=== PATIENT | male | born 1970 | race Caucasian/White ===

== ENCOUNTER 2017-02-03 14:11 | Emergency (ER) | payer MEDICARE ==
[2017-02-03 14:39] LABS: #Basophils 0.1 thou/uL (0.0-0.2); #Eosinphils 0.1 thou/uL (0.0-0.7); #Lymphocytes 0.7 thou/uL (1.20-3.40); #Monocytes 0.3 thou/uL (0.11-0.59); #Neutrophils 4.1 thou/uL (1.40-6.50); %Basophils 1.3 % (0.0-1.0); %Eosinophils 1.1 % (0.0-10.0); %Lymphocytes 13.2 % (21.0-51.0); %Monocytes 5.8 % (0.0-10.0); Hematocrit 33.4 % (42.0-52.0); Mean Platelet Volume 9.4 fL (7.4-10.4); Red Blood Cell (RBC) Count 3.27 mill/uL (4.70-6.10); White Blood Cell (WBC) Count 5.2 thou/uL (4.8-10.8)
[2017-02-03 15:00] LABS: ALT (SGPT) 11 U/L (8-55); AST (SGOT) 25 U/L (5-34); Alkaline Phosphatase 105 U/L (40-150); BUN (Urea Nitrogen) 11 mg/dL (8.9-20.6); Bilirubin, Total 0.9 mg/dL (0.2-1.2); CK (CPK) 126 U/L (30-200); Calc. Creatinine Clearance 0 mL/min (70-130); Calcium 8.4 mg/dL (7.8-10.44); Estimated GFR-MDRD 16; Globulin 3.8 g/dL (2.4-3.5); Lipase 51 U/L (8-78); Protein, Total 7.6 g/dL (6.0-8.3)
[2017-02-03 15:03] LABS: Troponin I 0.025 ng/mL (< 0.028)
[2017-02-03 15:11] LABS: Anion Gap 16 mmol/L (10-20); Carbon Dioxide 34 mmol/L (22-29); Chloride 92 mmol/L (98-107)
--- NOTE | 2017-02-03 16:29 | RAD ---
CHEST 1 VIEW: Date: 02/03/17 COMPARISON: 06/28/16 study. HISTORY: Chest pain. FINDINGS: Heart size is enlarged. Postop sternotomy change and valve replacement. Pleural changes in the right lung are similar to the prior exam. No signs of overt failure. IMPRESSION: Cardiomegaly with chronic-appearing lung change. POS: [facility]
== END 2017-02-03 17:46 | disposition home or self-care (01) ==
LOC: ERS 14:11
DX: R07.1 Chest pain on breathing (principal); R09.02 Hypoxemia; J44.9 Chronic obstructive pulmonary disease, unspecified; I12.0 Hypertensive chronic kidney disease with stage 5 chronic kidney disease or end stage renal disease; N18.6 End stage renal disease; F41.9 Anxiety disorder, unspecified; F32.9 Major depressive disorder, single episode, unspecified; Z87.891 Personal history of nicotine dependence; Z99.2 Dependence on renal dialysis
CPT/HCPCS: 71010; 80053; 82553; 83690; 84484; 85025; 93005

== ENCOUNTER 2017-02-15 15:27 | Emergency (ER) | payer MEDICARE ==
[2017-02-15 16:04] LABS: #Basophils 0.1 thou/uL (0.0-0.2); #Lymphocytes 0.5 thou/uL (1.20-3.40); #Monocytes 0.4 thou/uL (0.11-0.59); %Basophils 0.9 % (0.0-1.0); %Eosinophils 0.3 % (0.0-10.0); %Lymphocytes 8.1 % (21.0-51.0); Hematocrit 31.4 % (42.0-52.0); Mean Platelet Volume 8.8 fL (7.4-10.4); Red Blood Cell (RBC) Count 3.11 mill/uL (4.70-6.10)
[2017-02-15 16:10] LABS: Prothrombin Time 47.2 SEC (12.0-14.7)
[2017-02-15 16:11] LABS: PTT 68.9 SEC (22.9-36.1)
[2017-02-15 16:41] LABS: ALT (SGPT) 15 U/L (8-55); AST (SGOT) 40 U/L (5-34); Alkaline Phosphatase 112 U/L (40-150); Anion Gap 16 mmol/L (10-20); BUN (Urea Nitrogen) 20 mg/dL (8.9-20.6); Bilirubin, Total 0.8 mg/dL (0.2-1.2); Calc. Creatinine Clearance 0 mL/min (70-130); Calcium 8.3 mg/dL (7.8-10.44); Carbon Dioxide 33 mmol/L (22-29); Chloride 97 mmol/L (98-107); Estimated GFR-MDRD 12; Globulin 4.4 g/dL (2.4-3.5); Protein, Total 7.9 g/dL (6.0-8.3)
== END 2017-02-15 18:10 | disposition home or self-care (01) ==
LOC: ERS 15:27
DX: S01.532A Puncture wound without foreign body of oral cavity, initial encounter (principal); S01.312A Laceration without foreign body of left ear, initial encounter; D68.9 Coagulation defect, unspecified; I12.0 Hypertensive chronic kidney disease with stage 5 chronic kidney disease or end stage renal disease; N18.6 End stage renal disease; J44.9 Chronic obstructive pulmonary disease, unspecified; D64.9 Anemia, unspecified; E05.90 Thyrotoxicosis, unspecified without thyrotoxic crisis or storm; F41.9 Anxiety disorder, unspecified; F32.9 Major depressive disorder, single episode, unspecified; Z87.891 Personal history of nicotine dependence; Z79.82 Long term (current) use of aspirin; Z79.01 Long term (current) use of anticoagulants; Z79.899 Other long term (current) drug therapy; Y33.XXXA Other specified events, undetermined intent, initial encounter
CPT/HCPCS: 80053; 85025; 85610; 85730; 86850; 86870; 86900; 86901; 86922

== ENCOUNTER 2017-02-18 11:26 | Inpatient (IN) | payer MEDICARE ==
[2017-02-18 12:20] LABS: #Basophils 0.1 thou/uL (0.0-0.2); #Lymphocytes 0.6 thou/uL (1.20-3.40); #Monocytes 0.5 thou/uL (0.11-0.59); #Neutrophils 4.7 thou/uL (1.40-6.50); %Eosinophils 0.8 % (0.0-10.0); %Lymphocytes 9.7 % (21.0-51.0); %Monocytes 8.3 % (0.0-10.0); Hematocrit 29.3 % (42.0-52.0); Mean Platelet Volume 8.7 fL (7.4-10.4); Red Blood Cell (RBC) Count 2.93 mill/uL (4.70-6.10); White Blood Cell (WBC) Count 5.8 thou/uL (4.8-10.8)
[2017-02-18 12:27] LABS: PTT 63.4 SEC (22.9-36.1); Prothrombin Time 25.2 SEC (12.0-14.7)
[2017-02-18 12:44] LABS: ALT (SGPT) 13 U/L (8-55); AST (SGOT) 35 U/L (5-34); Alkaline Phosphatase 103 U/L (40-150); Anion Gap 10 mmol/L (10-20); BUN (Urea Nitrogen) 16 mg/dL (8.9-20.6); Bilirubin, Total 0.9 mg/dL (0.2-1.2); Calc. Creatinine Clearance 0 mL/min (70-130); Calcium 8.5 mg/dL (7.8-10.44); Carbon Dioxide 37 mmol/L (22-29); Chloride 97 mmol/L (98-107); Estimated GFR-MDRD 14; Globulin 4.3 g/dL (2.4-3.5); Protein, Total 7.7 g/dL (6.0-8.3)
[2017-02-18] MEDS ORDERED: Morphine 4 MG/ML VIAL ONE ×2 (15:04→17:02)
[2017-02-18 15:15] LABS: Lactic Acid - Sepsis 2.2 mmol/L (0.5-2.2)
[2017-02-18] MEDS ORDERED: Vancomycin HCl 1.75 GM in Sodium Chloride 0.9% 500 ML IVPB ONE (15:15)
--- NOTE | 2017-02-18 16:22 | ULT ---
VENOUS DOPPLER ULTRASOUND OF THE RIGHT LOWER EXTREMITY: Date: 02/18/17 HISTORY: Right lower leg pain, edema. TECHNIQUE: Grijalva scale ultrasound with color flow and spectral Doppler imaging of the deep venous system of the r ight lower extremity performed. FINDINGS: There is good flow, compression, and augmentation noted in the right common femoral, femoral, deep fe moral, popliteal, posterior tibial, and greater saphenous veins. IMPRESSION: No evidence of deep venous thrombosis in the right lower extremity. POS: [facility]
[2017-02-18] MEDS ORDERED: hydrALAZINE 20 MG/ML VIAL ONE (16:58)
--- NOTE | 2017-02-18 17:19 | RAD ---
THREE VIEWS RIGHT FOOT: Date: 02-18-17 Comparison: None. History: Bleeding ulcer to the right leg. FINDINGS: There is no radiopaque foreign body or subcutaneous gas. Vascular calcification projects between the first and second metatarsals. There is a nondisplaced transverse fracture involving the proximal shaft of the fifth metatarsal. There is marked soft tissue swelling involving the dorsal aspect of the mid and forefoot. IMPRESSION: 1. Marked nonspecific soft tissue swelling which could be related to trauma or infection. 2. Nondisplaced transverse fracture involving the proximal right fifth metatarsal shaft. POS: [facility]
--- NOTE | 2017-02-18 22:25 | CON ---
DATE OF CONSULTATION: 02/18/2017 NEPHROLOGY CONSULT REASON FOR CONSULTATION: Stage 6 chronic kidney disease on maintenance hemodialysis. HISTORY OF PRESENT ILLNESS: This is a very pleasant 46-year-old gentleman who presented to the [facility] with excessive bleeding. The patient denies any nausea, vomiting, or chest pain. The patient is on anticoagulation. The patient denies headache, numbness, tingling, or weakness. PAST MEDICAL HISTORY: End-stage renal disease, hypertension, anemia, history of Epogen resistance, h istory of congestive heart failure, aortic valve replacement, sleep apnea, secondary hyperparathyroid ism, multiple skin ulcers, dialysis access surgery, history of peritoneal dialysis. HOME MEDICATIONS: Reviewed. HOSPITAL MEDICATIONS: Reviewed. ALLERGIES: Reviewed. FAMILY HISTORY: Negative for ESRD. REVIEW OF SYSTEMS: A 15-point review of systems was performed and negative except positives noted ab ove. GENERAL: Weakness-. HEAD: Headache-. NECK: No swelling or lumps. NOSE: No epistaxis or discharge. EYES: No diplopia or pain. RESPIRATORY: Dyspnea-. CARDIOVASCULAR: Chest pain-. GASTROINTESTINAL: Nausea-. /BLEACH PACKER: Hematuria-. MUSCULOSKELETAL: No joint pain. NEUROPSYCHIATIC SYSTEMS: No suicidal ideation. No ideation. SKIN: Denies any rash or ulcer. CONSTITUTIONAL: No fever or chills. PHYSICAL EXAMINATION: GENERAL: Patient is awake, alert. VITAL SIGNS: Afebrile, pulse 70, breathing at 16, blood pressure 130/70. GENERAL APPEARANCE AND MENTAL STATUS: Fair. HEAD/NECK: Normocephalic. Atraumatic. Supple. EYES: EOMI. No deformity. EARS: Clear. No ulcers. NOSE: Intact. No lesions. MOUTH: Clear. No discharge. THROAT: Clear. No exudate. LUNGS: Clear. No crackles. CARDIAC: S1, S2. No rub. ABDOMEN: Benign. BS+. GENITALIA/RECTUM: Green absent. BACK/EXTREMITIES: Lower extremities have edema and bleeding. Ulcer-. NEUROLOGICAL: Alert and motor intact. SKIN: Rash-, Bruise-. LYMPHATICS: Edema-, Ulcer-. LABORATORY DATA: Show hemoglobin 9.6. ASSESSMENT AND RECOMMENDATIONS: 1. Stage 6 chronic kidney disease. No indication for dialysis. 2. Hypertension, stable. 3. Anemia, stable. 4. Medications based on glomerular filtration rate appropriate, excessive bleeding management per pr imary team.
[2017-02-18] MEDS ORDERED: Ondansetron ODT 4 MG TAB SL PRN (22:58)
[2017-02-18] MEDS ORDERED: Ondansetron HCl/PF 4 MG/2 ML Vial IVP PRN (22:58)
[2017-02-18] MEDS ORDERED: Acetaminophen 325 MG TAB PO PRN (22:58)
[2017-02-19] MEDS: HYDROcodone/Acetaminophen 5/325 mg Tablet PO PRN ×2 (05:35→18:17)
[2017-02-19 06:13] LABS: #Basophils 0.1 thou/uL (0.0-0.2); #Lymphocytes 0.6 thou/uL (1.20-3.40); #Monocytes 0.5 thou/uL (0.11-0.59); #Neutrophils 4.3 thou/uL (1.40-6.50); %Eosinophils 0.5 % (0.0-10.0); %Monocytes 8.5 % (0.0-10.0); Mean Platelet Volume 8.2 fL (7.4-10.4); Red Blood Cell (RBC) Count 2.87 mill/uL (4.70-6.10); White Blood Cell (WBC) Count 5.4 thou/uL (4.8-10.8)
[2017-02-19 06:17] LABS: Prothrombin Time 21.2 SEC (12.0-14.7)
[2017-02-19] MEDS ORDERED: Vancomycin HCl 1 GM in Premix Bag 1 BAG IVPB PRN (06:52)
[2017-02-19] MEDS ORDERED: Vancomycin HCl 1.25 GM in Sodium Chloride 0.9% 250 ML 250 ML IVPB PRN (06:52)
[2017-02-19] MEDS ORDERED: HOLD VANCOMYCIN FOR LEVEL >20 FS PRN (06:53)
[2017-02-19] MEDS ORDERED: Vancomycin HCl 750 MG in Sodium Chloride 0.9% 250 ML 250 ML IVPB PRN (06:53)
[2017-02-19 10:49] VITALS: BMI 32.2
--- NOTE | 2017-02-19 12:39 | PRG ---
DATE OF SERVICE: 02/19/2017 SUBJECTIVE: This is a 46-year-old gentleman being seen for end-stage renal disease. Patient denies any nausea, vomiting, or chest pain. OBJECTIVE: See above. GENERAL: Patient is awake, alert. VITAL SIGNS: Afebrile, pulse 74, breathing at 16, blood pressure 118/72. GENERAL APPEARANCE AND MENTAL STATUS: Fair. HEAD/NECK: Normocephalic. Atraumatic. EYES: EOMI. No deformity. EARS: Clear. No ulcers. NOSE: Intact. No lesions. MOUTH: Clear. No discharge. THROAT: Clear. No exudate. LUNGS: Clear. No crackles. CARDIAC: S1, S2. No rub. ABDOMEN: Benign. BS+. GENITALIA/RECTUM: Green absent. BACK/EXTREMITIES: Right lower extremity has 4+ edema. NEUROLOGICAL: Alert and motor intact. SKIN: Rash - bruise. LYMPHATICS: Edema - ulcer. LABORATORY DATA: Labs show hemoglobin 9. ASSESSMENT AND RECOMMENDATIONS: 1. Stage 6 chronic kidney disease. Continue hemodialysis. Today, extra treatment to ultrafiltrate edema with planned dialysis. 2. Anemia, stable. 3. Hypertension, stable. 4. Medications based on glomerular filtration rate are appropriate.
--- NOTE | 2017-02-19 13:59 | HP ---
REASON FOR ADMISSION/CHIEF COMPLAINT: Right leg pain, swelling and bleeding. HISTORY OF PRESENT ILLNESS: Mr. Sheriff is a 46-year-old male with past medical history of end-stage renal disease on hemodialysis, noted swelling of the right leg with erythema and pain. The patient without knowledge scratched the right lower leg and then he started bleeding. The patient danny richards came to the hospital because of right leg swelling, pain, and bleeding. He did not have any fe jackelin or shortness of breath, no chest pain, no headache, no dizziness. The patient was evaluated in [facility] emergency room and found to have marked bleeding in the right lower leg with erythema and swelling . The patient had a pressure bandage applied to the right lower leg. The ER physician felt the lencho ent was possibly developing cellulitis in the lower leg and he was given a dose of vancomycin and giv en morphine for pain. Blood pressure was also elevated, he received a dose of hydralazine. The lencho ent already had dialysis. DVT study was negative. The patient was admitted for further evaluation a nd management. PAST MEDICAL HISTORY: 1. End-stage renal disease, on hemodialysis. 2. Chronic anemia. 3. Obstructive sleep apnea on CPAP. 4. Hypothyroidism. 5. History of respiratory syncytial virus. 6. History of atrial flutter, status post cardioversion. PAST SURGICAL HISTORY: Status post aortic valve replacement. CURRENT MEDICATIONS: Patient is on Coreg 12.5 b.i.d., aspirin 81 mg daily, pramipexole 2 mg daily, P roAir inhaler HFA 2 puffs q.i.d. p.r.n., Claritin 10 mg daily, tramadol p.r.n., Sensipar 60 mg b.i.d. , Renvela 800 mg 5 tablets three times daily, Xanax 0.5 daily p.r.n., Coumadin 6 mg daily. ALLERGIES: SULFA, PENICILLIN, ADHESIVE TAPE, PSEUDOEPHEDRINE. FAMILY HISTORY: Nothing of interest. SOCIAL HISTORY: Patient lives with mother. No history of smoking. No alcohol. REVIEW OF SYSTEMS: CARDIOVASCULAR: No chest pain. RESPIRATORY: No fever or cough. GASTROINTESTINAL: No nausea or vomiting. No abdominal pain. GENITOURINARY: No distension. [employer] LIGHT: No headache, no dizziness. PHYSICAL EXAMINATION: GENERAL: The patient is alert, awake, oriented x3. VITAL SIGNS: Temperature 98, pulse 83, respirations 20, blood pressure 110/70. HEENT: Head is normocephalic, atraumatic. Pupils equal and reactive to light. Nasopharynx is pale and dry. Hard and soft palate, no lesions seen. SKIN: Skin turgor decreased. NECK: Supple. No JVD. LUNGS: Bilateral air entry present, no rales, no rhonchi. CARDIAC: S1, S2 regular. ABDOMEN: Soft, no distention, no tenderness. Normal bowel sounds present. RECTAL: Deferred. CENTRAL NERVOUS SYSTEM: No focal deficits. EXTREMITIES: Right lower leg is markedly swollen, it is warm to touch and tender and has erythema p resent. There is a pressure bandage on the lower leg which is soaked with blood. LABORATORY AND X-RAY FINDINGS: CBC shows WBC 5.8, hemoglobin 9.3, hematocrit 29, platelets 172. Met abolic panel shows sodium 140, potassium 4, chloride 97, CO2 37, BUN 16, creatinine 4.4, glucose 76. Prothrombin time 25, INR 2.2. Vascular ultrasound showed no evidence of DVT. Chest x-ray not done. X-ray of the foot showed nondi splaced fracture involving the proximal right fifth metatarsal. ASSESSMENT: 1. Possible right leg cellulitis. 2. Bleeding right lower leg. 3. End-stage renal disease, on hemodialysis. 4. Status post aortic valve replacement. 5. History of obstructive sleep apnea. PLAN: 1. Vital signs q.4 hours. 2. Activity: As tolerated. 3. Allergies: multiple. 4. Hep-Lock. 5. Vancomycin 1 gram daily. 6. Elevate right leg. 7. Monitor for bleeding. 8. PT/INR, CBC in the morning. 9. We will continue his home medications and hemodialysis.
[2017-02-19 15:37] LABS: Vancomycin, Trough 18.5 ug/mL
[2017-02-19] MEDS: Vancomycin HCl 500 MG in Sodium Chloride 0.9% 100 ML IVPB PRN (16:03)
[2017-02-19] MEDS ORDERED: Acetaminophen 500 MG TAB PO PRN (19:15)
[2017-02-19] MEDS ORDERED: Warfarin Sodium 10 MG TAB PO SCH (19:15)
[2017-02-19] MEDS ORDERED: ALPRAZolam 0.5 MG TAB PO PRN (19:16)
[2017-02-19] MEDS ORDERED: Guaifenesin DM 100-10/5 ML UDCUP PO PRN (19:17)
[2017-02-19] MEDS: Pramipexole Di-HCl 1 MG TAB PO SCH (20:16)
[2017-02-19] MEDS: Cinacalcet HCl 30 MG TAB PO SCH (20:16)
[2017-02-19] MEDS: Carvedilol 6.25 MG TAB PO SCH (20:17)
[2017-02-19] MEDS ORDERED: traMADol HCl 50 MG TAB PO SCH (21:00)
[2017-02-20 06:01] LABS: PTT 50.8 SEC (22.9-36.1); Prothrombin Time 18.6 SEC (12.0-14.7)
[2017-02-20 06:08] LABS: #Lymphocytes 0.8 thou/uL (1.20-3.40); #Monocytes 0.5 thou/uL (0.11-0.59); #Neutrophils 3.8 thou/uL (1.40-6.50); %Basophils 0.3 % (0.0-1.0); %Eosinophils 0.3 % (0.0-10.0); %Lymphocytes 16.3 % (21.0-51.0); Hematocrit 30.4 % (42.0-52.0); Mean Platelet Volume 9.1 fL (7.4-10.4); White Blood Cell (WBC) Count 5.1 thou/uL (4.8-10.8)
[2017-02-20] MEDS ORDERED: Vancomycin Sliding Scale 1 EACH FS SCH (07:00)
[2017-02-20] MEDS ORDERED: traMADol HCl 50 MG TAB PO PRN (07:21)
[2017-02-20] MEDS: Cinacalcet HCl 30 MG TAB PO SCH ×2 (07:59→20:01)
[2017-02-20] MEDS: Folic Acid 1 MG TAB PO SCH (07:59)
[2017-02-20] MEDS: Loratadine 10 MG TAB PO SCH (07:59)
[2017-02-20] MEDS: Ferrous Sulfate 325 MG TAB PO SCH (07:59)
[2017-02-20] MEDS: Carvedilol 6.25 MG TAB PO SCH ×2 (07:59→20:02)
[2017-02-20] MEDS: Sevelamer Carbonate 800 MG TAB PO SCH ×3 (07:59→20:02)
[2017-02-20] MEDS: Aspirin 81 mg Enteric Coated Tablet PO SCH (07:59)
[2017-02-20] MEDS: PROVENTIL INHALER 6.7 G (200 INHALATIONS) INH SCH ×3 (08:12→19:33)
--- NOTE | 2017-02-20 09:00 | CON ---
DATE OF CONSULTATION: 02/20/2017 CONSULTING PHYSICIAN: Dr. Wang Lentz HISTORY OF PRESENT ILLNESS: We were asked to see the patient by the [facility] Service. The patient was in his normal state of health when he was vacuuming and started having some right foot pain on the la teral side. This did not get better. The patient is admitted to the hospital for medical issues. N o numbness and tingling in the foot, just a significant amount of pain. It is a struggle for him to walk. PAST MEDICAL HISTORY: Positive for renal disease, anemia, obstructive sleep apnea, thyroid, atrial f lutter. PAST SURGICAL HISTORY: Aortic valve replacement and a fistula graft for his dialysis. MEDICATIONS: Coreg, aspirin, pramipexole, ProAir MDI, Claritin, tramadol, Sensipar, Renvela, Xanax, and Coumadin. ALLERGIES: SULFA, PENICILLIN, ADHESIVES, SUDAFED. SOCIAL HISTORY: Resides with mother. No alcohol or nicotine use. REVIEW OF SYSTEMS: He has multiple complaints of review of systems for general purpose he has right foot pain. PHYSICAL EXAMINATION: GENERAL: Male, well-nourished, resting in bed, complains of some foot pain. He also has questions a bout his right shoulder. HEENT: Normal exam. NECK: Supple range of motion, good. EXTREMITIES: Upper extremities, he is not able to raise his right upper extremity. He has had some shoulder problems that he has seen Dr. Dang in the past for. He says it is getting worse. I have recommended he return back to Dr. Dang for further evaluation. He is able to move bilateral uppe r extremities from the elbows and left shoulder well. Director Fr[employer]ise [employer] strength is equal. Lower extremities; he has tenderness over the right fifth metatarsal head, but he is able to move his foot. He does have some mild swelling there. DP, PT pulses are intact. ASSESSMENT: 1. Multiple health issues. 2. Fifth metatarsal fracture. PLAN: X-rays show fracture is nondisplaced. We will get him in a walking shoe. He can start workin g with physical therapy as he is able to tolerate and as his other medical ailments will allow. He c an follow up with our office in 4-6 weeks or he can follow up with Dr. Dang to have his foot and s houlder evaluated. Given the recommendation to patient and currently he has no surgical intervention s.
[2017-02-20] MEDS: HYDROcodone/Acetaminophen 5/325 mg Tablet PO PRN (12:06)
--- NOTE | 2017-02-20 12:19 | PRG ---
DATE OF SERVICE: 02/20/2017 SUBJECTIVE: This is a 46-year-old gentleman being seen for end-stage renal disease. Patient denies any nausea, vomiting or chest pain. PHYSICAL EXAMINATION: GENERAL: Patient is awake, alert. VITAL SIGNS: Afebrile, pulse 75, breathing at 16, blood pressure 130/81. OBJECTIVE: See above. Awake, alert, in no acute distress. GENERAL APPEARANCE AND MENTAL STATUS: Fair. HEAD/NECK: Normocephalic. Atraumatic. EYES: EOMI. No deformity. EARS: Clear. No ulcers. NOSE: Intact. No lesions. MOUTH: Clear. No discharge. THROAT: Clear. No exudate. LUNGS: Clear. No crackles. CARDIAC: S1, S2. No rub. ABDOMEN: Benign. BS+. GENITALIA/RECTUM: Green absent. BACK/EXTREMITIES: Edema. Ulcer- NEUROLOGICAL: Alert and motor intact. SKIN: Rash- Bruise- LYMPHATICS: Edema- Ulcer- LABORATORY: Hemoglobin 9.3. ASSESSMENT AND RECOMMENDATIONS: 1. Stage 6 chronic kidney disease, on hemodialysis. 2. Hypertension, stable. 3. Anemia, stable. 4. Medications based on GFR are appropriate.
[2017-02-20 15:58] LABS: Vancomycin, Random 13.3 ug/mL (See Comment)
[2017-02-20] MEDS ORDERED: Warfarin Sodium 2.5 MG TAB PO SCH (17:00)
[2017-02-20] MEDS: Pramipexole Di-HCl 1 MG TAB PO SCH (20:01)
[2017-02-20] MEDS: Warfarin Sodium 3 MG TAB PO SCH (20:01)
[2017-02-21] MEDS: PROVENTIL INHALER 6.7 G (200 INHALATIONS) INH SCH ×3 (06:31→19:15)
[2017-02-21] MEDS: Carvedilol 6.25 MG TAB PO SCH ×2 (08:29→19:41)
[2017-02-21] MEDS: Cinacalcet HCl 30 MG TAB PO SCH ×2 (08:29→19:41)
[2017-02-21] MEDS: Loratadine 10 MG TAB PO SCH (08:29)
[2017-02-21] MEDS: Aspirin 81 mg Enteric Coated Tablet PO SCH (08:30)
[2017-02-21] MEDS: Folic Acid 1 MG TAB PO SCH (08:30)
[2017-02-21] MEDS: Ferrous Sulfate 325 MG TAB PO SCH (08:30)
[2017-02-21] MEDS: Sevelamer Carbonate 800 MG TAB PO SCH ×3 (09:44→17:44)
--- NOTE | 2017-02-21 12:24 | PRG ---
DATE OF SERVICE: 02/21/2017 SUBJECTIVE: This is a 46-year-old gentleman being seen for end-stage renal disease. The patient den ies any nausea, vomiting or chest pain. PHYSICAL EXAMINATION: GENERAL: Patient is awake, alert. VITAL SIGNS: Afebrile, pulse 85, breathing at 16, blood pressure 104/68. OBJECTIVE: See above. Awake, alert, in no acute distress. GENERAL APPEARANCE AND MENTAL STATUS: Fair. HEAD/NECK: Normocephalic. Atraumatic. EYES: EOMI. No deformity. EARS: Clear. No ulcers. NOSE: Intact. No lesions. MOUTH: Clear. No discharge. THROAT: Clear. No exudate. LUNGS: Clear. No crackles. CARDIAC: S1, S2. No rub. ABDOMEN: Benign. BS+. GENITALIA/RECTUM: Green absent. BACK/EXTREMITIES: Lower extremities have edema. Ulcer- NEUROLOGICAL: Alert and motor intact. SKIN: Rash- Bruise- LYMPHATICS: Edema- Ulcer- LABORATORY: Hemoglobin 9.4. ASSESSMENT: 1. Stage 6 chronic kidney disease, continue hemodialysis. 2. Hypertension, stable. 3. Anemia, stable. 4. Medications based on GFR are appropriate. 5. Secondary hyperparathyroidism. Continue low phosphorus diet and binders.
[2017-02-21] MEDS: Warfarin Sodium 3 MG TAB PO SCH (17:47)
[2017-02-21] MEDS: Pramipexole Di-HCl 1 MG TAB PO SCH (19:41)
[2017-02-21] MEDS: HYDROcodone/Acetaminophen 5/325 mg Tablet PO PRN (23:40)
[2017-02-22 05:51] LABS: Prothrombin Time 23.5 SEC (12.0-14.7)
[2017-02-22] MEDS: PROVENTIL INHALER 6.7 G (200 INHALATIONS) INH SCH ×3 (05:56→18:19)
[2017-02-22 07:23] VITALS: TEMP 97.9
[2017-02-22] MEDS: Carvedilol 6.25 MG TAB PO SCH (08:44)
[2017-02-22] MEDS: Sevelamer Carbonate 800 MG TAB PO SCH ×3 (08:44→19:05)
[2017-02-22] MEDS: Ferrous Sulfate 325 MG TAB PO SCH (08:45)
[2017-02-22] MEDS: Folic Acid 1 MG TAB PO SCH (08:45)
[2017-02-22] MEDS: Loratadine 10 MG TAB PO SCH (08:45)
[2017-02-22] MEDS: Cinacalcet HCl 30 MG TAB PO SCH (08:45)
[2017-02-22] MEDS: Aspirin 81 mg Enteric Coated Tablet PO SCH (08:45)
[2017-02-22 12:53] LABS: Vancomycin, Random 15.7 ug/mL (See Comment)
[2017-02-22] MEDS: Vancomycin HCl 500 MG in Sodium Chloride 0.9% 100 ML IVPB PRN (17:02)
[2017-02-22] MEDS: Warfarin Sodium 3 MG TAB PO SCH (18:41)
[2017-02-22 19:06] VITALS: BP 126/75
--- NOTE | 2017-02-22 19:49 | PRG ---
DATE OF SERVICE: 02/22/2017 SUBJECTIVE: This is a 46-year-old gentleman being seen for end-stage renal disease. The patient denies any nausea, vomiting or chest pain. PHYSICAL EXAMINATION: GENERAL: Patient is awake, alert. VITAL SIGNS: Afebrile, pulse 70, breathing at 16, blood pressure 112/76. GENERAL APPEARANCE AND MENTAL STATUS: Fair. HEAD/NECK: Normocephalic. Atraumatic. EYES: EOMI. No deformity. EARS: Clear. No ulcers. NOSE: Intact. No lesions. MOUTH: Clear. No discharge. THROAT: Clear. No exudate. LUNGS: Clear. No crackles. CARDIAC: S1, S2. No rub. ABDOMEN: Benign. BS+. GENITALIA/RECTUM: Green absent. BACK/EXTREMITIES: Edema 0+ Ulcer- NEUROLOGICAL: Alert and motor intact. SKIN: Rash- Bruise- LYMPHATICS: Edema- Ulcer- LABORATORY: Hemoglobin 9.4. ASSESSMENT: 1. Stage6 chronic kidney disease, continue hemodialysis. 2. Hypertension, stable. 3. Anemia, stable. 4. Medications based on glomerular filtration rate are appropriate. MTDD
[2017-02-23] MEDS ORDERED: Warfarin Sodium 10 MG TAB PO SCH (17:00)
== END 2017-02-22 19:13 | disposition home or self-care (01) | DRG 602 ==
LOC: ERS 11:26 → T4-A 22:49
PROVIDERS: ADMIT Internal Medicine; ATTEND Internal Medicine
PROC: 5A1D70Z Performance of Urinary Filtration, Intermittent, Less than 6 Hours Per Day (ICD-10-PCS; principal; 2017-02-20)
DX: L03.115 Cellulitis of right lower limb (principal); N18.6 End stage renal disease; I12.0 Hypertensive chronic kidney disease with stage 5 chronic kidney disease or end stage renal disease; N25.81 Secondary hyperparathyroidism of renal origin; I48.92 Unspecified atrial flutter; Z99.81 Dependence on supplemental oxygen; D63.1 Anemia in chronic kidney disease; E03.9 Hypothyroidism, unspecified; S92.354A Nondisplaced fracture of fifth metatarsal bone, right foot, initial encounter for closed fracture; G47.33 Obstructive sleep apnea (adult) (pediatric); Z99.2 Dependence on renal dialysis; Z95.2 Presence of prosthetic heart valve; Z88.0 Allergy status to penicillin; Z88.2 Allergy status to sulfonamides; Z88.8 Allergy status to other drugs, medicaments and biological substances; J44.9 Chronic obstructive pulmonary disease, unspecified; G25.81 Restless legs syndrome; Z87.891 Personal history of nicotine dependence; F41.9 Anxiety disorder, unspecified; F32.9 Major depressive disorder, single episode, unspecified; E66.01 Morbid (severe) obesity due to excess calories; Z68.32 Body mass index [BMI] 32.0-32.9, adult
CPT/HCPCS: 36415; 36416; 80053; 80202; 83605; 83735; 85025; 85610; 85730; 86850; 86870; 86900; 86901; 86922; 87040; 90935; 96365; 96366; 96375; 96376; A4216; G0257; G8978-GP-CI; G8979-GP-CI; G8980-GP-CI; J0360; J2270; J3370; J7050

== ENCOUNTER 2017-04-01 16:29 | Inpatient (IN) | payer MEDICARE ==
[2017-04-01 16:47] LABS: pH, Arterial 7.28 (7.35-7.45)
[2017-04-01 16:48] LABS: Actual Bicarbonate (HCO3a) 33.4 mEq/L (22-26); Base Excess (BEa) 5.1 mEq/L (0 (+/-) 2.5); O2 Tension (PaO2) 26.9 mmHg (80.0-100.0)
[2017-04-01 16:49] LABS: Analyzer IN Cardio ER; Hemoglobin (Hb) 9.9 g/dL (14.0-18.0); Puncture Site LRA
[2017-04-01] MEDS ORDERED: Acetaminophen 650 MG Suppository ONE (16:57)
--- NOTE | 2017-04-01 16:59 | RAD ---
SINGLE VIEW OF THE CHEST: Comparison: 02-03-17 History: Dyspnea and shortness of breath that started yesterday. FINDINGS: Single view of the chest shows an enlarged but stable cardiomediastinal silhouette. The patient is st atus post aortic valve replacement. There appears to be a small right pleural effusion. Increased int erstitial markings are present. Atelectasis versus an infiltrate is seen in the right lower lobe. No significant change has occurred since the prior exam. IMPRESSION: 1. Small right pleural effusion with adjacent atelectasis versus infiltrate. 2. Cardiomegaly. POS: [facility]
[2017-04-01 18:19] LABS: #Lymphocytes 1.2 thou/uL (1.20-3.40); #Monocytes 0.7 thou/uL (0.11-0.59); #Neutrophils 9.3 thou/uL (1.40-6.50); %Basophils 0.3 % (0.0-1.0); %Eosinophils 0.3 % (0.0-10.0); %Lymphocytes 10.8 % (21.0-51.0); %Monocytes 6.5 % (0.0-10.0); %Neutrophils 82.1 % (42.0-75.0); Hemoglobin 9.4 g/dL (14.0-18.0); Mean Corpuscular Hemoglobin 30.9 pg (27.0-31.0); Mean Platelet Volume 9.1 fL (7.4-10.4); Platelet Count 126 thou/uL (130-400); Red Blood Cell (RBC) Count 3.05 mill/uL (4.70-6.10); White Blood Cell (WBC) Count 11.3 thou/uL (4.8-10.8)
[2017-04-01 18:24] LABS: INR-International Normal Ratio 2.9; PTT 42.1 SEC (22.9-36.1); Prothrombin Time 31.1 SEC (12.0-14.7)
[2017-04-01 18:40] LABS: ALT (SGPT) 21 U/L (8-55); AST (SGOT) 104 U/L (5-34); Albumin 3.3 g/dL (3.5-5.0); Alkaline Phosphatase 105 U/L (40-150); Anion Gap 19 mmol/L (10-20); Anisocytosis SLIGHT = 6-15 cells (100X) (0-5/hpf); BUN (Urea Nitrogen) 18 mg/dL (8.9-20.6); Bilirubin, Total 1.2 mg/dL (0.2-1.2); CK (CPK) 108 U/L (30-200); Calc. Creatinine Clearance 0 mL/min (70-130); Calcium 8.2 mg/dL (7.8-10.44); Carbon Dioxide 25 mmol/L (22-29); Chloride 99 mmol/L (98-107); Estimated GFR-MDRD 16; Globulin 4.3 g/dL (2.4-3.5); Glucose 70 mg/dL (70-105); MDiff Complete? YES; Macrocytosis SLIGHT = 6-15 cells (100X) (0-5/hpf); Microcytosis SLIGHT = 6-15 cells (100X) (0-5/hpf); PLT Morphology Comment Appears Adequate; Polychromasia MODERATE = 3-4 cells (100X) (0-2/hpf); Potassium 3.9 mmol/L (3.5-5.1); Protein, Total 7.6 g/dL (6.0-8.3); Rouleaux Formation SLIGHT = 1-5 cells (100X) (None Seen); Sodium 139 mmol/L (136-145)
[2017-04-01 18:44] LABS: CKMB 3.8 ng/mL (0-6.6)
[2017-04-01] MEDS ORDERED: Pantoprazole 40 MG VIAL ONE (18:59)
--- NOTE | 2017-04-01 19:02 | RAD ---
PORTABLE AP CHEST RADIOGRAPH: Date: 04-01-17 History: Intubated. Comparison: 04-01-17 at 0442. FINDINGS: There has been interval placement of an endotracheal tube with the tip overlying the T3-4 level and a annie the level of the dread. There has also been interval placement of a nasogastric tube with the m ost proximal side hole overlying the distal esophagus and the tip overlying the expected location of the gastric cardia. Nasogastric tube should be advanced. Post-surgical changes related to median sternotomy and cardiac valve replacement are noted. Cardiac s ilhouette is enlarged. Again noted is pleural and parenchymal changes of the right lung base, probabl y related to right pleural effusion and atelectasis. However, developing pneumonia at the right lung base is a possibility. Left lung is clear. Pulmonary vasculature is within normal limits. No other in terval change. There is prominent right glenohumeral osteoarthropathy. No other interval change. IMPRESSION: 1. Interval placement of a nasogastric tube, the tip is overlying the region of the gastric cardia wi th the most proximal side hole overlying the distal esophagus. The nasogastric tube should be advanc ed. 2. Interval placement of an endotracheal tube with tip above the level of the dread. 3. Pleural and parenchymal changes, right lung base, with pleural based density along the right later al chest. This is likely related to right pleural effusion and atelectasis. However, superimposed pne umonia at the right lung base is a possibility. Follow up to resolution is recommended. 4. Cardiomegaly. POS: [facility]
[2017-04-01 19:03] LABS: Actual Bicarbonate (HCO3a) 30.5 mEq/L (22-26); Base Excess (BEa) 3.9 mEq/L (0 (+/-) 2.5); CO2 Tension 58.4 mmHg (35.0-45.0); Hematocrit-ABG 27.9 % (42.0-52.0); Hemoglobin (Hb) 7.8 g/dL (14.0-18.0); O2 Tension (PaO2) 186.2 mmHg (80.0-100.0); pH, Arterial 7.34 (7.35-7.45)
[2017-04-01 19:04] LABS: Analyzer IN Cardio ER; Puncture Site RRA
[2017-04-01] MEDS ORDERED: Pantoprazole 80 MG in Sodium Chloride 0.9% 100 ML IVP SCH (19:15)
[2017-04-01] MEDS ORDERED: Cefepime 2 GM in Sodium Chloride 0.9% 100 ML IVPB SCH (22:15)
[2017-04-01] MEDS ORDERED: Vancomycin HCl 1 GM in Premix Bag 1 BAG IVPB SCH (22:15)
[2017-04-01] MEDS ORDERED: Cefepime 2 GM, Syringe 2.5 ML in Sterile Water 10 ML SLOW IVP SCH (22:30)
--- NOTE | 2017-04-01 23:20 | CON ---
DATE OF CONSULTATION: 04/01/2017 NEPHROLOGY CONSULTATION REASON FOR CONSULTATION: Stage 6 chronic kidney disease. HISTORY OF PRESENT ILLNESS: This is a 46-year-old gentleman who presented to the hospital after feel ing weak. The patient had worsening dyspnea and was hypoxic and intubated. The patient can give no further history. PAST MEDICAL HISTORY: 1. Hypertension. 2. Coronary artery disease. 3. Aortic valve replacement. 4. History of anticoagulation. 5. Sleep apnea. 6. Secondary hyperparathyroidism. 7. History of calciphylaxis. 8. History of dialysis access surgery. 9. History of peritoneal dialysis catheter placement. 10. History of aortic valve replacement. 11. History of massive fluid gains. HOME MEDICATIONS: List reviewed. HOSPITAL MEDICATIONS: List reviewed. ALLERGIES: Not obtainable. REVIEW OF SYSTEMS: Not obtainable. The patient is intubated. PHYSICAL EXAMINATION: GENERAL: The patient is resting. VITAL SIGNS: Afebrile, pulse 80, breathing at 16, blood pressure was 84/40. GENERAL APPEARANCE AND MENTAL STATUS: Fair. HEAD/NECK: Normocephalic. Atraumatic. EYES: EOMI. No deformity. EARS: Clear. No ulcers. NOSE: Intact. No lesions. MOUTH: Clear. No discharge. THROAT: Clear. No exudate. LUNGS: Clear. No crackles. CARDIAC: S1, S2. No rub. ABDOMEN: Benign. BS+. GENITALIA/RECTUM: Green absent. BACK/EXTREMITIES: Edema 0+ Ulcer-. SKIN: Rash- Bruise- LYMPHATICS: Edema- Ulcer- LABORATORY DATA: Show hemoglobin 9.4, potassium 3.9. ASSESSMENT AND RECOMMENDATIONS: 1. Stage 6 chronic kidney disease, plan hemodialysis as tolerated. The patient's blood pressure is low, so cannot tolerate dialysis. 2. Anemia, stable. 3. Medications based on GFR appropriate.
--- NOTE | 2017-04-01 23:53 | CON ---
DATE OF CONSULTATION: 04/01/2017 HISTORY OF PRESENT ILLNESS: Mr. Sheriff is a very pleasant 46-year-old male. History is obtained fro m his mother who is at the bedside. Mr. Sheriff unfortunately is a diabetic with end-stage renal disease. He has had multiple hospitalizations here. He has been followed in the [facility]. He is also followed by Dr. Longo for his end-stage renal disease. Apparently, he was hypotensive on d ialysis and sent to the emergency room. He has subsequently been intubated. He had some respiratory distress associated with this. He is sedated for mechanical ventilation at this time. I initially evaluated him, he had a pressure in the 70s, was given a liter of saline, his pressure went up to 110 and he dropped back down into th e high 80s to low 90s, we given him another liter of saline. Initially, they were unable to get blood out of him. I have placed a central line, it was noted that blood will be drawn out of that. PAST MEDICAL HISTORY: 1. I have seen him in consultation early in 2017. He has end-stage renal disease. 2. He has an Acinetobacter bacteremia in early 2017. 3. History of sleep apnea. 4. Hypothyroidism. 5. History of atrial flutter. 6. History of an aortic valve replacement. His mother tells me his last INR was 3.7. SOCIAL HISTORY: He is a nonsmoker, nondrinker. MEDICATIONS: Have been reviewed. FAMILY HISTORY: Negative for lung disease at an early age. REVIEW OF SYSTEMS: Otherwise not obtainable. His mother denies he has had bright red blood per rect um. She says he has been constipated, she thinks for several days as he was asking for stool softene r, although he was telling her he was not constipated. PHYSICAL EXAMINATION: VITAL SIGNS: At the time of consultation, his blood pressure in the 90s, heart rate was around 100, he appeared to be in sinus rhythm. HEENT: Pupils were equal. Sclerae is anicteric. NECK: Supple. He is orally intubated. He had an OG tube that had old blood in it. LUNGS: His lungs were clear. HEART: Regular rhythm. S1 and S2 are normal. ABDOMEN: Soft, it is distended and firm. EXTREMITIES: Without asymmetry. LABORATORY DATA: White count 11.3, hemoglobin 9.4, MCV is 103, platelets 126. With his old blood in his NG tube and his hypotension, I have recommended that he be transfused. Sodium 139, potassium 3.9, chloride 99, bicarbonate 25, BUN 18, creatinine 4.14. First blood gas, pH of 7.28, CO2 of 73, pO2 of 26; second blood gas, pH of 7.34, CO2 of 58, pO2 of 186, I suspect that p revious gas was a venous gas. Chest radiograph showed no alveolar infiltrate suggestive of a pneumon ia. He has had pleural changes on past films at his right base. IMPRESSION: 1. Respiratory failure. 2. End-stage renal disease. 3. Hypotension, rule out blood loss. He is certainly at risk for being septic. Cultures will be or dered. 4. History of aortic valve replacement. 5. History of pneumonia. 6. Chronic anticoagulation. His INR is 2.9, this does not need to be reversed at this point. There is no bright red blood in his orogastric tube, this will need to be watch closely. PLAN: Admission to the Critical Care Unit. Serial H and H. His GI consultation and the ER doctor, placed to call the Dr. Sales, who is outreach professional. I do not feel he needs emergent endoscopy at this point. Empiric antibiotics would be reasonable after cultures are drawn. Nebulizer treatments while mechanically ventilated would be reasonable. Steroids would be as well. I will be happy to follow with the other physicians caring for him. Dr. Metzger has been his atte nding in the past and if he is still following, will be the attending. Critical care time 40 minutes independent of the procedure.
--- NOTE | 2017-04-02 00:04 | OP ---
PROCEDURE: Central line placement. PAVING RAMMER: Lencho Blackwell M.D. PROCEDURE IN DETAIL: Right groin was prepped with chlorhexidine. His femoral vein was easily cannul ated. J-wire was passed followed by vein dilator. A small incision was made with a #11 blade prior to the vein dilator. Triple lumen catheter was advanced and sewn in place x2. Good blood return was obtained from all 3 ports. Sterile dressing was applied.
[2017-04-02] MEDS: metroNIDAZOLE 500 MG in Premix Bag 1 BAG IVPB SCH ×4 (01:16→23:25)
[2017-04-02] MEDS ORDERED: Propofol 1,000 MG/100 ML VIAL IV ONE (01:58)
[2017-04-02] MEDS ORDERED: Fentanyl BOLUS 250 ML IVPB PRN (02:04)
[2017-04-02] MEDS ORDERED: Morphine 2 MG/ML SYRINGE SLOW IVP PRN (02:04)
[2017-04-02] MEDS ORDERED: DISCONTINUE PREVIOUS NARCOTIC PAIN MEDICATIONS AND BENZODIAZEPINES FS SCH (02:04)
[2017-04-02 05:09] LABS: INR-International Normal Ratio 2.7
[2017-04-02] MEDS: Lorazepam 2 MG/ML VIAL SLOW IVP PRN ×2 (05:15→10:15)
[2017-04-02 05:18] LABS: Anion Gap 16 mmol/L (10-20); BUN (Urea Nitrogen) 26 mg/dL (8.9-20.6); Calc. Creatinine Clearance 32 mL/min (70-130); Carbon Dioxide 28 mmol/L (22-29); Chloride 100 mmol/L (98-107); Estimated GFR-MDRD 13; Glucose 85 mg/dL (70-105); Potassium 3.8 mmol/L (3.5-5.1); Sodium 140 mmol/L (136-145)
[2017-04-02 05:41] LABS: Anisocytosis MODERATE=16-30 cells (100X) (0-5/hpf); Band 16 % (5-11); Hemoglobin 11.6 g/dL (14.0-18.0); Lymphocytes 5 % (21-51); MDiff Complete? YES; Mean Corpuscular HGB CONC 30.8 g/dL (32.0-36.0); Mean Corpuscular Hemoglobin 31.1 pg (27.0-31.0); Mean Platelet Volume 9.7 fL (7.4-10.4); Metamyelocyte 1 % (0-0); Monocytes 2 % (0-10); Neutrophil 75 % (42-75); Ovalocytes SLIGHT = 2-5 cells (100X) (0-1/hpf); PLT Morphology Comment Appears Adequate; Platelet Count 133 thou/uL (130-400); Polychromasia SLIGHT = 2-3 cells (100X) (0-2/hpf); RBC Distribution Width 18.8 % (11.5-14.5); Red Blood Cell (RBC) Count 3.72 mill/uL (4.70-6.10); White Blood Cell (WBC) Count 14.8 thou/uL (4.8-10.8)
[2017-04-02] MEDS ORDERED: Acetaminophen 1,000 MG in Premix Bag 1 BAG IVPB PRN (05:54)
--- NOTE | 2017-04-02 08:05 | RAD ---
PORTABLE AP ABDOMINAL RADIOGRAPH: DATE: 04/01/17. HISTORY: Abdominal distention. FINDINGS: Chest x-ray also obtained on 04/01/17. Nasogastric tube is noted in place, but the tip is difficult to visualize but overlies the expected l ocation of the body of the stomach. There are pleural and parenchymal changes at the right lung base suggesting right pleural effusion and atelectasis. Superimposed infiltrate cannot be entirely exclu ded. Median sternotomy wires are present. There is a right femoral catheter noted in place with the tip overlying the right aspect of the sacru m. The bowel gas pattern is overall nonspecific. Vascular calcifications overlie the pelvis. There is calcification overlying the right mid abdomen which could potentially represent a renal calculus, but this is difficult to definitively delineate on this exam. Prior CT of the abdomen on 07/02/16 de monstrated atrophic right kidney with calcifications present which likely accounts for the calcificat ion seen on this exam. Osseous structures appear intact. IMPRESSION: 1. Nasogastric tube and right femoral catheter are noted in place. 2. Pleural and parenchymal changes right lung base probably related to right pleural effusion and at electasis. Superimposed infiltrate cannot be excluded. 3. Nonspecific bowel gas pattern. 4. Right renal calculus. POS: [facility]
[2017-04-02] MEDS: Norepinephrine 8 MG/250 ML BAG IVPB PRN ×2 (08:24→18:07)
[2017-04-02] MEDS ORDERED: Cefepime 2 GM, Syringe 2.5 ML in Sterile Water 10 ML SLOW IVP SCH ×2 (09:00→21:00)
--- NOTE | 2017-04-02 09:07 | CON ---
DATE OF CONSULTATION: 04/01/2017 REASON FOR CONSULTATION: Reported hematemesis in the ER. HISTORY OF PRESENT ILLNESS: Mr. Sheriff is a 46-year-old gentleman known to me from prior evaluations for anemia in 03/2015. At that time, he was a new patient here with history of renal failure on guillermo lysis and a component of heart failure, and prior aortic valve replacement x2, first with porcine yuri ve which was integrated and then also with metallic valve and he had been on anticoagulation. He had no overt bleeding at that time, equivocal iron studies, and negative Hemoccults, but due to his santana sfusion requirements dialysis setting, he is set up for upper and lower endoscopies. At that time, cherelle carlos underwent an upper endoscopy that was normal. He arrested when attempting to turn him for a colono scopy. He was intubated, moved to the ICU. He survived this arrest with no deficits. In talking to his family who arrived after this, he had had a similar episode with an endoscopy attempted in [facility] where he had lived previously. Ultimately, multiple Hemoccults were taken and he had no bleedin g. The decision was made not to reattempt a colonoscopy. We reevaluated him for anemia again in 2016. At that time, again, he had hematuria and had some nosebleeds. He had one episode of bright r ed blood per rectum, which was attributed to be hemorrhoids. He was also evaluated by Hematology at that time, who noted very low haptoglobin but normal LDH and was concerned maybe he was having a comp onent of hemolysis aortic valve, although the aortic valve seemed to be intact without any leak s. He was recently in this hospital from 02/18/2017 to 02/22/2017 with right leg cellulitis and blee ding from his leg. He was discharged at that time on , iron, tramadol, albuterol, Sensipar, Cla ritin, Xanax, clindamycin for a week, and for his Coumadin, he follows in Coumadin clinic. Apparentl y, he presented to the emergency room this evening with complaints of feeling weak after dialysis. A pparently from the ER note, the patient's mother reported that he had done dialysis today, it went we ll but had a little bit low blood pressure there. Then, he went home and felt like he was not well, decided to go to bed. Subsequent to that, he began to holler for his mother, and he was on the groun d, difficulty getting his breathing mask on, tried nasal cannula, but did not help him. Ultimately, EMS was called and he was brought to the emergency room here. He was mildly hypotensive with systoli c pressures in the 80s on arrival and with shortness of breath. His O2 sat was 50 on room air. When the EMS arrived, 80% with nonrebreather. He was placed on CPAP, DuoNeb, and a blood pressure up to 120 per the ER note, but ultimately here, he was hypotensive with systolics in the 80s, diastolics in the 100s, pulse was in the 80s, with increased work of breathing. He was ultimately intubated at at time. He had some emesis that was dark brown in color. NG tube was placed, but nothing has come back. He had no diarrhea at home, in fact, in the ER note, his mother reported he had asked for laxa tives, stool softener. Ultimately, in the emergency room, he had one stool that was dark, greenish b lack, but not melenic and he has had another here in the ICU. Presently, he is on some Levophed. He has been started on cefepime. Cultures have been drawn. His blood pressure presently at 105/57, pu lse of 85, O2 sat of 93%. Chest x-ray showed ET tube in a proper position and an OG tube in place. He is intubated and sedated and cannot add any history. REVIEW OF SYSTEMS: Unable to be obtained as the patient is intubated and sedated. PAST MEDICAL HISTORY: 1. End-stage renal disease on dialysis. 2. Chronic anemia, which is felt to multifactorial without signs of overt bleeding. 3. Obstructive sleep apnea on CPAP. 4. Hypothyroidism. 5. History of atrial flutter, previous cardioversion. 6. History of recent cellulitis, treated with clindamycin in the outpatient setting which he finishe d 7 days after his discharge on 02/27/2017. 7. Restless legs. PAST SURGICAL HISTORY: Includes aortic valve replacement x2, patent foramen ovale apparently, upper endoscopy as previously reported here, dialysis catheter placement, inguinal hernia repair. ALLERGIES: SULFA, PENICILLIN, ADHESIVE, PSEUDOEPHEDRINE. SOCIAL HISTORY: Nonsmoker, he stopped in about a year ago. HOME MEDICATIONS: Carvedilol, aspirin 81 mg, pramipexole, ProAir, folic acid, iron, Claritin, Sensip ar, Renvela, alprazolam, warfarin 6 mg a day, oxygen 3 liters. FAMILY HISTORY: Noncontributory. PRESENT MEDICATIONS: DuoNeb, cefepime, methylprednisolone 40 IV q.6 hours, Levophed, pantoprazole 80 mg drip, vancomycin 1 gram was given, and he is receiving some blood now. PHYSICAL EXAMINATION: VITAL SIGNS: The patient is intubated, has OG tube at 70 cm, pulse 83, blood pressure 108/57, O2 sat 93%. GENERAL: The patient is intubated and sedated. LUNGS: Decreased breath sounds. In the emergency room, he apparently was wheezing quite heavily. ABDOMEN: Protuberant, but nontender. There may be some shifting dullness with mild tympany in the u pper abdomen, dull otherwise, no flanks. Bowel sounds are nonexistent. RECTAL: Reveals greenish blackish stool, but not frankly melenic. This was appearance of some one c hronic iron, NG tube has no return. EXTREMITIES: Reveal erythema and edema. GENITOURINARY: Scrotum is normal. IMAGING: Chest x-ray showed enlarged heart, mild bilateral lower lung infiltrates, right pleural eff usion, and atelectasis. LABORATORY DATA: White count was 13.3, hemoglobin 9.4, it was 9.4 on 02/20/2017, MCV 103, platelet c ount 126, 82 segs, 10% lymphocytes, no bands noted. INR was 2.9. Blood gas: PH 7.34, pO2 58, it moore s been 73 on admission. Chemistry: Sodium 139, potassium 3.9, bicarbonate 25, BUN and creatinine ar e 18 and 4.14, calcium 8.2, bilirubin 1.2, AST 104, ALT 21, albumin 3.3. Troponin 0.18. Folate was 18, on 12/01/2016, it was 6.3, low on 03/01/2017, B12 923 on 03/01/2017, TIBC 201 on 03/01/2017, iron on 03/01/2017, ferritin 2032 on 12/01/2016. ASSESSMENT: 1. This is a 46-year-old gentleman who came with renal failure and component of heart disease, cardi omegaly, prior aortic valve replacement on Coumadin, baby aspirin, who came to the hospital after guillermo lysis today where his family notes that his pressure was a little bit low. He felt bad at home, meka me short of breath and was brought to the hospital hypoxic with signs of pulmonary edema and possible small effusion. He had hemoglobin the same as what it has been in his last discharge, normal BUN an d was started on BiPAP and then intubated. At the time of intubation, he had some emesis of dark mat erial. He has had no bowel movements at home, but has had 2 here which were dark, smell of iron. He moccult was pending. There is no overt melena on exam. His abdomen is somewhat distended, but not h dax. There are no bowel sounds. He does not show signs of metabolic acidosis. He was on recent ant ibiotics with clindamycin for cellulitis. 2. Questionable gastrointestinal bleed. He had emesis of coffee-ground material, has none further n ow. He has had no return from his NG tube and he has some dark stools, but this all may be from the iron he is on. I do not think he has had a significant gastrointestinal bleed. His hemoglobin was s table on admission. He was not tachycardic and he had a normal BUN, which would go against the signi ficant upper gastrointestinal bleed. He is on warfarin now and aspirin is at risk for this. He is r eceiving 2 units of blood now for his general hypotension. 2. Hypotension, more concerned about sepsis or infection, a gastrointestinal bleed is a cause of thi s. 3. Loose stool. Presently, he was on clindamycin within the past month and Clostridium difficile is a concern. RECOMMENDATIONS: 1. I agree with Protonix drip. 2. He needs volume and the blood is not unreasonable in light of concern for possible bleeding, but I think his hemoglobin is about stable, concern for C. diff is the source of infection at present. 3. Diarrhea. Clostridium difficile, as it was a concern, we will order this. 4. History of chronic anemia in the past with a negative endoscopy and arrested when attempted colon oscopy. No overt bleeding at that time nor on reevaluation in 2015. Ultimately, there was some conc tej about hemolysis from part of Hematology, but this was never confirmed. His hemoglobin has stabil ized. I am not aware of him requiring transfusion recently. Looking at blood bank reports from this hospital, his last transfusion here was in 05/2016, but I am not sure about any transfusions on dial ysis. PLAN: 1. H&H after transfusion. 2. Recheck INR in the morning. 3. Agree with Protonix drip. 4. EGD tomorrow morning. 5. Stool for Clostridium difficile. 6. Two-view of the abdomen.
[2017-04-02 10:27] LABS: CO2 Tension 60.5 mmHg (35.0-45.0); O2 Tension (PaO2) 92.2 mmHg (80.0-100.0); pH, Arterial 7.27 (7.35-7.45)
[2017-04-02 10:28] LABS: Actual Bicarbonate (HCO3a) 26.9 mEq/L (22-26); Calcium, Ionized 1.1 mmol/L (1.12-1.30); Hematocrit-ABG 40.4 % (42.0-52.0); Hemoglobin (Hb) 11.6 g/dL (14.0-18.0)
[2017-04-02 10:29] LABS: ALV-art Gradient 334.775 (0-20)
[2017-04-02] MEDS: Propofol 1,000 MG/100 ML VIAL IV PRN ×2 (10:41→16:18)
[2017-04-02] MEDS: fentaNYL Citrate/PF 2,000 MCG in Sodium Chloride 0.9% 60 ML IV SCH (12:05)
[2017-04-02] MEDS: Vancomycin HCl 25 MG/ML Oral PO SCH ×3 (12:10→21:42)
--- NOTE | 2017-04-02 12:45 | PRG ---
DATE OF SERVICE: 04/02/2017 SUBJECTIVE: This is a 46-year-old gentleman being seen for end-stage renal disease. The patient rem ains intubated. PHYSICAL EXAMINATION: GENERAL: On examination, patient is resting. VITAL SIGNS: Afebrile, pulse 81, breathing at 16, blood pressure 123/60. HEAD/NECK: Normocephalic. Atraumatic. EYES: EOMI. No deformity. EARS: Clear. No ulcers. NOSE: Intact. No lesions. MOUTH: Clear. No discharge. THROAT: Clear. No exudate. LUNGS: Clear. No crackles. CARDIAC: S1, S2. No rub. ABDOMEN: Benign. BS+. GENITALIA/RECTUM: Green absent. BACK/EXTREMITIES: Edema 0+ Ulcer- NEUROLOGICAL: The patient is resting. SKIN: Rash- Bruise- LYMPHATICS: Edema- Ulcer- LABORATORY DATA: Show hemoglobin 11.6, potassium 3.8. ASSESSMENT AND RECOMMENDATIONS: 1. Stage 6 chronic kidney disease with hypertension and sepsis. We will hold off on dialysis today. 2. Anemia, stable. 3. Medications based on glomerular filtration rate are appropriate.
--- NOTE | 2017-04-02 16:07 | OP ---
PROCEDURE PERFORMED: Esophagogastroduodenoscopy. PREPROCEDURE DIAGNOSES: 1. History of hematemesis reported in the ER. 2. Hemoglobin stable on admission at 9 consistent with previous admissions. 3. Hemoglobin of 11 after 2 units of blood. 4. Hemoccult positive stool. POSTPROCEDURE DIAGNOSIS: Normal esophagogastroduodenoscopy. RECOMMENDATIONS: 1. Stop Protonix drip, go to Protonix 40 q.12 hours. 2. Look for other causes of hypotension and pressor requirements and it will be reasonable to get a CAT scan of this patient's abdomen if the critical care staff is okay with him going for that. ANESTHESIA: General endotracheal anesthesia. The patient was intubated already in the ICU and was g iven 80 mcg of propofol for sedation. PROCEDURE IN DETAIL: After the patient was informed of the risks, benefits, possible complications o f endoscopy including perforation, bleeding, reactions to medication and aspiration, informed consent was obtained. The patient was brought to the endoscopy suite where he was sedated. Once his mother gave an informed consent, he was sedated a little bit further. He was already in the ICU intubated. The OG tube was clamped, the endoscope was advanced through the esophagus, stomach and second and t hird portion of duodenum. There was bile throughout the upper GI tract with no ulcers, erosions coff ee grounds or active bleeding seen. Retroflexed views were normal. The scope was removed. The lencho ent tolerated the procedure well with no complications.
--- NOTE | 2017-04-02 16:28 | CT ---
CT OF THE ABDOMEN AND PELVIS 04/02/17 COMPARISON: 07/02/16 HISTORY: Clostridium difficile infection, evaluate for toxic megacolon. TECHNIQUE: Serial axial CT imaging obtained at 5 mm intervals from lung bases through pubic symphysis without co ntrast. Coronal reformatted imaging obtained. FINDINGS: The lack of contrast media limits assessment of the viscera, bowel, vascular structures, and for lymp hadenopathy. Partially imaged mechanical aortic valve noted. Midline sternotomy wires are present. The heart is enlarged. There is nonspecific patchy partial consolidation/collapse of the right lower lobe and near complete consolidation/collapse of the left lower lobe, incompletely imaged on this exa mination. No free intraperitoneal air is noted. Evaluation of the viscera, bowel, vascular structures and for l ymphadenopathy is limited on noncontrast enhanced imaging. Splenic granulomata are noted. No discrete focal hepatic or splenic lesion noted. Gallbladder is decompressed. Adrenal glands and pancreas appe ar grossly unremarkable. The left kidney is markedly atrophic. There is a low density lesion associated with the atrophic left kidney with Hounsfield units of 20-25, measuring 3.7 cm. This may represent a complex cyst, with an internal posterior calcification. This is similar when compared to the prior CT exam. The right kidney is markedly atrophic as well with a tiny hypodensity emanating from the mid pole pos teriorly, too small to characterize, and unchanged. There is small volume new free fluid within the p jeffery posterior and superior to the seminal vesicles. Limited assessment of the colon demonstrates no evidence for colonic dilatation. There are areas of c olonic wall thickening and pericolonic fat stranding suspicious for colitis, including the region of the cecum and ascending colon as well as the region of the splenic flexion and proximal descending co chayito. there is new small to moderate free fluid in the perihepatic region on the right extending into the right pericolic gutter. There is new free fluid in the perisplenic region, the left pericolic gut ter, and insinuating between the leaves of the mesentery throughout the abdomen/pelvis. Limited assessment of the vascular structures demonstrates extensive atherosclerotic calcification of the infrarenal abdominal aorta. There is a right femoral central venous catheter. View of the osseous structures demonstrates no acute findings. IMPRESSION: 1. New free fluid throughout the abdomen/pelvis. No free intraperitoneal air, evidence of bowel obstruction, or colonic dilation. Areas of colonic wall thickening and pericolonic fat stranding as a annie, in keeping with the provided history of colitis. 2. Low density lesion associated with an atrophic left kidney. This is unchanged when compared t o the prior exam. Followup renal ultrasound suggested. 3. Nonspecific partial consolidation/collapse of bilateral lower lobes. POS: [facility]
[2017-04-02] MEDS: Saccharomyces boulardii 250 MG CAP PO SCH (21:42)
--- NOTE | 2017-04-03 00:12 | HP ---
DATE OF ADMISSION: 04/01/2017 REASON/CHIEF COMPLAINT: Respiratory failure. HISTORY OF PRESENT ILLNESS: Chang Sheriff is a 46-year-old male with past medical history of end-stage renal disease, obstructive sleep apnea, and anemia, who was brought in because of shortness of breath. The patient goes for dialysis 3 times a week. The shortness of breath started on 2017 and it got worse today to the point he became very hypoxic. EMS was called and EMS found the patient with 50% on room air, 80% on O2 and nonrebreathing oxygen, so EMS placed him on CPAP. The patient initially was not responsive, but after repositioning and placing on a CPAP, he was more awake. The patient was given 3 DuoNeb treatments and they brought him to the hospital. In the ER, the patient was found to be lethargic in respiratory distress, hypoxic with increased work of breathing. The patient was intubated in the ER . customer specialist was consulted. The patient was seen by Dr. Blackwell who also put a central line. patient also reported hematemesis at home and also he was found to be guaiac-positive stool in the ER. It was thought maybe he has GI bleeding and the patient was hypotensive as well. His systolic was in the 70-80, but his hemoglobin was more than 9 grams. He was admitted to the CCU for close monitoring. PAST MEDICAL HISTORY: 1. End-stage renal disease, on hemodialysis. 2. Chronic anemia. 3. Obstructive sleep apnea on CPAP. 4. Hypothyroidism. 5. History of RSV infection. 6. History of atrial flutter, status post cardioversion. PAST SURGICAL HISTORY: Status post aortic valve replacement. CURRENT MEDICATIONS: The patient was supposed to be on Coreg 12.5 b.i.d., aspirin 81 mg daily, pramipexole 2 mg daily, ProAir inhaler q.i.d. p.r.n., Sensipar 60 mg b.i.d., Renvela 800 mg 3 times daily, and Coumadin 6 mg daily, tramadol p.r.n. ALLERGIES: SULFA, PENICILLIN, ADHESIVE TAPE, PSEUDOEPHEDRINE. FAMILY HISTORY: Nothing significant. SOCIAL HISTORY: The patient lives with his mother. No history of smoking. No history of alcohol intake. REVIEW OF SYSTEMS: Unable to obtain because the patient is intubated and sedated. PHYSICAL EXAMINATION: VITAL SIGNS: Temperature 98, pulse 65, blood pressure 98/60. HEENT: Head is normocephalic, atraumatic. Pupils equal and reactive. LUNGS: Bilateral air entry present, rhonchi present. HEART: S1, S2 regular. ABDOMEN: Soft, no distention, no tenderness. Normal bowel sounds present. RECTAL: Done in the ER revealed heme-positive stool. CENTRAL NERVOUS SYSTEM: No neurological deficits. LABORATORY AND X-RAY FINDINGS: CBC shows WBC 11.3, hemoglobin 9.4, hematocrit 31, platelets 126. Metabolic panel: Sodium 139, potassium 3.9, chloride 97, CO2 25, urea nitrogen 18, creatinine 4.1, glucose 104. Prothrombin time 39, INR 2.9. ABG showed pH 7.287, pCO2 of 73, pO2 of 26, saturation %. Chest x-ray showed cardiomegaly. EKG showed normal sinus rhythm, no acute ST-T wave changes seen. ASSESSMENT: 1. Acute respiratory failure. 2. Hypotension, rule out sepsis. 3. Questionable hematemesis and heme-positive stool, rule out gastrointestinal bleeding. 4. End-stage renal disease, on hemodialysis. 5. Obstructive sleep apnea on CPAP. 6. Chronic anemia. PLAN: 1. CCU monitoring. 2. Ventilator support. 3. Diet n.p.o. 4. Protonix 40 IV piggyback daily. 5. Cefepime 2 grams IV piggyback daily. 6. Vancomycin 250 mg p.o. q.i.d. 7. Metronidazole 500 mg IV piggyback q.8 hours. 8. Sedation protocol. MTDD
[2017-04-03] MEDS: Propofol 1,000 MG/100 ML VIAL IV PRN ×3 (04:20→20:11)
[2017-04-03] MEDS: Norepinephrine 8 MG in Sodium Chloride 0.9% 250 ML 250 ML IVPB PRN ×2 (05:41→20:03)
[2017-04-03 07:10] LABS: Actual Bicarbonate (HCO3a) 25.5 mEq/L (22-26); Base Excess (BEa) -3.8 mEq/L (0 (+/-) 2.5); CO2 Tension 68.6 mmHg (35.0-45.0); Hematocrit-ABG 44.9 % (42.0-52.0); O2 Tension (PaO2) 77.2 mmHg (80.0-100.0); pH, Arterial 7.19 (7.35-7.45)
[2017-04-03 07:11] LABS: Calcium, Ionized 1.1 mmol/L (1.12-1.30); Hemoglobin (Hb) 12.1 g/dL (14.0-18.0); Puncture Site RRA
[2017-04-03] MEDS: metroNIDAZOLE 500 MG in Premix Bag 1 BAG IVPB SCH ×3 (09:12→23:00)
[2017-04-03] MEDS: Saccharomyces boulardii 250 MG CAP PO SCH ×2 (09:13→19:57)
[2017-04-03] MEDS: Vancomycin HCl 25 MG/ML Oral PO SCH ×4 (09:13→19:57)
[2017-04-03] MEDS: Pantoprazole 40 MG VIAL IVP SCH (09:13)
--- NOTE | 2017-04-03 10:07 | PRG ---
DATE OF SERVICE: 04/03/2017 SERVICE: Pulmonary Medicine. INTERVAL HISTORY: The patient is doing great from a respiratory standpoint. Because of increasing s edation, his volumes dropped overnight. He was on pressure control ventilation. I went ahead and in creased some of the pressure support a little bit to improve on his tidal volumes. That being said, overall things look like they are improving. He is on a little bit more pressors today, largely meka use of the increasing sedation. There were, otherwise, no overnight events. PHYSICAL EXAMINATION: VITAL SIGNS: Afebrile. Pulse 64, blood pressure 119/68, respirations 27, saturation 95% on 61% FiO2 and PEEP of 8. GENERAL: Patient is awake, alert, in no apparent distress. LUNGS: Decent air entry. There is a prolonged expiratory phase with wheezing, rhonchi, and crackles . HEART: Normal rate, regular. ABDOMEN: Less distended today. It is a little softer. There is no rebound or guarding. No tendern ess to palpation. MUSCULOSKELETAL: No cyanosis or clubbing. SKIN: He has got diffuse 1+ pitting throughout. GENITOURINARY: No Green. NEUROLOGIC: Grossly nonfocal. LABORATORY DATA: PCR on the C. difficile toxin was positive. Blood cultures remain negative. Stool lactoferrin is positive. ASSESSMENT: 1. Acute hypoxic respiratory failure. 2. Septic shock. 3. Clostridium difficile colitis. 4. End-stage renal disease. 5. Obstructive sleep apnea, severe. PLAN: We will continue supportive care including nebulized medications, steroids, and antibiotics. I have made some adjustments to the ventilator to provide him with a little bit more support. We are going to wean sedation as he tolerates it, but his oxygen requirements are currently way too high to consider extubation. Pulmonary Critical Care will continue to follow. Critical care time: 30 minutes.
--- NOTE | 2017-04-03 10:07 | PRG ---
DATE OF SERVICE: 04/02/2017 SERVICE: Pulmonary Medicine INTERVAL HISTORY: The patient did fine from a respiratory standpoint. Oxygen requirements remain hi gh. He is on appropriate antibiotic therapy for suspected C. difficile infection. He currently darya ot provide any additional elements of the history. He is under the influence of some sedation. He w as dyssynchronous with the ventilator and a couple small adjustments were made. PHYSICAL EXAMINATION: VITAL SIGNS: T-max 102.8, pulse 66, blood pressure 111/56, respirations 17, saturation 92% on 60% Fi O2. GENERAL: Patient is intubated and sedated. HEENT: Normocephalic, atraumatic. Sclerae are white, conjunctivae pink. Oral and nasal mucosa mois t without lesions. LUNGS: Decreased air entry. There is a prolonged expiratory phase with end-expiratory wheezing. Rh onchi predominate however. Dependent crackles are also evident. HEART: Normal rate, regular. ABDOMEN: Distended. Bowel sounds are active. There is grimace with palpation, but he has got no re bound or guarding. MUSCULOSKELETAL: No cyanosis or clubbing. He has got diffuse 1-2+ pitting throughout. GENITOURINARY: No Green. NEUROLOGIC: Grossly nonfocal. LABORATORY DATA: WBC 14.8, hemoglobin 11.6, platelets 133,000. INR 2.7. PH 7.27, pCO2 60, pO2 92 t his was on 70% FiO2 and volume control. Creatinine 4.96. Basic metabolic profile is otherwise unrem arkable. Liver function studies were previously unremarkable. Stool lactoferrin is positive. C. di ff antigen is positive. Toxin is currently pending by PCR. ASSESSMENT: 1. Acute hypoxic respiratory failure. 2. Septic shock. 3. Clostridium difficile infection. 4. End-stage renal disease, on hemodialysis. 5. Obstructive sleep apnea, horrendous. PLAN: We will wean pressors as tolerated. The patient is on appropriate antimicrobial therapy at th is time. I will give him a laboratory holiday tomorrow. The patient is going to undergo dialysis in the morning. Multiple ventilator adjustments have been made in order to improve on patient comfort. Critical care time: 30 minutes.
--- NOTE | 2017-04-03 11:44 | PRG ---
DATE OF SERVICE: 04/03/2017 SUBJECTIVE: This 46-year-old gentleman being seen for end-stage renal disease. The patient is intub ated and is resting. PHYSICAL EXAMINATION: VITAL SIGNS: Afebrile, pulse 65, breathing at 16, blood pressure 117/69. OBJECTIVE: See above. Awake, alert, in no acute distress. GENERAL APPEARANCE AND MENTAL STATUS: Fair. HEAD/NECK: Normocephalic. Atraumatic. EYES: EOMI. No deformity. EARS: Clear. No ulcers. NOSE: Intact. No lesions. MOUTH: Clear. No discharge. THROAT: Clear. No exudate. LUNGS: Clear. No crackles. CARDIAC: S1, S2. No rub. ABDOMEN: Benign. BS+. GENITALIA/RECTUM: Green absent. BACK/EXTREMITIES: Edema 0+ Ulcer- NEUROLOGICAL: Alert and motor intact. SKIN: Rash- Bruise- LYMPHATICS: Edema- Ulcer- LABORATORY: Hemoglobin 9.6, potassium 3.8. ASSESSMENT AND PLAN: 1. Stage 6 chronic kidney disease. We will plan hemodialysis. Try ultrafiltration. 2. Anemia, stable. 3. Medications based on GFR are appropriate. 4. Septic shock, management per primary team.
--- NOTE | 2017-04-03 12:39 | PRG ---
DATE OF SERVICE: 04/03/2017 Mr. Sheriff remains intubated. He was almost weaned off pressors last night, they were restarted toda y. Nurse reports he is going to have dialysis today. PHYSICAL EXAMINATION: VITAL SIGNS: Blood pressure 138/79, pulse 90, temperature is 97.9. He does not make urine, he is a dialysis patient. LUNGS: Decreased breath sounds at bases. CARDIAC: Heart has a regular rate and rhythm. Abdomen: Protuberant, but softer than yesterday. Bowel sounds are still quite soft. LABORATORY DATA: No labs today. A CAT scan showed some free fluid in the abdomen, also some colitis in the cecum and ascending colon. There was no evidence of toxic megacolon. NG tube is in good position. There is no tapable ascite s on my review of these films. ASSESSMENT: 1. Congestive heart failure. 2. Aortic valve replacement. 3. Clostridium difficile infection with systemic inflammatory response syndrome, weaning pressors n ow. 4. Mild ascites, likely related to heart failure, but this is not tapable on reviewing the films. 5. A 3 centimeter lesion in the left kidney, unchanged from previous exams. PLAN: 1. Continue IV Flagyl, p.o. vancomycin and probiotics. 2. I think it is okay to start some tube feeds at a slow rate. We will have to watch residuals, not a lot of bowel sounds. 3. No signs of gastrointestinal bleeding.
[2017-04-03 16:29] LABS: HBSAg Index 0.28 S/CO (0-0.99); Hep B Surf Ag Non-Reactive S/CO (NonReactive)
[2017-04-04] MEDS: Propofol 1,000 MG/100 ML VIAL IV PRN ×4 (01:10→16:54)
[2017-04-04] MEDS: fentaNYL Citrate/PF 2,000 MCG in Sodium Chloride 0.9% 60 ML IV SCH (02:24)
[2017-04-04 05:56] LABS: #Lymphocytes 0.5 thou/uL (1.20-3.40); #Monocytes 0.5 thou/uL (0.11-0.59); %Basophils 0.4 % (0.0-1.0); %Eosinophils 0.2 % (0.0-10.0); %Lymphocytes 5.5 % (21.0-51.0); %Monocytes 5.6 % (0.0-10.0); %Neutrophils 88.3 % (42.0-75.0); Hemoglobin 10.7 g/dL (14.0-18.0); Mean Corpuscular HGB CONC 30.1 g/dL (32.0-36.0); Mean Corpuscular Hemoglobin 29.7 pg (27.0-31.0); Mean Corpuscular Volume 98.7 fl (80.0-94.0); Mean Platelet Volume 8.8 fL (7.4-10.4); Platelet Count 173 thou/uL (130-400); RBC Distribution Width 18.7 % (11.5-14.5); White Blood Cell (WBC) Count 9.1 thou/uL (4.8-10.8)
[2017-04-04 06:14] LABS: Anion Gap 19 mmol/L (10-20); BUN (Urea Nitrogen) 51 mg/dL (8.9-20.6); Calc. Creatinine Clearance 26 mL/min (70-130); Calcium 8.5 mg/dL (7.8-10.44); Carbon Dioxide 24 mmol/L (22-29); Chloride 99 mmol/L (98-107); Estimated GFR-MDRD 10; Glucose 123 mg/dL (70-105); Magnesium 2.3 mg/dL (1.6-2.6); Phosphorus 6.4 mg/dL (2.3-4.7); Potassium 4.3 mmol/L (3.5-5.1); Sodium 138 mmol/L (136-145)
[2017-04-04] MEDS: Pantoprazole 40 MG VIAL IVP SCH (09:12)
[2017-04-04] MEDS: Saccharomyces boulardii 250 MG CAP PO SCH ×2 (09:12→19:47)
[2017-04-04] MEDS: Vancomycin HCl 25 MG/ML Oral PO SCH ×4 (09:13→19:47)
[2017-04-04] MEDS: metroNIDAZOLE 500 MG in Premix Bag 1 BAG IVPB SCH ×3 (09:13→23:16)
--- NOTE | 2017-04-04 12:04 | PRG ---
DATE OF SERVICE: 04/04/2017 SERVICE: Pulmonary Medicine INTERVAL HISTORY: The patient is actually doing quite a bit better from a respiratory standpoint. H is oxygen requirements have improved. He denies any current shortness of breath or chest discomfort. He is on mechanical ventilation, and under the influence of sedation, but awake and comfortable. H e is CAM negative. PHYSICAL EXAMINATION: VITAL SIGNS: Afebrile, pulse 70, blood pressure 115/71, respirations 32, saturation 96% on 50% FiO2 and PEEP of 5. GENERAL: The patient is awake and alert, in no apparent distress. LUNGS: Decent air entry. Crackles are present. Rhonchi there as well, but clear with cough. No wh eezing. HEART: Normal rate, regular. ABDOMEN: Soft, nontender, nondistended. Bowel sounds are positive. MUSCULOSKELETAL: No cyanosis or clubbing. There is no pitting in the bilateral lower extremities. NEUROLOGIC: Grossly nonfocal. LABORATORY DATA: WBC 9.1, hemoglobin 10.7, platelets 173,000 up trending. Creatinine 6.17. Basic m etabolic profile is otherwise unremarkable. Phosphorus 6.4, magnesium 2.3. C. diff antigen and toxi n are positive. ASSESSMENT: 1. Acute hypoxic respiratory failure. 2. Septic shock. 3. Clostridium difficile colitis. 4. End-stage renal disease. 5. Obstructive sleep apnea, severe. PLAN: I will decrease his oxygen support. I will drop his PEEP to 5, and his FiO2-40%. At this poi nt, he is still on a little bit of Levophed. I do think it to touch early for us to consider extubat ing him. If he continues to make this positive improvement, we will consider pulling the tube out fi rst thing in the morning. Pulmonary Critical Care will continue to follow while he remains in this l ocation. Critical care time: 30 minutes.
[2017-04-04] MEDS ORDERED: Pancrelipase DR 12000 1 CAP FS PRN (14:55)
[2017-04-04] MEDS ORDERED: Sodium Bicarbonate Tab 325 MG TAB PER TUBE PRN (14:55)
--- NOTE | 2017-04-04 16:15 | PRG ---
DATE OF SERVICE: 04/04/2017 SUBJECTIVE: This is a 46-year-old gentleman being seen for end-stage renal disease. The patient is intubated and tolerated dialysis well. PHYSICAL EXAMINATION: GENERAL: Patient is resting. VITAL SIGNS: Afebrile, pulse 62, breathing at 16, blood pressure 100/52. GENERAL APPEARANCE AND MENTAL STATUS: Fair. HEAD/NECK: Normocephalic. Atraumatic. EYES: EOMI. No deformity. EARS: Clear. No ulcers. NOSE: Intact. No lesions. MOUTH: Clear. No discharge. THROAT: Clear. No exudate. LUNGS: Clear. No crackles. CARDIAC: S1, S2. No rub. ABDOMEN: Benign. BS+. GENITALIA/RECTUM: Green absent. BACK/EXTREMITIES: Edema 0+ Ulcer- NEUROLOGICAL: The patient is resting. SKIN: Rash- Bruise- LYMPHATICS: Edema- Ulcer- LABORATORY: Showing hemoglobin 10.7. ASSESSMENT AND RECOMMENDATIONS: 1. Stage 6 chronic kidney disease. We will plan dialysis tomorrow. 2. Hypertension, on pressors from time to time. 3. Anemia, stable. 4. Medications based on glomerular filtration rate are appropriate. 5. Sepsis, management per primary team.
[2017-04-04] MEDS: Warfarin Sodium 5 MG TAB PO SCH (16:17)
--- NOTE | 2017-04-04 18:25 | PRG ---
DATE OF SERVICE: 04/04/2017 SUBJECTIVE: Mr. Sheriff is still intubated. The nurse notes that the mother is worried that his righ t cheek is little swollen. He has had some dental problems. He has had no bowel movements. Tube fe eds apparently were not started yesterday. OBJECTIVE: VITAL SIGNS: Blood pressure 99/55, 86/48, 105/58; pulse 67; temperature 96. GENERAL: Patient is intubated and sedated. LUNGS: Clear. ABDOMEN: Softer and less protuberant. EXTREMITIES: Reveal edema. LABORATORY STUDIES: White count 9.1, hemoglobin 10.7, platelet count 173. Last INR check on 018. ASSESSMENT: 1. Clostridium difficile colitis. 2. History of aortic valve replacement, mechanical. RECOMMENDATIONS: 1. Restart his Coumadin, continue IV Flagyl and p.o. vancomycin for 14 days. 2. Start tube feeds. 3. We will defer to Internal Medicine, dose and amount of anticoagulation for this can be restarted.
[2017-04-05] MEDS: Propofol 1,000 MG/100 ML VIAL IV PRN ×5 (04:09→23:05)
[2017-04-05] MEDS: Norepinephrine 8 MG in Sodium Chloride 0.9% 250 ML 250 ML IVPB PRN (05:24)
[2017-04-05 05:40] LABS: Prothrombin Time 23.4 SEC (12.0-14.7)
[2017-04-05] MEDS: metroNIDAZOLE 500 MG in Premix Bag 1 BAG IVPB SCH ×3 (09:10→23:04)
[2017-04-05] MEDS: Saccharomyces boulardii 250 MG CAP PO SCH ×2 (09:11→21:02)
[2017-04-05] MEDS: Vancomycin HCl 25 MG/ML Oral PO SCH ×4 (09:11→21:03)
[2017-04-05] MEDS: Pantoprazole 40 MG VIAL IVP SCH (09:11)
--- NOTE | 2017-04-05 10:55 | PRG ---
DATE OF SERVICE: 04/05/2017 SERVICE: Pulmonary Medicine. INTERVAL HISTORY: The patient is doing really well from a respiratory standpoint. He is currently o n hemodialysis. He is tolerating this just fine. He got put on a little bit of propofol, because of some restlessness. Otherwise, there has been no interval change to his condition. His oxygen requi rements continued to improve. PHYSICAL EXAMINATION: VITAL SIGNS: Afebrile, pulse 83, blood pressure 130/71, respirations 19, saturation 93% on 41% FIO2 and PEEP of 5. GENERAL: The patient is awake, alert, in no apparent distress. LUNGS: Decent air entry. Crackles are present. HEART: Normal rate, regular. ABDOMEN: Soft, nontender, nondistended. Bowel sounds are positive. MUSCULOSKELETAL: No cyanosis or clubbing. There is diffuse pitting throughout. GENITOURINARY: Green catheter in place. NEUROLOGIC: Grossly nonfocal. LABORATORY DATA: WBC 9.1, hemoglobin 10.7, platelets 173,000. Neutrophil count is 88%. INR 2.0. C reatinine 6.17. Basic metabolic profile and magnesium is otherwise unremarkable. Phosphorus 6.4. ASSESSMENT: 1. Acute on chronic hypoxic respiratory failure. 2. Septic shock, resolving. 3. Clostridium difficile colitis. 4. End-stage renal disease. 5. Obstructive sleep apnea, severe. PLAN: We will back off on FIO2 to touch more. Once the dialysis is over, we will turn off the propo fol and give him a spontaneous breathing trial. If he meets criteria, extubation will be considered. We will pull off as much fluid with dialysis as he tolerates today, as he is currently off of his L evophed, his inflammatory profile is clearing. We will continue his antibiotics and other supportive measures. CRITICAL CARE TIME: 30 minutes.
--- NOTE | 2017-04-05 11:31 | PRG ---
DATE OF SERVICE: 04/05/2017 SUBJECTIVE: This 46-year-old gentleman being seen for end-stage renal disease. The patient is resti ng, tolerating dialysis. PHYSICAL EXAMINATION: GENERAL: Patient is resting. VITAL SIGNS: Afebrile, pulse 80, breathing at 16, blood pressure 133/79. HEAD/NECK: Normocephalic. Atraumatic. EYES: EOMI. No deformity. EARS: Clear. No ulcers. NOSE: Intact. No lesions. MOUTH: Clear. No discharge. THROAT: Clear. No exudate. LUNGS: Clear. No crackles. CARDIAC: S1, S2. No rub. ABDOMEN: Benign. BS+. GENITALIA/RECTUM: Green absent. BACK/EXTREMITIES: Edema 0+ Ulcer- NEUROLOGICAL: Alert and motor intact. SKIN: Rash- Bruise- LYMPHATICS: Edema- Ulcer- LABORATORY DATA: Show hemoglobin 10.7. ASSESSMENT AND RECOMMENDATIONS: 1. Stage 6 chronic kidney disease. We will plan dialysis today. 2. Hypertension, stable. 3. Anemia, stable. 4. Medications based on glomerular filtration rate are appropriate. 5. Sepsis. Management per primary team.
[2017-04-05] MEDS ORDERED: Amiodarone HCl 450 MG, Admixture Fee 1 EACH in Dextrose 5% in Water 250 ML IVPB SCH (12:15)
[2017-04-05] MEDS ORDERED: Amiodarone HCl 150 MG, Admixture Fee 1 EACH in Dextrose 5% in Water 100 ML IVPB SCH (12:15)
[2017-04-05] MEDS: Warfarin Sodium 5 MG TAB PO SCH (16:54)
--- NOTE | 2017-04-05 18:59 | CON ---
DATE OF CONSULTATION: 04/05/2017 PRIMARY REPAIR TECH: Dr. Frida Schultz. HISTORY OF PRESENT ILLNESS: Mr. Sheriff is a very pleasant 46-year-old white gentleman who came to [facility] for shortness of breath. He has respiratory insufficiency, diagnosed with septic shock. Eventually was found to have C. diff colitis. He has seen Dr. Schultz in the past for history of atrial flutter which had isthmus dependent flutter and this was ablated successfully by Dr. Bundy. He als o has a history of congenital aortic valve stenosis and he has had two different aortic valve replace ment. The last one was the mechanical one and he is on chronic anticoagulation. He currently remain s sedated and intubated. Cardiology is being consulted as he went into an episode of SVT. This was right before dialysis being turned off. He has end-stage renal disease as well. Currently, he is ba ck in sinus rhythm and remains intubated and sedated, on pressor support with Levophed due to hypoten nahid from his septic shock. PAST MEDICAL HISTORY: 1. End-stage renal disease. 2. Sleep apnea. 3. Hypothyroidism. 4. Atrial flutter, status post ablation and isthmus dependent flutter. 5. Congenital aortic valve disease, status post mechanical aortic valve, on chronic anticoagulation. SOCIAL HISTORY: No alcohol, tobacco or drugs per chart review. OUTPATIENT MEDICATIONS: Reviewed in MAY. They include, 1. Robitussin. 2. Coumadin. 3. Alprazolam. 4. Tylenol extra strength. 5. Renvela. 6. Sensipar. 7. Claritin. 8. Folic acid. 9. Ferrous sulfate. 10. Albuterol p.r.n. 11. Pramipexole. 12. Aspirin 81 daily. 13. Carvedilol 12.5 mg b.i.d. FAMILY HISTORY: Noncontributory. REVIEW OF SYSTEMS: Unobtainable as he is sedated and intubated. PHYSICAL EXAMINATION: VITAL SIGNS: Temperature 98.2, pulse 77, respiration rate 23, satting 92% on 40% FiO2. Blood pressu re 121/73. GENERAL: Sedated and intubated. LUNGS: Have rhonchi anteriorly. CARDIOVASCULAR: S1, S2, no S3, S4. There is a grade 2/6 systolic murmur in the right upper sternal border, crisp sounding valve sounds. ABDOMEN: Distended. EXTREMITIES: 1+ edema. SKIN: Warm and dry. LABORATORY WORK: Reviewed. White count 9.1 down from 14, hemoglobin 10.7, hematocrit of 35, platele t count of 173. Coags were reviewed. Last INR was 2.0. ABG was reviewed. Chemistries were reviewe d. EKG was reviewed. Telemetry was reviewed. He had an episode of a heart rate in the 150s, right towards the end of his dialysis treatment earlier today. I do not clearly see any flutter waves; however, his heart rate is about exactly at 150 beats per minute, this would suggest one at flutter. We did not get a 12-lead EKG at that time when we were trying to get as he converted to sinus before we get it. ASSESSMENT AND PLAN: 1. Tachycardia, most likely 2:1 atrial flutter. 2. End-stage renal disease. 3. Acute hypoxic respiratory insufficiency requiring mechanical ventilation. 4. Aortic valve replacement, mechanical valve, requiring full anticoagulation. 5. Obesity. PLAN: Currently, he is hypotensive in the 80s/40s. Would want to hold off on any AV kevan blocking agents at the time as it may make his blood pressure even worse. For now, if he recurs, we will star t him on an amiodarone drip at that time. Otherwise, continue conservative therapy. For now, he is already on full dose Coumadin which would prophylax him against a stroke. Thank you for letting us to participate in the care of your patient. We will follow.
--- NOTE | 2017-04-05 23:20 | PRG ---
DATE OF SERVICE: 04/05/2017 SUBJECTIVE: Mr. Sheriff remains intubated. He was started on tube feeds yesterday and is tolerating this so far. He has had no diarrhea. ICU nursing staff notes he had episodes of PSVT after coming off dialysis and therefore was not extub ated. Cardiology was consulted, but he reverted back to normal sinus rhythm. Presently, he is sedat ed and intubated, and is not able to add to his history. OBJECTIVE: VITAL SIGNS: Blood pressure 87/46, pulse 84, temperature is 97.5, respirations 17, O2 sat 94%. LUNGS: Clear. HEART: Regular rate and rhythm without clicks or murmurs. ABDOMEN: Soft, nontender. EXTREMITIES: Reveal slight edema. LABORATORY: None today. ASSESSMENT: 1. Renal failure. 2. Chronic anemia, multifactorial, not related to gastrointestinal blood loss. 3. Admission for sepsis. 4. Infectious etiologies seem to be Clostridium difficile colitis, improving on Flagyl IV and p.o. v ancomycin and probiotics. RECOMMENDATIONS: Continue IV Flagyl, p.o. vancomycin, and IV antibiotics for a total of 14 days and then switch to oral vancomycin with slow taper over 6 weeks. We will follow up again on Saturday, and if there are any events over the weekend, please do not hesitate to contact me from a GI stand point.
[2017-04-06] MEDS: Propofol 1,000 MG/100 ML VIAL IV PRN ×8 (02:04→23:50)
[2017-04-06] MEDS: metroNIDAZOLE 500 MG in Premix Bag 1 BAG IVPB SCH ×3 (08:37→23:07)
[2017-04-06] MEDS: Saccharomyces boulardii 250 MG CAP PO SCH ×2 (08:37→19:41)
[2017-04-06] MEDS: Pantoprazole 40 MG VIAL IVP SCH (08:37)
[2017-04-06] MEDS: Vancomycin HCl 25 MG/ML Oral PO SCH ×4 (09:52→19:41)
--- NOTE | 2017-04-06 10:55 | PRG ---
DATE OF SERVICE: 04/06/2017 SUBJECTIVE: This 46-year-old gentleman being seen for end-stage renal disease. The patient remains intubated. PHYSICAL EXAMINATION: GENERAL: Patient is resting. VITAL SIGNS: Afebrile, pulse 79, breathing at 16, blood pressure 113/54. HEAD/NECK: Normocephalic. Atraumatic. EYES: EOMI. No deformity. EARS: Clear. No ulcers. NOSE: Intact. No lesions. MOUTH: Clear. No discharge. THROAT: Clear. No exudate. LUNGS: Clear. No crackles. CARDIAC: S1, S2. No rub. ABDOMEN: Benign. BS+. GENITALIA/RECTUM: Green absent. BACK/EXTREMITIES: Edema 0+ Ulcer- NEUROLOGICAL: The patient is resting. SKIN: Rash- Bruise- LYMPHATICS: Edema- Ulcer- LABORATORY DATA: Show hemoglobin is pending. ASSESSMENT AND PLAN: 1. Stage 6 chronic kidney disease. We will plan dialysis today for 2 hours to remove excessive flui ds. 2. Anemia, stable. 3. Medications based on glomerular filtration rate are appropriate.
--- NOTE | 2017-04-06 15:18 | PRG ---
DATE OF SERVICE: 04/06/2017 SUBJECTIVE: Mr. Sheriff remains intubated. Nurses reports his bowels are moving. He is off of press ors. Continue his Flagyl IV q.8, vancomycin 250 p.o. q.i.d., and Saccharomyces boulardii, pantoprazo le once daily. OBJECTIVE: VITAL SIGNS: Temperature 98.5, pulse 75 and blood pressure 105/60. LUNGS: Clear. ABDOMEN: Soft and protuberant, but nontender. LABORATORY DATA: CBC, none today. Chemistries none today. ASSESSMENT: 1. Clostridium difficile colitis, seemingly improving. 2. Hypotension. It is unclear if this is sepsis or related to his heart and renal failure or volume status with dialysis. I suspect some of this is related to his infection. 3. Concern for melena at time of admission. I suspect this is related to his chronic iron. Esophag ogastroduodenoscopy on day of admission was negative. RECOMMENDATIONS: 1. Continue IV PPI. 2. Continue oral vancomycin, IV Flagyl. 3. We will repeat labs tomorrow.
[2017-04-06] MEDS: Warfarin Sodium 5 MG TAB PO SCH (16:31)
--- NOTE | 2017-04-06 17:49 | PDOC.CTH ---
Cardiology Progress Note - Subjective Remains intubated, sedated. - Objective Vital Signs Temp Pulse Resp BP Pulse Ox 04/06/17 16:00 98.6 F 20 04/06/17 14:53 81 99/53 L 04/06/17 14:00 26 H 04/06/17 13:19 75 105/60 04/06/17 12:58 98.5 F 04/06/17 12:00 20 04/06/17 10:54 98.6 F 04/06/17 10:28 79 113/54 L 04/06/17 10:00 20 04/06/17 08:00 21 H 04/06/17 07:41 98.2 F 85 17 95 04/06/17 07:28 85 90/55 L 04/06/17 07:00 98.2 F 04/06/17 06:00 17 Admit Weight 271 lb Weight 271 lb 6.224 oz 04/05/17 04/06/17 04/07/17 06:59 06:59 06:59 Intake Total 1241 1165 430 Output Total 0 Balance 1241 1165 430 - Physical Examination General/Neuro: other: (INtubated. ) Extremities: + edema B (1+) - Telemetry Telemetry Rhythm: NSR - Labs Result Diagrams: 04/04/17 05:13 04/04/17 05:13 Troponin/CKMB CK-MB (CK-2) 3.8 ng/mL (0-6.6) 04/01/17 18:04 Troponin I 0.180 ng/mL (< 0.028) H 04/01/17 18:04 - Assessment/Plan 1. Atrial flutter, now in sinus. 2. C Diff colitis 3. Septic shock 4. S/P Mechanical aortic valve. 5. ESRD on HD PLAN: - Remains in sinus for now. BP better now. If he recurs will start amiodarone drip. - Continue supportive care.
--- NOTE | 2017-04-06 19:13 | PRG ---
DATE OF SERVICE: 04/06/2017 SUBJECTIVE: Mr. Sheriff has been stable overnight. He has not being dialyzed when I evaluated him th is morning. His mother was at bedside. OBJECTIVE: VITAL SIGNS: His heart rate 70, respiratory rate 20s, oximetry is 99%, blood pressure 95/49 this aft ernoon. Intake and output up until this morning was positive 1165, has no urine output. LUNGS: Remarkable for coarse equal breath sounds. HEART: Regular rhythm, no S3. ABDOMEN: Soft and nontender. EXTREMITIES: Without asymmetry. LABORATORY DATA: There is no new CBC or electrolytes. His blood gases have been discontinued. We will check some lab in the morning. Chest radiograph since I have been rounding on him every day. IMPRESSION: 1. Respiratory failure. Given the frequency of his hospitalizations, as I have explained to the mot her, his prognosis is quite guarded. We will continue to care for him with attempts at slow weaning from mechanical ventilation, supportive care, antimicrobial therapy, and dialysis. 2. Problems include Clostridium difficile colitis, slowly improving. Relative hypotension, likely r elated to dialysis and low oncotic pressure. 3. ? Coffee grounds in his NG tube on presentation. He has not acutely bled, so has been no reason for aggressive repeat intervention other than the EGD that was done on admission that was negative. We will continue with antimicrobial therapy and his proton pump inhibitor and slow weaning from mecha nical ventilation as tolerated. Critical care time 30 minutes.
[2017-04-06] MEDS: Norepinephrine 8 MG in Sodium Chloride 0.9% 250 ML 250 ML IVPB PRN (23:07)
[2017-04-07] MEDS: fentaNYL Citrate/PF 2,000 MCG in Sodium Chloride 0.9% 60 ML IV SCH (00:27)
[2017-04-07] MEDS: Propofol 1,000 MG/100 ML VIAL IV PRN ×3 (03:08→18:35)
[2017-04-07 06:11] LABS: INR-International Normal Ratio 1.8; Prothrombin Time 21.4 SEC (12.0-14.7)
[2017-04-07 06:16] LABS: Anion Gap 19 mmol/L (10-20); BUN (Urea Nitrogen) 64 mg/dL (8.9-20.6); Calc. Creatinine Clearance 0 mL/min (70-130); Calcium 9.4 mg/dL (7.8-10.44); Carbon Dioxide 25 mmol/L (22-29); Chloride 97 mmol/L (98-107); Estimated GFR-MDRD 9; Glucose 83 mg/dL (70-105); Potassium 4.2 mmol/L (3.5-5.1); Sodium 137 mmol/L (136-145)
[2017-04-07 06:28] LABS: Band 1 % (5-11); Hemoglobin 10.8 g/dL (14.0-18.0); Lymphocytes 13 % (21-51); MDiff Complete? YES; Mean Corpuscular HGB CONC 30.3 g/dL (32.0-36.0); Mean Corpuscular Hemoglobin 29.8 pg (27.0-31.0); Mean Corpuscular Volume 98.1 fl (80.0-94.0); Monocytes 7 % (0-10); Neutrophil 79 % (42-75); PLT Morphology Comment Appears Decreased; Platelet Count 109 thou/uL (130-400); RBC Distribution Width 17.9 % (11.5-14.5); Red Blood Cell (RBC) Count 3.62 mill/uL (4.70-6.10); White Blood Cell (WBC) Count 10.7 thou/uL (4.8-10.8)
--- NOTE | 2017-04-07 08:33 | RAD ---
SINGLE VIEW OF THE CHEST: COMPARISON: 04/01/17. HISTORY: Ventilated patient with respiratory failure. FINDINGS: A single view of the chest shows an enlarged cardiomediastinal silhouette. The patient is status pos t aortic valve replacement. The endotracheal tube and NG tube are unchanged in position. There is a moderate right pleural effusion with adjacent atelectasis versus infiltrate. This is unchanged. IMPRESSION: Stable right pleural effusion and cardiomegaly. POS: [facility]
[2017-04-07] MEDS: metroNIDAZOLE 500 MG in Premix Bag 1 BAG IVPB SCH ×3 (08:44→23:05)
[2017-04-07] MEDS: Saccharomyces boulardii 250 MG CAP PO SCH ×2 (08:45→20:48)
[2017-04-07] MEDS: Pantoprazole 40 MG VIAL IVP SCH (08:45)
[2017-04-07] MEDS: Vancomycin HCl 25 MG/ML Oral PO SCH ×4 (09:45→20:48)
--- NOTE | 2017-04-07 13:50 | PRG ---
DATE OF SERVICE: 04/07/2017 SUBJECTIVE: This 46-year-old male being seen for end-stage renal disease. The patient intubated and resting. OBJECTIVE: VITAL SIGNS: Afebrile, pulse 70, breathing at 16, blood pressure 140/67. Awake , alert, in no acute distress. GENERAL APPEARANCE AND MENTAL STATUS: Fair. HEAD/NECK: Normocephalic. Atraumatic. EYES: EOMI. No deformity. EARS: Clear. No ulcers. NOSE: Intact. No lesions. MOUTH: Clear. No discharge. THROAT: Clear. No exudate. LUNGS: Clear. No crackles. CARDIAC: S1, S2. No rub. ABDOMEN: Benign. BS+. GENITALIA/RECTUM: Green absent. BACK/EXTREMITIES: Edema 0+ Ulcer- SKIN: Rash- Bruise- LYMPHATICS: Edema- Ulcer- LABORATORY: Show hemoglobin 10.8. ASSESSMENT AND RECOMMENDATIONS: 1. Stage 3 chronic kidney disease, on hemodialysis per schedule. 2. Hypertension, stable. 3. Anemia, stable. 4. Medications based on glomerular filtration rate are appropriate. MTDD
[2017-04-07] MEDS ORDERED: Amiodarone HCl 450 MG, Admixture Fee 1 EACH in Dextrose 5% in Water 250 ML IVPB SCH (14:00)
[2017-04-07 14:14] LABS: Actual Bicarbonate (HCO3a) 27.5 mEq/L (22-26); Base Excess (BEa) -1.2 mEq/L (0 (+/-) 2.5); CO2 Tension 68.8 mmHg (35.0-45.0); Hematocrit-ABG 37.6 % (42.0-52.0); Hemoglobin (Hb) 10.5 g/dL (14.0-18.0); O2 Tension (PaO2) 76.4 mmHg (80.0-100.0); pH, Arterial 7.22 (7.35-7.45)
[2017-04-07 14:15] LABS: Analyzer IN Cardio ER; Calcium, Ionized 1.2 mmol/L (1.12-1.30); Puncture Site RRA
--- NOTE | 2017-04-07 16:16 | PRG ---
DATE OF SERVICE: 04/07/2017 SUBJECTIVE: Mr. Sheriff remains intubated. Nurse said today that he had some coffee ground like mate rial up in his mouth, they put him to suction, this cleared and there is some bile now, clean bile. HOME MEDICATIONS: DuoNeb, fentanyl, Solu-Medrol, Flagyl, Protonix, vancomycin, warfarin, and Protoni x 40 daily. PHYSICAL EXAMINATION: VITAL SIGNS: Temperature 97, pulse 78, blood pressure 121/66. GENERAL: The patient remains intubated and sedated. He is in no distress. ABDOMEN: Soft, nontender. LABORATORY STUDIES: Hemoglobin 10.6, white count 10.7, platelet count 109. ASSESSMENT: 1. Clostridium difficile colitis. Continue with antibiotic medications. 2. Some mild regurgitation, coffee ground material, stable hemoglobin with returns to clear bile on suction. We will resume tube feeds. 3. Respiratory failure, on ventilator, for continued weaning. 4. Heart failure with cardiomegaly and right pleural effusion. Cardiology following. RECOMMENDATIONS: We will resume tube feeds. Continue PPI. Continue antibiotics for Clostridium dif ficile.
--- NOTE | 2017-04-07 16:18 | PRG ---
DATE OF SERVICE: 04/07/2017 SUBJECTIVE: Chang Sheriff remains hemodynamically stable. OBJECTIVE: VITAL SIGNS: He is afebrile, respiratory rate 16, heart rate 78, and blood pressure 120/66. Intake and output is positive 1423. LUNGS: Remarkable for diffuse wheezes. His mother was at the bedside, tells me he quit smoking a ye ar ago. HEART: Regular rhythm. He has mechanical valve click that is audible. ABDOMEN: Soft and nontender. EXTREMITIES: Without asymmetry. LABORATORY DATA: White count 10.7, hemoglobin 10.8, platelets 109,000. He has 1% bands on his perip heral smear. Sodium 137, potassium 4.2, chloride 97, bicarbonate 25, BUN 64, creatinine 6.55. Chest radiograph still shows his chronic pleural changes on the right. Tubes in proper place. IMPRESSION: Respiratory failure. He is making very slow progress. He has not had a blood gas done several days, so last one done on 0 04/03/2017, he had a pH of 7.19, so order blood gas in the morning. He has a very marginal reserve wi th mother and answered all of her questions.
[2017-04-07] MEDS: Warfarin Sodium 5 MG TAB PO SCH (16:42)
--- NOTE | 2017-04-07 18:07 | PDOC.CTH ---
Cardiology Progress Note - Subjective He remains intubated. - Objective Vital Signs Temp Pulse Resp BP Pulse Ox 04/07/17 14:53 74 99/52 L 04/07/17 14:00 22 H 04/07/17 12:00 97.5 F L 16 04/07/17 11:05 72 114/67 04/07/17 10:00 18 04/07/17 08:00 97.5 F L 20 04/07/17 07:55 97.5 F L 79 22 H 94 L 04/07/17 07:37 79 102/54 L Admit Weight 271 lb Weight 4.053 oz 04/06/17 04/07/17 04/08/17 06:59 06:59 06:59 Intake Total 1165 1623 Output Total 200 0 Balance 1165 1423 0 - Physical Examination General/Neuro: other: (intubated. ) Neck: no JVD present Lungs: CTA Heart: RRR Abdomen: NT/ND Extremities: other: (no edema) - Telemetry Telemetry Rhythm: NSR, Aflutter. - Labs Result Diagrams: 04/07/17 05:46 04/07/17 05:46 Troponin/CKMB CK-MB (CK-2) 3.8 ng/mL (0-6.6) 04/01/17 18:04 Troponin I 0.180 ng/mL (< 0.028) H 04/01/17 18:04 - Assessment/Plan 1. Atrial flutter, now in sinus. 2. C Diff colitis 3. Septic shock 4. S/P Mechanical aortic valve. 5. ESRD on HD PLAN: - He has had several runs of aflutter in the last 24 hrs. - Will start amiodarone drip. - Continue supportive care.
[2017-04-07] MEDS ORDERED: Budesonide 0.5 MG/2 ML NEB ONE (21:11)
[2017-04-07] MEDS ORDERED: Amiodarone In Dextrose 200 ML IVPB SCH (22:45)
[2017-04-08] MEDS: Propofol 1,000 MG/100 ML VIAL IV PRN ×2 (01:00→08:47)
[2017-04-08] MEDS ORDERED: Fentanyl CADD 250 ML IVPB SCH (01:06)
[2017-04-08 06:06] LABS: INR-International Normal Ratio 1.8; Prothrombin Time 21.1 SEC (12.0-14.7)
[2017-04-08 08:44] LABS: Hemoglobin 11.2 g/dL (14.0-18.0); Mean Corpuscular HGB CONC 30.4 g/dL (32.0-36.0); Mean Corpuscular Hemoglobin 30.3 pg (27.0-31.0); Mean Corpuscular Volume 99.5 fl (80.0-94.0); Mean Platelet Volume 8.5 fL (7.4-10.4); Platelet Count 195 thou/uL (130-400); Red Blood Cell (RBC) Count 3.69 mill/uL (4.70-6.10); White Blood Cell (WBC) Count 13.7 thou/uL (4.8-10.8)
[2017-04-08] MEDS: metroNIDAZOLE 500 MG in Premix Bag 1 BAG IVPB SCH ×3 (08:47→23:18)
[2017-04-08] MEDS: Pantoprazole 40 MG VIAL IVP SCH (08:48)
[2017-04-08] MEDS: Vancomycin HCl 25 MG/ML Oral PO SCH ×4 (08:48→21:28)
[2017-04-08] MEDS: Saccharomyces boulardii 250 MG CAP PO SCH ×2 (08:48→21:27)
[2017-04-08 08:51] LABS: Band 9 % (5-11); Eosinophils 2 % (0-10); Lymphocytes 11 % (21-51); MDiff Complete? YES; Monocytes 4 % (0-10); Myelocyte 1 % (0-0); Neutrophil 73 % (42-75); PLT Morphology Comment Appears Adequate; Polychromasia SLIGHT = 2-3 cells (100X) (0-2/hpf)
[2017-04-08] MEDS ORDERED: Amiodarone HCl 450 MG, Admixture Fee 1 EACH in Dextrose 5% in Water 250 ML IVPB SCH (09:45)
[2017-04-08 10:01] LABS: Actual Bicarbonate (HCO3a) 26.7 mEq/L (22-26); Base Excess (BEa) -2.6 mEq/L (0 (+/-) 2.5); CO2 Tension 71.4 mmHg (35.0-45.0); Hemoglobin (Hb) 11.4 g/dL (14.0-18.0); O2 Tension (PaO2) 78.1 mmHg (80.0-100.0); pH, Arterial 7.19 (7.35-7.45)
[2017-04-08 10:02] LABS: Analyzer IN Cardio OR; Calcium, Ionized 1.1 mmol/L (1.12-1.30); Puncture Site RRA
[2017-04-08] MEDS: Norepinephrine 8 MG in Sodium Chloride 0.9% 250 ML 250 ML IVPB PRN (11:16)
--- NOTE | 2017-04-08 11:58 | PRG ---
DATE OF SERVICE: 04/08/2017 Mr. Sheriff remains on the ventilator. He remains intubated. He remains on low doses of Levophed. I n the past 2 days he has not tolerated tube feeds well. Now, his sedation including fentanyl has bee n held. He had about 200 mL out through his NG tube. PHYSICAL EXAMINATION: GENERAL: Family is at bedside. The patient is intubated, not responding to commands at this time. VITAL SIGNS: Temperature 97.5, blood pressure 113/71, pulse 76, respirations 15. ABDOMEN: Protuberant, but nontender. Bowel sounds are quiescent. LABORATORY STUDIES: White count 13.7, hemoglobin 11.2, platelet count 195. INR 1.8. BUN and creati nine are 65 and 6.5. Electrolytes are normal. ASSESSMENT: 1. Clostridium difficile colitis, on day 7 of antibiotics. 2. Atrial flutter intermittently. 3. Septic shock, no signs of sepsis at this point in time. 4. Status post mechanical aortic valve. 5. End-stage renal disease. 6. Heart failure. 7. Ileus. PLAN: Will start low dose Reglan. Hopefully, with holding his sedation we will start to see some im provement in bowel function. At this time would not repeat imaging of the abdomen as he had a CAT sc an on the . If he continues to have issues could consider plain films.
--- NOTE | 2017-04-08 12:29 | PDOC.CTH ---
<Erica Murphy - Last Filed: 04/08/17 12:23> Cardiology Progress Note - Subjective the pt seen and examined. No overnight events. Still on Vent support with Vent sedation. - Objective Vital Signs Temp Pulse Resp BP Pulse Ox 04/08/17 12:07 82 129/71 04/08/17 12:05 81 13 97 04/08/17 12:00 98 F 04/08/17 10:00 16 04/08/17 08:00 97.6 F 04/08/17 07:41 75 97/52 L 04/08/17 07:36 75 17 93 L 04/08/17 06:00 24 H 04/08/17 04:00 97.4 F L 25 H 04/08/17 02:43 71 04/08/17 02:41 68 22 H 94 L 04/08/17 02:00 28 H 04/08/17 01:00 97.9 F Admit Weight 271 lb Weight 256 lb 13.416 oz 04/07/17 04/08/17 04/09/17 06:59 06:59 06:59 Intake Total 1623 1298.1 100 Output Total 200 450 Balance 1423 848.1 100 - Physical Examination Neck: no JVD present Lungs: other: (very diminished at bases) Heart: RRR Abdomen: soft Extremities: other: (no edema) - Telemetry Telemetry Rhythm: SR - Labs Result Diagrams: 04/08/17 05:20 04/07/17 05:46 Troponin/CKMB CK-MB (CK-2) 3.8 ng/mL (0-6.6) 04/01/17 18:04 Troponin I 0.180 ng/mL (< 0.028) H 04/01/17 18:04 - Assessment/Plan 1. AFlutter - remains SR with controlled HR with Amiodarone drip; On Coumadin; INR 2.5-3.5 2. Acute hypoxic Resp. failure - on Vent support; managed by final assembly and packing supervisor 3. C Diff colitis - managed by 4. Congenital Valve disease with S/P Mechanical aortic valve w/ Coumadin - 5. ESRD on HD - managed by patient accounts clerk 6. HTN - hypotensive with Levophed drip; cont. monitor 7. Ileus - on Protonix and Reglan; managed by GI 8. Severe Anemia - stable 9. Sleep Apnea MAR reviewed Review of Systems - Review of Systems Constitutional: reports: see HPI EENTM: reports: see HPI Respiratory: reports: see HPI Cardiac (ROS): reports: see HPI ABD/GI: reports: see HPI : reports: see HPI Musculoskeletal: reports: see HPI <Michelle Schultz Pato - Last Filed: 04/08/17 19:01> Cardiology Progress Note - Objective Vital Signs Temp Pulse Resp BP Pulse Ox 04/08/17 18:43 98 111/69 04/08/17 18:00 13 04/08/17 16:00 98.4 F 20 04/08/17 14:36 89 145/88 H 04/08/17 14:33 89 15 99 04/08/17 14:00 15 04/08/17 12:07 82 129/71 04/08/17 12:05 81 13 97 04/08/17 12:00 98 F 19 04/08/17 10:00 16 04/08/17 08:00 97.6 F 75 15 94 L 04/08/17 07:41 75 97/52 L 04/08/17 07:36 75 17 93 L Admit Weight 271 lb Weight 256 lb 13.416 oz 04/07/17 04/08/17 04/09/17 06:59 06:59 06:59 Intake Total 1623 1298.1 524 Output Total 200 450 300 Balance 1423 848.1 224 - Labs Result Diagrams: 04/08/17 05:20 04/07/17 05:46 Troponin/CKMB CK-MB (CK-2) 3.8 ng/mL (0-6.6) 04/01/17 18:04 Troponin I 0.180 ng/mL (< 0.028) H 04/01/17 18:04 - Assessment/Plan Pt. seen and eval. by me. Family at bedside. I agree with the A/P by the RIPENING ROOM HAND. Multiple medical problems. This PM I could not hear BS.Still continues to have an ileus. Chest clear., RRR.
--- NOTE | 2017-04-08 12:33 | PRG ---
DATE OF SERVICE: 04/08/2017 SERVICE: Pulmonary Medicine INTERVAL HISTORY: The patient is comatose this morning. For some reason he is still on propofol and fentanyl. Otherwise, there has been no interval change to his condition. He is breathing comfortab ly on mechanical ventilation. PHYSICAL EXAMINATION: VITAL SIGNS: Afebrile, pulse 81, blood pressure 113/71, respirations 15, saturation 95% on 37% FiO2 and a PEEP of 5. GENERAL: The patient is intubated. He is under the influence of sedation. HEENT: Normocephalic, atraumatic. Sclerae are white, conjunctivae pink. Oral mucosa is moist witho ut lesions. LUNGS: Decent air entry. There is no prolonged expiratory phase or wheezing. HEART: Normal rate, regular. ABDOMEN: Soft, nontender, nondistended. Bowel sounds are positive. MUSCULOSKELETAL: No cyanosis or clubbing. Pitting edema is drastically improved. GENITOURINARY: No Green catheter in place. NEUROLOGIC: Grossly nonfocal. LABORATORY DATA: WBC 13.7, hemoglobin 11.2, platelets 195,000. INR 1.8. PH 7.19, pCO2 71, pO2 78. Creatinine 6.55. Basic metabolic profile is otherwise unremarkable. C. diff antigen and toxin are positive. ASSESSMENT: 1. Acute on chronic hypoxic respiratory failure. 2. Septic shock, resolved. 3. Clostridium difficile infection. 4. End-stage renal disease. 5. Obstructive sleep apnea, severe. PLAN: We will turn off our sedation. He has a primary hypercapnic respiratory failure, likely assoc iated with the sedation. As such once this turns off, if he wakes up and is appropriate and his maame te volume improves under its own accord, I will consider him for extubation. He has cleared his infe ctious profile. His stool output has dramatically improved. White blood cell count is up today, but likely more a function of his acidosis Pulmonary Critical Care will continue to follow closely. Critical care time: 30 minutes.
[2017-04-08] MEDS: Metoclopramide HCl 10 MG/2 ML VIAL IVP SCH ×3 (13:31→23:19)
[2017-04-08] MEDS ORDERED: Warfarin Sodium 10 MG TAB PO SCH (17:00)
--- NOTE | 2017-04-08 18:27 | PRG ---
DATE OF SERVICE: 04/08/2017. SUBJECTIVE: The patient was seen and examined in ICU, family at the bedside and the patient remains intubated and edematous. No fever or chills reported. OBJECTIVE: GENERAL: This is an obese male, intubated, and seen in ICU. VITAL SIGNS: Temperature 98.4, pulse 96, respiratory 16, blood pressure 142/92. HEENT: Intubated. CARDIOVASCULAR: S1, S2 heard. RESPIRATORY: Clear. ABDOMEN: Soft. MUSCULOSKELETAL: 2+ edema. DERMATOLOGIC: No skin rash. NEUROLOGIC: Intubated. LABORATORY DATA: Potassium was 4.2, BUN 64, creatinine 6.5. Hemoglobin 11.2. ASSESSMENT AND PLAN: 1. End-stage renal disease. Continue on hemodialysis as tolerated. 2. Edema. We will remove fluid. 3. Hypertension. 4. Anemia. 5. Acute hypoxic respiratory failure. 6. Hypoalbuminemia. Plan is to continue on dialysis today and then Saturday, Saturday, and Saturday as tolerated. We will r emove fluid with dialysis as tolerated.
[2017-04-09] MEDS ORDERED: Amiodarone In Dextrose 200 ML IVPB SCH (00:30)
[2017-04-09] MEDS: Metoclopramide HCl 10 MG/2 ML VIAL IVP SCH ×4 (05:22→23:19)
[2017-04-09 05:50] LABS: INR-International Normal Ratio 2.1; Prothrombin Time 23.9 SEC (12.0-14.7)
[2017-04-09 06:17] LABS: Band 4 % (5-11); Hemoglobin 11.1 g/dL (14.0-18.0); Lymphocytes 5 % (21-51); MDiff Complete? YES; Mean Corpuscular HGB CONC 30.5 g/dL (32.0-36.0); Mean Corpuscular Hemoglobin 29.9 pg (27.0-31.0); Mean Corpuscular Volume 97.8 fl (80.0-94.0); Mean Platelet Volume 8.5 fL (7.4-10.4); Monocytes 7 % (0-10); Neutrophil 84 % (42-75); Platelet Count 138 thou/uL (130-400); RBC Distribution Width 17.8 % (11.5-14.5); Red Blood Cell (RBC) Count 3.71 mill/uL (4.70-6.10); White Blood Cell (WBC) Count 10.7 thou/uL (4.8-10.8)
[2017-04-09] MEDS: metroNIDAZOLE 500 MG in Premix Bag 1 BAG IVPB SCH ×3 (08:30→23:19)
[2017-04-09] MEDS: Pantoprazole 40 MG VIAL IVP SCH (08:31)
[2017-04-09] MEDS: Saccharomyces boulardii 250 MG CAP PO SCH ×2 (08:31→20:23)
[2017-04-09] MEDS: Vancomycin HCl 25 MG/ML Oral PO SCH ×4 (08:52→20:22)
--- NOTE | 2017-04-09 09:20 | PDOC.CTH ---
<Erica Murphy - Last Filed: 04/09/17 09:17> Cardiology Progress Note - Subjective the pt seen and examined. No overnight events. Off sedation for possible extubation today. The Pt opened his eyes with verbal stimulation, but still very lethargic and drowsy. The pt will have another HD today for generalized edema - Objective Vital Signs Temp Pulse Resp BP Pulse Ox 04/09/17 08:00 11 L 04/09/17 07:52 96 136/87 04/09/17 07:50 95 11 L 96 04/09/17 07:08 98.5 F 96 13 99 04/09/17 06:00 13 04/09/17 04:00 98.1 F 13 04/09/17 02:20 96 135/82 04/09/17 02:00 14 04/09/17 00:00 97.5 F L 15 04/08/17 22:20 92 108/71 04/08/17 22:00 12 Admit Weight 271 lb Weight 245 lb 13.047 oz 04/08/17 04/09/17 04/10/17 06:59 06:59 06:59 Intake Total 1298.1 774.1 100 Output Total 450 300 0 Balance 848.1 474.1 100 - Physical Examination Neck: no JVD present Lungs: other: (very diminished at bases) Heart: RRR Abdomen: other: (very hypoactive BS) Extremities: other: (No edemas; 2+ pulses to BLE) - Telemetry Telemetry Rhythm: SR 90s - Labs Result Diagrams: 04/09/17 05:20 04/07/17 05:46 Troponin/CKMB CK-MB (CK-2) 3.8 ng/mL (0-6.6) 04/01/17 18:04 Troponin I 0.180 ng/mL (< 0.028) H 04/01/17 18:04 - Assessment/Plan 1. A Flutter - remains SR with controlled HR with Amiodarone drip; On Coumadin; keep INR to 2.5-3.5 2. Acute hypoxic Resp. failure - on Vent support; possible extubated today? managed by labview programmer 3. C Diff colitis - managed by photographic reproduction technician 4. Congenital Valve disease with S/P Mechanical aortic valve w/ Coumadin - 5. ESRD on HD - the pt will have another HD today due to generalized edema; managed by blending tank helper 6. HTN - off Levophed drip at this moment; cont. monitor 7. Ileus - on Protonix and Reglan; managed by GI 8. Severe Anemia - stable 9. Sleep Apnea MAR reviewed Review of Systems - Review of Systems Constitutional: reports: see HPI EENTM: reports: see HPI Respiratory: reports: see HPI Cardiac (ROS): reports: see HPI ABD/GI: reports: see HPI : reports: see HPI Musculoskeletal: reports: see HPI Skin: reports: see HPI <Michelle Schultz - Last Filed: 04/09/17 18:01> Cardiology Progress Note - Objective Vital Signs Temp Pulse Resp BP Pulse Ox 04/09/17 16:00 98.4 F 18 04/09/17 15:22 92 135/79 04/09/17 15:20 90 18 99 04/09/17 14:00 26 H 04/09/17 12:00 98.5 F 21 H 04/09/17 11:19 98 150/101 H 04/09/17 11:17 103 H 22 H 93 L 04/09/17 10:00 10 L 04/09/17 08:00 11 L 04/09/17 07:52 96 136/87 04/09/17 07:50 95 11 L 96 04/09/17 07:08 98.5 F 96 13 99 Admit Weight 271 lb Weight 245 lb 13.047 oz 04/08/17 04/09/17 04/10/17 06:59 06:59 06:59 Intake Total 1298.1 774.1 267 Output Total 450 300 0 Balance 848.1 474.1 267 - Labs Result Diagrams: 04/09/17 05:20 04/07/17 05:46 Troponin/CKMB CK-MB (CK-2) 3.8 ng/mL (0-6.6) 04/01/17 18:04 Troponin I 0.180 ng/mL (< 0.028) H 04/01/17 18:04 - Assessment/Plan Pt. seen and eval. by me. Pt. is still intubated.. I agree with the A/P by the ORACLE EBS CONSULTANT. Multiple medical problems. Poor prognosis detention. This AM I could not hear BS.Still continues to have an ileus. Chest clear., RRR.
[2017-04-09] MEDS ORDERED: Amiodarone HCl 450 MG, Admixture Fee 1 EACH in Dextrose 5% in Water 250 ML IVPB SCH (10:15)
--- NOTE | 2017-04-09 10:52 | PRG ---
DATE OF SERVICE: 04/09/2017 SERVICE: Pulmonary Medicine. INTERVAL HISTORY: The patient is doing really well from respiratory standpoint. He is awake this mo rning. He is little groggy from some sedation, but he is following commands. He puts his thumbs up on his hands and he is moving his bilateral feet to command. He denies any current fevers or chills. There were no overnight events. PHYSICAL EXAMINATION: VITAL SIGNS: Afebrile, pulse 96, blood pressure 106/59, respirations 10, saturation 99% on 30% FIO2 and a PEEP of 5. GENERAL: The patient is awake and alert, in no apparent distress. LUNGS: Decent air entry. There are crackles present. No prolonged expiratory phase or rhonchi are appreciated. HEART: Normal rate, regular. ABDOMEN: Soft, nontender, nondistended. Bowel sounds are positive. MUSCULOSKELETAL: No cyanosis or clubbing. There is 1+ pitting in the bilateral upper extremity. No pitting in the lower extremities. GENITOURINARY: No Green catheter in place. NEUROLOGIC: Grossly nonfocal. LABORATORY DATA: WBC 10.7, hemoglobin 11.1, platelets 138,000. Band count is dropping to 4% with ne utrophil count of 84. INR 2.1. Basic metabolic profile is otherwise unremarkable. ASSESSMENT: 1. Acute on chronic hypoxic respiratory failure. 2. Septic shock, resolved. 3. Clostridium difficile infection. 4. End-stage renal disease. 5. Obstructive sleep apnea, severe. PLAN: We will give him a spontaneous breathing trial today after good long sedation holiday. If he meets criteria, extubation will be considered. Pulmonary Critical Care will continue to follow while he remains in this location. CRITICAL CARE TIME: 30 minutes.
[2017-04-09] MEDS: Warfarin Sodium 5 MG TAB PO SCH (16:32)
[2017-04-09] MEDS: Propofol 1,000 MG/100 ML VIAL IV PRN (16:44)
[2017-04-09] MEDS ORDERED: Warfarin Sodium 5 MG TAB PO SCH (17:00)
--- NOTE | 2017-04-09 20:27 | PRG ---
DATE OF SERVICE: 04/09/2017 SUBJECTIVE: The patient was seen and examined in ICU. Family at bedside. The patient remains intub ated, nonverbal, no fever or chills. Blood pressure remains high. OBJECTIVE: GENERAL: This is an obese male, intubated and seen in ICU. VITAL SIGNS: Temperature 98.4, pulse 74, respiratory 18, blood pressure 127/79. HEENT: Intubated. CARDIOVASCULAR: S1, S2 heard. RESPIRATORY: Clear anteriorly. ABDOMEN: Soft. MUSCULOSKELETAL: 1+ edema. DERMATOLOGIC: No skin rash. NEUROLOGIC: Intubated. Not responsive. LABORATORY DATA: Not done today. ASSESSMENT AND PLAN: 1. End-stage renal disease. We will continue on hemodialysis. 2. Edema, remove fluid with dialysis. 3. Hypertension, remove fluid. 4. Anemia. 5. Acute hypoxic respiratory failure. 6. Hypoalbuminemia. Plan is to continue on dialysis as tolerated. I will check labs in the morning.
--- NOTE | 2017-04-09 22:44 | PRG ---
DATE OF SERVICE: 04/09/2017 SUBJECTIVE: Mr. Sheriff remains intubated. He failed extubation today. He has already been tolerati ng tube feeds very well, it has been held on and off through the day. He has had bowel movements. T here has been no fever according to the nurse. No signs of bleeding. OBJECTIVE: VITAL SIGNS: Temperature 98, pulse 92, blood pressure 135/76. GENERAL: The patient is awake. He follows some simple commands. ABDOMEN: Soft and nontender. Bowel sounds are quiescent. LABORATORY STUDIES: White count 10, hemoglobin 11.1, platelets 138. Electrolytes normal except for a BUN of 64 and creatinine 6.55. ASSESSMENT: 1. Clostridium difficile colitis hospital day #8. 2. Respiratory failure secondary to sepsis and heart failure. 3. End-stage renal disease. 4. Mechanical aortic valve. RECOMMENDATIONS: 1. It is okay to re-anticoagulate the patient based on his need for anticoagulation with a mechanica l valve. He is on Coumadin now with INR of 2.1. 2. Clostridium difficile. Continue 14 days of antibiotics as soon as he is extubated. If he is doi ng pretty well, we can stop the IV Flagyl and discover with Levaquin. He would do the p.o. vancomyci n for 14 days. We will continue to follow.
[2017-04-10] MEDS: Metoclopramide HCl 10 MG/2 ML VIAL IVP SCH ×4 (05:11→23:33)
[2017-04-10 06:11] LABS: Anion Gap 21 mmol/L (10-20); BUN (Urea Nitrogen) 82 mg/dL (8.9-20.6); Calc. Creatinine Clearance 18 mL/min (70-130); Calcium 9.9 mg/dL (7.8-10.44); Carbon Dioxide 25 mmol/L (22-29); Chloride 96 mmol/L (98-107); Estimated GFR-MDRD 7; Glucose 82 mg/dL (70-105); Potassium 4.4 mmol/L (3.5-5.1); Sodium 138 mmol/L (136-145)
--- NOTE | 2017-04-10 07:56 | PDOC.CTH ---
<Erica Murphy - Last Filed: 04/10/17 07:54> Cardiology Progress Note - Subjective The pt seen and examined. No overnight events. Off sedation for weaning off from Vent and hypotensive. Another HD today. The pt is very lethergic in this AM - Objective Vital Signs Temp Pulse Resp Pulse Ox 04/10/17 07:48 96 18 97 04/10/17 07:37 98.6 F 94 16 98 04/10/17 07:00 98.6 F 04/10/17 06:00 15 04/10/17 04:00 11 L 04/10/17 03:00 97.7 F 04/10/17 02:33 97 16 100 04/10/17 02:30 98 04/10/17 02:00 19 04/10/17 00:00 18 04/09/17 23:00 97.9 F 04/09/17 22:36 94 16 100 04/09/17 22:34 95 04/09/17 22:00 16 04/09/17 20:00 17 04/09/17 19:55 97.5 F L 92 15 98 Admit Weight 271 lb Weight 235 lb 3.732 oz 04/09/17 04/10/17 04/11/17 06:59 06:59 06:59 Intake Total 774.1 1029 Output Total 300 0 0 Balance 474.1 1029 0 - Physical Examination Neck: no JVD present Lungs: other: (coase and diminished at bases) Heart: RRR Abdomen: soft Extremities: other: (1+ pitting edema to BLE) - Telemetry Telemetry Rhythm: SR 90s - Labs Result Diagrams: 04/09/17 05:20 04/10/17 05:00 Troponin/CKMB CK-MB (CK-2) 3.8 ng/mL (0-6.6) 04/01/17 18:04 Troponin I 0.180 ng/mL (< 0.028) H 04/01/17 18:04 - Assessment/Plan 1. A Flutter - remains SR with controlled HR; Amiodarone drip is stopped now due to hypotension; On Coumadin; keep INR to 2.5-3.5 2. Acute hypoxic Resp. failure - still on Vent support; Off sedation for possible Cpap trial today and hypotension; managed by el teacher 3. C Diff colitis - managed by process engineer 4. Congenital Valve disease with S/P Mechanical aortic valve - on Coumadin 5. ESRD on HD - the pt will have another HD today due to generalized edema; managed by cheesemaking laborer 6. HTN - still hypotensive; off Amio drip and sedation for hypotension; no Levophed drip at this moment; cont. monitor 7. Ileus - on Protonix and Reglan; managed by GI 8. Severe Anemia - stable 9. Sleep Apnea MAR reviewed Review of Systems - Review of Systems Constitutional: reports: see HPI EENTM: reports: see HPI Respiratory: reports: see HPI Cardiac (ROS): reports: see HPI ABD/GI: reports: see HPI : reports: see HPI <Michelle Schultz - Last Filed: 04/11/17 10:00> Cardiology Progress Note - Objective Vital Signs Temp Pulse Resp Pulse Ox 04/11/17 07:28 99 04/11/17 07:26 100 16 99 04/11/17 07:09 98.0 F 102 H 26 H 96 04/11/17 03:00 98.0 F 04/11/17 02:59 105 H 21 H 96 04/10/17 23:00 97.5 F L 04/10/17 22:33 97 26 H 96 Admit Weight 271 lb Weight 231 lb 11.293 oz 04/10/17 04/11/17 04/12/17 06:59 06:59 06:59 Intake Total 1029 1500 360 Output Total 0 0 0 Balance 1029 1500 360 - Labs Result Diagrams: 04/11/17 05:00 04/11/17 05:00 Troponin/CKMB CK-MB (CK-2) 3.8 ng/mL (0-6.6) 04/01/17 18:04 Troponin I 0.180 ng/mL (< 0.028) H 04/01/17 18:04 - Assessment/Plan Pt. was seen and eval. by me. He is extubated. He denies any cardiac complaints. Multiple problems. I agree with the a/P by the MAINTENANCE SHOP LABORER.Aim for INR 2.5- 3.5.
[2017-04-10] MEDS: Pantoprazole 40 MG VIAL IVP SCH (08:35)
[2017-04-10] MEDS: metroNIDAZOLE 500 MG in Premix Bag 1 BAG IVPB SCH ×3 (08:35→23:35)
[2017-04-10] MEDS: Vancomycin HCl 25 MG/ML Oral PO SCH ×4 (08:36→20:35)
[2017-04-10] MEDS: Saccharomyces boulardii 250 MG CAP PO SCH ×2 (08:36→20:33)
[2017-04-10] MEDS ORDERED: Fluconazole 100 MG TAB PO SCH (12:15)
--- NOTE | 2017-04-10 12:19 | PRG ---
DATE OF SERVICE: 04/10/2017 SERVICE: Pulmonary Medicine. INTERVAL HISTORY: The patient is doing okay from a respiratory standpoint. Once again, he was put on more sedation overnight. This morning, he cannot provide any additional element to the history because of increasing sedation. We put him on a sedation holiday. He is waking up and he passing his spontaneous breathing trial once again. He continues to have copious amounts of secretions coming from the lungs. It has a white texture. OBJECTIVE: VITAL SIGNS: Afebrile, pulse 111, blood pressure 126/70, respirations 24, saturation 99% on 31% FiO2 and PEEP of 5. GENERAL: The patient is awake, alert, no apparent distress. LUNGS: Decent air entry. There is no prolonged expiratory phase or wheezing. HEART: Tachycardic. Regular. ABDOMEN: Soft, nontender, nondistended. Bowel sounds are positive. MUSCULOSKELETAL: No cyanosis or clubbing. There is no pitting today. GENITOURINARY: No Green catheter. NEUROLOGIC: Grossly nonfocal. LABORATORY DATA: Creatinine 7.89, BUN 82. Basic metabolic profile is otherwise unremarkable. ASSESSMENT: 1. Acute on chronic hypoxic respiratory failure. 2. Septic shock, resolved. 3. Clostridium difficile infection. 4. End-stage renal disease. 5. Obstructive sleep apnea, severe. PLAN: We will once again give him a long sedation holiday. I am going to collect sputum for culture. We will see whether or not there is any fungal species there. Other way, I am going to put him on antifungal medication moving forward given the consistency of his copious sputum production. Of note , he is on dialysis again today, but over the last 48 hours, over 8 liters of fluid was removed from him. I do not think water is a big issue here. Pulmonary Critical Care will continue to follow. Critical care time: 30 minutes. MTDD
--- NOTE | 2017-04-10 12:22 | PRG ---
DATE OF SERVICE: 04/10/2017 SUBJECTIVE: The patient was seen and examined in ICU, family at the bedside and sent to me this to b e intubated, but more alert today. He was getting dialysis and dialysis nurse at the bedside. OBJECTIVE: GENERAL: This is an obese male, in no apparent distress, intubated, currently seen in ICU. VITAL SIGNS: Temperature 98.6, pulse 111, respiratory rate 16, blood pressure 126/70. HEENT: Intubated. CARDIOVASCULAR: S1, S2 heard. RESPIRATORY: Clear. ABDOMEN: Soft. MUSCULOSKELETAL: 1+ edema. DERMATOLOGIC: No skin rash. NEUROLOGIC: Intubated. LABORATORY DATA: Potassium 4.4, BUN 82, creatinine 7.8, hemoglobin is 11.1. ASSESSMENT AND PLAN: 1. End-stage renal disease. We will continue on dialysis today and Saturday, Saturday, and Saturday. 2. Edema. 3. Hypertension. 4. Anemia. 5. Acute hypoxic respiratory failure. 6. Hypoalbuminemia. PLAN: Plan is to continue dialysis and remove fluid with dialysis.
[2017-04-10] MEDS: Warfarin Sodium 5 MG TAB PO SCH (16:42)
[2017-04-11] MEDS ORDERED: Acetaminophen 500 MG TAB PO PRN (00:26)
[2017-04-11 05:55] LABS: #Basophils 0.1 thou/uL (0.0-0.2); #Lymphocytes 0.7 thou/uL (1.20-3.40); #Monocytes 0.7 thou/uL (0.11-0.59); #Neutrophils 8.1 thou/uL (1.40-6.50); %Basophils 0.6 % (0.0-1.0); %Eosinophils 0.3 % (0.0-10.0); %Lymphocytes 7.3 % (21.0-51.0); %Neutrophils 84.8 % (42.0-75.0); Hemoglobin 10.4 g/dL (14.0-18.0); Mean Corpuscular Hemoglobin 30.8 pg (27.0-31.0); Mean Corpuscular Volume 96.2 fl (80.0-94.0); Mean Platelet Volume 8.7 fL (7.4-10.4); Platelet Count 158 thou/uL (130-400); RBC Distribution Width 17.4 % (11.5-14.5); Red Blood Cell (RBC) Count 3.38 mill/uL (4.70-6.10); White Blood Cell (WBC) Count 9.5 thou/uL (4.8-10.8)
[2017-04-11 06:02] LABS: Prothrombin Time 50.9 SEC (12.0-14.7)
[2017-04-11 06:03] LABS: Anion Gap 16 mmol/L (10-20); BUN (Urea Nitrogen) 53 mg/dL (8.9-20.6); Calc. Creatinine Clearance 23 mL/min (70-130); Calcium 9.9 mg/dL (7.8-10.44); Carbon Dioxide 28 mmol/L (22-29); Chloride 98 mmol/L (98-107); Estimated GFR-MDRD 10; Glucose 80 mg/dL (70-105); Potassium 3.3 mmol/L (3.5-5.1); Sodium 139 mmol/L (136-145)
[2017-04-11 06:16] LABS: INR-International Normal Ratio 5.2
[2017-04-11] MEDS: Metoclopramide HCl 10 MG/2 ML VIAL IVP SCH (06:20)
[2017-04-11] MEDS: metroNIDAZOLE 500 MG in Premix Bag 1 BAG IVPB SCH ×3 (08:50→23:05)
[2017-04-11] MEDS: Fluconazole 100 MG TAB PO SCH (08:51)
[2017-04-11] MEDS: Vancomycin HCl 25 MG/ML Oral PO SCH ×4 (08:51→20:37)
[2017-04-11] MEDS: Saccharomyces boulardii 250 MG CAP PO SCH ×2 (08:51→20:37)
--- NOTE | 2017-04-11 11:25 | PDOC.CTH ---
<Erica Murphy - Last Filed: 04/11/17 11:36> Cardiology Progress Note - Subjective The pt seen and examined. No overnight events. No cardiac complaints. Extubated yesterday. The pt stated he is breathing well at this moment. - Objective Vital Signs Temp Pulse Resp Pulse Ox 04/11/17 07:28 99 04/11/17 07:26 100 16 99 04/11/17 07:09 98.0 F 102 H 26 H 96 04/11/17 03:00 98.0 F 04/11/17 02:59 105 H 21 H 96 Admit Weight 271 lb Weight 231 lb 11.293 oz 04/10/17 04/11/17 04/12/17 06:59 06:59 06:59 Intake Total 1029 1500 360 Output Total 0 0 0 Balance 1029 1500 360 - Physical Examination General/Neuro: alert & oriented x3 Neck: no JVD present Lungs: other: (very diminished at bases) Heart: RRR Abdomen: soft Extremities: other: (No edema) - Telemetry Telemetry Rhythm: SR 90s - Labs Result Diagrams: 04/11/17 05:00 04/11/17 05:00 Troponin/CKMB CK-MB (CK-2) 3.8 ng/mL (0-6.6) 04/01/17 18:04 Troponin I 0.180 ng/mL (< 0.028) H 04/01/17 18:04 - Assessment/Plan 1. A Flutter - remains SR with controlled HR; will restert Amiodarone 200mg BID PO; On Coumadin; keep INR to 2.5-3.5 2. Acute hypoxic Resp. failure - stable since the pt was extubated yesterday; managed by lean process deployment consultant 3. C Diff colitis - managed by cray fishing hand 4. Congenital Valve disease with S/P Mechanical aortic valve - on Coumadin; keep INR to 2.5-3.5 5. ESRD on HD - HD on MWF; managed by 4th grade teacher 6. HTN - stable; cont. monitor 7. Ileus - on Protonix and Reglan; managed by GI 8. Severe Anemia - stable 9. Sleep Apnea MAR reviewed Review of Systems - Review of Systems Constitutional: reports: no symptoms reported EENTM: reports: no symptoms reported Respiratory: reports: see HPI Cardiac (ROS): reports: no symptoms reported ABD/GI: reports: no symptoms reported : reports: no symptoms reported Musculoskeletal: reports: no symptoms reported <Michelle Schultz - Last Filed: 04/11/17 22:56> Cardiology Progress Note - Objective Vital Signs Temp Pulse Resp Pulse Ox 04/11/17 22:03 90 19 100 04/11/17 20:32 98.0 F 04/11/17 20:00 98.0 F 90 23 H 98 04/11/17 18:25 92 22 H 100 04/11/17 15:27 98 23 H 93 L 04/11/17 12:00 97.7 F 04/11/17 11:29 93 24 H 93 L Admit Weight 271 lb Weight 231 lb 11.293 oz 04/10/17 04/11/17 04/12/17 06:59 06:59 06:59 Intake Total 1029 1500 950 Output Total 0 0 0 Balance 1029 1500 950 - Labs Result Diagrams: 04/11/17 05:00 04/11/17 05:00 Troponin/CKMB CK-MB (CK-2) 3.8 ng/mL (0-6.6) 04/01/17 18:04 Troponin I 0.180 ng/mL (< 0.028) H 04/01/17 18:04 - Assessment/Plan Pt. seen and eval. by me.I agree with the A/P by the REAL ESTATE DIRECTOR. He remains off the ventilator. Ther O2 sats are in the high 80's at times but he appears more comfortable. The INR was elevated and the coumadin will be held for 1-2 days.
--- NOTE | 2017-04-11 11:35 | PRG ---
Patient Name: MATI DIAMOND Date of service: 04/11/2017 Subjective: Patient was seen and examined at bedside and overnight events noted. Patient denies any shortness of breath or chest pain or palpitation. No history of nausea or vomiting or diarrhea or fever or chills or cramps. Objective: General: This is an obese male in no apparent distress. Vital signs: Temperature 98.0, pulse 105, respiratory rate 18, blood pressure 180/75. HEENT: Atraumatic, normocephalic. Oral mucosa is moist. Neck: Supple. Cardiovascular: S1 S2 heard. Rate and rhythm regular. Respiratory: Clear to auscultation. Gastrointestinal: Abdomen is soft. Musculoskeletal: No tenderness. No edema. Dermatologic: No skin rash. Neurologic: Alert and awake and oriented X3. No focal neurologic deficits. Moving all the extremit ies. Psychiatric: Mood and affect normal. LABORATORY DATA: Potassium 3.3, BUN 53, creatinine 5.9. ASSESSMENT AND PLAN: 1. End-stage renal disease requiring hemodialysis. 2. Edema, stable. 3. Hypertension. 4. Anemia. Plan is to continue on dialysis Saturday, Saturday, and Saturday.
--- NOTE | 2017-04-11 12:14 | PRG ---
DATE OF SERVICE: 04/10/2017 Mr. Sheriff is without complaints. He is still intubated. The nurse notes he is going to probably be extubated or they are going to try to extubate him later today. He is off sedation. PHYSICAL EXAMINATION: VITAL SIGNS: Temperature 97.5, blood pressure 116/72, pulse 87. ABDOMEN: Soft, nontender. NEURO: The patient is awake. He responds to some commands. LABORATORY STUDIES: 04/10/2017 - Sodium 138, potassium 4.4, BUN and creatinine are 82 and 7.89. ASSESSMENT: Clostridium difficile colitis, improving. Continue 14 days of p.o. vancomycin, can stop IV Flagyl once extubated.
--- NOTE | 2017-04-11 12:39 | PRG ---
DATE OF SERVICE: 04/11/2017 SERVICE: Pulmonary Medicine. INTERVAL HISTORY: The patient is doing fine from a respiratory standpoint. He denies any current fe vers, chills, nausea, vomiting or chest discomfort. He is breathing much more comfortably. He demon strates extraordinary weakness. Outside of this, there has been no interval changes to his condition . He extubated yesterday and did well afterwards. His mentation is starting to come around a little bit and he is tolerating some p.o. Speech Pathology is working with him presently. PHYSICAL EXAMINATION: VITAL SIGNS: Afebrile, pulse 93, blood pressure 129/84, respirations 26, and saturation 94% on room air. GENERAL: Patient is awake, alert, in no apparent distress. LUNGS: Decent air entry. There is a slightly prolonged expiratory phase, but I do not appreciate an y wheezing, rhonchi, or crackles today. HEART: Normal rate, regular. ABDOMEN: Soft, nontender, nondistended. Bowel sounds are positive. MUSCULOSKELETAL: No cyanosis or clubbing. There is no pitting throughout. GENITOURINARY: No Green. NEUROLOGIC: Grossly nonfocal. LABORATORY DATA: WBC 9.5, hemoglobin 10.4, platelets 158,000. Creatinine 5.95, BUN 53. Basic metab olic profile is otherwise unremarkable except for potassium of 3.3. Respiratory culture is unremarka ble. There are a few budding yeast and a few gram positive cocci in clusters as well as gram positiv e rods. Many white blood cells are seen throughout the lung. ASSESSMENT: 1. Acute on chronic hypoxic respiratory failure. 2. Septic shock, resolved. 3. Clostridium difficile infection. 4. Obstructive sleep apnea, severe. 5. End-stage renal disease. PLAN: We will involve physical therapy and occupational therapy to work on his weakness. We are goi ng to start working on mobilizing the patient as much as he tolerates over the next 48 hours. We are going to transition him out of the ICU to the IM. Pulmonary Critical Care will continue to follow for the time being. I do think that he is extraordinarily weak at this point and could benefit from rehabilitation. I will ask case management to start working on that.
[2017-04-11] MEDS: Amiodarone 200 MG TAB PO SCH (20:37)
[2017-04-12 04:52] LABS: #Lymphocytes 0.6 thou/uL (1.20-3.40); #Monocytes 0.5 thou/uL (0.11-0.59); %Basophils 0.3 % (0.0-1.0); %Eosinophils 0.1 % (0.0-10.0); %Lymphocytes 11.3 % (21.0-51.0); %Monocytes 9.8 % (0.0-10.0); %Neutrophils 78.5 % (42.0-75.0); Mean Corpuscular HGB CONC 32.3 g/dL (32.0-36.0); Mean Corpuscular Volume 95.9 fl (80.0-94.0); Mean Platelet Volume 8.5 fL (7.4-10.4); Platelet Count 144 thou/uL (130-400); RBC Distribution Width 17.4 % (11.5-14.5); Red Blood Cell (RBC) Count 3.22 mill/uL (4.70-6.10)
[2017-04-12 04:56] LABS: Prothrombin Time 56.5 SEC (12.0-14.7)
[2017-04-12 05:05] LABS: INR-International Normal Ratio 5.9
[2017-04-12 05:08] LABS: Anion Gap 19 mmol/L (10-20); BUN (Urea Nitrogen) 71 mg/dL (8.9-20.6); Calc. Creatinine Clearance 18 mL/min (70-130); Calcium 9.6 mg/dL (7.8-10.44); Carbon Dioxide 26 mmol/L (22-29); Chloride 99 mmol/L (98-107); Estimated GFR-MDRD 8; Glucose 99 mg/dL (70-105); Potassium 3.6 mmol/L (3.5-5.1); Sodium 140 mmol/L (136-145)
--- NOTE | 2017-04-12 08:37 | PDOC.CTH ---
<Erica Murphy - Last Filed: 04/12/17 08:35> Cardiology Progress Note - Subjective The pt was seen and examined. No overnight events. No cardiac complaints. He is up to chair at this moment having breakfast. He stated he does not have good appetite. - Objective Vital Signs Temp Pulse Resp Pulse Ox 04/12/17 08:00 98 F 90 20 04/12/17 07:41 99 04/12/17 07:38 89 24 H 99 04/12/17 04:00 98.0 F 04/12/17 02:34 87 22 H 98 04/12/17 00:00 97.0 F L 04/11/17 22:03 90 19 100 Admit Weight 271 lb Weight 230 lb 13.184 oz 04/11/17 04/12/17 04/13/17 06:59 06:59 06:59 Intake Total 1500 1480 0 Output Total 0 0 Balance 1500 1480 0 - Physical Examination General/Neuro: alert & oriented x3 Neck: no JVD present Lungs: other: (diminished at bases) Heart: RRR Abdomen: soft Extremities: other: (No edema) - Telemetry Telemetry Rhythm: [id number] - Labs Result Diagrams: 04/12/17 03:58 04/12/17 03:58 Troponin/CKMB CK-MB (CK-2) 3.8 ng/mL (0-6.6) 04/01/17 18:04 Troponin I 0.180 ng/mL (< 0.028) H 04/01/17 18:04 - Assessment/Plan 1. A Flutter - remains SR with controlled HR with Amiodarone 200mg BID PO; On Coumadin; Today's INR was 5.9 which was 5.2 yesterday; keep INR to 2.5-3.5; Pharmacy will manage the pt's Coumadin dosage from today 2. Acute hypoxic Resp. failure - stable with 2LNC; extubated on 04/10/17; managed by aerobics teacher 3. C Diff colitis - managed by manager life sciences 4. Congenital Valve disease with S/P Mechanical aortic valve - on Coumadin; keep INR to 2.5-3.5 5. ESRD on HD - HD on MWF; managed by riveter pneumatic 6. HTN - stable; cont. monitor 7. Ileus - on Protonix and Reglan; managed by GI 8. Severe Anemia - stable 9. Sleep Apnea MAR reviewed The INR was elevated and the coumadin will be held for 1-2 days. Review of Systems - Review of Systems Constitutional: reports: see HPI, weakness EENTM: reports: no symptoms reported Respiratory: reports: no symptoms reported Cardiac (ROS): reports: no symptoms reported ABD/GI: reports: no symptoms reported : reports: no symptoms reported Musculoskeletal: reports: no symptoms reported Skin: reports: no symptoms reported <Michelle Schultz - Last Filed: 04/12/17 14:49> Cardiology Progress Note - Objective Vital Signs Temp Pulse Pulse Pulse Resp BP BP 04/12/17 14:23 94 26 H 04/12/17 13:40 90 94 92/48 L 117/59 L 04/12/17 11:05 90 24 H 04/12/17 08:00 98 F 90 20 04/12/17 07:41 04/12/17 07:38 89 24 H 04/12/17 04:00 98.0 F Pulse Ox 04/12/17 14:23 97 04/12/17 13:40 04/12/17 11:05 99 04/12/17 08:00 04/12/17 07:41 99 04/12/17 07:38 99 04/12/17 04:00 Admit Weight 271 lb Weight 230 lb 13.184 oz 04/11/17 04/12/17 04/13/17 06:59 06:59 06:59 Intake Total 1500 1480 200 Output Total 0 0 Balance 1500 1480 200 - Labs Result Diagrams: 04/12/17 03:58 04/12/17 03:58 Troponin/CKMB CK-MB (CK-2) 3.8 ng/mL (0-6.6) 04/01/17 18:04 Troponin I 0.180 ng/mL (< 0.028) H 04/01/17 18:04 - Assessment/Plan Pt. seen and eval. by me. I agree with the A/P by the BUSINESS INFORMATION ANALYST. Cardiac status is stable. INR is still elevated. Continue to hold coumadin. He remains in NSR
[2017-04-12] MEDS ORDERED: WARFARIN PO PRN (09:00)
[2017-04-12 09:37] VITALS: BMI 28.8
[2017-04-12] MEDS: metroNIDAZOLE 500 MG in Premix Bag 1 BAG IVPB SCH (10:07)
[2017-04-12] MEDS: Saccharomyces boulardii 250 MG CAP PO SCH ×2 (10:07→20:41)
[2017-04-12] MEDS: Vancomycin HCl 25 MG/ML Oral PO SCH ×4 (10:07→20:42)
[2017-04-12] MEDS: Amiodarone 200 MG TAB PO SCH ×2 (10:08→20:42)
[2017-04-12] MEDS: Fluconazole 100 MG TAB PO SCH (10:08)
--- NOTE | 2017-04-12 10:57 | PRG ---
DATE OF SERVICE: 04/12/2017 SERVICE: Pulmonary Medicine. INTERVAL HISTORY: The patient is doing really well from a cardiovascular and respiratory standpoint. He denies any current fevers, chills, nausea, or vomiting. He is breathing comfortably. His bowel movements have decreased a little bit. Otherwise, there has been no interval change to his conditio n and overnight events. PHYSICAL EXAMINATION: VITAL SIGNS: Afebrile, pulse 90, blood pressure 122/71, respirations 27, and saturation 100% on room air. GENERAL: The patient is awake and alert, in no apparent distress, 100% on 2 liters nasal cannula. HEENT: Normocephalic, atraumatic. Sclerae are white, conjunctivae pink. Oral and nasal mucosa is m oist without lesions. LUNGS: Decent air entry. There is no prolonged expiratory phase. Dependent crackles are not presen t. HEART: Normal rate, regular. ABDOMEN: Soft, nontender, nondistended. Bowel sounds are positive. MUSCULOSKELETAL: No cyanosis or clubbing. There is no pitting in the bilateral lower extremities. NEUROLOGIC: Grossly nonfocal. LABORATORY DATA: WBC 5.0, hemoglobin 10.0, and platelets 144,000. Creatinine 7.67, BUN 71. Basic m etabolic profile is otherwise unremarkable. Respiratory culture is in fact growing presumptive Whit da albicans. C. diff antigen and toxin are positive. Blood culture x2 remain negative. ASSESSMENT: 1. Acute on chronic hypoxic respiratory failure. 2. Septic shock, resolved. 3. Clostridium difficile infection. 4. Obstructive sleep apnea, severe. 5. End-stage renal disease. PLAN: I will give the patient a lab holiday. He can transition out of the ICU to in the [facility], but t aurelio be told, he is stable for transition out of the hospital to [facility]. Pulmonary Cr itical Care will continue to follow while the patient remains in house. Given the amount of secretio ns that had a yeast appearance to it coming from his lungs, I would go ahead and treat him for a full antifungal course.
--- NOTE | 2017-04-12 11:32 | PRG ---
DATE OF SERVICE: 04/12/2017 SUBJECTIVE: Patient was seen and examined at bedside and overnight events noted. Patient denies any shortness of breath or chest pain or palpitation. No history of nausea or vomiting or diarrhea or f ever or chills or cramps. OBJECTIVE: GENERAL: This is a well-built male in no apparent distress. VITAL SIGNS: Temperature 98.0, pulse 90, respiratory rate 18 and blood pressure 122/71. HEENT: Atraumatic and normocephalic. Oral mucosa is moist. NECK: Supple. CARDIOVASCULAR: S1 and S2 heard. Rate and rhythm regular. RESPIRATORY: Clear to auscultation. GASTROINTESTINAL: Abdomen is soft. MUSCULOSKELETAL: No tenderness. No edema. DERMATOLOGIC: No skin rash. NEUROLOGIC: Alert, awake and oriented x3. No focal neurologic deficits. Moving all the extremities . PSYCHIATRIC: Mood and affect normal. LABORATORY DATA: Potassium is 3.6, BUN is 71 and creatinine is 7.6. ASSESSMENT AND PLAN: 1. End-stage renal disease. We will continue on dialysis today and Saturday, Saturday and Saturday. 2. Hypokalemia, better. 3. Edema, controlled. 4. Hypertension, stable. 5. Anemia. We will continue Epogen with dialysis. Plan is to continue on dialysis as tolerated. The patient was seen during dialysis today and tolerat ing well.
[2017-04-12] MEDS ORDERED: Warfarin Sodium 5 MG TAB PO SCH ×2 (17:00)
[2017-04-13 05:54] LABS: Prothrombin Time 40.9 SEC (12.0-14.7)
[2017-04-13 06:01] LABS: HIV (1/2) Antibody/Antigen Non-Reactive (NonReactive); HIV 1/2 INDEX 0.14 S/CO (<1.00)
[2017-04-13] MEDS: Saccharomyces boulardii 250 MG CAP PO SCH ×2 (09:35→20:41)
[2017-04-13] MEDS: Fluconazole 100 MG TAB PO SCH (09:36)
[2017-04-13] MEDS: Amiodarone 200 MG TAB PO SCH ×2 (09:37→20:41)
--- NOTE | 2017-04-13 11:38 | PRG ---
DATE OF SERVICE: 04/12/2017 SUBJECTIVE: Mr. Sheriff is doing better, had no acute complaints today. OBJECTIVE: VITAL SIGNS: His temperature is 99, pulse 104, respiration 16, O2 saturation 98% on 2 liters, blood pressure 117/75. HEENT: Unremarkable. NECK: No JVD. LUNGS: He has inspiratory crackles at the bases. CARDIAC: S1 and S2 regular. ABDOMEN: Soft. EXTREMITIES: Trace edema. LABORATORY DATA: No labs were obtained today. ASSESSMENT: 1. Chronic renal failure. 2. Acute on chronic hypoxic respiratory failure, which has improved. 3. Septic shock, resolved. 4. Clostridium difficile infection. 5. Obstructive sleep apnea, which is severe. PLAN: Rehabilitation consult has been placed. He is continuing oral vancomycin for the C. diff. Hi s respiratory status is stable at this time.
[2017-04-13] MEDS: Vancomycin HCl 25 MG/ML Oral PO SCH ×4 (12:05→20:41)
--- NOTE | 2017-04-13 17:29 | PDOC.CTH ---
Cardiology Progress Note - Objective Vital Signs Temp Pulse Resp BP Pulse Ox 04/13/17 15:45 98.3 F 88 16 87/56 L 92 L 04/13/17 15:05 84 22 H 04/13/17 10:50 97.9 F 102 H 28 H 97/64 100 04/13/17 08:29 104 H 16 04/13/17 08:00 99.0 F 93 19 98 04/13/17 07:30 99.0 F 93 19 117/75 97 Admit Weight 271 lb Weight 224 lb 1 oz 04/12/17 04/13/17 04/14/17 06:59 06:59 06:59 Intake Total 1480 700 Output Total 0 Balance 1480 700 - Physical Examination General/Neuro: alert & oriented x3 Neck: carotid US brisk Lungs: other: (few basilar rales.) Heart: RRR Abdomen: NT/ND, soft (NSR) - Labs Result Diagrams: 04/12/17 03:58 04/12/17 03:58 Troponin/CKMB CK-MB (CK-2) 3.8 ng/mL (0-6.6) 04/01/17 18:04 Troponin I 0.180 ng/mL (< 0.028) H 04/01/17 18:04 - Assessment/Plan 1. A Flutter - remains SR with controlled HR with Amiodarone 200mg BID PO; On Coumadin; Today's INR was 4.0 which was 5.9 yesterday; keep INR to 2.5-3.5; Pharmacy will manage the pt's Coumadin dosage from today 2. Acute hypoxic Resp. failure - stable with 2LNC; extubated on 04/10/17; managed by knit goods cutter hand 3. C Diff colitis - managed by unemployment insurance director 4. Congenital Valve disease with S/P Mechanical aortic valve - on Coumadin; keep INR to 2.5-3.5 5. ESRD on HD - HD on MWF; managed by arts education teacher 6. HTN - stable; cont. monitor 7. Ileus - on Protonix and Reglan; managed by GI 8. Severe Anemia - stable 9. Sleep Apnea MAR reviewed
--- NOTE | 2017-04-13 21:27 | PRG ---
DATE OF SERVICE: 04/13/2017 SUBJECTIVE: Patient was seen and examined at bedside and overnight events noted. Patient denies any shortness of breath or chest pain or palpitation. No history of nausea or vomiting or diarrhea or f ever or chills or cramps. OBJECTIVE: GENERAL: This is a well-built male, in no apparent distress. VITAL SIGNS: Temperature 98.3, pulse 80, respiratory rate 18, blood pressure 87/56. HEENT: Atraumatic, normocephalic. Oral mucosa is moist. NECK: Supple. CARDIOVASCULAR: S1 and S2 heard. Rate and rhythm regular. RESPIRATORY: Clear to auscultation. GASTROINTESTINAL: Abdomen is soft. MUSCULOSKELETAL: No tenderness. No edema. DERMATOLOGIC: No skin rash. NEUROLOGIC: Alert and awake and oriented x3. No focal neurologic deficits. Moving all the extremit ies. PSYCHIATRIC: Mood and affect normal. LABORATORY DATA: No labs done today. ASSESSMENT AND PLAN: 1. End-stage renal disease, currently on hemodialysis Saturday, Saturday, and Saturday. 2. Hyperkalemia, stable. 3. Edema. 4. Hypotension. 5. History of hypertension. 6. Anemia. Continue hemodialysis. We will continue on dialysis as tolerated Saturday, Saturday, and Saturday.
[2017-04-14 04:31] LABS: INR-International Normal Ratio 3.5; Prothrombin Time 36.8 SEC (12.0-14.7)
[2017-04-14] MEDS: Amiodarone 200 MG TAB PO SCH ×2 (08:27→20:08)
[2017-04-14] MEDS: Saccharomyces boulardii 250 MG CAP PO SCH ×2 (08:28→20:08)
[2017-04-14] MEDS: Vancomycin HCl 25 MG/ML Oral PO SCH ×4 (08:28→20:08)
[2017-04-14] MEDS: Fluconazole 100 MG TAB PO SCH (08:28)
--- NOTE | 2017-04-14 12:18 | PRG ---
DATE OF SERVICE: 04/14/2017 SUBJECTIVE: The patient is up in a chair eating, in no distress, had no complaints. OBJECTIVE: VITAL SIGNS: Temperature is 97.5, pulse 85, respirations 19 and O2 sat 92% on 1 liter. HEENT: Unremarkable. NECK: No JVD. CHEST: Clear, without wheezing, has a few crackles in the base. CARDIAC: S1 and S2 regular. ABDOMEN: Soft. EXTREMITIES: No edema. LABORATORY DATA: None. ASSESSMENT: 1. Chronic renal failure, which is stable. 2. Acute on chronic hypoxic respiratory failure, which is resolving. 3. Septic shock, resolved. 4. Clostridium difficile infection. 5. Obstructive sleep apnea. PLAN: The patient is to continue oral vancomycin. I think he can be transferred out to a regular [facility] behavioral [facility] unit bed.
--- NOTE | 2017-04-14 16:04 | PDOC.CTH ---
Cardiology Progress Note - Objective Vital Signs Temp Pulse Resp BP Pulse Ox 04/14/17 15:49 97.3 F L 88 22 H 102/64 95 04/14/17 15:10 84 18 04/14/17 11:46 99.5 F 90 18 108/70 96 04/14/17 11:14 85 19 92 L 04/14/17 08:16 93 L 04/14/17 08:14 97 19 93 L 04/14/17 08:00 97.5 F L 85 18 99 04/14/17 07:48 97.5 F L 85 18 141/81 H 100 Admit Weight 271 lb Weight 226 lb 1.6 oz 04/13/17 04/14/17 04/15/17 06:59 06:59 06:59 Intake Total 700 1650 Output Total 0 Balance 700 1650 - Physical Examination General/Neuro: alert & oriented x3 Neck: no JVD present Lungs: CTA Heart: RRR Abdomen: soft - Labs Result Diagrams: 04/12/17 03:58 04/12/17 03:58 Troponin/CKMB CK-MB (CK-2) 3.8 ng/mL (0-6.6) 04/01/17 18:04 Troponin I 0.180 ng/mL (< 0.028) H 04/01/17 18:04 - Assessment/Plan 1. A Flutter - remains SR with controlled HR with Amiodarone 200mg BID PO; On Coumadin; Today's INR was 3.5 which was 5.9 yesterday; keep INR to 2.5-3.5; Pharmacy will manage the pt's Coumadin dosage from today 2. Acute hypoxic Resp. failure - stable with 2LNC; extubated on 04/10/17; managed by topology teacher 3. C Diff colitis - managed by video game designer 4. Congenital Valve disease with S/P Mechanical aortic valve - on Coumadin; keep INR to 2.5-3.5 5. ESRD on HD - HD on MWF; managed by senior software tester 6. HTN - stable; cont. monitor 7. Ileus - on Protonix and Reglan; managed by GI 8. Severe Anemia - stable 9. Sleep Apnea MAR reviewed
--- NOTE | 2017-04-14 17:17 | PRG ---
DATE OF SERVICE: 04/14/2017 SUBJECTIVE: Patient was seen and examined at bedside and overnight events noted. Patient denies any shortness of breath or chest pain or palpitation. No history of nausea or vomiting or diarrhea or f ever or chills or cramps. OBJECTIVE: GENERAL: This is a well-built male in no apparent distress. VITAL SIGNS: Temperature 97.3, pulse 80, respiratory rate 22, blood pressure 102/64. HEENT: Atraumatic, normocephalic, Oral mucosa is moist NECK: Supple CARDIOVASCULAR: S1, S2 heard. Rate and rhythm regular. RESPIRATORY: Clear to auscultation. GASTROINTESTINAL: Abdomen is soft. MUSCULOSKELETAL : No tenderness. No edema DERMATOLOGIC : No skin rash NEUROLOGIC: Alert and awake and oriented X3. No focal neurologic deficits. Moving all the extremit ies. PSYCHIATRIC: Mood and affect normal. LABORATORY DATA: Not done today. ASSESSMENT AND PLAN: 1. End-stage renal disease. Continue hemodialysis as tolerated on Saturday, Saturday, Saturday. 2. Edema, limit fluid intake. 3. Hypertension. 4. Anemia. Plan is to continue dialysis on Saturday, Saturday, Saturday as tolerated. Otherwise, limit fluid and s alt intake.
[2017-04-14] MEDS: Warfarin Sodium 5 MG TAB PO SCH (17:45)
[2017-04-15 03:48] LABS: INR-International Normal Ratio 2.4; Prothrombin Time 27.2 SEC (12.0-14.7)
[2017-04-15] MEDS: Fluconazole 100 MG TAB PO SCH ×2 (09:24→12:28)
--- NOTE | 2017-04-15 09:38 | PRG ---
DATE OF SERVICE: 04/15/2017 SERVICE: Pulmonary Medicine INTERVAL HISTORY: The patient is doing fine from a respiratory standpoint. He denies any current ch est pain, shortness of breath, fevers or chills. His strength is improving a little bit. Otherwise, he has not had any significant change to his condition. He is going to dialysis this morning. PHYSICAL EXAMINATION: VITAL SIGNS: Afebrile, pulse 92, blood pressure 119/69, respirations 18, saturation 93% on 2 liters nasal cannula. GENERAL: The patient is awake, alert, in no apparent distress. LUNGS: Decent air entry. Rhonchi are present, but clear with cough. There is a slightly prolonged expiratory phase with no wheezing or crackles. HEART: Normal rate, regular. ABDOMEN: Soft, nontender, nondistended. Bowel sounds are positive. MUSCULOSKELETAL: No cyanosis or clubbing. No pitting in the bilateral lower extremities. NEUROLOGIC: Grossly nonfocal. ASSESSMENT: 1. Acute on chronic hypoxic respiratory failure. 2. Septic shock, resolved. 3. Clostridium difficile infection. 4. Healthcare-associated pneumonia secondary to Gifty infection. 5. Obstructive sleep apnea, severe. 6. End-stage renal disease. PLAN: The patient is stable for transition out of the hospital to a rehabilitation facility. Violeta skinner will continue to follow intermittently while the patient remains in the hospital, but from my per spective, he is stable to move on to the rehab center.
[2017-04-15] MEDS: Saccharomyces boulardii 250 MG CAP PO SCH ×2 (12:28→21:41)
[2017-04-15] MEDS: Amiodarone 200 MG TAB PO SCH ×2 (12:28→21:41)
[2017-04-15] MEDS: Vancomycin HCl 25 MG/ML Oral PO SCH ×4 (12:28→21:42)
--- NOTE | 2017-04-15 14:05 | PRG ---
DATE OF SERVICE: 04/15/2017 SUBJECTIVE: This is a 46-year-old gentleman being seen for end-stage renal disease. The patient den ies any nausea, vomiting, and chest pain. PHYSICAL EXAMINATION: GENERAL: Patient is awake, alert. VITAL SIGNS: Afebrile, pulse 92, breathing at 20, blood pressure 119/69. HEAD/NECK: Normocephalic. Atraumatic. EYES: EOMI. No deformity. EARS: Clear. No ulcers. NOSE: Intact. No lesions. MOUTH: Clear. No discharge. THROAT: Clear. No exudate. LUNGS: Clear. No crackles. CARDIAC: S1, S2. No rub. ABDOMEN: Benign. BS+. GENITALIA/RECTUM: Green absent. BACK/EXTREMITIES: Edema 0+ Ulcer- NEUROLOGICAL: Alert and motor intact. SKIN: Rash- Bruise- LYMPHATICS: Edema- Ulcer- LABORATORY DATA: Show hemoglobin of 10, creatinine 7.6. ASSESSMENT AND RECOMMENDATIONS: 1. Stage 6 chronic kidney disease, continue hemodialysis. 2. Hypertension, stable. 3. Anemia, stable. 4. Medications based on glomerular filtration rate are appropriate.
[2017-04-15] MEDS: Warfarin Sodium 5 MG TAB PO SCH (16:58)
--- NOTE | 2017-04-15 22:45 | PDOC.CTH ---
Cardiology Progress Note - Subjective Continues to remain stable from a cardioac standpoint. He is up and sitting in the chair. - Objective Vital Signs Temp Pulse Pulse Pulse Resp BP BP 04/15/17 21:45 04/15/17 20:00 98.3 F 89 20 04/15/17 16:26 97.7 F 83 16 04/15/17 15:35 97.7 F 83 16 04/15/17 15:12 91 20 04/15/17 14:53 86 88 112/54 L 105/71 04/15/17 14:26 88 20 04/15/17 12:19 98.4 F 85 18 BP BP BP Pulse Ox Pulse Ox Pulse Ox 04/15/17 21:45 103/65 04/15/17 20:00 96/59 L 93 L 04/15/17 16:26 96 04/15/17 15:35 93/52 L 96 04/15/17 15:12 95 04/15/17 14:53 95 95 04/15/17 14:26 105/71 94 L 04/15/17 12:19 95/54 L 93 L Admit Weight 271 lb Weight 232 lb 1.6 oz 04/14/17 04/15/17 04/16/17 06:59 06:59 06:59 Intake Total 1650 1250 750 Output Total 0 0 3500 Balance 1650 1250 -2750 - Physical Examination General/Neuro: alert & oriented x3 Neck: carotid US brisk Lungs: CTA Heart: RRR Abdomen: NT/ND - Labs Result Diagrams: 04/12/17 03:58 04/12/17 03:58 Troponin/CKMB CK-MB (CK-2) 3.8 ng/mL (0-6.6) 04/01/17 18:04 Troponin I 0.180 ng/mL (< 0.028) H 04/01/17 18:04 - Assessment/Plan 1. A Flutter - remains SR with controlled HR with Amiodarone 200mg BID PO; On Coumadin; Today's INR was 2.4 which was 5.9 yesterday; keep INR to 2.5-3.5; Pharmacy will manage the pt's Coumadin dosage 2. Acute hypoxic Resp. failure - stable with 2LNC; extubated on 04/10/17; managed by tank crewmember 3. C Diff colitis - managed by metal loader 4. Congenital Valve disease with S/P Mechanical aortic valve - on Coumadin; keep INR to 2.5-3.5 5. ESRD on HD - HD on MWF; managed by automobile carpets molder 6. HTN - stable; cont. monitor 7. Ileus - on Protonix and Reglan; managed by GI 8. Severe Anemia - stable 9. Sleep Apnea MAR reviewed His cardiac status is stable. I will sign off.
--- NOTE | 2017-04-16 00:29 | PRG ---
DATE OF SERVICE: 04/15/2017 SUBJECTIVE: Mr. Sheriff is extubated, he is in the floor. He is doing better. He is having no diarr hea. He reports he is eating. PHYSICAL EXAMINATION: VITAL SIGNS: Temperature is 98.3, pulse 89, respirations 18, blood pressure 96/46. Sleeping well, h e is without complaint. LUNGS: Clear. HEART: Regular rate and rhythm. ABDOMEN: Nontender. LABORATORY STUDIES: White count 5, hemoglobin 10, platelet count 144, on 04/12/2018. ASSESSMENT: 1. Respiratory failure, resolved, deconditioning. 2. Clostridium difficile colitis, markedly improved. No diarrhea. He is on vancomycin p.o. for abo ut 14 days, he has been on Flagyl IV when he was in the ventilator, but seems still being on fluconaz ole. We will go ahead and continue the vancomycin. We will continue Saccharomyces boulardii for now probiotic. As soon as he is off the Diflucan, we will taper the vancomycin.
[2017-04-16 05:52] LABS: INR-International Normal Ratio 3.4
[2017-04-16] MEDS: Vancomycin HCl 25 MG/ML Oral PO SCH ×2 (09:53→12:32)
[2017-04-16] MEDS: Amiodarone 200 MG TAB PO SCH (09:53)
[2017-04-16] MEDS: Saccharomyces boulardii 250 MG CAP PO SCH (09:53)
--- NOTE | 2017-04-16 10:26 | PRG ---
DATE OF SERVICE: 04/16/2017 SUBJECTIVE: This is a 46-year-old gentleman being seen for end-stage renal disease. The patient den ies any nausea, vomiting or chest pain. PHYSICAL EXAMINATION: GENERAL: Patient is awake, alert. VITAL SIGNS: Afebrile, pulse 82, breathing at 16, blood pressure 117/65. OBJECTIVE: See above. Awake, alert, in no acute distress. GENERAL APPEARANCE AND MENTAL STATUS: Fair. HEAD/NECK: Normocephalic. Atraumatic. EYES: EOMI. No deformity. EARS: Clear. No ulcers. NOSE: Intact. No lesions. MOUTH: Clear. No discharge. THROAT: Clear. No exudate. LUNGS: Clear. No crackles. CARDIAC: S1, S2. No rub. ABDOMEN: Benign. BS+. GENITALIA/RECTUM: Green absent. BACK/EXTREMITIES: Edema 0+ Ulcer- NEUROLOGICAL: Alert and motor intact. SKIN: Rash- Bruise- LYMPHATICS: Edema- Ulcer- LABORATORY: Hemoglobin 10. ASSESSMENT AND RECOMMENDATIONS: 1. Stage 6 chronic kidney disease, continue hemodialysis. 2. Hypertension, stable. 3. Anemia, stable. 4. Medications based on glomerular filtration rate are appropriate.
[2017-04-16 12:01] VITALS: TEMP 97.6
[2017-04-16] MEDS: Fluconazole 100 MG TAB PO SCH (12:29)
[2017-04-16 16:21] VITALS: BP 108/67
--- NOTE | 2017-04-17 12:06 | DIS ---
DATE OF ADMISSION: 04/01/2017 DATE OF DISCHARGE: 04/16/2017 ADMITTING DIAGNOSES: 1. Acute respiratory failure. 2. Severe hypotension, rule out sepsis. 3. Questionable hematemesis and heme positive stool, rule out gastrointestinal bleed. 4. End-stage renal disease, on hemodialysis. 5. Obstructive sleep apnea. 6. Chronic anemia. FINAL DIAGNOSES: 1. Acute on chronic hypoxic respiratory failure, improved. 2. Sepsis and septic shock, improved. 3. Clostridium difficile colitis, improved. 4. Obstructive sleep apnea, severe. 5. End-stage renal disease, on hemodialysis. 6. Chronic anemia, multifactorial. 7. Tachycardia, most likely 2:1 atrial flutter, improved. BRIEF SUMMARY OF HOSPITAL COURSE: Mr. Sheriff is a 46-year-old male with past medical histo ry of end-stage renal disease and sleep apnea, who was found to be in respiratory failure with acute on chronic hypoxic respiratory failure and now is hypotensive with sepsis with septic shock. He was intubated and admitted to CCU. A Pulmonary consult was done. The patient was seen by Dr. Blackwell for Pulmonary. His impression, the patient has respiratory failure as well as hypotension in need of jose tilator support and IV antibiotics as well as neb treatments, Solu-Medrol. GI consult was done in vi ew of history of hematemesis or possible GI bleeding. The patient was seen by Dr. Mills. He felt h terrance has questionable GI bleed, hypotension, possibly due to sepsis. He suggested EGD. EGD was normal. No evidence of any GI bleeding. The patient did have diarrhea and was positive for C. difficile. The patient was started on Flagyl and vancomycin by mouth. The patient continued on ventilator suppo rt in the ER. He was still remained hypotensive. Continued on IV antibiotics. The patient was also found to have atrial flutter with 2:1 and a Cardiology consult done and he suggested close monitorin g since he was still hypotensive. In the next few days, the patient remained in ICU with close monit oring and the patient converted to sinus rhythm and his sepsis improved and he was extubated and nai rated the extubation well and he was started on diet. Once he started tolerating diet, he was moved out of ICU. He was started on physical therapy due to deconditioning. The patient continued on hemo dialysis. In view of improvement, the patient was evaluated for rehab for continue physical therapy. He has been accepted to rehab and is being transferred to rehabilitation. At the time of transfer, he was stable. Vital signs stable. Lungs are clear. Mcculloch sounds are regular. Abdomen soft, nont reji. Bowel sounds present. DISCHARGE MEDICATIONS: Include Renvela 3 tablets b.i.d. 800 mg, pramipexole 2 mg daily, aspirin 81 m g daily, ferrous sulfate daily, ProAir inhaler t.i.d., Tylenol p.r.n., Sensipar 60 mg b.i.d., loratad ine 10 mg daily, folic acid 1 mg daily, Coreg 12.5 b.i.d., Coumadin 5 mg daily, Fluconazole 100 mg da tirso for 1 week, Florastor 250 mg daily, vancomycin p.o. q.i.d. for another 2 weeks, Protonix 40 mg da tirso, DuoNeb q.i.d. p.r.n., amiodarone 200 mg daily. FOLLOWUP: The patient will continue physical therapy at the rehab.
--- NOTE | 2017-04-20 13:04 | EKG ---
Test Reason : Blood Pressure : / mmHG Vent. Rate : 085 BPM Atrial Rate : 085 BPM P-R Int : 170 ms QRS Dur : 110 ms QT Int : 396 ms P-R-T Axes : 039 096 159 degrees QTc Int : 471 ms Normal sinus rhythm Incomplete right bundle branch block Possible Right ventricular hypertrophy Marked ST abnormality, possible lateral subendocardial injury Abnormal ECG Confirmed by LUCRECIA GUAN MD ([id number]), editor book HARSHAL TEMPLE ([id number]) on 04/20/2017 1:04:22 PM Referred By: Confirmed By:LUCRECIA GUAN MD
== END 2017-04-16 13:10 | disposition home or self-care (01) | DRG 870 ==
LOC: ERS 16:29 → CCU 20:40 → IMCU/EMU 04-12 15:11 → T4-B 04-15 15:14
PROVIDERS: ADMIT Internal Medicine; ATTEND Internal Medicine
PROC: 30233N1 Transfusion of Nonautologous Red Blood Cells into Peripheral Vein, Percutaneous Approach (ICD-10-PCS; 2017-04-01)
PROC: 5A1955Z Respiratory Ventilation, Greater than 96 Consecutive Hours (ICD-10-PCS; 2017-04-01)
PROC: 0BH17EZ Insertion of Endotracheal Airway into Trachea, Via Natural or Artificial Opening (ICD-10-PCS; 2017-04-01)
PROC: 0DJ08ZZ Inspection of Upper Intestinal Tract, Via Natural or Artificial Opening Endoscopic (ICD-10-PCS; principal; 2017-04-03)
PROC: 06HM33Z Insertion of Infusion Device into Right Femoral Vein, Percutaneous Approach (ICD-10-PCS; 2017-04-03)
PROC: 5A1D70Z Performance of Urinary Filtration, Intermittent, Less than 6 Hours Per Day (ICD-10-PCS; 2017-04-04)
PROC: 0BP1XDZ Removal of Intraluminal Device from Trachea, External Approach (ICD-10-PCS; 2017-04-11)
DX: A41.9 Sepsis, unspecified organism (principal); B37.1 Pulmonary candidiasis; J96.21 Acute and chronic respiratory failure with hypoxia; R65.21 Severe sepsis with septic shock; A04.72 Enterocolitis due to Clostridium difficile, not specified as recurrent; I13.2 Hypertensive heart and chronic kidney disease with heart failure and with stage 5 chronic kidney disease, or end stage renal disease; R18.8 Other ascites; N17.9 Acute kidney failure, unspecified; N18.6 End stage renal disease; E88.09 Other disorders of plasma-protein metabolism, not elsewhere classified; K56.7 Ileus, unspecified; K92.2 Gastrointestinal hemorrhage, unspecified; I47.1 Supraventricular tachycardia; I48.92 Unspecified atrial flutter; I50.9 Heart failure, unspecified; G47.33 Obstructive sleep apnea (adult) (pediatric); K59.00 Constipation, unspecified; D64.9 Anemia, unspecified; Z88.0 Allergy status to penicillin; Z88.2 Allergy status to sulfonamides; Z88.8 Allergy status to other drugs, medicaments and biological substances; Z99.2 Dependence on renal dialysis; Z95.2 Presence of prosthetic heart valve; Z79.82 Long term (current) use of aspirin; Z79.01 Long term (current) use of anticoagulants
CPT/HCPCS: 31500; 36415; 36416; 36430; 36556; 51703; 71045; 74019; 74176; 80048; 80053; 82274; 82553; 82805; 83630; 83735; 84100; 84484; 85007; 85025; 85027; 85610; 85730; 86850; 86900; 86901; 86904; 86922; 87040; 87070; 87205; 87324; 87340; 87389; 87449; 87493; 90935; 90945; 93005; 94003; 94640; 94660; 96361; 96365; 96375; 96376; 99292; A4216; C9113; G0257; G8978-GO-CL; G8978-GP-CM; G8979-GO-CI; G8979-GP-CI; J0131; J0282; J0692; J2060; J2270; J2704; J2765; J2920; J3010; J3370; J7050; J7070; J7620; J7626; P9016

== ENCOUNTER 2017-06-28 20:30 | Outpatient (CLI) | payer MEDICARE | END 2017-06-28 20:31 | disposition home or self-care (01) | LOC: SLEEPLAB 20:30 | PROVIDERS: ATTEND Internal Medicine | DX: G47.33 Obstructive sleep apnea (adult) (pediatric) (principal); R51 Headache; G31.84 Mild cognitive impairment of uncertain or unknown etiology; R53.83 Other fatigue; E66.9 Obesity, unspecified; Z68.27 Body mass index [BMI] 27.0-27.9, adult | CPT/HCPCS: 95811 ==

== ENCOUNTER 2017-09-23 16:08 | Emergency (ER) | payer MEDICARE ==
[2017-09-23] MEDS ORDERED: Lidocaine 1% w/Epinephrine 1:100K 20 ML VIAL ONE (16:13)
== END 2017-09-23 17:28 | disposition home or self-care (01) ==
LOC: ERS 16:08
DX: I83.891 Varicose veins of right lower extremity with other complications (principal); R58 Hemorrhage, not elsewhere classified; Z87.891 Personal history of nicotine dependence; F32.9 Major depressive disorder, single episode, unspecified; F41.9 Anxiety disorder, unspecified; I12.0 Hypertensive chronic kidney disease with stage 5 chronic kidney disease or end stage renal disease; N18.6 End stage renal disease; D63.1 Anemia in chronic kidney disease; Z99.2 Dependence on renal dialysis; E07.9 Disorder of thyroid, unspecified; J44.9 Chronic obstructive pulmonary disease, unspecified; G25.81 Restless legs syndrome; Z79.82 Long term (current) use of aspirin; Z79.899 Other long term (current) drug therapy; Z79.01 Long term (current) use of anticoagulants
CPT/HCPCS: 12001; J2001

== ENCOUNTER 2017-11-25 17:08 | Emergency (ER) | payer MEDICARE | END 2017-11-25 20:35 | disposition home or self-care (01) | LOC: ERS 17:08 | DX: I83.91 Asymptomatic varicose veins of right lower extremity (principal); I12.0 Hypertensive chronic kidney disease with stage 5 chronic kidney disease or end stage renal disease; D63.1 Anemia in chronic kidney disease; N18.6 End stage renal disease; E05.90 Thyrotoxicosis, unspecified without thyrotoxic crisis or storm; F41.9 Anxiety disorder, unspecified; J44.9 Chronic obstructive pulmonary disease, unspecified; Z87.891 Personal history of nicotine dependence | CPT/HCPCS: 99283 ==

== ENCOUNTER 2017-12-12 08:47 | Outpatient (CLI) | payer MEDICARE ==
--- NOTE | 2017-12-12 11:43 | MRI ---
MRI CERVICAL SPINE: DATE: 12/12/17. PROVIDED CLINICAL HISTORY: Neck pain, cervical stenosis. FINDINGS: No comparisons. Cervical alignment appears normal. Vertebral body heights appear preserved. No foc al concerning regional marrow signal abnormality is evident. The visualized posterior fossa, cervico medullary junction, and cervical spinal cord demonstrate normal signal and morphology. At C2-3, there is no significant central canal or foraminal narrowing apparent. Bilateral facet arth ritis. At C3-4, there is a broad-based disk bulge and bilateral uncinate process hypertrophy and right great er than left facet arthritis. There is effacement of the ventral subarachnoid space without cord con tact or deformity. There is right foraminal narrowing. At C4-5, there is a broad-based disk bulge and bilateral uncinate process hypertrophy as well as bila teral facet arthritis. There is effacement of the ventral subarachnoid space with mild cord flatteni ng suspected. There is right greater than left foraminal narrowing. At C5-6, there is disk space height loss. There is bilateral uncinate process hypertrophy. There is no significant central canal stenosis apparent. There is mild foraminal narrowing bilaterally due t o uncinate process hypertrophy. At C6-7, there is disk space height loss and a broad-based disk bulge. There is effacement of the ve ntral subarachnoid space without cord contact or deformity. There is mild bilateral foraminal narrow ing. At C7-T1, there is no significant central anal or foraminal narrowing apparent. IMPRESSION: Cervical degenerative changes producing areas of canal and foraminal narrowing as above. POS: [facility]
== END 2017-12-12 08:48 | disposition home or self-care (01) ==
LOC: MRI 08:47
PROVIDERS: ATTEND Specialist
DX: M48.02 Spinal stenosis, cervical region (principal); M47.892 Other spondylosis, cervical region; M99.81 Other biomechanical lesions of cervical region
CPT/HCPCS: 72141

== ENCOUNTER 2018-04-15 09:08 | Emergency (ER) | payer MEDICARE ==
--- NOTE | 2018-04-15 10:19 | RAD ---
RADIOGRAPH LEFT HUMERUS TWO VIEWS: History: 47-year-old male status post acute blunt traumatic injury to the left arm from fall. FINDINGS: There is no fracture or any other significant osseous abnormality. There is a vascular stent in soft tissues inferomedial to the proximal and mid humeral diaphysis. In the distal arm soft tissues, dista l to the stent, there is a heavily calcified, very tortuous blood vessel, the proximal portion is ane urysmally dilated. IMPRESSION: 1. No fracture of the humerus. 2. Heavily calcified hemodialysis AV fistula in left arm. 3. Stent in the left arm proximal to that. POS: [facility]
== END 2018-04-15 10:54 | disposition home or self-care (01) ==
LOC: ERS 09:08
DX: S40.012A Contusion of left shoulder, initial encounter (principal); J44.9 Chronic obstructive pulmonary disease, unspecified; I12.0 Hypertensive chronic kidney disease with stage 5 chronic kidney disease or end stage renal disease; N18.6 End stage renal disease; D64.9 Anemia, unspecified; E05.90 Thyrotoxicosis, unspecified without thyrotoxic crisis or storm; F41.9 Anxiety disorder, unspecified; Z87.891 Personal history of nicotine dependence; W20.8XXA Other cause of strike by thrown, projected or falling object, initial encounter

== ENCOUNTER 2018-04-18 05:58 | Inpatient (IN) | payer MEDICARE ==
[2018-04-18] MEDS ORDERED: Morphine 4 MG/ML VIAL ONE (07:01)
[2018-04-18] MEDS ORDERED: Cefepime 2 GM VIAL ONE (07:05)
[2018-04-18 07:26] LABS: Mean Corpuscular HGB CONC 31.1 g/dL (32.0-36.0); Mean Corpuscular Hemoglobin 31.7 pg (27.0-31.0); Mean Platelet Volume 8.9 fL (7.4-10.4); Platelet Count 118 thou/uL (130-400); RBC Distribution Width 15.2 % (11.5-14.5); Red Blood Cell (RBC) Count 3.14 mill/uL (4.70-6.10); White Blood Cell (WBC) Count 4.8 thou/uL (4.8-10.8)
[2018-04-18 07:27] LABS: #Basophils 0.1 thou/uL (0.0-0.2); #Lymphocytes 0.8 thou/uL (1.20-3.40); #Monocytes 0.4 thou/uL (0.11-0.59); #Neutrophils 3.5 thou/uL (1.40-6.50); %Basophils 1.1 % (0.0-1.0); %Eosinophils 0.9 % (0.0-10.0); %Lymphocytes 17.3 % (21.0-51.0); %Monocytes 8.4 % (0.0-10.0); %Neutrophils 72.3 % (42.0-75.0)
[2018-04-18 07:44] LABS: ALT (SGPT) 8 U/L (8-55); AST (SGOT) 17 U/L (5-34); Albumin 3.6 g/dL (3.5-5.0); Alkaline Phosphatase 76 U/L (40-150); Anion Gap 15 mmol/L (10-20); BUN (Urea Nitrogen) 34 mg/dL (8.9-20.6); Bilirubin, Total 0.6 mg/dL (0.2-1.2); Calc. Creatinine Clearance 0 mL/min (70-130); Calcium 8.8 mg/dL (7.8-10.44); Carbon Dioxide 30 mmol/L (22-29); Chloride 99 mmol/L (98-107); Estimated GFR-MDRD 6; Globulin 3.3 g/dL (2.4-3.5); Glucose 80 mg/dL (70-105); Potassium 4.1 mmol/L (3.5-5.1); Protein, Total 6.9 g/dL (6.0-8.3); Sodium 140 mmol/L (136-145)
[2018-04-18 07:45] LABS: Hypochromia SLIGHT = 6-15 cells (100X) (0-5/hpf); MDiff Complete? YES; Macrocytosis MODERATE=16-30 cells (100X) (0-5/hpf); Platelet Morphology Comment Appears Decreased; Polychromasia SLIGHT = 2-3 cells (100X) (0-2/hpf)
[2018-04-18 08:08] LABS: INR-International Normal Ratio 2.9; PTT 69.4 SEC (22.9-36.1)
--- NOTE | 2018-04-18 08:43 | RAD ---
RIGHT FORELEG RADIOGRAPHS TWO VIEWS: 04/18/2018 PROVIDED CLINICAL HISTORY: Wound. COMPARISON: 01/07/2016 FINDINGS: Vascular calcifications are seen. There is no evidence for fracture or other acute osseous abnormali ty. If there is persistent clinical concern, conservative management and follow-up imaging are advis ed. IMPRESSION: As above. POS: [facility]
--- NOTE | 2018-04-18 09:27 | ULT ---
ULTRASOUND WITH DOPPLER DUPLEX VENOUS LOWER EXTREMITY RIGHT: HISTORY: A 47-year-old male with right lower extremity pain and swelling. TECHNIQUE: Color flow Doppler, spectral waveform analysis of pulsed Doppler, and timmons-scale imaging with jeannie nahid and augmentation, were used to evaluate the right common femoral, femoral, popliteal, posterior tibial, and superficial femoral veins, and the proximal portions of the profunda femoral and greater saphenous veins. FINDINGS: There is normal compressibility, demonstration of blood flow by color Doppler and pulsed Doppler, and response to augmentation, in all interrogated veins. IMPRESSION: Negative. No deep vein thrombosis in the right lower extremity. jn [] POS: [facility]
--- NOTE | 2018-04-18 10:36 | RAD ---
RIGHT FOOT RADIOGRAPHS 2 VIEWS: DATE: 04/18/2018. PROVIDED CLINICAL HISTORY: Right foot wound. FINDINGS: Comparison 02/18/2017. There is nondisplaced ununited 5th metatarsal shaft fracture proximally. No a dditional fracture is evident. Alignment appears anatomic. Joint spaces appear preserved. IMPRESSION: Ununited transversely oriented 5th metatarsal shaft fracture. POS: [facility]
[2018-04-18] MEDS ORDERED: Acetaminophen 325 MG TAB PO PRN (13:07)
[2018-04-18] MEDS ORDERED: Ondansetron ODT 4 MG TAB PO PRN (13:07)
[2018-04-18] MEDS ORDERED: Ondansetron PF 4 MG/2 ML Vial IVP PRN (13:07)
--- NOTE | 2018-04-18 17:31 | CON ---
DATE OF CONSULTATION: This is a Nephrology consult. REASON FOR CONSULTATION: End-stage kidney disease on maintenance hemodialysis. HISTORY OF PRESENT ILLNESS: This is a very pleasant 47-year-old gentleman, who was admitted for cellulitis. The patient dialyzes Saturday, Saturday, and Saturday. Denies any nausea, vomiting, or chest pain. PAST MEDICAL HISTORY: Significant for end-stage renal disease, hypertension, history of secondary hyperparathyroidism, history of anemia, history of AV fistula, history of tunneled dialysis catheter, history of aortic valve disease, history of anticoagulation, history of atrial flutter, and history of peritoneal dialysis catheter. SOCIAL HISTORY: No tobacco, alcohol, or drug use. FAMILY HISTORY: Negative for ESRD. ALLERGIES: REVIEWED. HOME MEDICATIONS: List reviewed. REVIEW OF SYSTEMS: A 15-point review of system was performed and was negative except for positives noted above. GENERAL: HEAD: NECK: No swelling or lumps. NOSE: No epistaxis or discharge. EYES: No diplopia or pain. RESPIRATORY: CARDIOVASCULAR: GASTROINTESTINAL: /DENTAL HYGIENIST MOBILE COORDINATOR: MUSCULOSKELETAL: No joint pain. NEUROPSYCHIATIC SYSTEMS: No suicidal ideation. No ideation. SKIN: Denies any rash or ulcer. CONSTITUTIONAL: No fever or chills. PHYSICAL EXAMINATION: GENERAL: The patient is awake and alert. VITAL SIGNS: Afebrile, pulse 98, breathing 16, and blood pressure was 122/58. GENERAL APPEARANCE AND MENTAL STATUS: Fair. HEAD/NECK: Normocephalic. Atraumatic. EYES: EOMI. No deformity. EARS: Clear. No ulcers. NOSE: Intact. No lesions. MOUTH: Clear. No discharge. THROAT: Clear. No exudate. LUNGS: Clear. No crackles. CARDIAC: S1, S2. No rub. ABDOMEN: Benign. Bowel sounds positive. GENITALIA/RECTUM: Green absent. BACK/EXTREMITIES: Edema 0+. NEUROLOGICAL: Alert and motor intact. SKIN: LYMPHATICS: LABORATORY DATA: Labs reviewed. ASSESSMENT AND PLAN: 1. Stage 6 chronic kidney disease, plan dialysis today. 2. Hypertension, stable. 3. Anemia, stable. 4. Medication based on GFR, appropriate. Job ID: [id number] [facility]
[2018-04-18] MEDS ORDERED: Vancomycin HCl 1 GM in Premix Bag 1 BAG IVPB SCH (19:00)
[2018-04-18 19:20] LABS: HBSAg Index 0.26 S/CO (0-0.99); Hep B Surf Ag Non-Reactive S/CO (NonReactive)
[2018-04-18] MEDS ORDERED: cefTRIAXone\\ROCEPHIN 1 GM in Sodium Chloride 0.9% 100 ML IVPB SCH (20:00)
--- NOTE | 2018-04-18 22:54 | HP ---
CHIEF COMPLAINT: Pain and swelling, right foot. HISTORY OF PRESENT ILLNESS: Mr. Sheriff is a 47-year-old, with a past medical history of end-stage renal disease, restless legs syndrome, came because of swelling and pain in the right foot area. The patient states he has chronic edema on both lower legs and history of varicose veins as well. He noticed venous stasis ulcers, some time ago and they are then healing on the lower leg, but on the foot, he noticed another ulcer now and he noticed marked swelling in the right foot area especially on top of the foot with some redness and lot of pain and this area is warm to touch. He went to the dialysis as per the schedule, but they told him to go to the ER because of this infection, so the patient was brought to the emergency room where he was evaluated and he was found to have that cellulitis. He received a dose of vancomycin in the ER, also cefepime and admitted for further evaluation and management. He did not have any fever, no nausea or vomiting, no chest pain, no shortness of breath. PAST MEDICAL HISTORY: 1. End-stage renal disease, on hemodialysis. 2. Chronic anemia. 3. Obstructive sleep apnea, on CPAP. 4. Hypothyroidism. 5. History of restless legs syndrome. 6. History of atrial flutter status post cardioversion. 7. History of RSV infection. PAST SURGICAL HISTORY: Status post aortic valve replacement. CURRENT MEDICATIONS: The patient is on 1. DuoNeb q.i.d. p.r.n. 2. Coreg 12.5 b.i.d. 3. Sensipar 60 mg b.i.d. 4. Ferrous sulfate daily. 5. Folic acid 1 mg daily. 6. Amiodarone 200 mg b.i.d. 7. Aspirin 81 mg daily. 8. Tylenol p.r.n. 9. Warfarin 5 mg daily. 10. Renvela three tablets t.i.d. 11. Florastor 250 mg daily. 12. Pramipexole 2 mg at bedtime. 13. Protonix 40 mg daily. 14. Claritin 10 mg daily. ALLERGIES: HE IS ALLERGIC TO PENICILLIN, SULFA, AND ADHESIVE TAPE. FAMILY HISTORY: Nothing contributory. SOCIAL HISTORY: He lives with his mother. No history of smoking. No history of alcohol use. REVIEW OF SYSTEMS: CARDIOVASCULAR: No chest pain or shortness of breath. RESPIRATORY: No fever or cough. GASTROINTESTINAL: No nausea, vomiting. No abdominal pain. CENTRAL NERVOUS SYSTEM: No headache, no dizziness. PHYSICAL EXAMINATION: GENERAL: The patient is alert, awake, oriented x3. VITAL SIGNS: Temperature 98, pulse 68, respiratory rate 20, blood pressure 120/ 60. HEENT: Head is normocephalic, atraumatic. Pupils are equal and reactive. Nasopharynx is pale and dry. Hard and soft palate, no lesions. SKIN: Turgor decreased. NECK: Supple. No JVD. LUNGS: Bilateral air entry. No rales, no rhonchi. HEART: S1 S2 regular ABDOMEN: Soft. No distention. No tenderness. Normal bowel sounds present. RECTAL: deferred. CENTRAL NERVOUS SYSTEM: No focal deficits. EXTREMITIES: There is marked edema of right lower extremity and there is erythema on the right foot dorsum as well as ankle area. His right foot is very tender. Right ankle is tender. Right lower leg, there are venous stasis ulcers, which are dry, healing. There is one ulcer on the dorsum of the right foot. Left lower leg, there is edema with evidence of venous insufficiency. No open areas. LABORATORY DATA: CBC shows WBC 4.8, hemoglobin 10, hematocrit 32, platelets 180. Metabolic panel; sodium 140, potassium 4, chloride 99, CO2 30, BUN 34, creatinine 9, and glucose 80. Prothrombin time, PT 30, INR 2.9. Vascular ultrasound negative for a DVT. X-ray of the foot showed old fracture, 5th metatarsal, still not healed. Tibia-fibula x-ray negative. ASSESSMENT: 1. Cellulitis, right foot. 2. Venous insufficiency with venous stasis ulcer. 3. End-stage renal disease, on hemodialysis. 4. Status post aortic valve replacement, on anticoagulation. 5. Obstructive sleep apnea, on CPAP. 6. Restless legs syndrome. 7. Chronic anemia. PLAN: 1. Vital signs q.4 hours. 2. Activity as tolerated. 3. Allergies, penicillin, sulfa, and adhesive tape. 4. Hep-Lock. 5. Vancomycin 1 g during dialysis. 6. Rocephin 1 g daily. 7. Elevate right foot. 8. Continue his home medications. 9. Nephrology consult. 10. Infectious disease consult. Job ID: [id number] [facility]
[2018-04-19] MEDS: cefTRIAXone\\ROCEPHIN 1 GM in Sodium Chloride 0.9% 100 ML IVPB SCH ×2 (00:30→23:30)
[2018-04-19] MEDS ORDERED: Guaifenesin DM 100-10/5 ML UDCUP PO PRN (04:02)
[2018-04-19] MEDS ORDERED: Sevelamer Carbonate 800 MG TAB PO PRN (04:03)
[2018-04-19] MEDS ORDERED: Acetaminophen 500 MG TAB PO PRN (04:05)
[2018-04-19] MEDS: PROVENTIL INHALER 6.7 G (200 INHALATIONS) INH SCH ×3 (08:16→18:46)
[2018-04-19] MEDS: Folic Acid 1 MG TAB PO SCH (08:28)
[2018-04-19] MEDS: Cinacalcet HCl 30 MG TAB PO SCH ×2 (08:28→20:22)
[2018-04-19] MEDS: Saccharomyces boulardii 250 MG CAP PO SCH (08:28)
[2018-04-19] MEDS: Sevelamer Carbonate 800 MG TAB PO SCH ×3 (08:28→18:03)
[2018-04-19] MEDS: Aspirin 81 mg Enteric Coated Tablet PO SCH (08:29)
[2018-04-19] MEDS: ALPRAZolam 0.5 MG TAB PO SCH (08:29)
[2018-04-19] MEDS: Loratadine 10 MG TAB PO SCH (08:29)
[2018-04-19] MEDS: Carvedilol 6.25 MG TAB PO SCH ×2 (08:30→18:03)
[2018-04-19] MEDS: Amiodarone 200 MG TAB PO SCH ×2 (08:30→20:22)
--- NOTE | 2018-04-19 12:41 | PRG ---
DATE OF SERVICE: 04/19/2018 SUBJECTIVE: This is a 47-year-old gentleman being seen for end-stage renal disease. He denied any nausea, vomiting, or chest pain. OBJECTIVE: See above. CONSTITUTIONAL: Awake, alert, in no acute distress. VITAL SIGNS: Temperature afebrile, pulse 72, breathing 16, blood pressure 115/70. GENERAL APPEARANCE AND MENTAL STATUS: Fair. HEAD/NECK: Normocephalic. Atraumatic. EYES: EOMI. No deformity. EARS: Clear. No ulcers. NOSE: Intact. No lesions. MOUTH: Clear. No discharge. THROAT: Clear. No exudate. LUNGS: Clear. No crackles. CARDIAC: S1, S2. No rub. ABDOMEN: Benign. Bowel sounds positive. GENITALIA/RECTUM: Green absent. BACK/EXTREMITIES: Edema 0+. NEUROLOGICAL: Alert and motor intact. SKIN: LYMPHATICS: ASSESSMENT AND PLAN: 1. Stage 6 chronic kidney disease. Plan dialysis. 2. Hypertension, stable. 3. Anemia, stable. Medication based on GFR, appropriate. Job ID: [id number]
[2018-04-19] MEDS ORDERED: Warfarin Sodium 7.5 MG TAB PO SCH (17:00)
--- NOTE | 2018-04-19 18:14 | ULT ---
RIGHT LOWER EXTREMITY ARTERIAL VASCULAR DUPLEX INCLUDING COLOR AND SPECTRAL DOPPLER IMAGIN04/19/18 HISTORY: Chronic ulcers on right foot. Examination of the right lower extremity from groin to ankle including visualization of the common fe moral artery, profunda femoral artery, superficial femoral artery, popliteal artery, anterior tibial, posterior tibial and dorsalis pedis arteries. There is triphasic flow from the common femoral artery down to the level of the popliteal artery. The distal anterior tibial artery demonstrates monophasic flow. Posterior tibial artery and dorsalis ped is artery demonstrate triphasic flow. IMPRESSION: Unremarkable triphasic flow involving the right lower extremity except for the distal anterior tibial artery where there is monophasic flow indicating focal peripheral artery disease POS: [facility]
[2018-04-19] MEDS: Pramipexole Di-HCl 1 MG TAB PO SCH (20:22)
[2018-04-19] MEDS: Ondansetron PF 4 MG/2 ML Vial SLOW IVP PRN ×2 (20:22→23:30)
--- NOTE | 2018-04-19 21:47 | CT ---
BRAIN CT WITHOUT IV CONTRAST: 04/19/18 HISTORY: Head injury following a fall while patient is on Coumadin. No focal mass or midline shift. No intra or extra-axial hemorrhage. Sinus mucosal changes with a smal l amount of fluid in the right maxillary sinus. The mastoids are clear. IMPRESSION: No significant acute intracranial mass or bleed. Sinus mucosal disease with a small air fluid level i n the right maxillary sinus. POS: [facility]
--- NOTE | 2018-04-19 22:01 | CT ---
FACIAL BONE CT SCAN WITHOUT IV CONTRAST: 04/19/18 HISTORY: Facial injury following a fall. Patient on blood thinners. There is extensive mucosal changes involving the maxillary sinuses, ethmoid sinuses and frontal sinus es with some fluid in the right maxillary sinus. There is evidence for a comminuted displaced fractur e involving the body of the right mandible. There is almost 7 mm of displacement. Marked degenerative changes are noted involving both temporomandibular joints and arthrosis changes of the mandibular co ndyles. Extensive dental caries are noted. No evidence for acute nasal bone fracture. There is slight nasal bone deformity. This could represent just developmental appearance or possibly related to an o ld injury. Zygomatic arches are intact. The orbits appear intact. IMPRESSION: Comminuted markedly displaced fracture involving the body of the right mandible. Extensive dental car ies. Extensive sinus mucosal changes with fluid within the right maxillary sinus. Attempt to reach Dr. Barroso at [phone] were unsuccessful, I tried to leave a message but could not. POS: [facility]
[2018-04-19] MEDS ORDERED: Fentanyl 100 MCG/2 ML VIAL SLOW IVP SCH (22:45)
[2018-04-19] MEDS ORDERED: Morphine 4 MG/ML VIAL SLOW IVP PRN (23:52)
--- NOTE | 2018-04-20 00:11 | CON ---
DATE OF CONSULTATION: 04/19/2018 REASON FOR CONSULTATION: Right foot inflammatory changes. HISTORY OF PRESENT ILLNESS: A 47-year-old patient who has a history of end-stage renal disease of uncertain cause, possibly chronic glomerular nephritis on hemodialysis with an AV fistula, left upper extremity, who has had chronic wounds in the dorsal aspect of his right foot and then he developed worsening pain and swelling associated with some erythema and some drainage. After that, he was admitted and placed on broad-spectrum antimicrobial coverage with improvement. Currently, he is awake, sitting on his bed. No headaches. No change in visual symptoms, sore throat, odynophagia, or dysphagia. No chest pain or dyspnea. No abdominal pain or diarrhea. No genitourinary symptoms. No joint symptoms. PAST MEDICAL HISTORY: 1. ESRD of uncertain etiology on hemodialysis with an AV fistula in left upper extremity. 2. CIARAN on CPAP. 3. Hypothyroidism. 4. Restless legs syndrome. 5. Aflutter. 6. RSV infection. PAST SURGICAL HISTORY: Aortic valve replacement, on chronic warfarin. ALLERGY HISTORY: 1. Penicillin. 2. Sulfa drugs. FAMILY HISTORY: Noncontributory. SOCIAL HISTORY: Never smoker. No alcoholic beverage use. CURRENT MEDICATIONS: 1. Proventil. 2. DuoNeb. 3. Xanax. 4. Cordarone. 5. Coreg. 6. Rocephin. 7. Feosol. 8. Folvite. 9. Claritin. 10. Protonix. 11. Renvela. 12. Warfarin. PHYSICAL EXAMINATION: VITAL SIGNS: T-max 98.5, blood pressure 120/70, pulse 72, respirations 16, O2 saturation 95%. SKIN: Remarkable for areas of hyperpigmentation to lower extremities and superficial areas of ulceration with scabbing in the right anterior leg in the anterior aspect of the right foot and lateral aspect of the hind foot with moderate tenderness around those regions. There is hyperkeratosis around those areas with scabbing formation. Extremities are warm. GENITOURINARY: He does not have much urine output. LYMPHATICS: No lymphadenopathy. HEENT: Ocular movements conjugate. Sclerae are white. Oral cavity with still quite a few missing teeth. NECK: Supple. LUNGS: Symmetric. Clear breath sounds. HEART: S1, S2. Regular rate. No S3 or S4. ABDOMEN: Soft, though not distended or tender. No ascites. No bladder distention. EXTREMITIES: No joint inflammatory activity outside involved area. Pulses are diminished in popliteal and dorsalis pedis. LABORATORY DATA: White cell count 4.8, hemoglobin 10, platelets 118 with 72% neutrophils and a chemistry with a creatinine of 9.14, chloride 99, carbon dioxide 30. Liver profile normal. CRP 7.76. Hepatitis surface antigen negative. IMAGING: Tibia-fibula x-ray includes vascular calcifications, foot x-ray with a fifth metatarsal shaft fracture, which is nondisplaced. ASSESSMENT: 1. 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 2. Peripheral vascular disease with poor pulses in lower extremities. 3. Chronic ulcers, dorsal aspect of leg in the right foot. 4. Acute inflammatory process, which appears to be improving with Rocephin. DISCUSSION: 1. The differential diagnosis includes cellulitis associated with the ulcers. The patient has probably superimposed peripheral vascular disease, which has led to the poor healing of the ulcers at the dorsal aspect of his right foot and leg. He has also has evidence of venous insufficiency. 2. Check arterial ultrasound to evaluate his vascular supply to lower extremities. He may be eligible for revascularization depending on findings and may need a full angiogram, continue Rocephin. Eventual transition to oral Keflex. 3. I find it less likely that he has osteomyelitis since the lesions associated are not typically seen in patients with osteomyelitis who usually have toe lesions or metatarsal phalangeal joint skin site lesions, which are exactly in the opposite side of the foot. Job ID: [id number]
--- NOTE | 2018-04-20 00:44 | CON ---
DATE OF CONSULTATION: 04/19/2018 HISTORY OF PRESENT ILLNESS: The patient is a 47-year-old male who was originally admitted to the hospital on April 18, 2018, for right lower extremity cellulitis. He was admitted to Dr. Metzger and was receiving IV antibiotics. This evening, he got up from his hospital bed because he was nauseous and wanted to vomit. He propped himself up against the trash can and subsequently the trash can slid causing the patient to fall face forward onto his jaw. Immediately, he had significant amount of bleeding coming from his right jaw inside of his mouth. Nursing was alarmed and a code green was called. A CT of the head and face was completed. Diagnostic imaging indicated that the patient had a comminuted and displaced right mandibular fracture. OMFS, Dr. Ranulfo Stephenson, was consulted by the patient's primary team who reported he would see the patient in the morning and requested for the Trauma Surgery team to evaluate the patient. On my evaluation, the patient denied loss of consciousness. However, he is on Coumadin for aortic mechanical valve. REVIEW OF SYSTEMS: All additional review of systems negative unless indicated in HPI. MEDICATIONS: At the time of the evaluation, the patient was taking, 1. Tylenol. 2. Proventil. 3. DuoNebs p.r.n. 4. Xanax. 5. Cordarone. 6. Aspirin. 7. Coreg. 8. Ceftriaxone. 9. Sensipar. 10. Ferrous sulfate. 11. Folic acid. 12. Robitussin. 13. Claritin. 14. Zofran. 15. Protonix. 16. Mirapex. 17. Florastor. 18. Renvela. 19. Coumadin. PAST MEDICAL HISTORY: Mechanical aortic valve, ESRD dialysis on Saturday, Saturday, and Saturday, COPD, hypertension, hyperparathyroidism, chronic anemia, and Atrial flutter. He also has a dialysis fistula in his left upper extremity. PAST SURGICAL HISTORY: Placement of fistula to the left upper extremity, abdominal hernia, and aortic valve replacement x2. SOCIAL HISTORY: The patient reports being a previous smoker. Denies alcohol and drug abuse. PHYSICAL EXAMINATION: VITAL SIGNS: Temperature 97.9, pulse 70, respirations 20, oxygen saturation 96% on 3 L nasal cannula, blood pressure 122/76. Primary Survey: Airway intact. Adequate breath sounds bilaterally. 2+ distal pulses palpable in radials, femorals, and DP/PT bilaterally. GCS 15, gross motor and sensation intact. Oozing from lower most anterior teeth at the level of the gums. Bleeding well controlled with direct pressure. No bruising noted. Swelling to the left angle of the jaw. Not currently expanding hematoma. Secondary Survey: HEAD: Normocephalic with bleeding in the oral cavity. No gross palpable skull deformities or tenderness. Pupils 3 to 2, equal, reactive to light bilaterally. The patient is tracking. ENT: No hemotympanum. No epistaxis. No septal hematoma. Midface stable to manipulation. Positive blood in the oropharynx. Dentition intact. However, oozing coming from the lower most anterior teeth. No loose teeth noted. No anterior neck injury/crepitus/tenderness. Large hematoma at angle of the left jaw/cheek. No swelling to the neck. No concern for airway compromise. No expanding hematoma noted. C-SPINE: No step-offs or deformities. Nontender. No C-collar in place. CHEST: Nontender. No crepitus. No abrasions or ecchymosis. Equal chest movements. ABDOMEN: Soft, nontender, and nondistended. PELVIS: Stable to palpation. Nontender. No abrasions or ecchymosis. RECTAL: Deferred. GENITOURINARY: Deferred. EXTREMITIES: No gross traumatic deformities. No abrasions or ecchymosis noted. Superficial skin wounds to right anterior lower extremity with signs of peripheral vascular disease to bilateral lower extremities. 2+ radial, femoral, DP, and PT pulses present bilaterally. BACK/SPINE: No step-offs or deformities or tenderness to palpation of the thoracic or lumbar spine. No abrasions or ecchymosis noted. NEUROLOGIC: 5/5 strength in bilateral furnace packer, plantar flexion, and dorsiflexion. Gross motor and sensation intact x4 extremities. LABORATORY FINDINGS: There are no post-trauma lab studies at this time. We will follow up. DIAGNOSTIC FINDINGS: CT of the brain this evening after the fall demonstrated no significant acute intracranial mass or bleeding. Sinus mucosal disease with a small air-fluid level in the right maxillary sinus. CT of the facial bones demonstrated comminuted markedly displaced fracture involving the body of the right mandible. Extensive dental caries. Extensive sinus mucosal changes with fluid within the right maxillary sinus. ASSESSMENT: 1. Status post mechanical fall from standing. 2. Right comminuted and displaced mandible fracture, bleeding well controlled, open fracture. 3. Posttraumatic pain. RECOMMENDATIONS: Trauma will hold the patient's previously dosed Coumadin. We will not reverse Coumadin at this time until Dr. Stephenson with [facility] has evaluated the patient and made recommendations for timing of operative fixation. Currently, bleeding is being well controlled with direct pressure and there is no concern for airway compromise. We will reassess in the morning after speaking with Dr. Stephenson and consider Coumadin reversal after speaking with him. We will make the patient n.p.o. except for sips with medications if he is able to swallow. The patient is to be sitting upright and cannot lay flat past 45 degrees. Nursing to provide suction, so the patient may suction his mouth for any small amounts of oozing. The patient was transferred to the [facility] for closer monitoring. He was also advised not to get up out of bed without assistance. The patient is to receive CBC, BMP, phos, Mag, and PT/INR tomorrow morning. Nursing was given contact information for trauma team and directed to call the team if she is concerned for the patient's airway or had difficulty controlling bleeding. The patient will be discussed with Dr. Miguel after this dictation. Job ID: [id number]
--- NOTE | 2018-04-20 01:58 | PDOC.EVN ---
Event Note - Event Note Event Note: Called to patient bedside this AM as nursing concerned for increased swelling to patients L buccal area near angle of jaw. No bleeding in orolpharynx. Patient reports no difficulty swallowing or breathing. Not concerned at this time for airway compromise. Attempted to place compressive dressing to L buccal area but patient reported this caused him to feel his airway was restricted. Will send patient for a CTA of the neck not previously completed to rule out major vascular injury. Patient has ESRD and has been on dilaysis for 15years as well as anuric for 5 years. Pending CTA results, Will follow up. Patient otherwise hemodynamically stable with no additional complaints. Kyra Polanco PA-C Trauma Surgery
[2018-04-20] MEDS ORDERED: Fentanyl 100 MCG/2 ML VIAL SLOW IVP PRN (02:10)
[2018-04-20 04:53] LABS: #Monocytes 0.9 thou/uL (0.11-0.59); #Neutrophils 4.6 thou/uL (1.40-6.50); %Basophils 0.3 % (0.0-1.0); %Eosinophils 0.7 % (0.0-10.0); %Lymphocytes 15.6 % (21.0-51.0); %Monocytes 13.8 % (0.0-10.0); %Neutrophils 69.5 % (42.0-75.0); Hemoglobin 10.4 g/dL (14.0-18.0); Mean Corpuscular HGB CONC 31.4 g/dL (32.0-36.0); Mean Corpuscular Hemoglobin 32.2 pg (27.0-31.0); Mean Platelet Volume 8.6 fL (7.4-10.4); Platelet Count 130 thou/uL (130-400); RBC Distribution Width 15.1 % (11.5-14.5); Red Blood Cell (RBC) Count 3.23 mill/uL (4.70-6.10); White Blood Cell (WBC) Count 6.7 thou/uL (4.8-10.8)
[2018-04-20 05:00] LABS: Prothrombin Time 22.9 SEC (12.0-14.7)
[2018-04-20 05:18] LABS: Anion Gap 16 mmol/L (10-20); BUN (Urea Nitrogen) 28 mg/dL (8.9-20.6); Calc. Creatinine Clearance 15 mL/min (70-130); Calcium 9.1 mg/dL (7.8-10.44); Carbon Dioxide 28 mmol/L (22-29); Chloride 100 mmol/L (98-107); Estimated GFR-MDRD 7; Glucose 90 mg/dL (70-105); Magnesium 2.4 mg/dL (1.6-2.6); Potassium 4.9 mmol/L (3.5-5.1); Sodium 139 mmol/L (136-145)
[2018-04-20] MEDS: PROVENTIL INHALER 6.7 G (200 INHALATIONS) INH SCH ×3 (07:41→18:34)
--- NOTE | 2018-04-20 08:19 | CT ---
PRELIMINARY REPORT/[facility]/EMERGENCY AFTER HOURS PROCEDURE: Addendum created by Rick Rivers MD on 04/20/2018 3:11 AM Central Time ([place] & [place]) Findings were disc ussed with BIRDIE DONNELLY at 04/20/2018 3:11 AM [employer]. Initial Report created on 04/20/2018 3:11 AM Martín tral Time ([place] & [place]) EXAM: CT Angiography Neck With Contrast EXAM DATE/TIME: 04/20/2018 1:58 AM CLINICAL HISTORY: 47 years old, male; Injury or trauma; Fall; Late effect from previous injury; Bleeding/hemorrhage; Ne ck; Injury details: PT fell and has RT sided mandible FX. Having left sided facial and neck swelling. R/O vascular injury. PT on coumadin. TECHNIQUE: Axial computed tomographic angiography images of the neck with intravenous contrast using CT angiogra phy protocol. MIP reconstructed images were created and reviewed. COMPARISON: No relevant prior studies available. FINDINGS: VASCULATURE: Right common carotid artery: Normal. No significant stenosis. No dissection or occlusion. Right internal carotid artery: Normal. Extracranial segment is patent with no significant stenosis. No dissection or occlusion. Right external carotid artery: Normal. No occlusion or significant stenosis. Right vertebral artery: Normal. No significant stenosis. No dissection or occlusion. Left common carotid artery: Normal. No significant stenosis. No dissection or occlusion. Left internal carotid artery: Normal. Extracranial segment is patent with no significant stenosis. No dissection or occlusion. Left external carotid artery: Normal. No occlusion or significant stenosis. Left vertebral artery: Normal. No significant stenosis. No dissection or occlusion. Other vasculature: There is a tiny vascular blush seen within the LEFT inframandibular/neck soft tiss ues compatible with active hemorrhage. There is an ill-defined soft tissue swelling/hematoma present. NECK: Sinuses: There is debris within the bilateral maxillary sinuses. Nasopharynx: There is a displaced mildly comminuted RIGHT mandibular fracture. Bones/joints: There are sternal wires consistent with previous sternotomy incision. Soft tissues: See Other Vasculature Finding. Lymph nodes: There is bilateral cervical chain lymphadenopathy measuring up to 1.9 x 1.1 x 2.6 cm on the LEFT, probably reactive. Lungs: There is mild interstitial thickening groundglass opacification within the lungs compatible wi th mild pulmonary edema. IMPRESSION: 1. There is a displaced mildly comminuted RIGHT mandibular fracture. 2. Tiny active hemorrhage within the inferior LEFT facial/superior neck soft tissues. Ill-defined hem atoma. 3. No large vascular injury is demonstrated. COMMENT: Reference per NASCET criteria for degree of stenosis: Mild: <50% stenosis. Moderate: 50-69% stenosis. Severe: 70-94% stenosis. Near occlusion: 95-99% stenosis. Thank you for allowing us to participate in the care of your patient. Dictated and Authenticated by: Rick Rivers MD 04/20/2018 3:11 AM Central Time ([place] & [place]) FINAL REPORT EMERGENCY AFTER HOURS CT ANGIO NECK: IMPRESSION: I agree with the preliminary report provided by [facility]. No hemodynamically significant stenosis evident. There is a comminuted right mandibular fracture. There is extensive soft tissue contusion involving the left aspect of the facet and upper neck. Additionally, there is extensive adenopathy of the upper mediastinum, as well as scattered areas of n manohar. The findings are concerning for possible lymphoma. Would recommend consideration for a whole bod y PET scan for additional characterization. Alternatively, a CT of the chest, abdomen, and pelvis may be helpful. CODE T. POS: BH
[2018-04-20] MEDS: Sevelamer Carbonate 800 MG TAB PO SCH ×3 (10:03→17:35)
[2018-04-20] MEDS: Carvedilol 6.25 MG TAB PO SCH ×2 (10:03→17:35)
[2018-04-20] MEDS ORDERED: Chlorhexidine Gluconate 15 ML UDCUP SSP SCH (10:45)
[2018-04-20] MEDS: Loratadine 10 MG TAB PO SCH (11:26)
[2018-04-20] MEDS: Saccharomyces boulardii 250 MG CAP PO SCH (11:26)
[2018-04-20] MEDS: Ferrous Sulfate 325 MG TAB PO SCH (11:26)
[2018-04-20] MEDS: Cinacalcet HCl 30 MG TAB PO SCH ×2 (11:27→19:43)
[2018-04-20] MEDS: Aspirin 81 mg Enteric Coated Tablet PO SCH (11:27)
[2018-04-20] MEDS: ALPRAZolam 0.5 MG TAB PO SCH (11:27)
[2018-04-20] MEDS: Folic Acid 1 MG TAB PO SCH (11:27)
[2018-04-20] MEDS: Amiodarone 200 MG TAB PO SCH ×2 (11:28→19:47)
--- NOTE | 2018-04-20 11:58 | CON ---
DATE OF CONSULTATION: 04/20/2018 SERVICE: Pulmonary Medicine. REASON FOR CONSULTATION: [facility] patient. HISTORY OF PRESENT ILLNESS: The patient is a 47-year-old white male, who is very well known to me. He was in the hospital with an episode of cellulitis. He is on appropriate antibiotic therapy, and the discomfort in his foot was improving. The redness was also going away. He had an episode of nausea. He sat up and went over his trash can. He put a significant amount of his weight on the trash can and it slipped out from underneath him and he hit the floor. His face broke his fall, and he ended up fracturing his jaw. He was subsequently moved down to the [facility]. He does not have any complaints of respiratory issues right now. He has horrendous obstructive sleep apnea. He denies any current fevers, chills, nausea, vomiting , cough, or sputum production. He is having significant amounts of blood coming from his mouth, which is starting to taper off. PHYSICAL EXAMINATION: VITAL SIGNS: Afebrile with a T-max of 99.8. Pulse 70, blood pressure 116/68, respirations 14, and saturation 95% on 3 L nasal cannula. GENERAL: The patient is awake and alert, in no apparent distress. LUNGS: Decent air entry. There is a slightly prolonged expiratory phase. There is rhonchi present. No wheezing. HEART: Normal rate and regular. ABDOMEN: Soft, nontender, and nondistended. Bowel sounds are positive. MUSCULOSKELETAL: No cyanosis or clubbing. There is trace pitting in the bilateral lower extremities. NEUROLOGIC: Grossly nonfocal. LABORATORY DATA: WBC 6.7, hemoglobin 10.4, platelets 130,000 and up-trending. INR 2.0. Creatinine 8.37. Basic metabolic profile is otherwise unremarkable. Phosphorus 7.0 and magnesium 2.4. Blood cultures x2 are unremarkable. IMAGING DATA: 1. CTA of the head and neck demonstrates displaced comminuted right mandibular fracture, active hemorrhage in the left fascicular superior neck soft tissue with ill-defined hematoma surrounding it. No obvious vascular injury is identified. 2. CT of the brain demonstrates no acute intracranial abnormality. 3. Lower extremity ultrasound demonstrates unremarkable flow in the bilateral lower extremities. There is monophasic flow in the distal anterior tibial artery suggestive of peripheral vascular disease. 4. Ultrasound of bilateral lower extremities demonstrates no evidence of DVT. 5. X-ray of the foot does not demonstrate any findings consistent with osteomyelitis. This is a fifth metatarsal shaft fracture. ASSESSMENT: 1. Chronic hypoxic and hypercapnic respiratory failure. 2. Cellulitis, resolving. 3. Mandibular fracture secondary to a traumatic injury. 4. End-stage renal disease. 5. Obstructive sleep apnea, horrendous. DISCUSSION AND PLAN: The patient is doing fine from respiratory standpoint. He will need to continue wearing his BiPAP if he can tolerate it. We will see if we can perkier a nasal device that he can wear instead of the fullface mask, which he is going to find challenging in the near future. Pulmonary will continue to follow while he remains in this location. Antibiotics will be continued, but can be converted over to p.o. 70 minutes have been devoted to this patient in various activities. I personally reviewed all imaging studies and laboratory data noted within this document. For fifty percent of this time, I was interacting with the patient at the bedside or coordinating care with the care team. For the remainder of the time I was immediately available to the patient in the hospital unit. Job ID: [id number] [facility]
--- NOTE | 2018-04-20 12:10 | PRG ---
DATE OF SERVICE: 04/20/2018 SUBJECTIVE: A 47-year-old gentleman being seen for end-stage kidney disease. Overnight events noted. OBJECTIVE: CONSTITUTIONAL: The patient is awake and alert. VITAL SIGNS: Afebrile, pulse 95, breathing 16, and blood pressure 116/68. GENERAL APPEARANCE AND MENTAL STATUS: Fair. HEAD/NECK: Normocephalic. Atraumatic. EYES: EOMI. No deformity. EARS: Clear. No ulcers. NOSE: Intact. No lesions. MOUTH: Clear. No discharge. THROAT: Clear. No exudate. LUNGS: Clear. No crackles. CARDIAC: S1, S2. No rub. ABDOMEN: Benign. Bowel sounds positive. GENITALIA/RECTUM: Green absent. BACK/EXTREMITIES: Edema 0+. NEUROLOGICAL: Alert and motor intact. SKIN: LYMPHATICS: LABORATORY DATA: Labs show hemoglobin 10.4 ASSESSMENT: 1. Stage 6 chronic kidney disease, plan dialysis today for planned surgery tomorrow. 2. Hypertension, stable. 3. Anemia, stable. 4. Jaw fracture management per primary team. Job ID: [id number] [facility]
[2018-04-20] MEDS ORDERED: Acetaminophen/Codeine 12.5 ML UDCUP PO PRN (12:28)
[2018-04-20] MEDS ORDERED: Acetaminophen 325 MG/10.15 ML UDCUP PO SCH (12:30)
--- NOTE | 2018-04-20 12:40 | CT ---
CT OF THE BRAIN WITHOUT CONTRAST: Date: 04/20/18 INDICATION: Follow-up fall with history of elevated INR. COMPARISON: CT of brain dated 04/19/18. FINDINGS: There is prominent soft tissue contusion involving the left aspect of the face. Small air fluid level is again seen within the right maxillary sinus with mucosal thickening in the left maxillary sinus. There is some residual IV contrast still present circulating within patient's blood pool due to a CTA of the neck dated 04/20/18 at 0158 hours. No definite acute infarct, hemorrhage, or hydrocephalus is present within limitations of this exam. IMPRESSION: 1. No definite acute intracranial abnormality. 2. Some residual IV contrast still remaining within the patient's blood circulation from the patient 's CTA of neck performed earlier this morning. This limits evaluation for intracranial hemorrhage. No definite acute abnormality is seen. POS: CET
--- NOTE | 2018-04-20 14:11 | PRG ---
DATE OF SERVICE: 04/20/2018 SUBJECTIVE: The patient was seen this morning, sitting up in bed. He reported his pain was 9/10, but otherwise did not feel short of breath or had difficulty breathing. Left buccal area was swollen, but improved from overnight with small amount of bruising evident. The patient is n.p.o. for evaluation by [facility] team for possible fixation of his comminuted and displaced right mandible fracture. He is able to swallow pills at this time and can have medications with sips of water. Had no other complaints this morning. He is to go and have a repeat CT of his head due to such a high INR when his initial trauma occurred. He denies nausea, vomiting , or diarrhea at this time. PHYSICAL EXAMINATION: VITAL SIGNS: Blood pressure 157/84, heart rate 71, respirations 17, oxygen saturation 96%, and temperature 99.8 degrees. GENERAL: Alert and awake, middle-aged male, sitting up in bed. NEUROLOGIC: GCS is 15. Alert and oriented x3. Gross motor and sensation intact. Pupils equal, round, and reactive to light. HEAD: Normocephalic with bleeding in oral cavity, now controlled. No active bleeding in the oropharynx. No gross palpable skull deformity. ENT: No hemotympanum. No epistaxis. No septal hematoma. Midface stable to palpation. Dentition intact. No loose teeth noted. No anterior neck injury/tenderness/crepitus. Large hematoma at angle of left jaw, stable from previously noted overnight. No swelling of the neck. No concern for airway compromise at this time. No expanding hematoma noted. C-spine nontender. No step-offs or deformities. No C-collar in place. PULMONARY: No signs of acute distress. Equal chest rise and fall. Lung lechuga clear bilaterally on 4 L nasal cannula. HEART: Regular rate and rhythm. No murmurs, gallops, or rubs. GI: Abdomen is soft, nontender, and nondistended with positive bowel sounds. EXTREMITIES: Gross motor and sensation intact. 2+ pulses in all extremities. No swelling noted. LABORATORY FINDINGS: White blood cell count 6.7, hemoglobin 10.4, hematocrit 33.1, platelets 130. INR 2.0. Sodium 139, potassium 4.9, chloride 100, carbon dioxide 28, BUN 28, creatinine 8.37, glucose 90, phos 70, and magnesium 2.4. DIAGNOSTIC FINDINGS: CTA of the neck completed overnight due to concern for expanding hematoma to the left cheek demonstrated a displaced mildly comminuted right mandible fracture and a tiny active hemorrhage within the inferior left facial/superior neck soft tissue, which is ill-defined. No large vascular injury. No CT evidence of fracture of the cervical spine. Partially visible left scapula, which appears to show a nondisplaced fracture of the scapular body. Repeat CT of the brain this morning demonstrated no defined acute intracranial abnormality. Some residual IV contrast still remaining within the patient's body circulating from the patient's CTA of the neck performed earlier this morning. This limits evaluation of intracranial hemorrhage. No defined acute abnormalities seen. ASSESSMENT: 1. Status post mechanical fall from standing. 2. Right comminuted and displaced mandibular fracture, bleeding well controlled, open fracture. 3. Left buccal hematoma with active extravasation, stable. 4. Left scapular body fracture. 5. Posttraumatic pain. PLAN: Trauma Team spoke with Dr. Stephenson of [facility], who would like to take the patient to the OR tomorrow, however, would like the patient to receive dialysis today. Dr. Longo with Nephrology was contacted, who agreed the patient can be dialyzed today and go to the operating room tomorrow. On re-evaluation of the CTA of the neck for bony deformities, a left scapular body fracture was noted. X- rays of the left scapula and shoulder are pending as well as a nonurgent consultation of Orthopedics. Dr. Lentz will be consulted tomorrow for evaluation of the left scapular body fracture. Repeat CT of the brain was negative and the patient's mentation is at baseline with no focal neurological deficits. We will continue to hold Coumadin today for OR tomorrow with [facility]. We will complete an INR in the a.m. with a goal of less than 2.0. The Trauma Team to follow up INR and correct as needed before OR. We will start Tylenol No. 3 and tramadol as needed for pain. The patient can have a clear liquid diet at this time. He will remain in the IMCU for close monitoring of his airway and swelling to his left lateral neck. The patient is to be upright greater than 45 degrees with suction available at all times. Pulmonary/Critical Care team has also rounded on the patient and is watching his pulmonary status. The patient usually wears a CPAP at night to sleep, but is not able to wear due to his right mandibular fracture. Nursing advised to call the Trauma Team if any concern about respiratory distress or airway compromise. The patient was discussed with Dr. Goss this morning after rounds. Job ID: [id number] [facility]ITAL[facility]
[2018-04-20 14:22] LABS: Actual Bicarbonate (HCO3a) 34.2 mEq/L (22-28); Base Excess (BEa) 1.1 mEq/L (-2.0 to +3.0); Calcium, Ionized 1.19 mmol/L (1.12-1.30); Carboxyhemoglobin (COHb) 1.7 gm% (0.0-3.0); Potassium - ABG Lab 5.35 mmol/L (3.70-5.30)
--- NOTE | 2018-04-20 14:28 | RAD ---
LEFT SHOULDER 3 VIEWS: Date: 04/20/18 HISTORY: Left scapular fracture status post fall. FINDINGS: AC and glenohumeral joints are unremarkable. It is difficult to definitely see a displaced scapular f racture. There is some subtle lucency seen on the Transscapular Y view of the superior portion of the body of the scapula which appears to be an area of fracture. IMPRESSION: Findings suspicious for a nondisplaced fracture along the superior aspect of the scapular body. POS: EDILSON
[2018-04-20] MEDS ORDERED: Propofol 1,000 MG/100 ML VIAL IV ONE (14:37)
--- NOTE | 2018-04-20 14:58 | PRG ---
DATE OF SERVICE: 04/20/2018 SERVICE: Pulmonary Medicine. INTERVAL HISTORY: Shortly after seeing the patient by couple of hours, he became increasingly somnolent. Ultimately, he was poorly responsive even to sternal rub. He ended up getting an ABG showing acute on chronic hypoxic and hypercapnic respiratory failure. We made plans emergently moved him down to the ICU and prepare for intubation. This will be with a GlideScope. If this fails, we will use a bronchoscopy. Hopefully, we can minimize any additional trauma to that jaw. ASSESSMENT: 1. Acute on chronic hypoxic and hypercapnic respiratory failure. 2. Mandibular fracture secondary to traumatic injury. 3. Hematoma of the left jaw/neck. 4. End-stage renal disease. 5. Obstructive sleep apnea, horrendous. 6. Chronically anticoagulated. DISCUSSION AND PLAN: I will move forward with moving the patient to the ICU and prepare for intubation as previously detailed. Pulmonary/Critical Care will continue to follow very closely. CRITICAL CARE TIME: 30 minutes. Job ID: [id number]
[2018-04-20] MEDS ORDERED: Lorazepam 2 MG/ML VIAL ONE (15:00)
[2018-04-20 15:04] LABS: CO2 Tension 124.3 mmHg (35.0-45.0); O2 Tension (PaO2) 45.6 mmHg (80.0-100.0); pH, Arterial 7.06 (7.35-7.45)
[2018-04-20 15:05] LABS: ALV-art Gradient 55.705 (0-20); Puncture Site RRA
[2018-04-20] MEDS ORDERED: Propofol 1,000 MG/100 ML VIAL IV PRN (15:06)
[2018-04-20] MEDS ORDERED: DISCONTINUE PREVIOUS NARCOTIC PAIN MEDICATIONS AND BENZODIAZEPINES FS SCH (15:06)
[2018-04-20] MEDS ORDERED: Lorazepam 2 MG/ML VIAL SLOW IVP PRN (15:06)
[2018-04-20] MEDS ORDERED: Propofol BOLUS 1,000 MG/100 ML VIAL IV PRN (15:06)
[2018-04-20] MEDS ORDERED: Morphine 2 MG/ML SYRINGE SLOW IVP PRN (15:06)
[2018-04-20] MEDS ORDERED: Fentanyl BOLUS 250 ML IVPB PRN (15:06)
--- NOTE | 2018-04-20 15:14 | RAD ---
PORTABLE CHEST: Date: 04/20/18 HISTORY: Intubation. COMPARISON: 04/07/17 exam. FINDINGS: Heart size is enlarged with postop sternotomy change and valve replacement. Pleural and parenchymal c hanges in the right lung and parenchymal changes in the left lung are all stable. Endotracheal and NG tubes are in satisfactory position. IMPRESSION: 1. Cardiomegaly with stable pleural and parenchymal lung change. 2. Endotracheal and NG tubes in satisfactory position. POS: EDILSON
[2018-04-20 15:54] LABS: Actual Bicarbonate (HCO3a) 28.1 mEq/L (22-28); Base Excess (BEa) 0.3 mEq/L (-2.0 to +3.0); Calcium, Ionized 1.11 mmol/L (1.12-1.30); Hemoglobin (Hb) 9.3 g/dL (14.0-18.0); Potassium - ABG Lab 4.76 mmol/L (3.70-5.30); pH, Arterial 7.26 (7.35-7.45)
[2018-04-20 15:59] LABS: CO2 Tension 63.9 mmHg (35.0-45.0); O2 Tension (PaO2) 56.6 mmHg (80.0-100.0)
[2018-04-20 16:02] LABS: ALV-art Gradient 155.855 (0-20); Puncture Site RBA
[2018-04-20] MEDS: fentaNYL Citrate/PF 2,000 MCG in Sodium Chloride 0.9% 60 ML IV SCH (16:12)
[2018-04-20] MEDS ORDERED: ISOVUE-370 76%-LOCM 1 ML ONE (16:52)
--- NOTE | 2018-04-20 18:40 | OP ---
DATE OF PROCEDURE: 04/20/2018 SERVICE: Pulmonary Medicine. PROCEDURE PERFORMED: Emergent endotracheal intubation. CONSENT: Procedure was performed emergently secondary to clinical condition, clinical deterioration, and respiratory failure. STAFF PHYSICIAN: Sánchez Kilgore MD MEDICATIONS USED: None. PREPROCEDURE DIAGNOSIS: Acute hypercapnic respiratory failure. POSTPROCEDURE DIAGNOSIS: Acute hypercapnic respiratory failure. DESCRIPTION OF PROCEDURE: Vital sign monitoring was accomplished by noninvasive hemodynamic monitoring, pulse oximetry, and telemetry. In the supine position, the patient was preoxygenated with [id number] ventilation, maintained with saturations of 100%. No induction of anesthesia was required. A GlideScope with #4 sheath was inserted into the mouth offering clear identification of the posterior oropharynx and laryngeal structures with a grade 1 view. A 7.5-Bel[place]ian endotracheal tube was visualized passing through the vocal cords. Placement was confirmed by condensation in the endotracheal tube, and bi-axillary chest auscultation. Endotracheal tube was secured at 25 cm, measured at the teeth. The patient was placed on mechanical ventilation with good return of volumes. Postprocedure x-ray demonstrated decent location for the tip of the endotracheal tube. ESTIMATED BLOOD LOSS: None. COMPLICATIONS: None. Job ID: [id number]
--- NOTE | 2018-04-20 19:08 | RAD ---
AP PELVIS ONE VIEW: HISTORY: Injury following fall from standing yesterday. FINDINGS/IMPRESSION: No fracture, dislocation, or other significant acute osseous abnormality. POS: [facility]
--- NOTE | 2018-04-20 19:11 | RAD ---
LEFT ELBOW TWO VIEWS: HISTORY: Left elbow injury following fall from standing yesterday. FINDINGS: AP and lateral views of the elbow demonstrate no evidence for acute fracture or dislocation. Possibl e small joint effusion. Marked calcification of dialysis graft with some focal aneurysmal dilatation . IMPRESSION: No evidence for acute fracture or dislocation of the elbow, although there is suggestion of the possi bility of some joint effusion. If the patient has persistent, worsening, or nonresolving pain refera ble to the left elbow, short-term follow-up complete four-view examination might be considered. POS: [facility]
[2018-04-20] MEDS: Pramipexole Di-HCl 1 MG TAB PO SCH (19:43)
[2018-04-20] MEDS: Chlorhexidine Gluconate 15 ML UDCUP SSP SCH (19:43)
[2018-04-20] MEDS: Sodium Chloride 0.9% 1,000 ML IV SCH ×3 (21:53→23:28)
[2018-04-20] MEDS: cefTRIAXone\\ROCEPHIN 1 GM in Sodium Chloride 0.9% 100 ML IVPB SCH (23:10)
[2018-04-21 05:18] LABS: INR-International Normal Ratio 2.8; Prothrombin Time 29.6 SEC (12.0-14.7)
[2018-04-21 05:29] LABS: Anion Gap 18 mmol/L (10-20); BUN (Urea Nitrogen) 44 mg/dL (8.9-20.6); Calc. Creatinine Clearance 11 mL/min (70-130); Calcium 8.2 mg/dL (7.8-10.44); Carbon Dioxide 25 mmol/L (22-29); Chloride 102 mmol/L (98-107); Estimated GFR-MDRD 5; Magnesium 2.1 mg/dL (1.6-2.6); Potassium 4.8 mmol/L (3.5-5.1); Sodium 140 mmol/L (136-145)
[2018-04-21 05:32] LABS: Glucose 51 mg/dL (70-105)
[2018-04-21] MEDS ORDERED: Dexamethasone 4 mg/ml Vial ONE (05:42)
[2018-04-21] MEDS ORDERED: Dextrose 50% Abboject 50 ML SYRINGE ONE (05:42)
[2018-04-21] MEDS ORDERED: Dextrose 50% Abboject 50 ML SYRINGE IVP SCH (05:45)
[2018-04-21 05:56] LABS: #Basophils 0.1 thou/uL (0.0-0.2); #Eosinphils 0.1 thou/uL (0.0-0.7); #Lymphocytes 0.7 thou/uL (1.20-3.40); #Monocytes 0.6 thou/uL (0.11-0.59); #Neutrophils 4.2 thou/uL (1.40-6.50); %Basophils 1.1 % (0.0-1.0); %Eosinophils 1.8 % (0.0-10.0); %Lymphocytes 11.7 % (21.0-51.0); %Monocytes 9.8 % (0.0-10.0); %Neutrophils 75.5 % (42.0-75.0); Anisocytosis SLIGHT = 6-15 cells (100X) (0-5/hpf); Hemoglobin 9.6 g/dL (14.0-18.0); MDiff Complete? YES; Mean Corpuscular HGB CONC 32.2 g/dL (32.0-36.0); Mean Corpuscular Hemoglobin 32.5 pg (27.0-31.0); Mean Platelet Volume 8.8 fL (7.4-10.4); Ovalocytes SLIGHT = 2-5 cells (100X) (0-1/hpf); Platelet Count 106 thou/uL (130-400); Platelet Morphology Comment Appears Decreased; RBC Distribution Width 14.9 % (11.5-14.5); Red Blood Cell (RBC) Count 2.96 mill/uL (4.70-6.10); White Blood Cell (WBC) Count 5.6 thou/uL (4.8-10.8)
[2018-04-21] MEDS: PROVENTIL INHALER 6.7 G (200 INHALATIONS) INH SCH ×3 (07:00→18:28)
[2018-04-21] MEDS ORDERED: Phytonadione 10 MG/ML AMP SLOW IVP SCH (08:15)
--- NOTE | 2018-04-21 08:59 | CON ---
DATE OF CONSULTATION: HISTORY OF PRESENT ILLNESS: The patient is a 47-year-old male who is being treated for cellulitis in the hospital. He has multiple medical problems. Evidently after getting IV antibiotics, he developed nausea and tried to vomit. He was trying to vomit over a trash can and fell face forward. There was quite a bit of bleeding coming from the right jaw inside of his mouth. He is on Coumadin for an aortic mechanical valve. PAST MEDICAL HISTORY: Significant for aortic valve disease, end-stage renal disease on dialysis, COPD, hypertension, hyperparathyroidism, anemia, and atrial flutter. PAST SURGICAL HISTORY: He has had a fistula in the left upper extremity. He has had an abdominal hernia repair, aortic valve replacement x2. SOCIAL HISTORY: He is a previous smoker. No tobacco or alcohol. MEDICATIONS: Include Coumadin 5 mg daily, Sensipar, alprazolam, Coreg, DuoNeb, Robitussin, iron, aspirin, Cordarone, ProAir, Tylenol, Renvela, Florastor, pramipexole, Protonix, and Claritin. PHYSICAL EXAMINATION: VITAL SIGNS: Temperature 99.8, pulse 95, blood pressure 116/68, obese male, somewhat lethargic. HEENT: He has a lot of soft tissue swelling of the left malar region. He is having no difficulty breathing. Trachea, midline. NECK: Supple. LUNGS: Clear. ABDOMEN: Obese, soft, nontender. He has a vascular access graft in the left upper extremity. He has a little eschar on the right juan. Some mild cellulitis that looks like it is getting better as the edema has significantly improved. There is no fluctuance. LABORATORY DATA: White count 6.7, H and H of 10 and 33, and platelet count 130. Electrolytes; his creatinine is 8.37, BUN of 28. His PT is 22.9, INR 2. He had a facial bone CT that showed a comminuted displaced fracture of the body of the right mandible with extensive dental caries. He has a CT angiography that showed extensive mediastinal adenopathy as well as in the neck, and the comminuted right mandibular fracture and soft tissue contusion of the left aspect of the face and upper neck. ASSESSMENT: Mandible fracture. PLAN: [facility]. Job ID: [id number]
[2018-04-21] MEDS: Sodium Chloride 0.9% (PF) 10 ML VIAL FS SCH (09:00)
[2018-04-21] MEDS ORDERED: Epoetin (ESRD) 10,000 UNITS/ML VIAL IVP SCH (09:45)
[2018-04-21] MEDS: ALPRAZolam 0.5 MG TAB PO SCH (10:05)
[2018-04-21] MEDS: Sevelamer Carbonate 800 MG TAB PO SCH ×3 (10:06→18:44)
[2018-04-21] MEDS: Loratadine 10 MG TAB PO SCH (10:07)
[2018-04-21] MEDS: Amiodarone 200 MG TAB PO SCH ×2 (10:07→20:26)
[2018-04-21] MEDS: Saccharomyces boulardii 250 MG CAP PO SCH (10:07)
[2018-04-21] MEDS: Carvedilol 6.25 MG TAB PO SCH ×2 (10:08→20:25)
[2018-04-21] MEDS: Cinacalcet HCl 30 MG TAB PO SCH ×2 (10:09→20:26)
[2018-04-21] MEDS: Ferrous Sulfate 325 MG TAB PO SCH (10:10)
[2018-04-21] MEDS: Folic Acid 1 MG TAB PO SCH (10:10)
--- NOTE | 2018-04-21 10:17 | PRG ---
DATE OF SERVICE: 04/21/2018 SUBJECTIVE: The patient was seen and examined in ICU, remains intubated. Family at the bedside and dialysis ongoing. OBJECTIVE: GENERAL: This is a well-built male, intubated, seen in ICU. VITAL SIGNS: Temperature 98.8, pulse 73, respiratory rate 18, and blood pressure 107/60. HEENT: Intubated. CV: S1 and S2 heard. RESPIRATORY: Clear anteriorly. GI: Abdomen is soft. MUSCULOSKELETAL: 2+ edema. DERMATOLOGIC: No skin rash. NEUROLOGIC: Intubated. LABORATORY DATA: Potassium is 4.8. BUN is 44, and creatinine is 11.02. ASSESSMENT AND PLAN: 1. End-stage renal disease, on hemodialysis. Plan is to continue dialysis on Saturday, Saturday, and Saturday. The patient due for surgery later on today. We will have dialysis as tolerated. The patient remains hypotensive, and we will use albumin as tolerated. 2. Hypotension with history of hypertension. 3. Anemia. Monitor hemoglobin. 4. Edema. We will remove fluid dialysis. Plan is to continue dialysis as tolerated. We will add Epogen with dialysis. Job ID: [id number]
[2018-04-21] MEDS: Pantoprazole 40 MG VIAL IVP SCH (10:29)
--- NOTE | 2018-04-21 10:49 | CON ---
DATE OF CONSULTATION: HISTORY OF PRESENT ILLNESS: We were asked to see patient for a left nondisplaced scapular fracture. The patient is currently intubated. Apparently per mother, who is at the bedside states his health is quite poor. He had fallen last , brought to the hospital. Shoulder was negative and then he had a varicose vein rupture on one of his lower extremities, brought back to the hospital, was admitted. Apparently fell in the hospital and is currently intubated in the ICU. He also sustained a fractured jaw when he fell. PAST MEDICAL HISTORY/PAST SURGICAL HISTORY: All gleaned from his medical record and his mother. It is positive for aortic valve disease, renal disease, COPD, hypertension, hyperparathyroidism, anemia, aflutter. Surgeries; fistula, abdominal hernia repair, and aortic valve replacement x2. SOCIAL HISTORY: Lives with his mom. Previous smoker, but no alcohol or nicotine products stated. FAMILY HISTORY: Noncontributory to this particular visit. MEDICATIONS: 1. Coumadin. 2. Sensipar. 3. Alprazolam. 4. Coreg. 5. DuoNeb. 6. Robitussin. 7. Iron. 8. Aspirin. 9. Cordarone. 10. ProAir. 11. Tylenol. 12. Renvela. 13. Florastor. 14. Pramipexole. 15. Protonix. 16. Claritin. ALLERGIES: ADHESIVE TAPE, PENICILLIN, PSEUDOEPHEDRINE, AND SULFA DRUGS. REVIEW OF SYSTEMS: Unable to obtain due to intubation status. PHYSICAL EXAMINATION: GENERAL: Well-nourished appearing male, obese in bed, intubated. He is moving his extremities, but not following any commands. HEENT: He has some extensive swelling to the right side of his face, probably from the broken jaw. EXTREMITIES: Left upper extremity has a bruise around the shoulder posteriorly. He does retract his extremities to pain, but again following no commands. ASSESSMENT: 1. Multiple health issues, currently intubated. 2. Scapula fracture. No surgical intervention needed. PLAN: I spoke with the family, who at the bedside. The patient may awake and have no pain. If he does, the plan would be a sling for that left upper extremity. Otherwise, the patient can start working with Physical Therapy once health status is stable. He is a patient of Dr. Dang for his right shoulder. I will let Dr. Dang know tomorrow that the patient has been admitted. Job ID: [id number]
[2018-04-21] MEDS: Chlorhexidine Gluconate 15 ML UDCUP SSP SCH ×2 (10:59→20:26)
[2018-04-21] MEDS ORDERED: Vecuronium 10 MG VIAL ONE (11:10)
[2018-04-21] MEDS ORDERED: Lidocaine 1% w/Epinephrine 1:100K 20 ML VIAL ONE ×2 (11:11→16:19)
[2018-04-21] MEDS ORDERED: Sterile Water 10 ML ONE (11:15)
[2018-04-21] MEDS: Epoetin (ESRD) 20,000 UNITS/ML IVP SCH (11:30)
[2018-04-21] MEDS ORDERED: Midazolam HCl 2 mg/2 ml Vial ONE (13:11)
[2018-04-21 13:15] LABS: INR-International Normal Ratio 1.9; Prothrombin Time 21.6 SEC (12.0-14.7)
--- NOTE | 2018-04-21 15:58 | OP ---
DATE OF PROCEDURE: 04/21/2018 PREOPERATIVE DIAGNOSES: 1. Blunt facial trauma with mandibular fracture. 2. Acute respiratory failure. 3. History of severe obstructive sleep apnea. 4. History of chronic obstructive pulmonary disease. POSTOPERATIVE DIAGNOSES: 1. Blunt facial trauma with mandibular fracture. 2. Acute respiratory failure. 3. History of severe obstructive sleep apnea. 4. History of chronic obstructive pulmonary disease. PROCEDURE PERFORMED: Percutaneous tracheostomy tube placement. ANESTHESIA: Deep sedation and local. INDICATIONS FOR PROCEDURE: A 47-year-old morbidly obese man with history of severe chronic obstructive pulmonary disease and obstructive sleep apnea, suffered a fall resulting in mandibular fracture. He requires surgery to fix the mandibular fracture. Due to his history of severe obstructive sleep apnea and COPD, I was asked to place the percutaneous tracheostomy tube placement for potential prolonged mechanical ventilator support and to maintain adequate airway postoperatively. DESCRIPTION OF PROCEDURE: Informed consent obtained from the patient and his mother. The patient was placed in supine position. Placed on FiO2 of 100% on full mechanical ventilator support. The patient was receiving fentanyl by continuous infusion. He was also given midazolam 2 mg and vecuronium 10 mg, both intravenously. Anterior neck was then sterilely prepped and draped in usual fashion. The fiberoptic bronchoscope was introduced through the previous endotracheal tube and advanced to visualize the dread. The tip of the endotracheal tube was withdrawn to approximately 6 cm above the dread, transilluminating the anterior neck in the area chosen for the placement of the tracheostomy tube. At this juncture of the skin, two fingerbreadths above the suprasternal notch was anesthetized with 1% lidocaine with epinephrine. 1 cm vertical incision was made here using a 15 scalpel. Introducer needle was inserted through the incision and advanced through the anterior tracheal wall. Through this, a guidewire was advanced into the distal tracheal lumen on the bronchoscopy. Needle was withdrawn over the guidewire. The anterior tracheal wall was sterilely dilated over the guidewire. Finally, a size #8 tracheostomy tube with a dilator and introducer catheter were advanced over the guidewire as a unit and placed in the distal tracheal lumen. The dilator, introducer catheter, and guidewire were removed as a unit, leaving the tracheostomy tube in place. The inner cannula was inserted. The tracheostomy cuff was inflated and the patient was connected to mechanical ventilator support via newly placed tracheostomy tube. Good tidal volume was returned. The tracheostomy tube was secured to anterior neck using 0 silk suture at two points. Trach dressings and tie were then applied. The bronchoscope and the previous endotracheal tube were withdrawn as a unit visualizing the tracheostomy site from above with good hemostasis. Once the endotracheal tube was removed, the bronchoscope was reinserted through the newly placed tracheostomy tube and advanced to visualize dread. The scope was then withdrawn visualizing the tracheostomy site from below. No active bleeding was noted. Findings; no other pathology. Bronchoscopy was terminated. The bronchoscope was withdrawn visualizing intact tracheal mucosa. The patient tolerated the procedure without any apparent complication and remained hemodynamically stable following completion of the procedure. Job ID: [id number]
[2018-04-21] MEDS ORDERED: Chlorhexidine Gluconate 15 ML UDCUP SSP ONE (16:19)
[2018-04-21] MEDS ORDERED: Hydrocortisone 1% Cream 30 GM TUBE ONE (16:19)
[2018-04-21] MEDS ORDERED: Pancrelipase DR 12000 1 CAP PER TUBE PRN (17:01)
[2018-04-21] MEDS ORDERED: Sodium Bicarbonate Tab 325 MG TAB PER TUBE PRN (17:01)
--- NOTE | 2018-04-21 17:37 | RAD ---
AP VIEW ABDOMEN: HISTORY: NG tube placement. FINDINGS: AP view abdomen demonstrates sternotomy wires seen. A prosthetic cardiac valve is seen. Numerous EKG leads are seen over the chest. There has been placement of a Dobhoff feeding tube, with the distal tip overlying the body of the sto mach. Abdominal gas pattern is nonspecific. There is motion artifact noted. IMPRESSION: Nasogastric tube has the distal tip overlying the mid gastric region. POS: [facility]
--- NOTE | 2018-04-21 18:07 | PRG ---
DATE OF SERVICE: 04/21/2018 SERVICE: Pulmonary Medicine. INTERVAL HISTORY: The patient did okay overnight. He had some marginal blood pressures. Otherwise, he cannot reassure any complaints. He is requiring a little bit of sedation in order to maintain comfort. We made the decision to move forward with tracheostomy. Following this, the patient will likely have his jaw reconstructed either today or tomorrow. PHYSICAL EXAMINATION: VITAL SIGNS: Afebrile with a T-max of 100.1, pulse 94, blood pressure 102/52, respirations 26, and saturation 94% on 40% FiO2. GENERAL: The patient is intubated and sedated. HEENT: Normocephalic. There is ecchymosis in the left jaw. Endotracheal tube is in place. LUNGS: Decent air entry. There is a prolonged expiratory phase. A little bit of wheezing is present. No rhonchi. HEART: Normal rate. Regular. ABDOMEN: Soft, nontender, and nondistended. Bowel sounds are positive. MUSCULOSKELETAL: No cyanosis or clubbing. There is trace pitting in the bilateral lower extremities. NEUROLOGIC: Grossly nonfocal. LABORATORY DATA: WBC 5.6, hemoglobin 9.6, platelets 106,000 and downtrending. Neutrophil count is up-trending. INR 1.9. A pH 7.26, pCO2 of 64, pO2 of 56 improved. Creatinine 11.02, BUN 44. Basic metabolic profile is otherwise unremarkable. Glucose 51. Repeat Chemstick was 104. Phosphorus 7.0 and magnesium 2.1. Blood cultures x2 are unremarkable. IMAGIN. Elbow x-ray demonstrates no evidence for acute fracture or dislocation. The joint effusion is possible. 2. Pelvic x-ray demonstrates no acute fracture dislocation. ASSESSMENT: 1. Acute on chronic hypoxic and hypercapnic respiratory failure. 2. Left mandibular fracture. 3. Hematoma of left jaw/neck. 4. End-stage renal disease. 5. Chronic anticoagulation. 6. Obstructive sleep apnea, horrendous. DISCUSSION AND PLAN: After dialysis today, the patient will undergo a percutaneous tracheostomy. After this, the jaw will likely be reconstructed. Pulmonary/ Critical Care will continue to follow along. Multiple adjustments have been made to the ventilator to maximize the patient's comfort. He will recover in the ICU. Immediately after the tracheostomy was performed, we work toward weaning ventilator. Critical care time: 30 minutes. Job ID: [id number] [facility]
[2018-04-21] MEDS: Pramipexole Di-HCl 1 MG TAB PO SCH (20:25)
[2018-04-21] MEDS: cefTRIAXone\\ROCEPHIN 1 GM in Sodium Chloride 0.9% 100 ML IVPB SCH (23:14)
[2018-04-21] MEDS: fentaNYL Citrate/PF 2,000 MCG in Sodium Chloride 0.9% 60 ML IV SCH (23:22)
[2018-04-22 05:19] LABS: INR-International Normal Ratio 1.7; Prothrombin Time 19.6 SEC (12.0-14.7)
[2018-04-22] MEDS: PROVENTIL INHALER 6.7 G (200 INHALATIONS) INH SCH ×3 (07:10→20:54)
[2018-04-22] MEDS: ALPRAZolam 0.5 MG TAB PO SCH (08:58)
[2018-04-22] MEDS: Amiodarone 200 MG TAB PO SCH ×2 (08:58→21:56)
[2018-04-22] MEDS: Pantoprazole 40 MG VIAL IVP SCH (08:58)
[2018-04-22] MEDS: Carvedilol 6.25 MG TAB PO SCH ×2 (08:59→17:00)
[2018-04-22] MEDS: Chlorhexidine Gluconate 15 ML UDCUP SSP SCH ×2 (08:59→22:00)
[2018-04-22] MEDS: Loratadine 10 MG TAB PO SCH (08:59)
[2018-04-22] MEDS: Cinacalcet HCl 30 MG TAB PO SCH ×2 (09:00→21:54)
[2018-04-22] MEDS: Sevelamer Carbonate 800 MG TAB PO SCH ×3 (09:00→17:44)
[2018-04-22] MEDS: Saccharomyces boulardii 250 MG CAP PO SCH (09:00)
[2018-04-22] MEDS: Folic Acid 1 MG TAB PO SCH (09:00)
[2018-04-22] MEDS: Sodium Chloride 0.9% (PF) 10 ML VIAL FS SCH (09:01)
[2018-04-22] MEDS: Ferrous Sulfate 325 MG TAB PO SCH (09:01)
--- NOTE | 2018-04-22 10:55 | PRG ---
DATE OF SERVICE: 04/22/2018 SUBJECTIVE: This is a 47-year-old gentleman who was originally admitted on April 18 for right lower extremity cellulitis. The patient did have a ground level fall while in the hospital 4 days ago resulting in a mandibular fracture. The patient is postop day #1 from tracheostomy. The patient is awake and alert this morning following commands. Respirations assisted via ventilator. There were no overnight events reported. PHYSICAL EXAMINATION: VITAL SIGNS: Pulse 78, blood pressure 107/41, temperature 98.4, respirations 14 , and SpO2 is 99%. Ventilator settings; FIO2 41%, rate 14, PCV 25, PEEP 5, peak inspiratory airway pressure is 31. HEENT: Head is normocephalic. Trachea is midline. The patient with 8.0 tracheostomy cuff. Dressing is clean, dry, and intact. Wound without redness or drainage. ABDOMEN: Soft, nontender, and nondistended. CHEST: Regular rate and rhythm. Equal chest rise. MUSCULOSKELETAL: The patient moves all extremities. LABORATORY DATA: PT 19.6 and INR 1.7. DIAGNOSTIC DATA: There are no diagnostics to review. ASSESSMENT: 1. Blunt facial trauma with mandibular fracture. 2. Acute respiratory failure. 3. History of severe obstructive sleep apnea. 4. History of chronic obstructive pulmonary disease. PLAN: The patient is going to the OR today for repair of his mandibular fracture. We will be able to sign off on the patient after surgery and as long as his trach wound is healing. The patient will then be managed by Hospital Medicine. The patient was seen with Dr. Goss during morning rounds. Job ID: [id number] [facility]
--- NOTE | 2018-04-22 13:16 | PRG ---
DATE OF SERVICE: 04/22/2018 SERVICE: Pulmonary Medicine. INTERVAL HISTORY: The patient is doing fine from a respiratory standpoint. He did not have any events overnight. Denies any current chest pain, fevers, or chills. Otherwise, there has been no interval change to his condition. He is on mechanical ventilation through a new tracheostomy. He had an uncomplicated procedure yesterday. His jaw reconstruction was postponed. PHYSICAL EXAMINATION: VITAL SIGNS: Afebrile. Pulse 74, blood pressure 124/47, respirations 10, saturation 95% on 41% FiO2. HEENT: Normocephalic and atraumatic. Sclerae white. Conjunctivae pink. Oral mucosa is moist without lesions. LUNGS: Decent air entry. There is no prolonged expiratory phase or wheezing present. HEART: Normal rate and regular. ABDOMEN: Soft, nontender, and nondistended. Bowel sounds are positive. MUSCULOSKELETAL: No cyanosis or clubbing. No pitting in the bilateral lower extremities. NEUROLOGIC: Grossly nonfocal. LABORATORY DATA: Blood cultures x2 remain negative. ASSESSMENT: 1. Acute on chronic hypoxic and hypercapnic respiratory failure. 2. Left mandibular fracture. 3. Hematoma of the left jaw/neck. 4. End-stage renal disease. 5. Chronic anticoagulation. 6. Obstructive sleep apnea, horrendous, status post tracheostomy, postoperative day 1. DISCUSSION AND PLAN: I will watch his glucose through time. After his jaw is corrected, we will proceed with weaning from ventilator. Pulmonary/Critical Care will continue to follow along CRITICAL CARE TIME: 30 minutes. Job ID: [id number] [facility]
--- NOTE | 2018-04-22 14:27 | CON ---
DATE OF CONSULTATION: 04/20/2018 HISTORY OF PRESENT ILLNESS: This is a 47-year-old male with complicated past health history, who was in the hospital for treatment of a leg cellulitis involving right lower extremity in foot region. The patient had an episode of nausea and got out of bed while in the hospital and subsequently suffered a fall from standing with significant post-traumatic hemorrhage from wounds in the mouth. The patient was subsequently sent for CT scan of the face and was found to have a displaced right mandibular parasymphyseal fracture. I was consulted for evaluation and management. PAST MEDICAL HISTORY: 1. End-stage renal disease, hemodialysis. 2. Obstructive sleep apnea. 3. Essential sleep apnea. 4. COPD. 5. Hypothyroidism. 6. History of bicuspid aortic valve, status post 2 valve replacements. 7. Scoliosis. PAST SURGICAL HISTORY: Aortic valve replacement x2. Last aortic valve was mechanical valve. HOME MEDICATIONS: 1. DuoNeb. 2. Coreg. 3. Sensipar. 4. Ferrous sulfate. 5. Folic acid. 6. Amiodarone. 7. Aspirin 81. 8. Coumadin. 9. Renvela. 10. Florastor. 11. Pramipexole. 12. Protonix. 13. Claritin. ALLERGIES: PENICILLIN, SULFA, AND ADHESIVE TAPE. FAMILY HISTORY: Noncontributory. SOCIAL HISTORY: The patient lives with his mother. Denies smoking or alcohol use. REVIEW OF SYSTEMS: The patient has discomfort in the neck and mandibular region bilaterally. The patient has significant swelling to the left neck with discomfort on that side. The patient reports mild occlusion and inability to chew currently. Otherwise, review of systems negative. PHYSICAL EXAMINATION: GENERAL: The patient is alert, awake, and oriented x3. HEAD AND NECK: The patient has significant left facial and neck edema and ecchymosis and significant for mouth edema and ecchymosis as well. There are no external signs of trauma involving the periorbital or ocular regions, naris, ears. No external facial or scalp lacerations or soft tissue wounds noted. On intraoral examination, the patient has a fracture involving the right mandibular parasymphysis with subsequent disruption of the mandibular dental arch. The patient also has advanced caries and dental disease affecting the remaining dentition. The patient is breathing without difficulty while sitting with head of bed elevated. LABORATORY DATA: The patient's most recent INR was 2. CT scan of the face shows a displaced and comminuted right mandibular parasymphysis fracture. The patient has advanced caries involving remaining dentition with multiple areas of periapical radiolucencies and pathology. ASSESSMENT: 1. Displaced comminuted right mandibular parasymphysis fracture. 2. Hopeless dentition secondary to previous loss of teeth and dental caries involving the remaining dentition. PLAN: 1. Discussed a course of care with the Trauma Surgery Service to help coordinate management of the anticoagulation and the patient's hemodialysis schedule. 2. The patient will need to go to the operating room within the next day or 2 for open reduction and internal fixation of right mandibular parasymphysis fracture as well as likely removal of all remaining teeth. 3. Peridex oral rinses b.i.d. and continue IV antibiotics at this time. Job ID: [id number]
--- NOTE | 2018-04-22 14:46 | PRG ---
DATE OF SERVICE: SUBJECTIVE: Patient was seen and examined at bedside and overnight events noted. Patient denies any shortness of breath or chest pain or palpitation. No history of nausea or vomiting or diarrhea or fever or chills or cramps. OBJECTIVE: GENERAL: This is a well-built male, in no acute distress. VITAL SIGNS: Temperature 98.4, heart rate 104, respiratory rate 18, blood pressure 115/43. HEENT: Atraumatic, normocephalic. Oral mucosa is moist NECK: Supple. CARDIOVASCULAR: S1, S2 heard. Rate and rhythm regular. RESPIRATORY: Clear to auscultation. GASTROINTESTINAL: Abdomen is soft. MUSCULOSKELETAL: No tenderness. No edema. DERMATOLOGIC: No skin rash. NEUROLOGIC: Alert and awake and oriented X3. No focal neurologic deficits. Moving all the extremities. PSYCHIATRIC: Mood and affect normal. LABORATORY DATA: No labs done today. ASSESSMENT AND PLAN: 1. End-stage renal disease, currently on hemodialysis, Saturday, Saturday, and Saturday, and check labs in the morning. 2. Hypotension, stable. 3. Anemia. 4. Edema. We will remove fluid dialysis as tolerated and monitor labs. Job ID: [id number]
[2018-04-22] MEDS ORDERED: Chlorhexidine Gluconate 15 ML UDCUP SSP ONE (16:28)
[2018-04-22] MEDS ORDERED: Hydrocortisone 1% Cream 30 GM TUBE ONE (16:28)
[2018-04-22] MEDS ORDERED: Lidocaine 1% w/Epinephrine 1:100K 20 ML VIAL ONE (16:28)
[2018-04-22] MEDS ORDERED: ePHEDrine 50 MG/ML VIAL ONE (16:55)
[2018-04-22] MEDS ORDERED: Vecuronium 10 MG VIAL ONE (16:55)
[2018-04-22] MEDS ORDERED: PHENYLEPHRINE-NS 100 MCG/ML 10 ML SYRINGE ONE (16:55)
[2018-04-22] MEDS ORDERED: Fentanyl 100 MCG/2 ML VIAL ONE (17:34)
[2018-04-22] MEDS ORDERED: Midazolam HCl 5 mg/5 ml Vial ONE (17:35)
[2018-04-22] MEDS ORDERED: Bacitracin Zinc Ointment 30 gm TUBE ONE (20:33)
[2018-04-22] MEDS: fentaNYL Citrate/PF 2,000 MCG in Sodium Chloride 0.9% 60 ML IV SCH (21:46)
[2018-04-22] MEDS: Pramipexole Di-HCl 1 MG TAB PO SCH (22:10)
[2018-04-23] MEDS: cefTRIAXone\\ROCEPHIN 1 GM in Sodium Chloride 0.9% 100 ML IVPB SCH (00:51)
[2018-04-23 05:11] LABS: #Basophils 0.1 thou/uL (0.0-0.2); #Eosinphils 0.1 thou/uL (0.0-0.7); #Lymphocytes 0.6 thou/uL (1.20-3.40); #Monocytes 0.6 thou/uL (0.11-0.59); #Neutrophils 6.7 thou/uL (1.40-6.50); %Basophils 0.7 % (0.0-1.0); %Eosinophils 1.3 % (0.0-10.0); %Lymphocytes 7.2 % (21.0-51.0); %Monocytes 7.7 % (0.0-10.0); %Neutrophils 83.1 % (42.0-75.0); Hemoglobin 9.9 g/dL (14.0-18.0); Mean Corpuscular HGB CONC 31.4 g/dL (32.0-36.0); Mean Corpuscular Hemoglobin 32.1 pg (27.0-31.0); Mean Platelet Volume 8.8 fL (7.4-10.4); Platelet Count 127 thou/uL (130-400); Red Blood Cell (RBC) Count 3.08 mill/uL (4.70-6.10)
[2018-04-23 05:17] LABS: INR-International Normal Ratio 1.4; Prothrombin Time 17.5 SEC (12.0-14.7)
[2018-04-23 05:32] LABS: Anion Gap 19 mmol/L (10-20); BUN (Urea Nitrogen) 38 mg/dL (8.9-20.6); Calc. Creatinine Clearance 11 mL/min (70-130); Calcium 8.6 mg/dL (7.8-10.44); Carbon Dioxide 24 mmol/L (22-29); Chloride 103 mmol/L (98-107); Estimated GFR-MDRD 5; Glucose 70 mg/dL (70-105); Potassium 4.2 mmol/L (3.5-5.1); Sodium 142 mmol/L (136-145)
[2018-04-23] MEDS: Saccharomyces boulardii 250 MG CAP PO SCH (08:48)
[2018-04-23] MEDS: Ferrous Sulfate 325 MG TAB PO SCH (08:48)
[2018-04-23] MEDS: Loratadine 10 MG TAB PO SCH (08:48)
[2018-04-23] MEDS: Amiodarone 200 MG TAB PO SCH ×2 (08:48→20:47)
[2018-04-23] MEDS: Cinacalcet HCl 30 MG TAB PO SCH ×2 (08:49→20:48)
[2018-04-23] MEDS: Folic Acid 1 MG TAB PO SCH (08:49)
[2018-04-23] MEDS: Pantoprazole 40 MG VIAL IVP SCH (08:50)
[2018-04-23] MEDS: Carvedilol 6.25 MG TAB PO SCH ×2 (08:53→17:33)
[2018-04-23] MEDS: ALPRAZolam 0.5 MG TAB PO SCH (08:55)
[2018-04-23] MEDS: Chlorhexidine Gluconate 15 ML UDCUP SSP SCH ×2 (09:00→20:51)
[2018-04-23] MEDS: Sodium Chloride 0.9% (PF) 10 ML VIAL FS SCH (09:08)
[2018-04-23] MEDS: PROVENTIL INHALER 6.7 G (200 INHALATIONS) INH SCH ×3 (10:09→22:23)
[2018-04-23] MEDS ORDERED: Triple Antibiotic Oint 1 GM Packet TOP SCH (11:00)
--- NOTE | 2018-04-23 11:42 | PRG ---
DATE OF SERVICE: 04/23/2018 SUBJECTIVE: The patient was seen and examined in ICU. He is on trach and was seen during dialysis. Family at the bedside. OBJECTIVE: GENERAL: This is a well-built male, who was seen in ICU, ill looking, and edematous. VITAL SIGNS: Temperature 99.9. Heart rate 92. Respiratory rate 18. Blood pressure 88/31. HEENT: Atraumatic, normocephalic. NECK: Trach present. CVS: S1 and S2 heard. RESPIRATORY: Crackles. GASTROINTESTINAL: Abdomen is soft, obese. MUSCULOSKELETAL: 1 to 2+ edema. DERMATOLOGIC: No skin rash. NEUROLOGIC: Sedated. LABORATORY DATA: Potassium 4.2, BUN is 38, creatinine is 11.1. ASSESSMENT AND PLAN: 1. End-stage renal disease, continue dialysis on Saturday, Saturday, and Saturday. 2. Hypotension. 3. Anemia. 4. Edema. 5. Acute respiratory failure. Prognosis is guarded. We will continue dialysis. The patient remains hypotensive, not able to do much ultrafiltration. We will continue. Job ID: [id number]
--- NOTE | 2018-04-23 12:53 | PRG ---
DATE OF SERVICE: 04/23/2018 SERVICE: Pulmonary Medicine. INTERVAL HISTORY: The patient is doing okay from respiratory standpoint. His jaw was reconstructed yesterday. He is currently on dialysis. After dialysis, he is going down for a CT of the jaw to make certain that no additional operations are in his future. Otherwise, he has no specific complaints. PHYSICAL EXAMINATION: VITAL SIGNS: Afebrile with a T-max of 100.6, pulse 90, blood pressure 149/64, respirations 16, and saturation 94% on 30% FiO2. GENERAL: The patient is awake, but somnolent. He is under the influence of some sedating medications. HEENT: Normocephalic. He has ecchymosis about the left jaw. Sclerae white. Conjunctivae pink. Oral mucosa is moist without lesions. He has tracheostomy in place, which is clean, dry, and intact. LUNGS: Decent air entry. Minimal rhonchi present. No prolonged expiratory phase or wheezing is appreciated. HEART: Normal rate regular. ABDOMEN: Soft, nontender, and nondistended. Bowel sounds are positive. MUSCULOSKELETAL: No cyanosis or clubbing. No pitting in the bilateral lower extremities. NEUROLOGIC: Grossly nonfocal. LABORATORY DATA: WBC 8.0, hemoglobin 9.9, platelets 127,000. Creatinine 11.13. Basic metabolic profile is otherwise unremarkable. Sodium 142. Blood cultures x2 are unremarkable. ASSESSMENT: 1. [id number]-[id number] hypoxic and hypercapnic respiratory failure. 2. Left mandibular fracture. 3. Hematoma in left jaw/neck. 4. End-stage renal disease. 5. Chronic anticoagulation. 6. Obstructive sleep apnea, horrendous, status post tracheostomy, postop day #2. DISCUSSION AND PLAN: After his CT of the face, we will start trach weaning. We will watch for signs of infection. If they are present, empiric antibiotics and panculture will be considered. I do think the patient is currently dry. He really has not had much input in the last several days. As such, we will give him a L of fluid today. We will back off on our goal of taking 2500 mL of fluid off him. Critical care time: 30 minutes. Job ID: [id number] MTDD
[2018-04-23] MEDS: Sevelamer Carbonate 800 MG TAB PO SCH ×4 (13:07→17:32)
[2018-04-23] MEDS ORDERED: Dextrose 50% Abboject 50 ML SYRINGE IVP PRN (13:36)
[2018-04-23] MEDS ORDERED: Dextrose 5% in Water 1,000 ML IV PRN (13:36)
[2018-04-23] MEDS: Epoetin (ESRD) 20,000 UNITS/ML IVP SCH (14:53)
--- NOTE | 2018-04-23 14:58 | PRG ---
DATE OF SERVICE: 04/23/2018 SUBJECTIVE: This is a 47-year-old gentleman, who was originally admitted on April 18 for right lower extremity cellulitis. The patient had a ground level fall while in the hospital approximately 5 days ago resulting in a mandibular fracture. The patient is postop day #2 from tracheostomy, postop day #1 from mandibular repair. The patient did have a posttraumatic hemorrhage from the wounds in the [place] after the fall. The patient being ventilated via trach. The patient is sedated at this time. Dialysis at bedside. OBJECTIVE: VITAL SIGNS: Blood pressure 130/88, pulse 91, SpO2 93% on vent, respirations 16. Current vent settings; SIMV, FiO2 41, rate 11, peak pressure 31, PEEP 5, pressure support ventilation 25. GENERAL: The patient is sedated. HEENT: Normocephalic. Trachea is midline. The patient with 8.0 cuffed tracheostomy. Dressing is clean, dry, and intact. ABDOMEN: Soft, nontender, nondistended. CHEST: Regular rate. Equal chest rise. LABORATORY DATA: WBC 8.0, RBC 3.08, hemoglobin 9.9. PT 17.5, INR 1.4. BUN 38, creatinine 11.13, estimated GFR 5, glucose 70s, calcium 8.6, sodium 142, potassium 4.2, and chloride 103. ADMITTING IMPRESSION: 1. Ground level fall. 2. Blunt facial trauma with mandibular fracture. 3. Postop day #1 open reduction and internal fixation of mandibular fracture. 4. Postop day #2, tracheostomy. 5. End-stage renal disease, on dialysis Saturday, Saturday, Saturday. PLAN: The patient will be managed by Hospital Medicine and Dr. Kilgore. Trauma will sign off on the patient, now that his mandibular fracture has been repaired. Please let us know if we can assist any further. The patient was examined with Dr. Goss today during morning rounds. Job ID: [id number] [facility]
--- NOTE | 2018-04-23 15:10 | OP ---
DATE OF PROCEDURE: 04/22/2018 PREOPERATIVE DIAGNOSES: 1. Displaced, comminuted right mandibular parasymphysis fracture. 2. Hopeless dentition secondary to caries and periodontal disease. POSTOPERATIVE DIAGNOSES: 1. Displaced, comminuted right mandibular parasymphysis fracture. 2. Hopeless dentition secondary to caries and periodontal disease. PROCEDURES PERFORMED: 1. Open reduction and internal fixation of right mandibular parasymphysis fracture. 2. Removal of all remaining teeth (#4 through 14, 22, 24 through 27). 3. Alveoloplasty of maxilla and mandible bilaterally. INDICATIONS FOR PROCEDURE: This is a 47-year-old male with an extensive past medical history, who was recently admitted to the hospital with the right lower extremity infection. While in the hospital, the patient sustained a fall from standing and had fracture involving the right mandibular parasymphysis region. I was consulted to evaluate and manage this injury, and the patient is being brought to the operating room at this time for repair of that fracture. Due to the compromised infected status of the majority of the remaining teeth, his teeth will be removed at the same time to avoid infection or complications of the repair of the mandible fracture. GAS MAKER SURGEON: Nadeem Pope DDS. DESCRIPTION OF PROCEDURE: The patient was identified in his ICU room and transferred to the operating room by the Anesthesia Service. The patient had a tracheostomy placed the day before, and the general anesthetic was induced using this tracheostomy tube. The tracheostomy and anesthesia circuit were secured and padded, and the patient was prepped and draped in a sterile fashion as this is normal for this procedure. A surgical time-out was then performed with Surgical, Nursing, and Anesthesia Teams present. Local anesthetic was delivered throughout the maxillary and mandibular arches, and the oral cavity was prepped with Peridex oral rinse and tooth brush. The oropharynx was suctioned free of debris, and throat pack was placed. Lacri-Lube was placed in the eyes bilaterally, and they were protected with Tegaderms. Attention was first turned towards the removal of the diseased teeth, and all the maxillary teeth were removed at this time using combination of elevators and forceps. The patient had what appeared to be a relatively recent extraction site in the area of tooth #15 with concern for possible oroantral fistula in this region. The area was cleaned, and a releasing incision buccally was made at the distal buccal aspect of tooth #15, and subperiosteal dissection then ensued to raise a flap on the facial of the left maxillary arch. Alveoloplasty was then performed on the left maxilla using a shoshana and a handpiece. All the sockets were curetted clean and irrigated copiously with saline and Peridex. The sockets were then packed with Surgicel, and primary closure was obtained using combination of interrupted and running 4-0 chromic gut sutures. Attention was then turned to the mandible, and teeth #22 and 24 were removed with forceps at this time. A crestal incision with the 15 blade was made across the anterior mandible region and extending posteriorly from tooth #27 back to proximally the tooth #30 area. A vertical releasing incision was then made into the right mandibular buccal vestibule with the 15 blade in the tooth #30 region, and a vestibular incision was extended posteriorly using a Bovie cautery at this time. Another vertical releasing incision was made off the mesiofacial aspect of socket #22 region. A subperiosteal dissection was then performed to expose the entire mandible from the symphysis to the right mid posterior body region. This dissection extended down to the inferior border region. The mental nerve was protected throughout the dissection, and the mental nerve was subsequently skeletonized to allow for pass of retraction of the flap to allow adequate access for plate placement. The right mandibular parasymphysis fracture was debrided and curetted clean and then placed into a reduced position manually. A Bridle wire was place around the remaining mandibular teeth to help maintain the fracture reduction, and corticotomies were performed with a fissure shoshana, and a bone reduction forceps was applied to solidify the reduction. A 2.0 mandibular fracture plate was cut to 7 holes, and using a bending guide, the plate was bent to the appropriate contours. The plate was positioned in place, and a right cheek skin incision was made using a 15 blade. Hemostats were then used to bluntly dissect the cheek tissues to communicate with the intra-oral wound, and a trocar was then placed through this access site to allow for drilling and screw placements in the posterior three holes of the plate. A blocking drilling guide was then engaged in the next to last hole of the fracture plate on the proximal segment, and the plate was positioned to the desired position, and a bicortical hole was drilled. A nonlocking bicortical screw was then placed and not completely tightened. The drill guide was then moved to the distal segment screw holes, and the hole most adjacent to the fracture was then engaged with the drill guide, and another bicortical hole was drilled in this region. A locking screw was then placed in a bicortical fashion. This drilling and screw placement process was continued to place 2 more bicortical screws on either side of the fracture for a total of 3 bicortical screws, both combination of locking and nonlocking on both sides of the fracture. All screws were tight, and the plate was stable. The bone reduction forceps was removed, and the fractured remained perfectly reduced. The Bridle wire was also removed at this time. The teeth 25, 26, and 27 were then removed with forceps. All the lower mandibular sockets were curetted clean, and alveoloplasty was performed with shoshana and handpiece. Copious irrigation using combination of saline and Peridex ensued to clean the wounds in the mandible thoroughly. The oral cavity was suctioned free of debris at this time, and closure of the mandibular wounds ensued with combination of interrupted and running 4-0 chromic gut sutures as well. Primary closure was achieved throughout. It should be noted that Surgicel was also placed in the mandibular sockets, as was done in the maxilla. At this time, attention was turned to the right cheek, and the right cheek wound was irrigated copiously with normal saline, and 2 interrupted 5-0 plain gut sutures were placed to close this wound. The oral cavity was irrigated and suctioned free of debris one more time, and then throat pack was removed. The face was cleaned, and the right cheek wound was dressed with bacitracin. The patient was then turned over for Anesthesia for transportation back to the ICU. INTRAVENOUS FLUIDS: Please see Anesthetic record for full details. URINE OUTPUT: Please see Anesthetic record for full details. ESTIMATED BLOOD LOSS: 25 mL. SPECIMENS: None. COMPLICATIONS: None. IMPLANTS: 7-hole 2.0-mm Synthes locking fracture plate with 6 bicortical screws. DRAINS: None. FINDINGS: Significantly displaced and comminuted fracture involving the right mandibular parasymphysis with extension back towards the body region. Hopeless dentition secondary to advanced decay, preexisting loss of majority of teeth, and periodontal disease. DISPOSITION: The patient was transferred back to the ICU in good condition. Job ID: [id number]
--- NOTE | 2018-04-23 16:07 | CT ---
CT BRAIN WITHOUT CONTRAST: Date: 04/23/18 HISTORY: Altered mental status. Change in responsiveness. FINDINGS: Comparison made with exam of 04/20/18. There is interval mild loss of timmons-white matter differentiation since the last study. No evidence of hemorrhage, transcortical infarct, midline shift, or abnormal extra-axial fluid collections are seen . The bony calvarium is intact. There is mucosal disease in the paranasal sinuses. IMPRESSION: Findings are suggestive of global insult/ischemia. A follow-up exam is recommended. Discussed over the telephone with Dr. Sánchez Marie at 1437 hours. This study was interpreted in consultation with Dr. Mateo Castaneda (neuroradiologist), who concurs. CODE CR. POS: [facility]
--- NOTE | 2018-04-23 16:11 | CT ---
CT MAXILLOFACIAL NONCONTRAST: Date: 04/23/18 Time: 1415 hours HISTORY: 47-year-old male with traumatic mandibular fracture, status post ORIF. COMPARISON: 04/19/18. FINDINGS: The previously demonstrated right parasymphyseal, comminuted mandibular fracture has been reduced, an d the main fracture fragments are now in anatomical alignment. It is fixated by metallic plate with m ultiple screws. The left mandibular condyle remains significantly subluxed anteriorly relative to the left glenoid. Chronic flattening of the mandibular condyle indicates DJD of the left TMJ. Right TMJ is not subluxed. There is a new NG tube. There is interval worsening of now severe opacification of b ilateral maxillary sinuses, new total opacification of nasal cavity, and severe partial opacification of sphenoid sinus with severe mucosal thickening. The nasopharyngeal and oropharyngeal airways are e ffaced by secretions. There is severe soft tissue edema, and soft tissue hematoma around the right ma ndibular fracture, representing recent postsurgical changes. There is also generalized edema througho ut the subcutaneous fat, new since the prior study, consistent with anasarca. There are no new fractu res. IMPRESSION: 1. Status post open reduction and internal fixation of right parasymphyseal, traumatic mandibular fr acture. 2. Nasogastric tube. 3. Near total opacification of many of paranasal sinuses, nasal cavity, and nasopharyngeal and oroph aryngeal airway. 4. Extensive soft tissue edema and hematoma in the right bootmaker hand space, presumably related to rec ent surgery. 5. Anasarca. POS: [facility]
[2018-04-23] MEDS: Triple Antibiotic Oint 1 GM Packet TOP SCH (20:51)
[2018-04-23] MEDS: Pramipexole Di-HCl 1 MG TAB PO SCH (20:51)
[2018-04-23] MEDS: Norepinephrine 8 MG/250 ML BAG IVPB PRN (21:29)
[2018-04-24] MEDS: cefTRIAXone\\ROCEPHIN 1 GM in Sodium Chloride 0.9% 100 ML IVPB SCH (00:45)
[2018-04-24 06:15] LABS: #Basophils 0.1 thou/uL (0.0-0.2); #Lymphocytes 0.9 thou/uL (1.20-3.40); #Monocytes 1.1 thou/uL (0.11-0.59); #Neutrophils 7.4 thou/uL (1.40-6.50); %Basophils 0.7 % (0.0-1.0); %Eosinophils 0.5 % (0.0-10.0); %Lymphocytes 9.7 % (21.0-51.0); %Monocytes 11.4 % (0.0-10.0); %Neutrophils 77.7 % (42.0-75.0); Hemoglobin 10.9 g/dL (14.0-18.0); Mean Corpuscular HGB CONC 30.7 g/dL (32.0-36.0); Mean Corpuscular Hemoglobin 31.8 pg (27.0-31.0); Mean Platelet Volume 8.3 fL (7.4-10.4); Platelet Count 137 thou/uL (130-400); RBC Distribution Width 15.2 % (11.5-14.5); Red Blood Cell (RBC) Count 3.42 mill/uL (4.70-6.10); White Blood Cell (WBC) Count 9.5 thou/uL (4.8-10.8)
[2018-04-24 06:24] LABS: INR-International Normal Ratio 1.4; Prothrombin Time 16.9 SEC (12.0-14.7)
[2018-04-24 06:34] LABS: Anion Gap 19 mmol/L (10-20); BUN (Urea Nitrogen) 30 mg/dL (8.9-20.6); Calc. Creatinine Clearance 13 mL/min (70-130); Calcium 8.9 mg/dL (7.8-10.44); Carbon Dioxide 21 mmol/L (22-29); Chloride 103 mmol/L (98-107); Estimated GFR-MDRD 6; Glucose 86 mg/dL (70-105); Potassium 4.3 mmol/L (3.5-5.1); Sodium 139 mmol/L (136-145)
[2018-04-24] MEDS: PROVENTIL INHALER 6.7 G (200 INHALATIONS) INH SCH ×2 (06:36→13:46)
[2018-04-24] MEDS: Loratadine 10 MG TAB PO SCH (09:27)
[2018-04-24] MEDS: Chlorhexidine Gluconate 15 ML UDCUP SSP SCH ×2 (09:27→21:19)
[2018-04-24] MEDS: ALPRAZolam 0.5 MG TAB PO SCH (09:27)
[2018-04-24] MEDS: Saccharomyces boulardii 250 MG CAP PO SCH (09:27)
[2018-04-24] MEDS: Folic Acid 1 MG TAB PO SCH (09:27)
[2018-04-24] MEDS: Amiodarone 200 MG TAB PO SCH ×2 (09:27→20:53)
[2018-04-24] MEDS: Ferrous Sulfate 325 MG TAB PO SCH (09:27)
[2018-04-24] MEDS: Sodium Chloride 0.9% (PF) 10 ML VIAL FS SCH (09:29)
[2018-04-24] MEDS: Pantoprazole 40 MG VIAL IVP SCH (09:29)
[2018-04-24] MEDS: Sevelamer Carbonate 800 MG TAB PO SCH (09:46)
[2018-04-24] MEDS: Carvedilol 6.25 MG TAB PO SCH ×2 (09:47→17:41)
[2018-04-24] MEDS: Cinacalcet HCl 30 MG TAB PO SCH (09:47)
[2018-04-24] MEDS: Triple Antibiotic Oint 1 GM Packet TOP SCH ×3 (09:49→23:40)
--- NOTE | 2018-04-24 10:54 | PRG ---
DATE OF SERVICE: 04/24/2018 SUBJECTIVE: Patient was seen and examined at bedside and overnight events noted. Patient denies any shortness of breath or chest pain or palpitation. No history of nausea or vomiting or diarrhea or fever or chills or cramps. OBJECTIVE: GENERAL: This is an obese male, in no apparent distress. VITAL SIGNS: Temperature 98.5. Heart rate 89. Respiratory rate 18. Blood pressure 104/45. HEENT: Atraumatic, normocephalic. Oral mucosa is moist NECK: trach present CARDIOVASCULAR: S1, S2 heard. RESPIRATORY: Clear to auscultation. GASTROINTESTINAL: Abdomen is soft. MUSCULOSKELETAL: No tenderness. 2+ edema. DERMATOLOGIC: No skin rash. NEUROLOGIC: somnolent LABORATORY DATA: Potassium is 4.3, BUN is 30, creatinine is 9.5. ASSESSMENT AND PLAN: 1. End-stage renal disease. Continue hemodialysis. 2. Hypertension. 3. Anemia. 4. Edema. Remove fluid with dialysis. We will follow. Job ID: [id number] MTDD
--- NOTE | 2018-04-24 14:01 | PRG ---
DATE OF SERVICE: 04/24/2018 SERVICE: Pulmonary Medicine. INTERVAL HISTORY: The patient has not had a dramatic improvement in neurologic function overnight. He cannot provide any additional elements of the history. He indicates that his pain is under decent control. He is able to move his feet much better. His hands are starting to squeeze a little bit with command based on what people are telling me. He still has good sensation in bilateral upper extremity. Otherwise, there has been no interval change to his condition. His blood pressures have been roughly stable. He is tolerating dialysis. PHYSICAL EXAMINATION: VITAL SIGNS: Afebrile with a T-max of 100.6, pulse 88, blood pressure 136/59, respirations 16, and saturation 94% on 41% FiO2 and a PEEP of 5. GENERAL: The patient is on tracheostomy, on mechanical ventilation. HEENT: Normocephalic and atraumatic. Sclerae white. Conjunctivae pink. Oral mucosa is moist without lesions. LUNGS: Decent air entry. There is no prolonged expiratory phase or wheezing. Rhonchi are present. HEART: Normal rate and regular. ABDOMEN: Soft, nontender, and nondistended. Bowel sounds are positive. MUSCULOSKELETAL: No cyanosis or clubbing. There is no pitting in the bilateral lower extremities. NEUROLOGIC: He demonstrates decent strength in bilateral lower extremities and move them to command. He can squeeze his bilateral upper extremities, but is extremely weak. He cannot pick his arms up off of the bed. He has good sensation throughout. He is able to stick out his tongue, and look left and right, and node yes or no. His pupils are equal, round, and reactive. He is comfortably overbreathing the ventilator. LABORATORY DATA: WBC 9.5, hemoglobin 10.9, and platelets 137,000, and improving. INR 1.4. Creatinine 9.59, BUN 30. Basic metabolic profile is otherwise unremarkable. Blood cultures x2 remain negative. IMAGIN. CT of the brain demonstrates global ischemia. 2. CT of the facial bones demonstrates status post open reduction and internal fixation of the right mandible. NG tube is in place. Paranasal sinuses have near-complete opacification throughout. Nasopharyngeal and oropharyngeal airway are in place. Extensive soft tissue edema and hematoma of the right masseteric space. Anasarca is also suggested. ASSESSMENT: 1. Acute on chronic hypoxic and hypercapnic respiratory failure. 2. Left mandibular fracture, status post open reduction and internal fixation. 3. End-stage renal disease. 4. Obstructive sleep apnea, horrendous, status post tracheostomy, postop day #3. 5. Sinusitis. 6. Chronic anticoagulation is required for mechanical aortic valve. 7. Anoxic brain injury with likely strokes of the watershed regions of the brain. 8. Possible C-spine injury. DISCUSSION AND PLAN: We will get a MRI of the neck to make certain we are not dealing with significant C-spine injury. That being said, his neurologic exam is in keeping with watershed distribution infarcts of the brain and we have a CT of the head that is consistent with anoxic brain injury. This is going to play out through time. We will try to avoid any additional hypotension, hypoglycemia , or low blood flow state to the brain. He will remain on mechanical ventilation until we have a little bit more information here. We will start weaning through time. I am going to put him on some empiric antibiotics for the sinusitis as he has been having some low-grade temperatures, and some marginal blood pressures. Critical care time: 30 minutes. Job ID: [id number] [employer]OR
[2018-04-24] MEDS ORDERED: HYDROmorphone 0.5 MG/0.5 ML SYRINGE SLOW IVP PRN (14:05)
--- NOTE | 2018-04-24 15:23 | MRI ---
MRI CERVICAL SPINE WITHOUT CONTRAST: Date: 04/24/18 COMPARISON: 12/12/17. HISTORY: Recent fall. Mandibular fracture. Currently, patient is unable to move both upper extremities. TECHNIQUE: Appropriate T1 marrow signal intensity of cervical vertebra. Cervical spine vertebral body height is maintained. There is no evidence of a vertebral body fracture. There is extensive STIR hyperintensity along the anterior aspect of the cervical spine compatible with prevertebral soft tissue swelling an d possible ligamentous injury. Additionally, there is STIR hyperintensity involving the posterior lef t and right paraspinal muscles from C6 through the upper thoracic spine. Findings may represent muscu lar edema along with muscular strain. There is subtle STIR hyperintensity along a posterior epidural space at the level of the upper thorac ic spine. Findings may represent artifact on the fat saturated images. However, the possibility of an epidural hematoma or collection cannot be excluded given the evidence of extensive soft tissue and l igamentous injury. Dedicated thoracic spine MRI may be beneficial. There is partial opacification of the right mastoid air cells. Post-traumatic soft tissue swelling al vj the right aspect of the facet is noted. C2-C3: No significant central canal stenosis. Foramina are patent. C3-C4: Generalized disc osteophyte complex. Mild central canal stenosis. Mild bilateral foraminal na rrowing. C4-C5: Generalized disc osteophyte complex with mild central canal stenosis. Mild bilateral foramina l narrowing. C5-C6: Generalized disc osteophyte complex with at least moderate central canal stenosis. There is d eformity of the cervical cord without signal abnormality. Degenerative changes and bilateral uncovert ebral joints results in moderate bilateral foraminal narrowing. C6-C7: Broad based disc osteophyte complex abuts the thecal sac. There is deformity of the ventral t hecal sac and deformity of the cervical cord. At least moderate central canal stenosis. No cord signa l abnormality. Moderate bilateral foraminal narrowing. C7-T1: No high grade central canal stenosis or high grade neural foraminal narrowing. When compared to the previous examination, the degree of central canal stenosis has progressed at C4-C5, C5-C6, and C6-C7. IMPRESSION: 1. Central canal stenosis likely on the basis of degenerative change. No signal abnormality in the c ervical cord. 2. Extensive edematous change involving the anterior longitudinal ligament, prevertebral soft tissue s, as well as the posterior paraspinal muscle in the distal cervical and upper thoracic spine. Ligame ntous injury and edema are presumed to be post-traumatic. 3. Abnormal signal intensity along the posterior epidural space and the upper thoracic cord which ma y be artifactual. However, in the setting of ligamentous injury and soft tissue/muscular edema, the p ossibility of a posterior epidural hematoma cannot be excluded. Dedicated thoracic spine imaging is r ecommended. Results of study discussed with Dr. Kilgore on 04/24/18 at 1405 hours. CODE CR. POS: [facility]
[2018-04-24] MEDS ORDERED: Warfarin Sodium 5 MG TAB PO SCH (17:00)
[2018-04-24] MEDS: Norepinephrine 8 MG/250 ML BAG IVPB PRN (19:01)
[2018-04-24] MEDS: Pramipexole Di-HCl 1 MG TAB PO SCH (20:53)
[2018-04-25] MEDS: HYDROmorphone 0.5 MG/0.5 ML SYRINGE SLOW IVP PRN ×3 (00:39→20:16)
[2018-04-25 04:36] LABS: #Basophils 0.1 thou/uL (0.0-0.2); #Eosinphils 0.1 thou/uL (0.0-0.7); #Lymphocytes 0.7 thou/uL (1.20-3.40); #Neutrophils 7.8 thou/uL (1.40-6.50); %Basophils 0.8 % (0.0-1.0); %Eosinophils 1.4 % (0.0-10.0); %Lymphocytes 7.5 % (21.0-51.0); %Monocytes 10.3 % (0.0-10.0); Hemoglobin 9.1 g/dL (14.0-18.0); Mean Corpuscular HGB CONC 31.4 g/dL (32.0-36.0); Mean Corpuscular Hemoglobin 31.9 pg (27.0-31.0); Mean Platelet Volume 8.2 fL (7.4-10.4); Platelet Count 155 thou/uL (130-400); RBC Distribution Width 14.9 % (11.5-14.5); Red Blood Cell (RBC) Count 2.85 mill/uL (4.70-6.10); White Blood Cell (WBC) Count 9.7 thou/uL (4.8-10.8)
[2018-04-25 04:42] LABS: INR-International Normal Ratio 1.5; Prothrombin Time 18.1 SEC (12.0-14.7)
[2018-04-25 04:56] LABS: Anion Gap 15 mmol/L (10-20); BUN (Urea Nitrogen) 40 mg/dL (8.9-20.6); Calc. Creatinine Clearance 11 mL/min (70-130); Calcium 9.1 mg/dL (7.8-10.44); Carbon Dioxide 26 mmol/L (22-29); Chloride 103 mmol/L (98-107); Estimated GFR-MDRD 5; Glucose 104 mg/dL (70-105); Potassium 4.2 mmol/L (3.5-5.1); Sodium 140 mmol/L (136-145)
[2018-04-25] MEDS: Ondansetron PF 4 MG/2 ML Vial SLOW IVP PRN ×3 (07:16→22:26)
[2018-04-25] MEDS: Amiodarone 200 MG TAB PO SCH ×2 (08:27→20:13)
[2018-04-25] MEDS: Carvedilol 6.25 MG TAB PO SCH ×2 (08:27→17:15)
[2018-04-25] MEDS: Loratadine 10 MG TAB PO SCH (08:27)
[2018-04-25] MEDS: Saccharomyces boulardii 250 MG CAP PO SCH (08:27)
[2018-04-25] MEDS: ALPRAZolam 0.5 MG TAB PO SCH (08:28)
[2018-04-25] MEDS: Triple Antibiotic Oint 1 GM Packet TOP SCH ×2 (08:28→20:13)
[2018-04-25] MEDS: Pantoprazole 40 MG VIAL IVP SCH (08:28)
[2018-04-25] MEDS: Sodium Chloride 0.9% (PF) 10 ML VIAL FS SCH (08:30)
[2018-04-25] MEDS ORDERED: Bacteriostatic Water 30 ML VIAL FS PRN (11:49)
--- NOTE | 2018-04-25 11:58 | PRG ---
DATE OF SERVICE: 04/25/2018 SERVICE: Pulmonary Medicine. INTERVAL HISTORY: The patient is doing okay from respiratory standpoint. From mentation standpoint, things have not changed too terribly much. He is a little bit stronger in the face today. He continues to have weakness in the upper extremities. He has more strength in the lower extremities at this point. He cannot provide any additional elements of the history because he is currently on mechanical ventilation. He is breathing comfortably otherwise. PHYSICAL EXAMINATION: VITAL SIGNS: Afebrile with a maximum temperature of 100.6 last on the 23 of April, pulse 82, blood pressure 118/53, respirations 13, saturations 97% on 37% FiO2 and a PEEP of 5. HEENT: Normocephalic, atraumatic. Sclerae white. Conjunctivae pink. Oral mucosa is moist without lesions. Tracheostomy is clean, dry, and intact. He has an NG tube in place. LABORATORY DATA: WBC 9.7, hemoglobin 9.1, platelets 155,000 and improving. INR 1.5. Creatinine 11.62, BUN 40. Basic metabolic profile is otherwise unremarkable. Blood cultures x2 are unremarkable. IMAGING: C-spine MRI demonstrates some inflammation of the ligament surrounding the spinal canal. That being said, there is no convincing evidence that there is cord involvement. There is an abnormal intensity along the posterior epidural space in the upper thoracic cord and chronic central canal stenosis is re-demonstrated. MRI brain did not demonstrate any anoxic injury or strokes. ASSESSMENT: 1. Acute on chronic hypoxic and hypercapnic respiratory failure, stable. 2. Left mandibular fracture, status post open reduction and internal fixation. 3. Severe sepsis. 4. Sinusitis. 5. End-stage renal disease. 6. Obstructive sleep apnea, horrendous, status post tracheostomy, postop day 4. 7. Chronic anticoagulation for mechanical aortic valve, need to restart eventually. 8. Neurologic injury, possible central cervical spine injury. DISCUSSION AND PLAN: He is being sent down for an MRI of the brain. I will repeat a chest x-ray, and ABG tomorrow morning. We will continue our empiric antibiotics, nebulized medications, and some steroids. He will be switched to pressure support ventilation and we will avoid heavy sedation, only providing pain medication on an as needed basis. Critical care time: 30 minutes. Job ID: [id number] [facility]
[2018-04-25] MEDS: methylPREDNISolone Sod Succ 40 MG VIAL IVP SCH ×2 (12:14→17:16)
[2018-04-25] MEDS: Chlorhexidine Gluconate 15 ML UDCUP SSP SCH ×2 (12:14→20:15)
--- NOTE | 2018-04-25 12:18 | PRG ---
DATE OF SERVICE: 04/25/2018 SUBJECTIVE: Patient was seen and examined at bedside and overnight events noted. Patient denies any shortness of breath or chest pain or palpitation. No history of nausea or vomiting or diarrhea or fever or chills or cramps. OBJECTIVE: GENERAL: This is a well-built male, in no apparent distress. VITAL SIGNS: Temperature 98.7. Heart rate 87. Respiratory rate . Blood pressure 121/79. HEENT: Atraumatic, normocephalic. Oral mucosa is moist NECK: Supple. CARDIOVASCULAR: S1, S2 heard. Rate and rhythm regular. RESPIRATORY: Clear to auscultation. GASTROINTESTINAL: Abdomen is soft. MUSCULOSKELETAL: No tenderness. No edema. DERMATOLOGIC: No skin rash. NEUROLOGIC: Alert and awake and oriented X3. No focal neurologic deficits. Moving all the extremities. PSYCHIATRIC: Mood and affect normal. LABORATORY DATA: Potassium is 4.2, BUN is 40, creatinine is 11.6. ASSESSMENT AND PLAN: 1. End-stage renal disease. We will continue hemodialysis. 2. Hypotension. Cautious removal of fluid. Plan discussed with Dr. Kilgore. 3.Anemia. 4. Edema. We will remove fluid as tolerated. Plan is to continue dialysis as tolerated with fluid removal as tolerated. Job ID: [id number] [facility]
[2018-04-25] MEDS: Epoetin (ESRD) 20,000 UNITS/ML IVP SCH (13:28)
[2018-04-25] MEDS: traMADol HCl 50 MG TAB PO PRN (13:40)
[2018-04-25] MEDS ORDERED: Refresh Lacri-lube Opth Oint 7 GM TUBE EA EYE PRN (13:53)
--- NOTE | 2018-04-25 15:35 | MRI ---
MRI BRAIN WITHOUT CONTRAST: Date: 04/25/18 HISTORY: Altered mental status. FINDINGS: Correlation is made with the brain CT of 04/23/18. No restricted diffusion is seen. No significant abnormalities are noted on the highly sensitive FLAIR images. The ventricular size is normal and the basilar cisterns are patent. No evidence of infarct, hemorrhage, midline shift, or abnormal extra-axial fluid collections are seen. There is extensive mucosal disease in the paranasal sinuses, fluid in the mastoid air cells bilateral ly, and edema in the scalp. IMPRESSION: No evidence of acute intracranial process. POS: C
[2018-04-25] MEDS: Pramipexole Di-HCl 1 MG TAB PO SCH (20:12)
[2018-04-25] MEDS: SYSTANE 3.5 GM TUBE EA EYE PRN (20:13)
[2018-04-26] MEDS: methylPREDNISolone Sod Succ 40 MG VIAL IVP SCH ×4 (00:40→18:02)
[2018-04-26 04:59] LABS: INR-International Normal Ratio 1.6; Prothrombin Time 18.8 SEC (12.0-14.7)
[2018-04-26 05:11] LABS: Anion Gap 13 mmol/L (10-20); BUN (Urea Nitrogen) 36 mg/dL (8.9-20.6); Calc. Creatinine Clearance 18 mL/min (70-130); Calcium 9.8 mg/dL (7.8-10.44); Carbon Dioxide 28 mmol/L (22-29); Chloride 101 mmol/L (98-107); Estimated GFR-MDRD 7; Glucose 130 mg/dL (70-105); Potassium 4.3 mmol/L (3.5-5.1); Sodium 138 mmol/L (136-145)
[2018-04-26 05:24] LABS: #Lymphocytes 0.4 thou/uL (1.20-3.40); #Monocytes 0.1 thou/uL (0.11-0.59); #Neutrophils 4.4 thou/uL (1.40-6.50); %Lymphocytes 8.8 % (21.0-51.0); %Monocytes 2.3 % (0.0-10.0); %Neutrophils 88.9 % (42.0-75.0); Band 3 % (5-11); Elliptocytes SLIGHT = 2-5 cells (100X) (0-1/hpf); Hemoglobin 8.9 g/dL (14.0-18.0); Lymphocytes 5 % (21-51); MDiff Complete? YES; Mean Corpuscular HGB CONC 31.5 g/dL (32.0-36.0); Mean Corpuscular Hemoglobin 31.5 pg (27.0-31.0); Mean Platelet Volume 8.1 fL (7.4-10.4); Monocytes 6 % (0-10); Neutrophil 86 % (42-75); Platelet Count 107 thou/uL (130-400); Platelet Morphology Comment Appears Decreased; RBC Distribution Width 14.5 % (11.5-14.5); Red Blood Cell (RBC) Count 2.81 mill/uL (4.70-6.10)
[2018-04-26 07:11] LABS: Actual Bicarbonate (HCO3a) 27.4 mEq/L (22-28); Base Excess (BEa) 1.4 mEq/L (-2.0 to +3.0); CO2 Tension 50.3 mmHg (35.0-45.0); Calcium, Ionized 1.18 mmol/L (1.12-1.30); Carboxyhemoglobin (COHb) 1.8 gm% (0.0-3.0); Hemoglobin (Hb) 9.5 g/dL (14.0-18.0); O2 Tension (PaO2) 88.5 mmHg (80.0-100.0); Potassium - ABG Lab 4.25 mmol/L (3.70-5.30); pH, Arterial 7.35 (7.35-7.45)
--- NOTE | 2018-04-26 08:18 | RAD ---
SINGLE VIEW OF THE CHEST: COMPARISON: 04/20/2018. HISTORY: Intubated patient with respiratory failure. FINDINGS: A single view of the chest shows an enlarged cardiomediastinal silhouette. The patient is status pos t aortic valve repair. A tracheostomy is seen with its tip overlying the trachea. The endotracheal tube has been removed. An NG tube is seen in the stomach. Increased interstitial lung markings are present. There appear to be small bilateral pleural effusions. IMPRESSION: 1. Interval placement of tracheostomy without evidence of complication. 2. Bilateral pleural effusions. POS: [facility]
[2018-04-26 08:32] LABS: Puncture Site RBA
[2018-04-26 08:33] LABS: ALV-art Gradient 155.215 (0-20)
[2018-04-26] MEDS: Carvedilol 6.25 MG TAB PO SCH ×2 (09:44→17:17)
[2018-04-26] MEDS: traMADol HCl 50 MG TAB PO PRN ×2 (09:44→18:20)
[2018-04-26] MEDS: Saccharomyces boulardii 250 MG CAP PO SCH (09:44)
[2018-04-26] MEDS: Loratadine 10 MG TAB PO SCH (09:45)
[2018-04-26] MEDS: Chlorhexidine Gluconate 15 ML UDCUP SSP SCH ×2 (09:45→22:03)
[2018-04-26] MEDS: Amiodarone 200 MG TAB PO SCH ×2 (09:45→21:29)
[2018-04-26] MEDS: Triple Antibiotic Oint 1 GM Packet TOP SCH ×2 (09:46→21:29)
[2018-04-26] MEDS: Sodium Chloride 0.9% (PF) 10 ML VIAL FS SCH (09:46)
[2018-04-26] MEDS: Pantoprazole 40 MG VIAL IVP SCH (09:46)
--- NOTE | 2018-04-26 10:21 | PRG ---
DATE OF SERVICE: 04/26/2018 SUBJECTIVE: Chang Sheriff remains in the ICU. He is on a trach collar. OBJECTIVE: VITAL SIGNS: Pulse 85, blood pressure 130/82, sats at 96%, respiratory rate 23. GENERAL: He is more awake, responsive as per the nurses. CHEST: Extensive rhonchi. CARDIAC: Normal S1, S2. No gallop. ABDOMEN: No masses. LABORATORY DATA: Creatinine is 8.0. He had a blood gas done this morning, PO2 was 85, pCO2 50, pH 7.37. The INR is 1.6. White count 5000, platelet count is low 107. IMPRESSION: Respiratory failure, renal failure, hypertension, abnormal x-ray, bilateral pleural effusion, fractured mandible. Continue aggressive PT, neb treatment, supportive care including steroids. We will follow. One-half hour of critical time. Job ID: [id number]
--- NOTE | 2018-04-26 10:47 | PRG ---
DATE OF SERVICE: 04/26/2018 I personally interviewed and examined the patient, reviewed records and imaging and agreed with documentation of Sridevi Lemus PA-C dated 04/25/2018. Briefly, Chang Sheriff is a 47-year-old gentleman admitted with right lower extremity infection/cellulitis. He developed some encephalopathy while here. He was up out of bed last weekend and early hours of morning on Saturday, fell and struck his head on a trash can, with some extension in the neck. Days later, he was noted to have some weakness in the upper extremities, more so than the lower extremities. There was some concern for watershed infarcts in the brain or spinal cord injury. We now have MR imaging of both areas and those results are available. When I met Mr. Sheriff this morning, his neurological function has improved significantly. He is more awake and interactive. He nods and shakes his head appropriately to questions. He lifts his arms off the bed against gravity and he has good meals on wheels driver strength, especially on the left side. From right side, he is lagging behind, but it is better than notes indicate it has been. Finger extensor strength is quite good on the left, it is moderately affected on the right. In the lower extremities, he has the strength to lift his knees off the bed, he can even lift the feet off the bed by extending the knees. He has sensation to light touch throughout. My examination is better than what has been documented previously, so I think that there is significant improvement. His MRI scan shows stenosis, but no ongoing cord compression or deformity of the cord. There is at least minimal CSF space around the cord. The stenosis is multi-segment from C3 all the way to C7 and is moderate. At C6-C7, there is some signal change of the anterior longitudinal ligament; from C6-T1, there is interspinous ligament signal change on STIR images. There is no T2 signal change within the substance of the cord. I think Mr. Sheriff may have suffered a mild central cord injury with hyperextension of an arthritic neck when he fell. I do not see any watershed infarcts on the MR of the brain. The brain scan looks relatively good. Because of the question of spinal cord injury, we will keep him in a collar until followup. The followup will be made in 1 to 2 months in our office. In the meantime, he will need physical and occupational therapy. Given this general medical condition, he is a poor candidate for surgery. Job ID: [id number]
[2018-04-26] MEDS: Metoclopramide HCl 10 MG/2 ML VIAL IVP SCH ×2 (12:57→21:48)
[2018-04-26] MEDS ORDERED: DOBUTamine 500 mg/250 ml 0 ML ONE (18:24)
[2018-04-26] MEDS: Pramipexole Di-HCl 1 MG TAB PO SCH (21:29)
[2018-04-27 07:17] LABS: INR-International Normal Ratio 1.7; Prothrombin Time 19.9 SEC (12.0-14.7)
[2018-04-27 07:24] LABS: #Lymphocytes 0.6 thou/uL (1.20-3.40); #Monocytes 0.2 thou/uL (0.11-0.59); #Neutrophils 5.4 thou/uL (1.40-6.50); %Basophils 0.6 % (0.0-1.0); %Monocytes 3.5 % (0.0-10.0); %Neutrophils 85.8 % (42.0-75.0); Hemoglobin 9.3 g/dL (14.0-18.0); Mean Corpuscular HGB CONC 31.7 g/dL (32.0-36.0); Mean Corpuscular Hemoglobin 31.7 pg (27.0-31.0); Mean Platelet Volume 8.7 fL (7.4-10.4); Platelet Count 119 thou/uL (130-400); RBC Distribution Width 14.5 % (11.5-14.5); Red Blood Cell (RBC) Count 2.92 mill/uL (4.70-6.10); White Blood Cell (WBC) Count 6.3 thou/uL (4.8-10.8)
[2018-04-27 07:31] LABS: Anion Gap 24 mmol/L (10-20); BUN (Urea Nitrogen) 74 mg/dL (8.9-20.6); Calc. Creatinine Clearance 14 mL/min (70-130); Calcium 10.4 mg/dL (7.8-10.44); Carbon Dioxide 19 mmol/L (22-29); Chloride 102 mmol/L (98-107); Estimated GFR-MDRD 5; Glucose 105 mg/dL (70-105); Potassium 4.6 mmol/L (3.5-5.1); Sodium 140 mmol/L (136-145)
[2018-04-27] MEDS: Metoclopramide HCl 10 MG/2 ML VIAL IVP SCH ×3 (07:31→21:31)
--- NOTE | 2018-04-27 08:25 | RAD ---
SINGLE VIEW OF THE CHEST: COMPARISON: 04/26/2018. HISTORY: Intubated patient with respiratory failure. FINDINGS: A single view of the chest shows an enlarged but stable cardiomediastinal silhouette. The patient is status post sternotomy. The tracheostomy is unchanged in position. There appears to be a small rig ht pleural effusion with adjacent infiltrate versus atelectasis. IMPRESSION: Stable exam. POS: [facility]
[2018-04-27] MEDS: Chlorhexidine Gluconate 15 ML UDCUP SSP SCH ×2 (09:00→21:31)
[2018-04-27] MEDS: Carvedilol 6.25 MG TAB PO SCH ×2 (09:17→18:30)
[2018-04-27] MEDS: Loratadine 10 MG TAB PO SCH (09:17)
[2018-04-27] MEDS: Saccharomyces boulardii 250 MG CAP PO SCH (09:17)
[2018-04-27] MEDS: Amiodarone 200 MG TAB PO SCH ×2 (09:18→21:31)
[2018-04-27] MEDS: Triple Antibiotic Oint 1 GM Packet TOP SCH ×2 (09:18→21:31)
[2018-04-27] MEDS: Pantoprazole 40 MG VIAL IVP SCH (09:18)
[2018-04-27] MEDS: Sodium Chloride 0.9% (PF) 10 ML VIAL FS SCH (09:20)
--- NOTE | 2018-04-27 10:27 | PRG ---
DATE OF SERVICE: 04/27/2018 SUBJECTIVE: This is a 47-year-old gentleman, trach in place. OBJECTIVE: VITAL SIGNS: Pulse 67, saturations 100% on trach collar, NEUROLOGIC: He is moving all four extremities. CHEST: Rhonchi. CARDIAC: Normal S1, S2. No gallops. ABDOMEN: Soft. LABORATORY DATA: His creatinine is 10.4, BUN is 74. White count 6000, H and H 9 and 29. He had a chest x-ray taken today which shows trach in place, bilateral infiltrates, right greater than left. IMPRESSION: Status post respiratory failure, trach, status post renal failure, left mandible fracture. PLAN: Continue supportive care, nutrition, PT, eventually placement. Job ID: [id number]
--- NOTE | 2018-04-27 12:02 | PRG ---
DATE OF SERVICE: 04/27/2018 SUBJECTIVE: Patient was seen and examined at bedside and overnight events noted. Patient denies any shortness of breath or chest pain or palpitation. No history of nausea or vomiting or diarrhea or fever or chills or cramps. OBJECTIVE: GENERAL: This is a well-built male, in no apparent distress. VITAL SIGNS: Temperature 97.9. Pulse 66. Respiratory rate 18. Blood pressure 178/76. HEENT: Atraumatic, normocephalic. Oral mucosa is moist NECK: Supple. CARDIOVASCULAR: S1, S2 heard. Rate and rhythm regular. RESPIRATORY: Clear to auscultation. GASTROINTESTINAL: Abdomen is soft. MUSCULOSKELETAL: No tenderness. No edema. DERMATOLOGIC: No skin rash. NEUROLOGIC: Alert and awake and oriented X3. No focal neurologic deficits. Moving all the extremities. PSYCHIATRIC: Mood and affect normal. LABORATORY DATA: Potassium BUN is 74, and creatinine is 10.4. ASSESSMENT AND PLAN: 1. End-stage renal disease. Continue on hemodialysis on Saturday, Saturday, and Saturday. 2. Hypotension 3. Anemia. 4. Edema. Continue dialysis on Saturday, Saturday, and Saturday. Job ID: [id number] [facility]
[2018-04-27] MEDS: Pramipexole Di-HCl 1 MG TAB PO SCH (21:31)
[2018-04-27] MEDS: traMADol HCl 50 MG TAB PO PRN (21:31)
--- NOTE | 2018-04-28 03:59 | CON ---
DATE OF CONSULTATION: HISTORY: Briefly, Mr. Sheriff is a 47-year-old male who was brought to the emergency department on April 18 for lower extremity cellulitis. He was being treated for cellulitis as well as end-stage kidney disease. While he was in the hospital, he was nauseous and was leaning on a trash can and fell forward and fractured his mandible on April 19. The patient underwent a tracheotomy on 04/20 and then was in Orthopedic Surgery on April 21. Neurosurgery has been consulted just in case due to marked decrease in the patient's neurological status. He came in walking, moving his arms fairly well, and now, he is unable to move to his upper extremities. Neurosurgery is evaluating the MR of the cervical spine as well as reviewing the patient's history. It was thought that his neurologic exam is keeping with the watershed distribution infarct of the brain, C-spine injury, and possible due to fall. MR of the neck does show some ligamentous damage, but given the timeline, cord injury is unlikely. REVIEW OF SYSTEMS: Review of systems is negative other than stated in the above HPI. PAST MEDICAL HISTORY: End-stage renal disease, on hemodialysis; chronic anemia; obstructive sleep apnea, on CPAP; hypothyroidism; history of restless legs syndrome; history of atrial flutter, status post cardioversion; and history of RSV infection. PAST SURGICAL HISTORY: Post aortic valve replacement. MEDICATIONS: 1. DuoNeb. 2. Coreg. 3. Sensipar. 4. Ferrous sulfate. 5. Folic acid. 6. Amiodarone. 7. Aspirin. 8. Tylenol. 9. Warfarin. 10. Renvela 3 tablets. 11. Florastor. 12. Pramipexole. 13. Protonix. 14. Claritin. ALLERGIES: PENICILLIN, SULFA, AND ADHESIVE TAPE. SOCIAL HISTORY: He lives with his mother. Denies smoking or alcohol use. PHYSICAL EXAMINATION: GENERAL: The patient is opening eyes, but does not seem to respond to my presence in the room. HEENT: Head is normocephalic, atraumatic. Pupils are equal and reactive, however, sluggish. Moist mucous membranes. The patient is on trach. RESPIRATIONS: The patient is on tracheostomy. MUSCULOSKELETAL: There is no cyanosis or clubbing. He is moving his hands and feet, right hand less than the left, will squeeze my hand to command on the left and will wiggle toes. NEUROLOGIC: The patient has GCS of 12; 4, 6, 2. Pupils are equal, round, and reactive, however, sluggish to light. Looks around the room he is following commands in the left upper extremity and squeezed my hands and he is wiggling his toes bilaterally IMAGING: MRI of cervical spine; impression, 1. Cervical canal stenosis, likely on the basis of degenerative changes with signal abnormality in the upper cervical cord. 2. Extensive edematous changes involving the anterior longitudinal ligament, prevertebral soft tissue as well as posterior paraspinal muscles in the distal cervical and upper thoracic spine and injury and edema are presumed to be posttraumatic. 3. Abnormal signal intensity along the posterior epidural space in the upper thoracic cord which may be artifact. ASSESSMENT AND PLAN: Mr. Sheriff is a 47-year-old male who sustained a fall striking his head while in the hospital; he sustained mandible fractured at this time and ligamentous damage to the cervical spine. There is no signal change in the cervical cord. The patient's change in neurologic status is not due to the fall. We will recommend a cervical collar for his ligamentous damage, and we have recommended MRI of the brain to assess for further reasons for this change. Job ID: [id number]
[2018-04-28] MEDS: traMADol HCl 50 MG TAB PO PRN ×3 (05:02→20:55)
[2018-04-28] MEDS: Metoclopramide HCl 10 MG/2 ML VIAL IVP SCH ×3 (05:02→20:48)
[2018-04-28 06:37] LABS: #Lymphocytes 0.7 thou/uL (1.20-3.40); #Monocytes 0.5 thou/uL (0.11-0.59); #Neutrophils 5.6 thou/uL (1.40-6.50); %Basophils 0.6 % (0.0-1.0); %Eosinophils 0.4 % (0.0-10.0); %Lymphocytes 10.5 % (21.0-51.0); %Neutrophils 81.6 % (42.0-75.0); Hemoglobin 8.8 g/dL (14.0-18.0); Mean Corpuscular HGB CONC 31.9 g/dL (32.0-36.0); Mean Corpuscular Hemoglobin 31.8 pg (27.0-31.0); Mean Corpuscular Volume 99.7 fL (78.0-98.0); Mean Platelet Volume 8.9 fL (7.4-10.4); Platelet Count 142 thou/uL (130-400); RBC Distribution Width 14.4 % (11.5-14.5); Red Blood Cell (RBC) Count 2.77 mill/uL (4.70-6.10); White Blood Cell (WBC) Count 6.9 thou/uL (4.8-10.8)
[2018-04-28 06:41] LABS: INR-International Normal Ratio 1.9; Prothrombin Time 21.5 SEC (12.0-14.7)
[2018-04-28 06:51] LABS: Anion Gap 22 mmol/L (10-20); BUN (Urea Nitrogen) 108 mg/dL (8.9-20.6); Calc. Creatinine Clearance 12 mL/min (70-130); Calcium 10.3 mg/dL (7.8-10.44); Carbon Dioxide 19 mmol/L (22-29); Chloride 102 mmol/L (98-107); Estimated GFR-MDRD 4; Glucose 111 mg/dL (70-105); Potassium 4.7 mmol/L (3.5-5.1); Sodium 138 mmol/L (136-145)
[2018-04-28] MEDS: Carvedilol 6.25 MG TAB PO SCH ×2 (08:29→16:39)
[2018-04-28] MEDS: Amiodarone 200 MG TAB PO SCH ×2 (08:41→20:48)
[2018-04-28] MEDS: Loratadine 10 MG TAB PO SCH (08:41)
[2018-04-28] MEDS: Triple Antibiotic Oint 1 GM Packet TOP SCH ×2 (08:41→20:48)
[2018-04-28] MEDS: Pantoprazole 40 MG VIAL IVP SCH (08:42)
[2018-04-28] MEDS: Saccharomyces boulardii 250 MG CAP PO SCH (08:42)
[2018-04-28] MEDS: Sodium Chloride 0.9% (PF) 10 ML VIAL FS SCH (08:42)
[2018-04-28] MEDS: Epoetin (ESRD) 10,000 UNITS/ML VIAL IVP SCH (09:42)
[2018-04-28] MEDS: Chlorhexidine Gluconate 15 ML UDCUP SSP SCH ×2 (09:55→20:48)
--- NOTE | 2018-04-28 11:08 | PRG ---
DATE OF SERVICE: 04/26/2018 SUBJECTIVE: Patient was seen and examined at bedside and overnight events noted. Patient denies any shortness of breath or chest pain or palpitation. No history of nausea or vomiting or diarrhea or fever or chills or cramps. OBJECTIVE: GENERAL: This is an obese male, in no apparent distress. VITAL SIGNS: Temperature 98.7. Pulse 70. Respiratory rate 15. Blood pressure 113/58. HEENT: Atraumatic and normocephalic. Oral mucosa is moist NECK: Trach present. CARDIOVASCULAR: S1, S2 heard. Rate and rhythm regular. RESPIRATORY: Clear. GASTROINTESTINAL: Abdomen is soft. MUSCULOSKELETAL: No tenderness. No edema. DERMATOLOGIC: No skin rash. NEUROLOGIC: Alert and awake and oriented X3. No focal neurologic deficits. Moving all the extremities. PSYCHIATRIC: Mood and affect normal. LABORATORY DATA: Potassium is 4.3, BUN is 36, and creatinine is 8.0. ASSESSMENT AND PLAN: 1. End-stage renal disease. We will continue hemodialysis. 2. Edema. We will remove fluid. 3. Hypotension, stable. 4. Anemia. We will add Epogen. Plan is to continue dialysis as tolerated. Job ID: [id number]
--- NOTE | 2018-04-28 13:13 | PRG ---
DATE OF SERVICE: 04/28/2018 SUBJECTIVE: A 47-year-old gentleman, being seen for end-stage renal disease. The patient is resting. OBJECTIVE: CONSTITUTIONAL: The patient is resting. VITAL SIGNS: Afebrile, pulse 80, breathing 16, blood pressure 103/52. GENERAL APPEARANCE AND MENTAL STATUS: Fair. HEAD/NECK: Normocephalic. Atraumatic. EYES: EOMI. No deformity. EARS: Clear. No ulcers. NOSE: Intact. No lesions. MOUTH: Clear. No discharge. THROAT: Clear. No exudate. LUNGS: Clear. No crackles. CARDIAC: S1, S2. No rub. ABDOMEN: Benign. Bowel sounds positive. GENITALIA/RECTUM: Green absent. BACK/EXTREMITIES: Edema 0+. NEUROLOGICAL: Alert and motor intact. SKIN: LYMPHATICS: LABORATORY DATA: Labs reviewed. ASSESSMENT AND RECOMMENDATIONS: 1. Stage 6 chronic kidney disease. Continue hemodialysis. 2. Hypertension, stable. 3. Anemia, stable. 4. Medication based on GFR, appropriate. Job ID: [id number]
[2018-04-28] MEDS: HYDROmorphone 0.5 MG/0.5 ML SYRINGE SLOW IVP PRN (16:40)
[2018-04-28] MEDS: Pramipexole Di-HCl 1 MG TAB PO SCH (20:48)
[2018-04-29 04:38] LABS: #Monocytes 0.6 thou/uL (0.11-0.59); #Neutrophils 4.6 thou/uL (1.40-6.50); %Basophils 0.3 % (0.0-1.0); %Eosinophils 0.2 % (0.0-10.0); %Lymphocytes 16.7 % (21.0-51.0); %Monocytes 9.7 % (0.0-10.0); %Neutrophils 73.1 % (42.0-75.0); Hemoglobin 8.7 g/dL (14.0-18.0); Mean Corpuscular Hemoglobin 31.7 pg (27.0-31.0); Mean Corpuscular Volume 98.9 fL (78.0-98.0); Mean Platelet Volume 8.7 fL (7.4-10.4); Platelet Count 138 thou/uL (130-400); RBC Distribution Width 14.3 % (11.5-14.5); Red Blood Cell (RBC) Count 2.75 mill/uL (4.70-6.10); White Blood Cell (WBC) Count 6.2 thou/uL (4.8-10.8)
[2018-04-29 04:41] LABS: INR-International Normal Ratio 1.7; Prothrombin Time 19.7 SEC (12.0-14.7)
[2018-04-29 04:59] LABS: Anion Gap 17 mmol/L (10-20); BUN (Urea Nitrogen) 100 mg/dL (8.9-20.6); Calc. Creatinine Clearance 13 mL/min (70-130); Calcium 9.8 mg/dL (7.8-10.44); Carbon Dioxide 27 mmol/L (22-29); Chloride 100 mmol/L (98-107); Estimated GFR-MDRD 5; Glucose 93 mg/dL (70-105); Sodium 140 mmol/L (136-145)
[2018-04-29] MEDS: Metoclopramide HCl 10 MG/2 ML VIAL IVP SCH (06:09)
[2018-04-29] MEDS: Carvedilol 6.25 MG TAB PO SCH ×2 (07:39→16:39)
[2018-04-29] MEDS: traMADol HCl 50 MG TAB PO PRN (07:40)
--- NOTE | 2018-04-29 09:19 | PRG ---
DATE OF SERVICE: 04/28/2018 SERVICE: Pulmonary Medicine. INTERVAL HISTORY: The patient is doing absolutely outstanding from respiratory standpoint. Denies any current shortness of breath or chest discomfort. He is really tolerating T-collar just fine. His strength improves day by day, and today, he was actually able to get out of bed and into a chair for a couple of hours. He is actually more alert than I have ever seen him before. He has very clear eyes. He is not falling asleep intermittently during our conversation, which he has been doing for years. PHYSICAL EXAMINATION: VITAL SIGNS: Afebrile. Pulse 77, blood pressure 134/70, respirations 23, and saturation 99% on trach collar. HEENT: Normocephalic and atraumatic. Sclerae are white. Conjunctivae are pink. Oral mucosa is moist without lesions. LUNGS: Excellent air entry. No rhonchi are appreciated. HEART: Normal rate, regular. ABDOMEN: Soft, nontender, and nondistended. Bowel sounds are positive. MUSCULOSKELETAL: No cyanosis or clubbing. There is no pitting in the bilateral lower extremities. NEUROLOGIC: Grossly nonfocal. LABORATORY DATA: WBC 6.9, hemoglobin 8.8, and platelets 142,000. INR 1.9. Creatinine 12.19, BUN 108. Basic metabolic profile is otherwise unremarkable. Blood cultures x2 are unremarkable. ASSESSMENT: 1. Acute on chronic hypoxic and hypercapnic respiratory failure, stable. 2. Left mandibular fracture, status post open reduction and internal fixation. 3. Obstructive sleep apnea, horrendous, status post tracheostomy, postop day #7. 4. End-stage renal disease, currently dry. 5. Sinusitis. 6. Severe sepsis, improving. 7. Mechanical aortic valve, on chronic anticoagulation. DISCUSSION AND PLAN: The patient is doing fantastic from a neurologic and respiratory perspective. At this point, he is stable for transition out of the hospital to a rehabilitation center. Pulmonary/Critical Care will continue to follow if he remains in-house. He will need routine trach care once he leaves this location. We will need to make certain that he has supplies available to him to do appropriate trach care, and replace his supplies periodically. I do want this tracheostomy to remain in place watermaster as the patient has horrendous obstructive sleep apnea and would likely benefit from it. If I can convince him to use it essentially for ever, that is what I am going to attempt to do. Job ID: [id number]
[2018-04-29] MEDS: Saccharomyces boulardii 250 MG CAP PO SCH (09:23)
[2018-04-29] MEDS: Loratadine 10 MG TAB PO SCH (09:23)
[2018-04-29] MEDS: Triple Antibiotic Oint 1 GM Packet TOP SCH ×2 (09:23→22:25)
[2018-04-29] MEDS: Chlorhexidine Gluconate 15 ML UDCUP SSP SCH ×2 (09:23→22:25)
[2018-04-29] MEDS: Amiodarone 200 MG TAB PO SCH ×2 (09:23→22:24)
--- NOTE | 2018-04-29 09:26 | PRG ---
DATE OF SERVICE: 04/29/2018 SUBJECTIVE: A 47-year-old gentleman, being seen for end-stage kidney disease. The patient denies nausea, vomiting, or chest pain. OBJECTIVE: CONSTITUTIONAL: The patient is awake and alert. VITAL SIGNS: Afebrile. Pulse 80, breathing 16, blood pressure 134/70. GENERAL APPEARANCE AND MENTAL STATUS: Fair. HEAD/NECK: Normocephalic. Atraumatic. EYES: EOMI. No deformity. EARS: Clear. No ulcers. NOSE: Intact. No lesions. MOUTH: Clear. No discharge. THROAT: Clear. No exudate. LUNGS: Clear. No crackles. CARDIAC: S1, S2. No rub. ABDOMEN: Benign. Bowel sounds positive. GENITALIA/RECTUM: Green absent. BACK/EXTREMITIES: Edema 0+. NEUROLOGICAL: Alert and motor intact. SKIN: LYMPHATICS: LABORATORY DATA: Labs show hemoglobin 8.7. ASSESSMENT: 1. Stage 6 chronic kidney disease, planned dialysis on Saturday, Saturday, and Saturday. 2. Hypertension, stable. 3. Anemia, stable. 4. Medication based on GFR appropriate. Job ID: [id number]
[2018-04-29] MEDS: HYDROmorphone 0.5 MG/0.5 ML SYRINGE SLOW IVP PRN (11:19)
--- NOTE | 2018-04-29 13:53 | PRG ---
DATE OF SERVICE: 04/29/2018 SERVICE: Pulmonary Medicine. SUBJECTIVE: The patient is doing really well from respiratory standpoint. Breathing comfortably. Otherwise, there has been no interval change to his condition. He is working with physical therapy. He denies having any shortness of breath or significant cough. The C-collar is irritating to him. Otherwise, he is returning to his usual state of health. OBJECTIVE: VITAL SIGNS: Afebrile, pulse 67, blood pressure 110/69, respirations 17, saturation 100% on 5 L via T-collar. HEENT: Normocephalic and atraumatic. Sclerae white. Conjunctivae pink. Oral mucosa is moist without lesions. LUNGS: Decent air entry. Rhonchi present. No crackles or wheezing appreciated. HEART: Normal rate, regular. ABDOMEN: Soft, nontender, and nondistended. Bowel sounds are positive. MUSCULOSKELETAL: No cyanosis or clubbing. There is no pitting in the bilateral lower extremities. NEUROLOGIC: Grossly nonfocal. LABORATORY DATA: WBC 6.2, hemoglobin 8.7, platelets 138,000. INR 1.7. Creatinine 11.4, BUN 100. Basic metabolic profile is otherwise unremarkable. Blood cultures x2 are negative. ASSESSMENT: 1. Acute on chronic hypoxic and hypercapnic respiratory failure, resolved to baseline. 2. Left mandibular fracture, status post open reduction and internal fixation. 3. Obstructive sleep apnea, horrendous, status post tracheostomy, postop day 7. 4. Whiplash injury with severe neurologic deficit that is now resolved, C-collar in place. 5. End-stage renal disease. 6. Severe sepsis, resolving. 7. Sinusitis. 8. Mechanical aortic valve, on anticoagulation. DISCUSSION AND PLAN: The patient is doing absolutely fantastic from respiratory standpoint. He had his bedside tracheostomy placed eight days ago. In other four or five days, we can downsize his tracheostomy to a 6.0 fenestrated cuffless device. I would like this device to remain in indefinitely as it is serving the function of bypassing his horrendous sleep apnea. I will discuss with him whether or not to take this thing out in the outpatient setting. Hopefully, I would be successful in this conversation. From purely respiratory standpoint, the patient is stable for transition out of the hospital if all consultants agree. Job ID: [id number]
[2018-04-29] MEDS: Warfarin Sodium 5 MG TAB PO SCH (16:38)
[2018-04-29] MEDS: Hydrocodone-Acetamin 15 ML UDCUP PO PRN (18:16)
[2018-04-29] MEDS: Pramipexole Di-HCl 1 MG TAB PO SCH (22:25)
[2018-04-30] MEDS: Hydrocodone-Acetamin 15 ML UDCUP PO PRN ×2 (03:14→08:36)
[2018-04-30] MEDS: Carvedilol 6.25 MG TAB PO SCH ×2 (08:10→16:35)
[2018-04-30] MEDS: Amiodarone 200 MG TAB PO SCH ×2 (08:37→22:16)
[2018-04-30] MEDS: Saccharomyces boulardii 250 MG CAP PO SCH (08:37)
[2018-04-30] MEDS: Triple Antibiotic Oint 1 GM Packet TOP SCH ×2 (08:38→22:18)
[2018-04-30] MEDS: Loratadine 10 MG TAB PO SCH (08:38)
[2018-04-30 08:40] LABS: INR-International Normal Ratio 1.6; Prothrombin Time 19.1 SEC (12.0-14.7)
[2018-04-30] MEDS: Chlorhexidine Gluconate 15 ML UDCUP SSP SCH ×2 (08:50→22:18)
--- NOTE | 2018-04-30 10:26 | PRG ---
DATE OF SERVICE: 04/30/2018 SUBJECTIVE: A 47-year-old gentleman, being seen for end-stage renal disease. The patient denies nausea, vomiting, or chest pain. OBJECTIVE: See above. CONSTITUTIONAL: Awake, alert, in no acute distress. VITAL SIGNS: Afebrile. Pulse 75, breathing 16, blood pressure 130/70. GENERAL APPEARANCE AND MENTAL STATUS: Fair. HEAD/NECK: Normocephalic. Atraumatic. EYES: EOMI. No deformity. EARS: Clear. No ulcers. NOSE: Intact. No lesions. MOUTH: Clear. No discharge. THROAT: Clear. No exudate. LUNGS: Clear. No crackles. CARDIAC: S1, S2. No rub. ABDOMEN: Benign. Bowel sounds positive. GENITALIA/RECTUM: Green absent. BACK/EXTREMITIES: Edema 0+. NEUROLOGICAL: Alert and motor intact. SKIN: LYMPHATICS: LABORATORY DATA: Reviewed. ASSESSMENT: 1. Stage 6 chronic kidney disease, continue hemodialysis. 2. Hypertension, stable. 3. Anemia, stable. 4. Medication based on glomerular filtration rate, appropriate. Job ID: [id number]
--- NOTE | 2018-04-30 11:12 | PRG ---
DATE OF SERVICE: 04/30/2018 SERVICE: Pulmonary Medicine. INTERVAL HISTORY: The patient is doing really well from respiratory standpoint. He is able to work with Physical therapy and stand. His strength is improving day by day. He is breathing comfortably. He is little somnolent this morning. He just got some pain medication. PHYSICAL EXAMINATION: VITAL SIGNS: Afebrile, pulse 68, blood pressure 139/79, respirations 20, and saturation 99% on 5 L via T-collar. HEENT: Normocephalic and atraumatic. Sclerae are white. Conjunctivae are pink. Oral mucosa is moist without lesions. LUNGS: Decent air entry with no prolonged expiratory phase or wheezing present. HEART: Normal rate, regular. ABDOMEN: Soft, nontender, and nondistended. Bowel sounds are positive. MUSCULOSKELETAL: No cyanosis or clubbing. There is no pitting in the bilateral lower extremities. NEUROLOGIC: Grossly nonfocal. ASSESSMENT: 1. Acute hypoxic and hypercapnic respiratory failure, resolved. 2. Left mandibular fracture, status post open reduction and internal fixation. 3. Obstructive sleep apnea, horrendous, status post tracheostomy, postop day #9. 4. Whiplash injury with severe neurologic deficit, now resolved, C-collar in place. 5. End-stage renal disease. 6. Severe sepsis, resolved. 7. Sinusitis, improving. 8. Mechanical aortic valve, on anticoagulation. DISCUSSION AND PLAN: The patient is doing wonderful from respiratory standpoint. At this point, he is stable for transition out of the ICU to the intermediate care unit. After 2 weeks, we will be able to downsize his tracheostomy to a 6-0 fenestrated cuffless device, particularly he does well from respiratory standpoint. Critical Care will continue to follow along. Job ID: [id number]
[2018-04-30] MEDS: Warfarin Sodium 5 MG TAB PO SCH (16:35)
[2018-04-30] MEDS: Ondansetron PF 4 MG/2 ML Vial SLOW IVP PRN (16:47)
[2018-04-30] MEDS: Epoetin (ESRD) 10,000 UNITS/ML VIAL IVP SCH ×2 (18:35→19:00)
[2018-04-30] MEDS: Pramipexole Di-HCl 1 MG TAB PO SCH (22:16)
[2018-05-01] MEDS: Ondansetron PF 4 MG/2 ML Vial SLOW IVP PRN ×2 (04:37→10:03)
[2018-05-01 05:14] LABS: INR-International Normal Ratio 1.7; Prothrombin Time 19.9 SEC (12.0-14.7)
[2018-05-01 08:38] LABS: Potassium 4.1 mmol/L (3.5-5.1)
[2018-05-01] MEDS: Carvedilol 6.25 MG TAB PO SCH ×2 (08:53→17:36)
[2018-05-01] MEDS: Amiodarone 200 MG TAB PO SCH ×2 (08:53→22:09)
[2018-05-01] MEDS: Loratadine 10 MG TAB PO SCH (08:53)
[2018-05-01] MEDS: Saccharomyces boulardii 250 MG CAP PO SCH (08:54)
[2018-05-01] MEDS: Triple Antibiotic Oint 1 GM Packet TOP SCH ×2 (08:54→22:10)
[2018-05-01] MEDS: Chlorhexidine Gluconate 15 ML UDCUP SSP SCH (09:52)
--- NOTE | 2018-05-01 10:43 | PRG ---
DATE OF SERVICE: 05/01/2018 SERVICE: Pulmonary Medicine. INTERVAL HISTORY: The patient is doing okay from respiratory standpoint. Last night, he got a bolus feed. He then vomited up later. He was not tolerating some p.o., but today, he had a very large bowel movement. Hopefully, this means that he will have more space for the food. He denies any current chest pain or shortness of breath. His biggest complaint is that it is uncomfortable to have a tracheostomy in. He wanted it out. I talked to him about the risks and benefits of this and hopes that convince him to keep it in until he can experience a more comfortable , small tracheostomy. PHYSICAL EXAMINATION: VITAL SIGNS: Afebrile, pulse 74, blood pressure 110/57, respirations 18, and saturation 94% on T-collar with 5 L. HEENT: Normocephalic and atraumatic. Sclerae white. Conjunctivae pink. Oral mucosa is moist without lesions. LUNGS: Decent air entry. There is no prolonged expiratory phase or wheezing. HEART: Normal rate. Regular. ABDOMEN: Soft, nontender, nondistended. Bowel sounds are positive. MUSCULOSKELETAL: No cyanosis or clubbing. There is no pitting in the bilateral lower extremities. NEUROLOGIC: Grossly nonfocal. LABORATORY DATA: Potassium 4.1. Blood cultures x2 are unremarkable. ASSESSMENT: 1. Acute hypoxic and hypercapnic respiratory failure, resolved to baseline. 2. Obstructive sleep apnea, horrendous, status post tracheostomy, postop day # 10. 3. Left mandibular fracture, status post open reduction and internal fixation. 4. Whiplash injury with severe neurologic deficit, now resolved, C-collar in place. 5. End-stage renal disease. 6. Severe sepsis. 7. Sinusitis. 8. Mechanical aortic valve, on anticoagulation. DISCUSSION AND PLAN: The patient is doing fine from respiratory standpoint. In another couple of days, we will be able to downsize his tracheostomy to a 6.0 fenestrated cuffless device. Anticoagulation will be continued. I will check an INR tomorrow morning. We will continue our mobilization efforts. At this point , the patient is stable for transition out of the ICU. Once he can tolerate swallowing, we can remove the NG tube. Job ID: [id number] [facility]
--- NOTE | 2018-05-01 12:45 | PRG ---
DATE OF SERVICE: 05/01/2018 SUBJECTIVE: A 47-year-old gentleman, being seen for end-stage renal disease. The patient denies nausea, vomiting, or chest pain. OBJECTIVE: See above. CONSTITUTIONAL: Awake, alert, in no acute distress. VITAL SIGNS: Afebrile. Pulse 72, breathing 16, blood pressure 110/57. GENERAL APPEARANCE AND MENTAL STATUS: Fair. HEAD/NECK: Normocephalic. Atraumatic. EYES: EOMI. No deformity. EARS: Clear. No ulcers. NOSE: Intact. No lesions. MOUTH: Clear. No discharge. THROAT: Clear. No exudate. LUNGS: Clear. No crackles. CARDIAC: S1, S2. No rub. ABDOMEN: Benign. Bowel sounds positive. GENITALIA/RECTUM: Green absent. BACK/EXTREMITIES: Edema 0+. NEUROLOGICAL: Alert and motor intact. SKIN: LYMPHATICS: LABORATORY STUDIES: Labs show hemoglobin 8.7. ASSESSMENT: 1. Stage 6 chronic kidney disease, continue hemodialysis. 2. Hypertension, stable. 3. Anemia, stable. 4. Medication based on GFR appropriate. Job ID: [id number]
[2018-05-01] MEDS: Warfarin Sodium 5 MG TAB PO SCH (17:36)
[2018-05-01] MEDS: Sodium Chloride 0.45% 1,000 ML IV SCH (18:41)
[2018-05-01] MEDS: Pramipexole Di-HCl 1 MG TAB PO SCH (22:10)
[2018-05-02] MEDS: Chlorhexidine Gluconate 15 ML UDCUP SSP SCH ×3 (00:33→21:10)
[2018-05-02 05:07] LABS: #Lymphocytes 0.7 thou/uL (1.20-3.40); #Monocytes 0.5 thou/uL (0.11-0.59); %Basophils 0.2 % (0.0-1.0); %Eosinophils 0.3 % (0.0-10.0); %Monocytes 7.3 % (0.0-10.0); %Neutrophils 81.1 % (42.0-75.0); Hemoglobin 9.2 g/dL (14.0-18.0); Mean Corpuscular HGB CONC 31.2 g/dL (32.0-36.0); Mean Corpuscular Hemoglobin 30.6 pg (27.0-31.0); Mean Platelet Volume 8.1 fL (7.4-10.4); Platelet Count 155 thou/uL (130-400); RBC Distribution Width 14.6 % (11.5-14.5); Red Blood Cell (RBC) Count 3.02 mill/uL (4.70-6.10); White Blood Cell (WBC) Count 6.2 thou/uL (4.8-10.8)
[2018-05-02 05:14] LABS: INR-International Normal Ratio 1.9; Prothrombin Time 22.2 SEC (12.0-14.7)
[2018-05-02 05:26] LABS: Anion Gap 19 mmol/L (10-20); BUN (Urea Nitrogen) 72 mg/dL (8.9-20.6); Calc. Creatinine Clearance 12 mL/min (70-130); Calcium 10.1 mg/dL (7.8-10.44); Carbon Dioxide 25 mmol/L (22-29); Chloride 102 mmol/L (98-107); Estimated GFR-MDRD 5; Glucose 72 mg/dL (70-105); Potassium 4.1 mmol/L (3.5-5.1); Sodium 142 mmol/L (136-145)
[2018-05-02] MEDS: Ondansetron PF 4 MG/2 ML Vial SLOW IVP PRN (08:32)
--- NOTE | 2018-05-02 09:19 | PRG ---
DATE OF SERVICE: 05/02/2018 SUBJECTIVE: A 47-year-old gentleman, being seen for end-stage renal disease. The patient denies nausea, vomiting, or chest pain. OBJECTIVE: See above. CONSTITUTIONAL: Awake, alert, in no acute distress. VITAL SIGNS: Afebrile. Pulse 98, breathing 16, blood pressure 100/50. GENERAL APPEARANCE AND MENTAL STATUS: Fair. HEAD/NECK: Normocephalic. Atraumatic. EYES: EOMI. No deformity. EARS: Clear. No ulcers. NOSE: Intact. No lesions. MOUTH: Clear. No discharge. THROAT: Clear. No exudate. LUNGS: Clear. No crackles. CARDIAC: S1, S2. No rub. ABDOMEN: Benign. Bowel sounds positive. GENITALIA/RECTUM: Green absent. BACK/EXTREMITIES: Edema 0+. NEUROLOGICAL: Alert and motor intact. SKIN: LYMPHATICS: LABORATORY DATA: Labs reviewed. ASSESSMENT: 1. Stage 6 chronic kidney disease, continue hemodialysis. 2. Hypertension, stable. 3. Anemia, stable. 4. Medication based on GFR appropriate. Job ID: [id number]
--- NOTE | 2018-05-02 10:21 | PRG ---
DATE OF SERVICE: 05/02/2018 SERVICE: Pulmonary Medicine. INTERVAL HISTORY: The patient is doing fine from respiratory standpoint. He is working with Physical Therapy. Denies any current chest pain, shortness of breath, fevers, or chills. He is still having a little bit of nausea. He has an aversion for food. Otherwise, there has been no events overnight. PHYSICAL EXAMINATION: VITAL SIGNS: Afebrile, pulse 73, blood pressure 100/50, respirations 22, saturation 95% on trach collar with 5 L over mask. HEENT: Normocephalic and atraumatic. Sclerae white. Conjunctivae pink. Oral mucosa is moist and without lesions. Tracheostomy is clean, dry, and intact. LUNGS: Decent air entry. Rhonchi are present. There is no prolonged expiratory phase. There is no wheezing or crackles. HEART: Normal rate and regular. ABDOMEN: Soft, nontender, nondistended. Bowel sounds are positive. MUSCULOSKELETAL: No cyanosis or clubbing. There is no pitting in the bilateral lower extremities. NEUROLOGIC: Grossly nonfocal. LABORATORY DATA: WBC 6.2, hemoglobin 9.2, platelets 155,000 and improving. INR 1.9. Creatinine 11.22, BUN 72. Basic metabolic profile is otherwise unremarkable. Blood cultures x2 are negative. ASSESSMENT: 1. Acute hypoxic and hypercapnic respiratory failure, at baseline. 2. Obstructive sleep apnea, horrendous, status post tracheostomy, postop day 11. 3. Left mandibular fracture, status post open reduction and internal fixation. 4. Whiplash injury with neurologic defect, now resolved. C-collar in place. 5. End-stage renal disease. 6. Severe sepsis. 7. Sinusitis. 8. Mechanical aortic valve, on anticoagulation. DISCUSSION AND PLAN: The patient is stable. At this point, we are waiting for 2 weeks to pass that we can downsize his tracheostomy to a 6.0 fenestrated cuffless device. Otherwise, supportive care will be continued. We will watch his INRs through time and make certain that we get him up to 2.5 to 3.5, which is our goal. Reglan will be scheduled twice daily. Once he can tolerate swallowing, we will feed him, but this has proven difficult with the 8.0 nonfenestrated cuffed trach. Job ID: [id number]
[2018-05-02 12:06] VITALS: BMI 29.5
[2018-05-02] MEDS: Carvedilol 6.25 MG TAB PO SCH ×2 (13:27→16:38)
[2018-05-02] MEDS: Loratadine 10 MG TAB PO SCH (13:28)
[2018-05-02] MEDS: Amiodarone 200 MG TAB PO SCH ×2 (13:28→21:10)
[2018-05-02] MEDS: Saccharomyces boulardii 250 MG CAP PO SCH (13:28)
[2018-05-02] MEDS: Triple Antibiotic Oint 1 GM Packet TOP SCH ×2 (13:29→21:10)
[2018-05-02] MEDS: Epoetin (ESRD) 10,000 UNITS/ML VIAL IVP SCH (14:30)
[2018-05-02] MEDS: Sodium Chloride 0.45% 1,000 ML IV SCH (16:10)
[2018-05-02] MEDS: Metoclopramide HCl 10 MG/2 ML VIAL IVP SCH ×2 (16:38→22:17)
[2018-05-02] MEDS: Dextrose 5% in Water 1,000 ML IV SCH (16:38)
[2018-05-02] MEDS: Warfarin Sodium 5 MG TAB PO SCH (16:38)
[2018-05-02] MEDS: Pramipexole Di-HCl 1 MG TAB PO SCH (21:09)
[2018-05-03 05:48] LABS: INR-International Normal Ratio 2.3; Prothrombin Time 25.6 SEC (12.0-14.7)
[2018-05-03] MEDS: Metoclopramide HCl 10 MG/2 ML VIAL IVP SCH (05:55)
[2018-05-03] MEDS: Triple Antibiotic Oint 1 GM Packet TOP SCH (09:40)
[2018-05-03] MEDS: Carvedilol 6.25 MG TAB PO SCH ×2 (09:40→16:12)
[2018-05-03] MEDS: Loratadine 10 MG TAB PO SCH (09:40)
[2018-05-03] MEDS: Chlorhexidine Gluconate 15 ML UDCUP SSP SCH ×2 (09:40→20:56)
[2018-05-03] MEDS: Saccharomyces boulardii 250 MG CAP PO SCH (09:40)
[2018-05-03] MEDS: Amiodarone 200 MG TAB PO SCH ×2 (09:40→20:50)
--- NOTE | 2018-05-03 13:06 | PRG ---
DATE OF SERVICE: 05/03/2018 SUBJECTIVE: A 47-year-old gentleman being seen for end-stage renal disease. The patient denies nausea, vomiting, or chest pain. OBJECTIVE: GENERAL: The patient is awake and alert. VITAL SIGNS: Afebrile, pulse 80, breathing 16, blood pressure 110/50. GENERAL APPEARANCE AND MENTAL STATUS: Fair. HEAD/NECK: Normocephalic. Atraumatic. EYES: EOMI. No deformity. EARS: Clear. No ulcers. NOSE: Intact. No lesions. MOUTH: Clear. No discharge. THROAT: Clear. No exudate. LUNGS: Clear. No crackles. CARDIAC: S1, S2. No rub. ABDOMEN: Benign. Bowel sounds positive. GENITALIA/RECTUM: Green absent. BACK/EXTREMITIES: Edema 0+. NEUROLOGICAL: Alert and motor intact. SKIN: LYMPHATICS: ASSESSMENT: 1. Stage 6 chronic kidney disease, stable. 2. Hypertension, stable. 3. Anemia, stable. PLAN: Medication based on GFR appropriate. Job ID: [id number]
[2018-05-03] MEDS: Warfarin Sodium 5 MG TAB PO SCH (16:12)
--- NOTE | 2018-05-03 20:03 | PRG ---
DATE OF SERVICE: 05/03/2018 SUBJECTIVE: Chang Sheriff was sleeping in a chair by the bed. He awakened easily. He denied that he was in no distress. He had no complaints. OBJECTIVE: VITAL SIGNS: Blood pressure this evening is 119/67, heart rate 70, respiratory rate 18, and oximetry is 99%. LUNGS: Clear. HEART: Regular rhythm. ABDOMEN: Soft. LABORATORY DATA: White count yesterday was 6.2, hemoglobin 9.2, platelets 155. Lab yesterday was unremarkable with the exception of a creatinine of 11.2 and BUN is 72. IMPRESSION: 1. Status post tracheostomy. 2. Mandibular fracture, status post open reduction and internal fixation. 3. Central cord syndrome after a fall with resolved neurological defect with C-collar in place. 4. End-stage renal disease. 5. Status post placement of a mechanical aortic valve with anticoagulation. PLAN: We will continue with supportive care. His INR is 2.3 today. We will remain in the intermediate care unit. Job ID: [id number]
[2018-05-03] MEDS: Pramipexole Di-HCl 1 MG TAB PO SCH (20:56)
[2018-05-04] MEDS: Dextrose 5% in Water 1,000 ML IV SCH ×2 (01:10→20:58)
[2018-05-04] MEDS: Triple Antibiotic Oint 1 GM Packet TOP SCH (01:10)
[2018-05-04] MEDS: Amiodarone 200 MG TAB PO SCH ×2 (09:41→20:56)
[2018-05-04] MEDS: Saccharomyces boulardii 250 MG CAP PO SCH (09:41)
[2018-05-04] MEDS: Chlorhexidine Gluconate 15 ML UDCUP SSP SCH ×2 (09:41→20:56)
[2018-05-04] MEDS: Loratadine 10 MG TAB PO SCH (09:41)
[2018-05-04] MEDS: Carvedilol 6.25 MG TAB PO SCH ×2 (09:42→17:04)
--- NOTE | 2018-05-04 13:39 | PRG ---
DATE OF SERVICE: 05/04/2018 SUBJECTIVE: A 47-year-old male being seen for end-stage renal disease. The patient denies nausea, vomiting, or chest pain. OBJECTIVE: VITAL SIGNS: Afebrile, breathing 16, blood pressure 156/87. See above. Awake, alert, in no acute distress. GENERAL APPEARANCE AND MENTAL STATUS: Fair. HEAD/NECK: Normocephalic. Atraumatic. EYES: EOMI. No deformity. EARS: Clear. No ulcers. NOSE: Intact. No lesions. MOUTH: Clear. No discharge. THROAT: Clear. No exudate. LUNGS: Clear. No crackles. CARDIAC: S1, S2. No rub. ABDOMEN: Benign. Bowel sounds positive. GENITALIA/RECTUM: Green absent. BACK/EXTREMITIES: Edema 0+. NEUROLOGICAL: Alert and motor intact. SKIN: LYMPHATICS: LABORATORY DATA: Labs are reviewed. ASSESSMENT AND PLAN: 1. Stage 6 chronic kidney disease, on hemodialysis Saturday, Saturday, Saturday. 2. Hypertension, stable. 3. Anemia, stable. PLAN: Medication based on GFR appropriate. Job ID: [id number]
[2018-05-04] MEDS: Warfarin Sodium 5 MG TAB PO SCH (17:06)
--- NOTE | 2018-05-04 19:47 | PRG ---
DATE OF SERVICE: 05/04/2018 Chang Sheriff was standing in his room, washing his hands with some hand ceiling cleaner. He had no complaints. He said he is feeling better. He is quite impressive, seem standing or is fairly hunched over and kyphotic. He denied having any significant discomfort. He had his C-collar on. OBJECTIVE: VITAL SIGNS: He is afebrile, oximetry is 99 on his trach collar, blood pressure 106/60, and heart rate in the 60s. LUNGS: Clear. HEART: Regular rhythm. ABDOMEN: Soft. IMPRESSION: 1. Status post cervical spine injury with a trach in place. Cervical collar in place, clinically stable. 2. Anemia, clinically stable. Hemoglobin 9.2 two days ago, 8.7 three days before that. PLAN: Continue with current supportive care. Job ID: [id number]
[2018-05-04] MEDS: Pramipexole Di-HCl 1 MG TAB PO SCH (20:56)
[2018-05-04] MEDS: SYSTANE 3.5 GM TUBE EA EYE PRN (21:30)
[2018-05-04] MEDS: Hydrocodone-Acetamin 15 ML UDCUP PO PRN (22:38)
--- NOTE | 2018-05-05 10:45 | PRG ---
DATE OF SERVICE: 05/05/2018 SUBJECTIVE: Patient was seen and examined at bedside and overnight events noted. Patient denies any shortness of breath or chest pain or palpitation. No history of nausea or vomiting or diarrhea or fever or chills or cramps. OBJECTIVE: GENERAL: This is a well-built male, in no apparent distress. VITAL SIGNS: Temperature 98.6. Heart rate 67. Respiratory rate 16. Blood pressure 110/45. HEENT: Atraumatic, normocephalic. Oral mucosa is moist NECK: Supple. CARDIOVASCULAR: S1, S2 heard. Rate and rhythm regular. RESPIRATORY: Clear to auscultation. GASTROINTESTINAL: Abdomen is soft. MUSCULOSKELETAL: 1+ edema. No tenderness. DERMATOLOGIC: No skin rash. NEUROLOGIC: Alert and awake and oriented X3. No focal neurologic deficits. Moving all the extremities. PSYCHIATRIC: Mood and affect normal. LABORATORY DATA: No labs done today. ASSESSMENT AND PLAN: 1. End-stage renal disease. Continue on hemodialysis on Saturday, Saturday, and Saturday. 2. Hypotension. Monitor. 3. Anemia. Chronic and continue Epogen with dialysis. 4. Edema. Controlled. Continue dialysis as tolerated. Continue NURY with dialysis 10,000 units. We will follow. Job ID: [id number]
[2018-05-05] MEDS: Chlorhexidine Gluconate 15 ML UDCUP SSP SCH ×2 (11:46→20:22)
[2018-05-05] MEDS: Amiodarone 200 MG TAB PO SCH ×2 (11:46→20:21)
[2018-05-05] MEDS: Loratadine 10 MG TAB PO SCH (11:46)
[2018-05-05] MEDS: Carvedilol 6.25 MG TAB PO SCH ×2 (11:48→17:44)
[2018-05-05] MEDS: Saccharomyces boulardii 250 MG CAP PO SCH (11:49)
[2018-05-05] MEDS: Epoetin (ESRD) 10,000 UNITS/ML VIAL IVP SCH (11:55)
--- NOTE | 2018-05-05 13:08 | PRG ---
DATE OF SERVICE: 05/05/2018 SERVICE: Pulmonary Medicine. INTERVAL HISTORY: The patient is doing outstanding from a respiratory standpoint. Denies any current chest pain, nausea, vomiting, fevers, or chills. Otherwise, he is in his usual state of health. He has had an uneventful weekend. He has not developed any respiratory failure. Otherwise, there has been no interval change to his condition. PHYSICAL EXAMINATION: VITAL SIGNS: Afebrile, pulse 77, blood pressure 112/43, respirations 17, and saturation 98% on 4 L via T-collar. HEENT: Normocephalic and atraumatic. Sclerae white. Conjunctivae pink. Oral mucosa is moist without lesions. LUNGS: Excellent air entry. There are crackles present in the left base. No prolonged expiratory phase or wheezing is otherwise appreciated. HEART: Normal rate and regular. ABDOMEN: Soft, nontender, and nondistended. Bowel sounds are positive. MUSCULOSKELETAL: No cyanosis or clubbing. There is no pitting in the bilateral lower extremities. NEUROLOGIC: Grossly nonfocal. LABORATORY DATA: WBC 6.2, hemoglobin 9.2, and platelets 155,000 and stable. Blood cultures x2 remain unremarkable. ASSESSMENT: 1. Acute hypoxic and hypercapnic respiratory failure, resolved. 2. Obstructive sleep apnea, horrendous, status post tracheostomy, postop day 14. 3. Left mandibular fracture, status post open reduction and internal fixation. 4. Whiplash injury with neurologic deficit, resolved, C-collar will remain in place until outpatient followup with Neurosurgery in an additional 3 weeks. 5. End-stage renal disease. 6. Severe sepsis, resolved. 7. Sinusitis. 8. Mechanical aortic valve, on anticoagulation. PROCEDURE: Trach was exchanged. The 8.0 Shiley cuffed trach was removed and replaced with a 6.0 Fenestrated cuffless device. This procedure was without difficulty or complication. DISCUSSION AND PLAN: From my perspective, the patient is stable for transition out of the hospital. Pulmonary/Critical Care will continue to follow along. I will repeat some basic laboratories tomorrow morning. I would like for the tracheostomy tube to remain in place for as long as possible. Job ID: [id number] [facility]
[2018-05-05 13:55] LABS: Prothrombin Time 47.9 SEC (12.0-14.7)
[2018-05-05 13:57] LABS: INR-International Normal Ratio 5.2
[2018-05-05] MEDS: traMADol HCl 50 MG TAB PO PRN (18:09)
[2018-05-05] MEDS: Pramipexole Di-HCl 1 MG TAB PO SCH (20:22)
[2018-05-06 05:30] LABS: #Lymphocytes 0.8 thou/uL (1.20-3.40); #Monocytes 0.7 thou/uL (0.11-0.59); #Neutrophils 3.8 thou/uL (1.40-6.50); %Basophils 0.8 % (0.0-1.0); %Eosinophils 0.4 % (0.0-10.0); %Monocytes 12.2 % (0.0-10.0); %Neutrophils 71.7 % (42.0-75.0); Hemoglobin 9.8 g/dL (14.0-18.0); Mean Corpuscular HGB CONC 32.5 g/dL (32.0-36.0); Mean Corpuscular Hemoglobin 31.6 pg (27.0-31.0); Mean Corpuscular Volume 97.4 fL (78.0-98.0); Platelet Count 171 thou/uL (130-400); RBC Distribution Width 14.6 % (11.5-14.5); Red Blood Cell (RBC) Count 3.09 mill/uL (4.70-6.10); White Blood Cell (WBC) Count 5.3 thou/uL (4.8-10.8)
[2018-05-06 05:39] LABS: Prothrombin Time 47.7 SEC (12.0-14.7)
[2018-05-06 05:43] LABS: INR-International Normal Ratio 5.2
[2018-05-06 05:59] LABS: Anion Gap 15 mmol/L (10-20); BUN (Urea Nitrogen) 22 mg/dL (8.9-20.6); Calc. Creatinine Clearance 15 mL/min (70-130); Calcium 9.7 mg/dL (7.8-10.44); Carbon Dioxide 27 mmol/L (22-29); Chloride 101 mmol/L (98-107); Estimated GFR-MDRD 6; Glucose 88 mg/dL (70-105); Potassium 3.7 mmol/L (3.5-5.1); Sodium 139 mmol/L (136-145)
[2018-05-06] MEDS: Amiodarone 200 MG TAB PO SCH (09:10)
[2018-05-06] MEDS: Chlorhexidine Gluconate 15 ML UDCUP SSP SCH (09:10)
[2018-05-06] MEDS: Saccharomyces boulardii 250 MG CAP PO SCH (09:11)
[2018-05-06] MEDS: Loratadine 10 MG TAB PO SCH (09:11)
[2018-05-06] MEDS: Carvedilol 6.25 MG TAB PO SCH ×2 (09:11→17:35)
--- NOTE | 2018-05-06 12:39 | PRG ---
DATE OF SERVICE: 05/06/2018 SERVICE: Pulmonary Medicine. INTERVAL HISTORY: The patient is doing really well from respiratory standpoint. Physical Therapy saw him today and he is doing absolutely fantastic. He denies any current chest pain, fevers, or chills. He is breathing comfortably. He is very alert and awake. He is not having any respiratory issues. With downsizing tracheostomy yesterday, he is doing much better with swallow, but he still has a little bit of risk. Because of his posture, they do not think he will get much information out of modified barium swallow. As such, we are going to proceed cautiously. PHYSICAL EXAMINATION: VITAL SIGNS: Afebrile. Pulse 68, blood pressure 116/96, respirations 12, and saturation 95% on room air. GENERAL: The patient is awake and alert, in no apparent distress. LUNGS: Decent air entry. There is no prolonged expiratory phase or wheezing present. HEART: Normal rate, regular. ABDOMEN: Soft, nontender, and nondistended. Bowel sounds positive. MUSCULOSKELETAL: No cyanosis or clubbing. No pitting in the bilateral lower extremities. NEUROLOGIC: Grossly nonfocal. LABORATORY DATA: WBC 5.3, hemoglobin 9.8, platelets 171,000. INR 5.2 and stable. Creatinine 8.99. Basic metabolic profile is otherwise unremarkable. ASSESSMENT: 1. Acute hypoxic and hypercapnic respiratory failure, resolved. 2. Obstructive sleep apnea, horrendous, status post tracheostomy. 3. Left mandibular fracture, status post open reduction and internal fixation. 4. Whiplash injury with neurologic deficit, resolved, C collar to remain in place until outpatient followup with Neurosurgery. 5. End-stage renal disease. 6. Severe sepsis, resolved. 7. Sinusitis, status post complete course of antibiotic therapy. 8. Mechanical aortic valve, on anticoagulation. DISCUSSION AND PLAN: From my perspective, the patient is stable for transition out of the hospital today. He can be discharged home. He will likely need home health to help him with his tracheostomy for this interim. Ultimately, he should be more than capable of using this device moving forward. I want it capped during the daytime when he is awake. Whenever he is sleeping and at night, I want him uncapped and under humidification. This tracheostomy device is long-term. I would prefer this that he will not be decannulated essentially ever because of the severity of his obstructive sleep apnea. If he remains inhouse, Pulmonary will follow, but from my perspective he is stable for discharge. Job ID: [id number]
[2018-05-06] MEDS ORDERED: Warfarin Sodium 2.5 MG TAB PO SCH (17:00)
[2018-05-06 17:36] VITALS: BP 137/85
[2018-05-06 17:44] VITALS: TEMP 97.6
--- NOTE | 2018-05-06 18:00 | PRG ---
DATE OF SERVICE: 05/06/2018 SUBJECTIVE: Patient was seen and examined at bedside and overnight events noted. Patient denies any shortness of breath or chest pain or palpitation. No history of nausea or vomiting or diarrhea or fever or chills or cramps. OBJECTIVE: GENERAL: This is a well-built male, in no apparent distress. VITAL SIGNS: Temperature 98.1. Pulse 64. Respiratory rate 18. Blood pressure 122/65. HEENT: Atraumatic, normocephalic. Oral mucosa is moist NECK: Supple. CARDIOVASCULAR: S1, S2 heard. Rate and rhythm regular. RESPIRATORY: Clear to auscultation. GASTROINTESTINAL: Abdomen is soft. MUSCULOSKELETAL: 1+ edema. No tenderness. DERMATOLOGIC: No skin rash. NEUROLOGIC: Alert and awake and oriented X3. No focal neurologic deficits. Moving all the extremities. PSYCHIATRIC: Mood and affect normal. LABORATORY DATA: Potassium 3.7, BUN is 72, and creatinine 8.9. ASSESSMENT AND PLAN: 1. End-stage renal disease. Continue on hemodialysis on Saturday, Saturday, and Saturday. 2. Hypertension, stable. 3. Anemia. We will monitor. 4. Edema. Controlled. Continue dialysis as tolerated on Saturday, Saturday, and Saturday. Job ID: [id number]
--- NOTE | 2018-05-07 13:14 | DIS ---
DATE OF ADMISSION: 04/18/2018 DATE OF DISCHARGE: 05/06/2018 ADMITTING DIAGNOSES: 1. Cellulitis, right foot. 2. Venous insufficiency and venous stasis ulcer. 3. End-stage renal disease, on hemodialysis. 4. Status post aortic valve replacement, on anticoagulation. 5. Obstructive sleep apnea, on CPAP. 6. Restless leg syndrome. 7. Chronic anemia. FINAL DIAGNOSES: 1. Acute hypoxic and hypercapnic respiratory failure, resolved. 2. Severe obstructive sleep apnea, status post tracheostomy. 3. Status post fall with right mandibular fracture, open reduction and internal fixation. 4. Whiplash injury with neurological deficit, resolved. C-collar remains in place. 5. Severe sepsis, resolved. 6. Sinusitis. 7. End-stage renal disease. BRIEF SUMMARY OF HOSPITAL COURSE: Mr. Sheriff is a 47-year-old male with past medical history of end-stage renal disease on hemodialysis and obstructive sleep apnea, admitted because of swelling on the right leg suggestive of cellulitis, also had venous insufficiency and venous stasis ulcers. He was started on IV antibiotics and admitted for further management, but after 2 days in the hospital, the patient was improving, his cellulitis getting resolved, so he is to be discharged the following day. Today, he fell in the room near the bathroom, lost balance and fell face down, hitting the face and sustained mandibular fracture on the right side and also sustained whiplash injury to the neck with cervical spine edema. The patient was admitted initially to [facility], but during the night, the patient was supposed to be on CPAP and they could not give CPAP. He went into respiratory distress and became unresponsive. He was intubated and transferred to CCU. He was placed on ventilator and the patient was seen by Dr. Kilgore at that time. He felt the patient developed respiratory failure, placed on ventilator support. Consultation was also done with Maxillofacial Surgery, who suggested fixing the mandibular fracture after the patient is stabilized and also might need tracheostomy. The patient underwent tracheostomy for sleep apnea and his respiratory status was stabilized and then he underwent surgery for mandibular fracture. He had open reduction and internal fixation of right mandibular fracture and removal of all the teeth. The patient was continued on respiratory support with ventilator support for the next few days. He was treated for sepsis as well. While in the hospital , his cellulitis almost resolved. His H and H remained stable. He was continued on hemodialysis. After the patient's respiratory status was more stabilized, he has been weaned off ventilator. Next few days, his tracheostomy was downsized to 6, after which he was started on diet after evaluation of Speech Therapy. The patient tolerated the diet very well. He was started on physical therapy and he was ambulating well. The patient needed outpatient dialysis with his tracheostomy. In the meanwhile, he is being transferred to rehab center. PHYSICAL EXAMINATION: GENERAL: During the time of transfer, he was stable. VITAL SIGNS: Stable. LUNGS: Clear. HEART: Sounds regular. ABDOMEN: Soft, nontender. Bowel sounds present. DISCHARGE MEDICATIONS: Include: 1. Renvela 800 mg 3 tablets t.i.d. 2. Pramipexole 2 mg at bedtime. 3. Aspirin 81 mg daily. 4. Ferrous sulfate daily. 5. zofran p.r.n. 6. Tylenol p.r.n. 7. Robitussin p.r.n. 8. Sensipar 30 mg b.i.d. 9. Claritin 10 mg daily. 10. Folic acid 1 mg daily. 11. Coreg 6.25 b.i.d. 12. Coumadin 5 mg daily. 13. Florastor 250 mg daily. 14. Protonix 40 mg daily. 15. duonebs q.i.d. p.r.n. 16. Amiodarone 200 mg b.i.d. The patient will continue with tracheostomy. He will have physical therapy at the rehab. Job ID: [id number] [facility]
== END 2018-05-06 18:55 | DRG 3 ==
LOC: ERS 05:58 → 3SE 10:00 → T4-B 22:15 → IMCU/EMU 04-19 22:54 → CCU 04-20 14:29 → IMCU/EMU 05-01 13:44
PROVIDERS: ADMIT Internal Medicine; ATTEND Internal Medicine
PROC: 5A1D70Z Performance of Urinary Filtration, Intermittent, Less than 6 Hours Per Day (ICD-10-PCS; 2018-04-18)
PROC: 0BH17EZ Insertion of Endotracheal Airway into Trachea, Via Natural or Artificial Opening (ICD-10-PCS; 2018-04-20)
PROC: 5A1955Z Respiratory Ventilation, Greater than 96 Consecutive Hours (ICD-10-PCS; 2018-04-20)
PROC: 0B113F4 Bypass Trachea to Cutaneous with Tracheostomy Device, Percutaneous Approach (ICD-10-PCS; principal; 2018-04-21)
PROC: 5A1D70Z Performance of Urinary Filtration, Intermittent, Less than 6 Hours Per Day (ICD-10-PCS; 2018-04-21)
PROC: 30233K1 Transfusion of Nonautologous Frozen Plasma into Peripheral Vein, Percutaneous Approach (ICD-10-PCS; 2018-04-21)
PROC: 0NST04Z Reposition Right Mandible with Internal Fixation Device, Open Approach (ICD-10-PCS; 2018-04-22)
PROC: 0CDWXZ2 Extraction of Upper Tooth, All, External Approach (ICD-10-PCS; 2018-04-22)
PROC: 0CDXXZ2 Extraction of Lower Tooth, All, External Approach (ICD-10-PCS; 2018-04-22)
PROC: 5A1D70Z Performance of Urinary Filtration, Intermittent, Less than 6 Hours Per Day (ICD-10-PCS; 2018-04-23)
PROC: 5A1D70Z Performance of Urinary Filtration, Intermittent, Less than 6 Hours Per Day (ICD-10-PCS; 2018-04-25)
PROC: 5A1D70Z Performance of Urinary Filtration, Intermittent, Less than 6 Hours Per Day (ICD-10-PCS; 2018-04-30)
PROC: 5A1D70Z Performance of Urinary Filtration, Intermittent, Less than 6 Hours Per Day (ICD-10-PCS; 2018-05-02)
PROC: 5A1D70Z Performance of Urinary Filtration, Intermittent, Less than 6 Hours Per Day (ICD-10-PCS; 2018-05-05)
DX: L03.115 Cellulitis of right lower limb (principal); S02.66XB Fracture of symphysis of mandible, initial encounter for open fracture; N18.6 End stage renal disease; A41.9 Sepsis, unspecified organism; R65.20 Severe sepsis without septic shock; J96.22 Acute and chronic respiratory failure with hypercapnia; J96.21 Acute and chronic respiratory failure with hypoxia; G93.1 Anoxic brain damage, not elsewhere classified; Z99.2 Dependence on renal dialysis; D63.1 Anemia in chronic kidney disease; G47.33 Obstructive sleep apnea (adult) (pediatric); E03.9 Hypothyroidism, unspecified; G25.81 Restless legs syndrome; I95.9 Hypotension, unspecified; S42.115A Nondisplaced fracture of body of scapula, left shoulder, initial encounter for closed fracture; G89.11 Acute pain due to trauma; K02.9 Dental caries, unspecified; S13.4XXA Sprain of ligaments of cervical spine, initial encounter; I87.2 Venous insufficiency (chronic) (peripheral); J32.9 Chronic sinusitis, unspecified; Z95.2 Presence of prosthetic heart valve; Z79.01 Long term (current) use of anticoagulants; Z79.82 Long term (current) use of aspirin; Z79.899 Other long term (current) drug therapy; Z88.0 Allergy status to penicillin; Z88.2 Allergy status to sulfonamides; Z88.8 Allergy status to other drugs, medicaments and biological substances; W18.39XA Other fall on same level, initial encounter; Y92.230 Patient room in hospital as the place of occurrence of the external cause
CPT/HCPCS: 36415; 36416; 36430; 70450; 70486; 70498; 70551; 71045; 72141; 72170; 74018; 80048; 80053; 82805; 83605; 83735; 84100; 84132; 85025; 85610; 85652; 85730; 86140; 86850; 86870; 86900; 86901; 86922; 87040; 87340; 90935; 93923; 94002; 94003; 94640; 96365; 96366; 96367; 96375; A4216; C1713; C9113; G0257; J0692; J0696; J1100; J1170; J1250; J1956; J2001; J2060; J2250; J2270; J2405; J2704; J2765; J2920; J3010; J3370; J3430; J3490; J7050; J7620; P9059; Q4081; Q9966

== ENCOUNTER 2018-05-22 11:16 | Outpatient (CLI) | payer MEDICARE ==
--- NOTE | 2018-05-22 14:09 | RAD ---
CERVICAL SPINE SIX VIEWS: Comparison: MR cervical spine, 04-24-18; CT 03-25-16 FINDINGS: In the neutral lateral projection there is slight anterior translation of C3 on C4 and C4 on C5. Ther e is moderate disc degenerative disease at C5-6. There is advanced disc degenerative disease at C6-7. With extension, there is reduction of the anterior translation of C4 on C5. There is some mild reduc tion of the translation of C3 on C4. On flexion there is accentuation of the anterior translation of C3-4 and C4-5. Prevertebral soft tissues appear within normal limits. The lateral masses appear symme tric. Lung apices are clear. IMPRESSION: 1. Mild to moderate abnormal translation motion at C3-4 and C4-5. 2. Disc degenerative disease most pronounced at C5-6 and C6-7. 3. Reversal of the cervical lordosis. POS: [facility]
== END 2018-05-22 11:17 | disposition home or self-care (01) ==
LOC: RAD 11:16
PROVIDERS: ATTEND Neurological Surgery
DX: S16.1XXA Strain of muscle, fascia and tendon at neck level, initial encounter (principal); M48.02 Spinal stenosis, cervical region; M50.322 Other cervical disc degeneration at C5-C6 level; M40.56 Lordosis, unspecified, lumbar region
CPT/HCPCS: 72050

== ENCOUNTER 2018-05-30 08:29 | Inpatient (IN) | payer MEDICARE ==
[2018-05-30 09:39] LABS: Hemoglobin 7.6 g/dL (14.0-18.0); Mean Corpuscular HGB CONC 32.2 g/dL (32.0-36.0); Mean Corpuscular Hemoglobin 31.8 pg (27.0-31.0); Mean Corpuscular Volume 98.8 fL (78.0-98.0); Mean Platelet Volume 8.5 fL (7.4-10.4); Platelet Count 97 thou/uL (130-400); RBC Distribution Width 17.8 % (11.5-14.5); Red Blood Cell (RBC) Count 2.38 mill/uL (4.70-6.10)
[2018-05-30] MEDS ORDERED: Heparin 10,000 UNITS/ 10 ML VIAL ONE (09:39)
[2018-05-30 09:51] LABS: Anisocytosis SLIGHT = 6-15 cells (100X) (0-5/hpf); Band 23 % (5-11); Eosinophils 3 % (0-10); Lymphocytes 19 % (21-51); MDiff Complete? YES; Monocytes 7 % (0-10); Neutrophil 44 % (42-75); Platelet Morphology Comment Appears Decreased; Polychromasia SLIGHT = 2-3 cells (100X) (0-2/hpf); Reactive Lymphocytes 1 % (0-10); Schistocytes SLIGHT = 2-5 cells (100X) (0-1/hpf); Tear Drops SLIGHT = 2-5 cells (100X) (0-1/hpf)
[2018-05-30 09:55] LABS: ALT (SGPT) 10 U/L (8-55); AST (SGOT) 19 U/L (5-34); Albumin 3.1 g/dL (3.5-5.0); Alkaline Phosphatase 79 U/L (40-150); Anion Gap 12 mmol/L (10-20); BUN (Urea Nitrogen) 15 mg/dL (8.9-20.6); Calc. Creatinine Clearance 0 mL/min (70-130); Calcium 8.6 mg/dL (7.8-10.44); Carbon Dioxide 33 mmol/L (22-29); Chloride 97 mmol/L (98-107); Estimated GFR-MDRD 10; Globulin 4.2 g/dL (2.4-3.5); Glucose 78 mg/dL (70-105); Potassium 3.6 mmol/L (3.5-5.1); Protein, Total 7.3 g/dL (6.0-8.3); Sodium 138 mmol/L (136-145)
--- NOTE | 2018-05-30 10:10 | RAD ---
PORTABLE AP CHEST XRAY: DATE: 05/30/2018. HISTORY: Hypertension, sepsis. Worsening malaise and fever. COMPARISON: 04/27/2018. FINDINGS: Tracheostomy device is not visualized on this examination. There are postsurgical changes related to median sternotomy and cardiac valve replacement. Again noted is right pleural effusion with parench ymal changes again seen at the right lung base which may be related to associated atelectasis. Howev er, superimposed pneumonia cannot be entirely excluded. There are persistently increased linear and minimal airspace densities in the left mid lung zone. There is also a probable tiny left pleural eff usion. Cardiac silhouette is enlarged. Pulmonary vasculature is within normal limits for the portab le technique of the exam. Vascular calcification is seen in the ectatic thoracic aorta. There is ri ght glenohumeral osteoarthropathy with remodeling of the glenoid with sclerosis present. This is sta ble from the prior exam. IMPRESSION: 1. Tracheostomy device is not visualized on this exam and appears to have been removed in the interi m. 2. Cardiomegaly with pulmonary vasculature at the upper limits of normal. 3. Persistent right pleural effusion with parenchymal changes at the right lung base probably relate d to associated atelectasis, but superimposed pneumonia cannot be entirely excluded. 4. Stable linear and interstitial densities in the region of the lingula which could be related to a telectasis or mild scarring. POS: [facility]
[2018-05-30] MEDS ORDERED: Vancomycin HCl 1.75 GM in Sodium Chloride 0.9% 500 ML IVPB SCH (11:15)
--- NOTE | 2018-05-30 22:10 | CON ---
DATE OF CONSULTATION: REASON FOR CONSULTATION: End-stage kidney disease, on maintenance hemodialysis. HISTORY OF PRESENT ILLNESS: This is a very pleasant 47-year-old gentleman who presented to the hospital after noted hypotension. The patient denies any nausea, vomiting, or chest pain at this time. PAST MEDICAL HISTORY: Significant for end-stage renal disease, hypertension, history of aortic valve replacement, history of PD catheter placement, history of tracheostomy, history of multiple hospitalization, history of mandibular fractures, history of secondary hyperparathyroidism, history of sleep apnea, history of chronic anticoagulation, history of RSV infection, history of multiple complications. SOCIAL HISTORY: No alcohol or drug use. FAMILY HISTORY: Negative for ESRD. ALLERGIES: REVIEWED. REVIEW OF SYSTEMS: 15-point review of system was performed, negative except for what was noted above. NECK: No swelling or lumps. NOSE: No epistaxis or discharge. EYES: No diplopia or pain. MUSCULOSKELETAL: No joint pain. NEUROPSYCHIATIC SYSTEMS: No suicidal ideation. No ideation. SKIN: Denies any rash or ulcer. CONSTITUTIONAL: No fever or chills. PHYSICAL EXAMINATION: GENERAL: The patient is awake and alert. VITAL SIGNS: Pulse 80, breathing 16, blood pressure 118/58. GENERAL APPEARANCE AND MENTAL STATUS: Fair. HEAD/NECK: Normocephalic. Atraumatic. EYES: EOMI. No deformity. EARS: Clear. No ulcers. NOSE: Intact. No lesions. MOUTH: Clear. No discharge. THROAT: Clear. No exudate. LUNGS: Clear. No crackles. CARDIAC: S1, S2. No rub. ABDOMEN: Benign. Bowel sounds positive. GENITALIA/RECTUM: Green absent. NEUROLOGICAL: Alert and motor intact. LABORATORY DATA: Labs reviewed. ASSESSMENT: 1. Stage 6 chronic kidney disease. Plan; dialysis. 2. Anemia, status post transfusion. 3. Sepsis, management per primary team. 4. Medication based on GFR appropriate. Job ID: [id number]
[2018-05-30] MEDS ORDERED: Guaifenesin DM 100-10/5 ML UDCUP PO PRN (22:38)
[2018-05-30] MEDS ORDERED: Amiodarone 200 MG TAB PO SCH (22:45)
[2018-05-30] MEDS ORDERED: Pramipexole Di-HCl 1 MG TAB PO SCH ×2 (22:45→23:00)
[2018-05-30 22:49] LABS: HBSAg Index 0.23 S/CO (0-0.99); Hep B Surf Ag Non-Reactive S/CO (NonReactive)
[2018-05-30] MEDS: traMADol HCl 50 MG TAB PO PRN (22:58)
[2018-05-30 23:36] LABS: INR-International Normal Ratio 1.6; Prothrombin Time 19.2 SEC (12.0-14.7)
[2018-05-30] MEDS: Cefepime 1 GM in Sodium Chloride 0.9% 100 ML IVPB SCH (23:36)
[2018-05-31] MEDS ORDERED: Warfarin Sodium 2.5 MG TAB PO SCH (05:30)
[2018-05-31 06:47] LABS: INR-International Normal Ratio 1.7; PTT 36.5 SEC (22.9-36.1); Prothrombin Time 19.7 SEC (12.0-14.7)
[2018-05-31 06:55] LABS: Anion Gap 12 mmol/L (10-20); BUN (Urea Nitrogen) 12 mg/dL (8.9-20.6); Calc. Creatinine Clearance 29 mL/min (70-130); Calcium 8.8 mg/dL (7.8-10.44); Carbon Dioxide 31 mmol/L (22-29); Chloride 98 mmol/L (98-107); Estimated GFR-MDRD 13; Glucose 82 mg/dL (70-105); Potassium 3.8 mmol/L (3.5-5.1); Sodium 137 mmol/L (136-145)
[2018-05-31 08:05] LABS: Band 21 % (5-11); Eosinophils 2 % (0-10); Hemoglobin 8.8 g/dL (14.0-18.0); Lymphocytes 18 % (21-51); MDiff Complete? YES; Mean Corpuscular HGB CONC 31.4 g/dL (32.0-36.0); Mean Corpuscular Hemoglobin 31.1 pg (27.0-31.0); Mean Platelet Volume 9.1 fL (7.4-10.4); Monocytes 2 % (0-10); Neutrophil 57 % (42-75); Platelet Count 77 thou/uL (130-400); Platelet Morphology Comment Appears Decreased; RBC Distribution Width 16.8 % (11.5-14.5); Red Blood Cell (RBC) Count 2.84 mill/uL (4.70-6.10); White Blood Cell (WBC) Count 3.5 thou/uL (4.8-10.8)
[2018-05-31] MEDS: ALPRAZolam 0.5 MG TAB PO SCH (09:02)
[2018-05-31] MEDS: Amiodarone 200 MG TAB PO SCH ×2 (09:02→21:18)
[2018-05-31] MEDS: Cinacalcet HCl 30 MG TAB PO SCH (09:02)
[2018-05-31] MEDS: Saccharomyces boulardii 250 MG CAP PO SCH (09:02)
--- NOTE | 2018-05-31 11:20 | PRG ---
DATE OF SERVICE: 05/31/2018 SUBJECTIVE: A 47-year-old gentleman, being seen for end-stage renal disease. The patient denied nausea, vomiting, or chest pain. OBJECTIVE: CONSTITUTIONAL: The patient is awake and alert. VITAL SIGNS: Afebrile, pulse 75, breathing 16, and blood pressure 92/55. GENERAL APPEARANCE AND MENTAL STATUS: Fair. HEAD/NECK: Normocephalic. Atraumatic. EYES: EOMI. No deformity. EARS: Clear. No ulcers. NOSE: Intact. No lesions. MOUTH: Clear. No discharge. THROAT: Clear. No exudate. LUNGS: Clear. No crackles. CARDIAC: S1, S2. No rub. ABDOMEN: Benign. Bowel sounds positive. GENITALIA/RECTUM: Green absent. BACK/EXTREMITIES: Edema 0+. NEUROLOGICAL: Alert and motor intact. SKIN: LYMPHATICS: LABORATORY DATA: Reviewed. IMPRESSION AND PLAN: 1. Stage 6 chronic kidney disease. Plan dialysis . 2. Hypertension, stable. 3. Anemia, stable. 4. Medication based on GFR appropriate. Job ID: [id number]
[2018-05-31] MEDS: PROVENTIL INHALER 6.7 G (200 INHALATIONS) INH SCH ×3 (11:47→19:48)
[2018-05-31] MEDS: Carvedilol 6.25 MG TAB PO SCH (12:42)
[2018-05-31] MEDS: Cefepime 1 GM in Sodium Chloride 0.9% 100 ML IVPB SCH ×2 (12:43→23:42)
[2018-05-31 15:36] LABS: Actual Bicarbonate (HCO3a) 32.3 mEq/L (22-28); Analyzer IN Cardio ER; Calcium, Ionized 1.09 mmol/L (1.12-1.30); Carboxyhemoglobin (COHb) 0.8 gm% (0.0-3.0); Hemoglobin (Hb) 10.2 g/dL (14.0-18.0); O2 Tension (PaO2) 74.7 mmHg (80.0-100.0); Potassium - ABG Lab 3.88 mmol/L (3.70-5.30); pH, Arterial 7.32 (7.35-7.45)
[2018-05-31 15:48] LABS: CO2 Tension 63.5 mmHg (35.0-45.0)
[2018-05-31 15:49] LABS: ALV-art Gradient -47.125 (0-20); Puncture Site LRA
--- NOTE | 2018-05-31 15:50 | CON ---
DATE OF CONSULTATION: 05/31/2018 REASON FOR CONSULTATION: Fever, abnormal chest x-ray and positive blood cultures. HISTORY OF PRESENT ILLNESS: A 47-year-old patient whom I had seen recently when he presented with history of end-stage renal disease of uncertain cause, possibly chronic glomerulonephritis on hemodialysis through an AV fistula in the left upper extremity. At that time, he presented with a right foot inflammatory change, mostly cellulitis with ulceration. He did have some peripheral vascular disease, which was not more than moderate. There was no evidence of a deeper involvement. He was treated with antimicrobials with resolution of inflammatory process in the right foot. Now, he presents with fever up to 102 on the night before admission. He also had been complaining about right hip pain for the past month. Reportedly, he had had a fall a few weeks ago in the home setting. No headaches. No visual symptoms, sore throat, odynophagia, dysphagia. Recently he had a tracheostomy, which had been removed. He had a cardiac valve replacement for congenital heart defects in the past. No abdominal pain. No genitourinary symptoms. No other joint symptoms or skin disorder. PAST MEDICAL HISTORY: 1. End-stage renal disease of uncertain etiology. 2. AV fistula. 3. Restless legs syndrome. 4. Congenital heart defects, which required intervention. 5. Hyperthyroidism. 6. Aortic valve replacement, mechanical tricuspid valve. 7. Peritoneal dialysis catheter, which was removed. SOCIAL HISTORY: Former smoker, quit recently. ALLERGIES: PENICILLIN, SULFA DRUGS, PSEUDOEPHEDRINE. FAMILY HISTORY: Noncontributory. CURRENT MEDICATION LIST: 1. Tylenol. 2. Proventil. 3. DuoNeb. 4. Xanax. 5. Cordarone. 6. Coreg. 7. Cefepime. 8. Cinacalcet. 9. Robitussin. 10. Zofran. 11. Mirapex. 12. Florastor. 13. Ultram. 14. Vancomycin. PHYSICAL EXAMINATION: VITAL SIGNS: T-max 100.7, blood pressure 90/50, pulse 87, respirations 18, O2 saturation 91% to 84% on 4 L nasal cannula. HEENT: The patient has a nasal CPAP at this time. Ocular movements are conjugate. Sclerae white. Pupils are equal. Oral cavity moist. SKIN: Shows AV fistula in left upper extremity. GENITOURINARY: He does not have much urinary output. NECK: Supple. LUNGS: Symmetric air entry. Diminished breath sounds at the bases. S1, S2 without murmurs. Regular rate. ABDOMEN: Soft, not distended or tender. No ascites. No bladder distention. No back tenderness. There is moderate pain on range of motion of the right hip. No other joint inflammatory activity noted. Pulses are 1+ in dorsalis pedis. He moves all extremities equally. NEUROLOGIC: He is awake, but sleepy. He is easily arousable. Follows commands, oriented. LABORATORY DATA: White cell count 3.0 and now 3.5, hemoglobin 7.6 and 8.8, MCV 98, platelets 97,000, 23% bands and now 21% bands. Sodium 137, creatinine 6.29. Liver profile normal. BNP 1200, albumin 3.1. One or two sets of blood cultures with coagulase negative Staph, a likely contaminant of the sample rather than a true pathogen. IMAGIN. Chest x-ray from yesterday with tracheostomy removed. 2. Cardiomegaly with pulmonary congestion. 3. Persistent right pleural effusion with parenchymal changes right lung base. ASSESSMENT: 1. End-stage renal disease, probably secondary to chronic glomerulonephritis. 2. Previous congenital heart defect with artificial heart valves. 3. Right hip pain. 4. Fever. 5. Bacteremia. DISCUSSION: The bacteremia is likely due to contamination of the sample rather than a true pathogen role. Right hip pain needs to be evaluated initially with an x-ray. May need guided aspirate to rule out septic arthritis. The lung findings are chronic, possibility of superimposed infection is considered. Thromboembolism would be another concern. We will evaluate with a duplex ultrasound of lower extremities initially. Check respiratory virus PCR. Job ID: [id number]
--- NOTE | 2018-05-31 17:34 | ULT ---
BILATERAL LOWER EXTREMITY VENOUS DUPLEX ULTRASOUND INCLUDING COLOR AND SPECTRAL DOPPLER IMAGIN05/31/18 HISTORY: Leg swelling and edema, immobility. Exam performed from groin to ankle including visualized greater saphenous, common femoral, superficia l femoral, profunda femoral, popliteal, trifurcation, and posterior tibial vein regions. Phasic flow at all levels with normal compressibility and normal augmentation. No intraluminal thrombus. IMPRESSION: No evidence for deep venous thrombosis. POS: RRE
[2018-05-31] MEDS ORDERED: Pramipexole Di-HCl 1 MG TAB PO SCH (21:00)
[2018-05-31] MEDS: Pramipexole Di-HCl 1 MG TAB PO SCH (21:18)
[2018-05-31] MEDS: Warfarin Sodium 5 MG TAB PO SCH (21:18)
[2018-05-31] MEDS: Acetaminophen 500 MG TAB PO PRN (21:49)
[2018-06-01 05:47] LABS: INR-International Normal Ratio 1.7; Prothrombin Time 20.5 SEC (12.0-14.7)
[2018-06-01 06:12] LABS: Anion Gap 11 mmol/L (10-20); BUN (Urea Nitrogen) 22 mg/dL (8.9-20.6); Calc. Creatinine Clearance 19 mL/min (70-130); Calcium 8.3 mg/dL (7.8-10.44); Carbon Dioxide 33 mmol/L (22-29); Chloride 97 mmol/L (98-107); Estimated GFR-MDRD 8; Glucose 78 mg/dL (70-105); Sodium 137 mmol/L (136-145)
[2018-06-01] MEDS: PROVENTIL INHALER 6.7 G (200 INHALATIONS) INH SCH ×3 (07:42→19:43)
[2018-06-01 08:37] LABS: Band 14 % (5-11); Eosinophils 4 % (0-10); Hemoglobin 8.7 g/dL (14.0-18.0); Lymphocytes 42 % (21-51); MDiff Complete? YES; Mean Corpuscular HGB CONC 31.8 g/dL (32.0-36.0); Mean Corpuscular Hemoglobin 31.2 pg (27.0-31.0); Mean Corpuscular Volume 98.1 fL (78.0-98.0); Mean Platelet Volume 8.9 fL (7.4-10.4); Monocytes 12 % (0-10); Neutrophil 28 % (42-75); Platelet Count 76 thou/uL (130-400); Platelet Morphology Comment Appears Decreased; RBC Distribution Width 16.8 % (11.5-14.5); Red Blood Cell (RBC) Count 2.79 mill/uL (4.70-6.10); White Blood Cell (WBC) Count 3.5 thou/uL (4.8-10.8)
[2018-06-01] MEDS: ALPRAZolam 0.5 MG TAB PO SCH (10:00)
[2018-06-01] MEDS: Saccharomyces boulardii 250 MG CAP PO SCH (10:00)
[2018-06-01] MEDS: Amiodarone 200 MG TAB PO SCH ×4 (10:00→22:16)
[2018-06-01] MEDS: Cinacalcet HCl 30 MG TAB PO SCH (10:00)
[2018-06-01] MEDS: Carvedilol 6.25 MG TAB PO SCH (11:53)
[2018-06-01] MEDS: Cefepime 1 GM in Sodium Chloride 0.9% 100 ML IVPB SCH ×2 (11:53→23:21)
--- NOTE | 2018-06-01 15:01 | PRG ---
DATE OF SERVICE: 06/01/2018 SUBJECTIVE: This is a 47-year-old gentleman being seen for end-stage kidney disease. The patient denied nausea, vomiting, chest pain. OBJECTIVE: CONSTITUTIONAL: The patient is awake and alert. VITAL SIGNS: Afebrile. Pulse 75, breathing 16, blood pressure was 89/50. Awake, alert, in no acute distress. GENERAL APPEARANCE AND MENTAL STATUS: Fair. HEAD/NECK: Normocephalic. Atraumatic. EYES: EOMI. No deformity. EARS: Clear. No ulcers. NOSE: Intact. No lesions. MOUTH: Clear. No discharge. THROAT: Clear. No exudate. LUNGS: Clear. No crackles. CARDIAC: S1, S2. No rub. ABDOMEN: Benign. Bowel sounds positive. GENITALIA/RECTUM: Green absent. BACK/EXTREMITIES: Edema 0+. NEUROLOGICAL: Alert and motor intact. SKIN: LYMPHATICS: LABORATORY DATA: Labs reviewed. IMPRESSION AND PLAN: 1. Stage 6 chronic kidney disease, continue hemodialysis. 2. Hypertension, stable. 3. Anemia, stable. 4. Medication based on GFR appropriate. Job ID: [id number]
--- NOTE | 2018-06-01 17:05 | CON ---
DATE OF CONSULTATION: 06/01/2018 HISTORY OF PRESENT ILLNESS: A 47-year-old male, who has been seen by multiple physicians at this hospital. He presented with febrile illness, subsequently he was admitted to the intermediate care unit. He is on BiPAP when I saw him and because he was sleeping, I am told by the nurses and respiratory therapist. PAST MEDICAL HISTORY: Remarkable for; 1. End-stage renal disease. 2. History of vascular access procedures. 3. History of aortic valve replacement. 4. History of peritoneal dialysis catheter. 5. History of hypothyroidism. 6. History of congenital heart disease. SOCIAL HISTORY: Former smoker. Does not drink. FAMILY HISTORY: Negative for lung disease in early age. REVIEW OF SYSTEMS: A 10-point review of systems completed, otherwise negative. PHYSICAL EXAMINATION: VITAL SIGNS: He is afebrile. Heart rate 65, respiratory rate 21, and oximetry is 100% on BiPAP. GENERAL: Appears older than his age. HEENT: Pupils react. NECK: Supple. He has no lymphadenopathy. LUNGS: His lungs are distant clear. HEART: Regular rhythm. A grade 2/6 systolic murmur. ABDOMEN: Soft and nontender. EXTREMITIES: Without clubbing, cyanosis, or edema. LABORATORY DATA: White count 3.5, hemoglobin 8.7, and platelets 76,000. Sodium 137, potassium 4, chloride 97, bicarb 33, BUN 22, and creatinine 7.5. A pH of 7.32, pCO2 of 63, and pO2 of 74. IMPRESSION AND PLAN: 1. End-stage renal disease. 2. History of congenital heart disease, status post placement of aortic and tricuspid valve. 3. Fever with bacteremia ? Only 1 out of 2 blood cultures was positive. Chest x-ray was reviewed. He had a tracheostomy in old films. This has been removed. He has haziness in his right base suggestive of atelectasis. I do not think it is highly suggestive of pneumonia. We will continue to follow the other physicians caring for him. TIME SPENT: A 50 minutes consult, with greater than 50% of time spent on the unit coordinating care. Job ID: [id number] MTDD
[2018-06-01] MEDS: traMADol HCl 50 MG TAB PO PRN (17:10)
[2018-06-01] MEDS: Warfarin Sodium 5 MG TAB PO SCH (17:11)
--- NOTE | 2018-06-01 18:42 | RAD ---
TWO VIEWS RIGHT HIP: History: Right hip pain. FINDINGS: AP and frogleg views of the right hip obtained. Osteophytes seen lateral to the right acetabulum. No evidence of acute fractures, subluxations, or bony lesions seen. IMPRESSION: Right hip osteoarthritis. No acute abnormality seen. POS: EDILSON
[2018-06-01] MEDS: Pramipexole Di-HCl 1 MG TAB PO SCH ×3 (21:56→22:15)
--- NOTE | 2018-06-02 00:51 | HP ---
CHIEF COMPLAINT: Malaise and fever. HISTORY OF PRESENT ILLNESS: Mr. Sheriff is a 47-year-old male with past medical history of obstructive sleep apnea with respiratory failure, hypotension as well as end-stage renal disease, on hemodialysis, came with two days of fever and malaise, weakness, and dizziness. The patient had temperature of 102 at home and has been feeling very weak and dizzy and lethargic. The patient has taken some Tylenol last night, also complained of some hip pain, unable to ambulate, complaining of diffuse myalgias, and he was supposed to go for dialysis today, so the patient was getting ready to go to dialysis, but he could not, was feeling very lethargic, and had temperature of 99 this morning. Family decided to come to the hospital. In the ER, the patient was evaluated and found to have a fever and possible pneumonia sepsis. The patient was hypotensive. He was given IV fluid bolus after which his blood pressure improved from 76 systolic to 119 systolic. The patient also received Levaquin and vancomycin. The patient was also found to be anemic, hemoglobin also of 7.6 g, was started on transfusion. The patient was recently in the hospital for respiratory failure after a fall, sustained mandible fracture and went into respiratory failure in the hospital, requiring intubation, later tracheostomy. Tracheostomy tube came out accidentally, but he has been stable after that. PAST MEDICAL HISTORY: 1. End-stage renal disease, on hemodialysis. 2. Obstructive sleep apnea with respiratory failure. 3. Chronic anemia. 4. Hypothyroidism. 5. History of restless legs syndrome. 6. History of atrial flutter, status post cardioversion. 7. History of RSV infection. 8. History of fall with mandible fracture, status post surgery with ORIF. PAST SURGICAL HISTORY: Status post aortic valve replacement, status post ORIF for mandible fracture. CURRENT MEDICATIONS: The patient is on; 1. Renvela 800 mg three tablets t.i.d. 2. Pramipexole 2 mg at bedtime. 3. Aspirin 81 mg daily. 4. Ferrous sulfate daily. 5. Zofran p.r.n. 6. Tylenol p.r.n. 7. Sensipar 30 mg b.i.d. 8. Claritin 10 mg daily. 9. Folic acid 1 mg daily. 10. Coreg 6.25 b.i.d. 11. Coumadin 5 mg daily. 12. Florastor 250 daily. 13. Protonix 40 mg daily. 14. DuoNeb q.i.d. 15. Amiodarone 200 mg b.i.d. ALLERGIES: HE IS ALLERGIC TO PENICILLIN, SULFA, AND ADHESIVE TAPE. FAMILY HISTORY: Nothing contributory. SOCIAL HISTORY: He lives with mother. No history of smoking. No history of alcohol use. REVIEW OF SYSTEMS: CARDIOVASCULAR: No chest pain or shortness of breath. RESPIRATORY: No fever or cough. GASTROINTESTINAL: He has some nausea. No abdominal pain. CENTRAL NERVOUS SYSTEM: No headache or dizziness. PHYSICAL EXAMINATION: GENERAL: The patient is alert, awake, and oriented x2. VITAL SIGNS: Temperature is 98, pulse 79, blood pressure initially 71/40, improved to 119/52. HEENT: Head is normocephalic and atraumatic. Pupils are equal, round, and reactive. Nasopharynx is pale and dry. Hard and soft palate. No lesions. SKIN: Turgor decreased. NECK: Supple. No JVD. LUNGS: Bilateral air entry present. Crackles present bilateral bases. HEART: S1 and S2 regular. ABDOMEN: Soft. No distention. No tenderness. Normal bowel sounds. RECTAL: No symptoms. CENTRAL NERVOUS SYSTEM: No focal deficit. LABORATORY DATA: CBC shows WBC 3, hemoglobin 7.6, hematocrit 23, platelets 97. Metabolic panel; sodium 138, potassium 3.6, chloride 97, CO2 33, Glucose 78. BNP was 1213. DIAGNOSTIC DATA: Chest x-ray shows cardiomegaly with a pulmonary seminoma with persistent right pleural effusion with parenchymal changes at the right base. EKG shows normal sinus rhythm, no acute ST-T changes seen. ASSESSMENT: 1. Fever and weakness. 2. Possible pneumonia. 3. Hypotension. 4. Severe anemia, drop in hemoglobin and hematocrit. 5. End-stage renal disease with fluid overload. 6. Obstructive sleep apnea, on CPAP. PLAN: 1. Vital signs q.4 hours. 2. Activity as tolerated. 3. Allergies, penicillin and sulfa. 4. Transfuse 1 unit of packed red blood cells, oxygen by nasal cannula 2 L. 5. Vancomycin 1 g IV piggyback during dialysis. 6. Cefepime 1 g IV piggyback q.12 hours. 7. Continue his home medications. 8. Consult Dr. Campos. Job ID: [id number] [facility]
[2018-06-02 05:27] LABS: INR-International Normal Ratio 2.1; Prothrombin Time 23.5 SEC (12.0-14.7)
[2018-06-02] MEDS: PROVENTIL INHALER 6.7 G (200 INHALATIONS) INH SCH ×3 (08:30→20:11)
[2018-06-02] MEDS ORDERED: Vancomycin HCl 1 GM in Premix Bag 1 BAG IVPB SCH (09:00)
--- NOTE | 2018-06-02 12:23 | PRG ---
DATE OF SERVICE: 06/02/2018 SUBJECTIVE: Patient was seen and examined at bedside and overnight events noted. Patient denies any shortness of breath or chest pain or palpitation. No history of nausea or vomiting or diarrhea or fever or chills or cramps. OBJECTIVE: GENERAL: This is a well-built male, in no apparent distress. VITAL SIGNS: Temperature 98.3, pulse 63, respiratory rate 18, blood pressure 132/58. HEENT: Atraumatic and normocephalic. Oral mucosa is moist NECK: Supple. CARDIOVASCULAR: S1, S2 heard. Rate and rhythm regular. RESPIRATORY: Clear to auscultation. GASTROINTESTINAL: Abdomen is soft. MUSCULOSKELETAL: No tenderness. No edema. DERMATOLOGIC: No skin rash. NEUROLOGIC: Alert and awake and oriented X3. No focal neurologic deficits. Moving all the extremities. PSYCHIATRIC: Mood and affect normal. LABORATORY DATA: No labs done today. ASSESSMENT AND PLAN: 1. End-stage renal disease. Continue on dialysis. The patient was seen during dialysis. Tolerating well. Blood pressure is slightly low. We will use albumin p.r.n. for hypotension. We will attempt ultrafiltration. 2. Fluid overload with edema. 3. Hypertension. 4. Anemia. We will add Epogen with dialysis. 5. Continue dialysis on Saturday, Saturday, and Saturday as tolerated. Job ID: [id number]
--- NOTE | 2018-06-02 12:30 | PQF ---
MATI DIAMOND VENKAT R MD [id number] [facility]-295 [id number] CLINICAL DOCUMENTATION IMPROVEMENT CLARIFICATION FORM: ICD-10 Updated PLEASE DO AN ADDENDUM TO THE PROGRESS NOTE WITH ANY DOCUMENTATION UPDATES OR ADDITIONS AND CARRY THROUGH TO DC SUMMARY. THANK YOU. DATE: 06/02 ATTN: DR. Jerardo ZAPATA Please exercise your independent, professional judgment in responding to the clarification form. Clinical indicators are provided on the bottom of this form for your review. Please check appropriate box(es): [ ] Sepsis due to: (Pna, UTI, gangrenous gall bladder, etc.) [ ] SIRS due to non-infectious process (please specify etiology) [ ] with organ dysfunction [ ] without organ dysfunction [ ] Severe sepsis with acute organ dysfunction of: (Examples: respiratory failure, encephalopathy, acute kidney failure, other) [ ] Localized infection without sepsis [ ] Other diagnosis [ y ] Unable to determine In addition, please specify: Present on Admission (POA): [ y] Yes [ ] No [ ] Unable to determine For continuity of documentation, please document condition throughout progress notes and discharge summary. Thank You. CLINICAL INDICATORS - SIGNS / SYMPTOMS / LABS ER PRESENTATION 05/30: WEARS HOME 02; 3L NC 94%>4L 97-100% BP: 67/55-119-52 T: 99.4 PER MOM T: 102.2 ER PHYSICIAN FINAL DIAGNOSES: SEPSIS, ANEMIA, ESRD LABS: WBC 3.0, BANDS 23% TEMP: 100.7 - 102.7 (05/31) RR: 23- 25 PHYSICIAN H&P (JODI) 05/30: HX OF PRESENT ILLNESS: ...CAME WITH 2 DAYS OF FEVER & MALAISE. THE PT HAD TEMP OF 102 AT HOME. IN THE ER, THE PT WAS EVALUATED & FOUND TO HAVE A FEVER & POSSIBLE PNEUMONIA & SEPSIS. THE PT WAS HYPOTENSIVE NEPHROLOGY CONSULT 3/15: ASSESSMENT: 3) SEPSIS RISKS: FEVER PNEUMONIA HYPOTENSION (IN ER 67/55 - 119/52) RESPIRATORY FAILURE (BIPAP 05/31 - PRESENT) TREATMENT: IV ANTIBIOTICS (VANCOMYCIN & CEFEPIME 05/30 - PRESENT) INFECTIOUS DISEASE CONSULT (06/01) THANK YOU! Denisa (This form is maintained as a part of the permanent medical record) 2015 [employer], [place]. All Rights Reserved [facility]
--- NOTE | 2018-06-02 12:54 | PQF ---
MATI DIAMOND VENKAT R MD [id number] [facility]-295 [id number] CLINICAL DOCUMENTATION IMPROVEMENT CLARIFICATION FORM: ICD-10 Updated PLEASE DO AN ADDENDUM TO THE PROGRESS NOTE WITH ANY DOCUMENTATION UPDATES OR ADDITIONS AND CARRY THROUGH TO DC SUMMARY. THANK YOU. DATE: 06/02 ATTN: DR. Jerardo ZAPATA Please exercise your independent, professional judgment in responding to the clarification form. Clinical indicators are provided on the bottom of this form for your review. Please check appropriate box(s): [ ] Empirically treating Gram Negative Pneumonia [ ] Empirically treating Anaerobic Pneumonia [ ] Pneumonia of unknown etiology [ ] Other diagnosis [y ] Unable to determine In addition, please specify: Present on Admission (POA): [ y] Yes [ ] No [ ] Unable to determine For continuity of documentation, please document condition throughout progress notes and discharge summary. Thank You. CLINICAL INDICATORS - SIGNS / SYMPTOMS / LABS ER PHYSICIAN DOCUMENTATION 05/30: COMPLICATED CO-MORBID DISEASE PATIENT PRESENTING WITH SEPSIS / PNA. IVF & ANTIBIOTICS GIVE IN ED H&P (JODI) 05/30: HX OF PRESENT ILLNESS: THE PT HAD TEMP OF 102 AT HOME & HAS BEEN FEELING VERY WEAK, DIZZY & LETHARGIC. IN THE ER, THE PATIENT WAS EVALUATED & FOUND TO HAVE A FEVER & POSSIBLE PNEUMONIA & SEPSIS. DIAGNOSTIC DATA: CXR SHOWS CARDIOMEGALY W/A PULMONARY SEMINOMA W/PERSISTENT R PLEURAL EFFUSION W/ PARENCHYMAL CHANGES AT THE R BASE. ASSESSMENT: 2) POSSIBLE PNEUMONIA PN 05/31: 2) ? PNEUMONIA PULMONOLOGY CONSULT (YARITZA) 06/01: PLAN: CXR WAS REVIEWED. HE HAS HAZINESS IN HIS R BASE SUGGESTIVE OF ATELECTASIS. I DO NOT THINK IT IS HIGHLY SUGGESTIVE OF PNEUMONIA. TEMP: 100.7 - 102.7 (05/31) RR: 23-25 RISKS: FEVER PNEUMONIA RESPIRATORY FAILURE REQUIRING BIPAP (05/31 - PRESENT) ESRD ON DIALYSIS TREATMENT: IV ANTIBIOTICS (VANCOMYCIN & CEFEPIME 05/30 - PRESENT) PULMONOLOGY CONSULT (06/01) THANK YOU! Denisa (This form is maintained as a part of the permanent medical record) 2014 [employer] All Rights Reserved Denisa Cantrell RN, BSN [email or web address] Office: [phone] [facility]
[2018-06-02] MEDS: ALPRAZolam 0.5 MG TAB PO SCH (12:57)
[2018-06-02] MEDS: Carvedilol 6.25 MG TAB PO SCH (12:58)
[2018-06-02] MEDS: traMADol HCl 50 MG TAB PO PRN (12:58)
[2018-06-02] MEDS: Cinacalcet HCl 30 MG TAB PO SCH (12:59)
[2018-06-02] MEDS: Amiodarone 200 MG TAB PO SCH ×3 (12:59→20:39)
[2018-06-02] MEDS: Saccharomyces boulardii 250 MG CAP PO SCH (13:00)
[2018-06-02] MEDS: Cefepime 1 GM in Sodium Chloride 0.9% 100 ML IVPB SCH (13:02)
[2018-06-02] MEDS: Warfarin Sodium 5 MG TAB PO SCH (18:32)
[2018-06-02] MEDS: Pramipexole Di-HCl 1 MG TAB PO SCH (20:29)
[2018-06-02] MEDS: Epoetin (ESRD) 10,000 UNITS/ML VIAL IVP SCH (20:30)
[2018-06-03 06:07] LABS: INR-International Normal Ratio 2.6; Prothrombin Time 27.7 SEC (12.0-14.7)
[2018-06-03] MEDS: PROVENTIL INHALER 6.7 G (200 INHALATIONS) INH SCH ×3 (08:05→18:28)
[2018-06-03] MEDS: Amiodarone 200 MG TAB PO SCH ×2 (09:52→21:26)
[2018-06-03] MEDS: Cinacalcet HCl 30 MG TAB PO SCH (09:52)
[2018-06-03] MEDS: ALPRAZolam 0.5 MG TAB PO SCH (09:53)
[2018-06-03] MEDS: Saccharomyces boulardii 250 MG CAP PO SCH (09:53)
--- NOTE | 2018-06-03 10:08 | PRG ---
DATE OF SERVICE: 06/02/2018 SERVICE: Pulmonary Medicine. INTERVAL HISTORY: The patient is doing okay from respiratory standpoint. He is diffusely encephalopathic. He tolerated dialysis this morning. His blood pressure is a touch marginal right now. Otherwise, he has reflected with his mother and daughter, and he would like to pursue the tracheostomy once again as he is once again failing BiPAP therapy. He has no shortness of breath and denies a cough. Otherwise, he is in his usual state of health. PHYSICAL EXAMINATION: VITAL SIGNS: Afebrile, pulse 53, blood pressure 110/40, respirations 24, and saturation 92% on 40% FiO2. GENERAL: The patient is awake and alert, in no apparent distress. LUNGS: Decent air entry. Crackles and rhonchi are present. No wheezing is appreciated. There is no prolonged expiratory phase. HEART: Bradycardic. Regular. ABDOMEN: Soft, nontender, and nondistended. Bowel sounds are positive. MUSCULOSKELETAL: No cyanosis or clubbing. There is trace 1+ pitting in the bilateral lower extremities. NEUROLOGIC: Grossly nonfocal. He does demonstrate diffuse asterixis. LABORATORY DATA: WBC 3.5, hemoglobin 8.7, and platelets 76,000. INR 2.6. The pH is 7.32, pCO2 is 63, and pO2 is 75. Creatinine 7.5 and BUN 22. Basic metabolic profile is otherwise unremarkable. Respiratory virus panel is unremarkable. One of two blood cultures is growing coag-negative Staph. ASSESSMENT: 1. Severe sepsis, resolving. 2. Obstructive sleep apnea, horrendous. 3. History of tracheostomy, status post accidental decannulation. 4. End-stage renal disease. DISCUSSION AND PLAN: The patient is looking forward to having a tracheostomy once again so that he is no longer required to wear the BiPAP. I will call Surgery to come by and weigh in on this, and discuss the optimal timing for this procedure. Pulmonary/Critical Care will continue to follow while the patient remains in-house. Job ID: [id number]
[2018-06-03] MEDS: Carvedilol 6.25 MG TAB PO SCH (12:39)
--- NOTE | 2018-06-03 13:04 | PRG ---
DATE OF SERVICE: 06/03/2018 SERVICE: Pulmonary Medicine. INTERVAL HISTORY: The patient is doing fine from respiratory standpoint. He is on and off the BiPAP, tolerating some breaks from time to time. He denies any chest pain, fevers, or chills. No significant overnight events occurred. Surgical consultation was placed this morning. He is on line for a tracheostomy later today. Otherwise, there has been no interval change to his condition. He has no specific complaints. PHYSICAL EXAMINATION: VITAL SIGNS: Afebrile, pulse 54, blood pressure 117/49, respirations 19, saturation 93% on 3.5 L nasal cannula. GENERAL: The patient is awake and alert, in no apparent distress. LUNGS: Decent air entry. No prolonged expiratory phase is present. Rhonchi are noted. No wheezing or crackles. HEART: Normal rate, regular. ABDOMEN: Soft, nontender, and nondistended. Bowel sounds are positive. MUSCULOSKELETAL: No cyanosis or clubbing. No pitting in the bilateral lower extremities. NEUROLOGIC: Grossly nonfocal. LABORATORY DATA: INR 2.6. 1 out of 2 blood cultures is growing coag-negative Staphylococcus. Respiratory virus panel was previously unremarkable. ASSESSMENT: 1. severe sepsis, resolved. 2. Obstructive sleep apnea, horrendous. 3. History of tracheostomy, status post accidental decannulation. 4. End-stage renal disease. DISCUSSION AND PLAN: The patient will go to the OR today for replacement of tracheostomy. Pulmonary/Critical Care will continue to follow along. I will follow him after the tracheostomy can be performed. Job ID: [id number]
[2018-06-03] MEDS: Warfarin Sodium 5 MG TAB PO SCH (16:43)
[2018-06-03] MEDS ORDERED: Sterile Water 0 ML ONE (17:19)
[2018-06-03] MEDS ORDERED: Bupivacaine HCl 0.5%/Epinephrine 1:200,000/PF 30 ml Vial ONE (17:19)
[2018-06-03] MEDS ORDERED: Lidocaine 2% PF 5 ML VIAL ONE (17:19)
[2018-06-03] MEDS ORDERED: Sodium Chloride 0.9% 0 ML ONE (17:21)
[2018-06-03] MEDS: traMADol HCl 50 MG TAB PO PRN (18:03)
--- NOTE | 2018-06-03 18:35 | PRG ---
DATE OF SERVICE: 06/03/2018 SUBJECTIVE: Patient was seen and examined at bedside and overnight events noted. Patient denies any shortness of breath or chest pain or palpitation. No history of nausea or vomiting or diarrhea or fever or chills or cramps. OBJECTIVE: GENERAL: This is a well-built male in no acute distress. VITAL SIGNS: Temperature 97.6. Heart rate 54. Respiratory rate 18. Blood pressure 120/60. HEENT: Atraumatic, normocephalic. Oral mucosa is moist NECK: Supple. CARDIOVASCULAR: S1, S2 heard. Rate and rhythm regular. RESPIRATORY: Clear to auscultation. GASTROINTESTINAL: Abdomen is soft. MUSCULOSKELETAL: No tenderness. No edema. DERMATOLOGIC: No skin rash. NEUROLOGIC: Alert and awake and oriented X3. No focal neurologic deficits. Moving all the extremities. PSYCHIATRIC: Mood and affect normal. LABORATORY DATA: Potassium 4.0, BUN is 32, creatinine is 7.1 ASSESSMENT AND PLAN: 1. End-stage renal disease. Continue on hemodialysis as tolerated. 2. Edema, controlled. 3. Hypertension. 4. Anemia. 5. Fluid overload. Plan is to continue dialysis as tolerated. Job ID: [id number]
--- NOTE | 2018-06-03 20:27 | RAD ---
CHEST ONE VIEW: 06/03/18 HISTORY: Central line placement. COMPARISON: Radiograph 05/30/18. FINDINGS: Both IJ central venous catheter is placed with tip at the inferior SVC. Moderate effusions. Cardiomeg gabby. Mild edema. IMPRESSION: Uncomplicated placement left IJ central venous catheter. POS: [facility]
--- NOTE | 2018-06-03 21:03 | HP ---
HISTORY OF PRESENT ILLNESS: Chang Sheriff is a 47-year-old male patient. I have been consulted to place a tracheostomy. He is followed by Dr. Kilgore. Apparently, he had a tracheostomy in the past, becoming dislodged in rehab, unable to replace it, and the patient refused surgical placement. The patient has been encouraged by Dr. Kilgore to have another tracheostomy. The patient has chronic kidney disease, dialyzing through a left upper arm fistula, placed by Dr. Rm who is in [place] many years ago. He has been seen by Dr. Verduzco and has had multiple interventions including stents placed. Family states the dialysis center is complaining of its difficulty access. The patient has an IV in his right basilic vein. He is admitted on 05/30/2018, and after discussion, the patient and family have finally agreed to placement of a new tracheostomy. We will plan that today. He ate breakfast unfortunately. We will plan this after adequate n.p.o. status. PAST MEDICAL HISTORY: 1. End-stage renal disease, on hemodialysis using a left upper arm fistula. 2. Obstructive sleep apnea with respiratory failure. 3. Chronic anemia. 4. Hypothyroidism. 5. History of restless legs syndrome. 6. Atrial flutter, history of cardioversion. 7. History of RSV infection. 8. History of fall with mandible fracture, status post ORIF. PAST SURGICAL HISTORY: 1. He has had aortic valve replacement twice. 2. ORIF, mandible fracture. 3. Right arm fistula placement. MEDICATIONS: 1. Renvela. 2. Pramipexole. 3. Aspirin. 4. Ferrous sulfate. 5. Zofran. 6. Tylenol. 7. Sensipar. 8. Claritin. 9. Folic acid. 10. Coreg. 11. Coumadin. 12. Florastor. 13. Protonix. 14. DuoNeb. 15. Amiodarone. SOCIAL HISTORY: The patient lives with his mother. TOBACCO: None. ALCOHOL: None. PHYSICAL EXAMINATION: VITAL SIGNS: Temperature 120/65, heart rate 83. GENERAL: The patient is somnolent. LUNGS: Clear to auscultation. No wheezing. CARDIAC: Regular rate and rhythm without murmur or gallop. ABDOMEN: Obese, soft. EXTREMITIES: Unremarkable. Left upper arm fistula. IV right basilic vein. LABORATORY DATA: PT 27.7, INR 2.6. Blood gases, pCO2 of 63 on 05/31/2018. ASSESSMENT AND PLAN: 1. Respiratory failure, becoming more somnolent, probably hypercarbic. He has a chronic hypercapnia, hypercarbia. I was planning to redo his tracheostomy today, but I now discovered that he is still on Coumadin. We will hold his Coumadin and plan tracheostomy another day. I have discussed with the family. We will plan a central line and will place at the bedside using ultrasound. 2. Sleep apnea. 3. Obesity. 4. End-stage renal disease. Avoid right arm access, preserve veins for future dialysis access with a failing fistula, left arm. Job ID: [id number]
[2018-06-03] MEDS: Pramipexole Di-HCl 1 MG TAB PO SCH (21:21)
[2018-06-04] MEDS: Ondansetron PF 4 MG/2 ML Vial IVP PRN (00:11)
[2018-06-04] MEDS: traMADol HCl 50 MG TAB PO PRN (03:30)
[2018-06-04 07:07] LABS: INR-International Normal Ratio 2.8; Prothrombin Time 29.5 SEC (12.0-14.7)
[2018-06-04 07:27] LABS: Anion Gap 12 mmol/L (10-20); BUN (Urea Nitrogen) 25 mg/dL (8.9-20.6); Calc. Creatinine Clearance 16 mL/min (70-130); Calcium 7.6 mg/dL (7.8-10.44); Carbon Dioxide 31 mmol/L (22-29); Chloride 97 mmol/L (98-107); Estimated GFR-MDRD 7; Glucose 72 mg/dL (70-105); Potassium 3.5 mmol/L (3.5-5.1); Sodium 136 mmol/L (136-145)
--- NOTE | 2018-06-04 07:39 | OP ---
DATE OF PROCEDURE: 06/03/2018 PREOPERATIVE DIAGNOSES: End-stage renal disease, poor IV access, failing left arm fistula, IV left basilic vein placed in an end-stage renal disease patient and poor IV access and needed a tracheostomy and anticoagulated, and prosthetic aortic valve. POSTOPERATIVE DIAGNOSES: End-stage renal disease, poor IV access, failing left arm fistula, IV left basilic vein placed in an end-stage renal disease patient and poor IV access and needed a tracheostomy and anticoagulated, and prosthetic aortic valve. PROCEDURE PERFORMED: Left internal jugular triple-lumen catheter ultrasound-guided. ANESTHESIA: 1% Xylocaine. DESCRIPTION OF PROCEDURE: With the patient at bedside in his room, left-sided neck was prepared with ChloraPrep and draped in routine fashion. Ultrasound revealed internal jugular vein cannulated with a trocar catheter, introducing a J-wire, using Seldinger technique to place a triple-lumen catheter, removing the J-wire, securing the catheter with interrupted sutures of 3-0 silk. Sterile dressing applied. Each port aspirated blood, flushed with saline solution. Job ID: [id number]
[2018-06-04] MEDS: PROVENTIL INHALER 6.7 G (200 INHALATIONS) INH SCH ×3 (07:56→19:26)
--- NOTE | 2018-06-04 09:14 | ULT ---
RIGHT UPPER EXTREMITY VENOUS DOPPLER ULTRASOUND FOR DIALYSIS ACCESS: HISTORY: End-stage renal disease. The patient has a nonfunctioning left arm fistula (upper arm). Dr. Lozada recommended right arm only . FINDINGS: The right cephalic vein measures 2.4 mm in the proximal arm, 2 mm in the mid arm, 1.9 mm in the dista l arm, 1.8 mm in the cubital fossa, 1.9 mm in the proximal forearm, 1.1 mm in the mid forearm, and 1. 7 mm in the distal forearm. The right basilic vein measures 8.2 mm in the proximal arm, 7.8 mm in the mid arm, 6.1 mm in the dist al arm, 4.2 mm in the cubital fossa, 2.2 mm in the proximal forearm, 1.9 mm in the mid forearm, and 1 .7 mm in the distal forearm. The right brachial artery measures 3.6 mm, radial artery 2.1 mm, and ulnar artery 1.9 mm. POS: [facility]
[2018-06-04] MEDS: Saccharomyces boulardii 250 MG CAP PO SCH (09:41)
[2018-06-04] MEDS: ALPRAZolam 0.5 MG TAB PO SCH (09:41)
[2018-06-04] MEDS: Cinacalcet HCl 30 MG TAB PO SCH (09:41)
[2018-06-04] MEDS: Amiodarone 200 MG TAB PO SCH (09:42)
[2018-06-04] MEDS ORDERED: Rocuronium Bromide 10 MG/ML (10ML VIAL) ONE (10:31)
[2018-06-04] MEDS ORDERED: PHENYLEPHRINE-NS 100 MCG/ML 10 ML SYRINGE ONE (10:31)
[2018-06-04] MEDS ORDERED: Ondansetron PF 4 MG/2 ML Vial ONE (10:31)
[2018-06-04] MEDS ORDERED: Dexamethasone 20 MG/5 ML VIAL ONE (10:31)
[2018-06-04] MEDS ORDERED: Calcium Chloride 1 GM/10 ML Abboject SYRINGE ONE (10:31)
[2018-06-04] MEDS ORDERED: PROPOFOL 200 MG/20 ML VIAL ONE (10:31)
[2018-06-04] MEDS: Epoetin (ESRD) 10,000 UNITS/ML VIAL IVP SCH (11:56)
[2018-06-04] MEDS: Carvedilol 6.25 MG TAB PO SCH (13:55)
[2018-06-04] MEDS: Acetaminophen 500 MG TAB PO PRN (15:21)
[2018-06-04] MEDS ORDERED: Phytonadione 10 MG/ML AMP IM SCH (16:00)
--- NOTE | 2018-06-04 16:10 | PRG ---
DATE OF SERVICE: 06/04/2018 SERVICE: Pulmonary Medicine. INTERVAL HISTORY: There has been no change to the patient's condition. Today, he got FFP during dialysis. We are going to await an INR. If it is acceptable, he is going to go for his tracheostomy later today. Denies any current chest pain, fevers, chills, nausea, or vomiting. He is not coughing. Otherwise, he is returning to his usual state of health. PHYSICAL EXAMINATION: VITAL SIGNS: Afebrile, pulse 62, blood pressure 101/53, respirations 23, and saturation 90% on 2 L nasal cannula. GENERAL: The patient is awake and alert, in no apparent distress. LUNGS: Rhonchi are present. There are minimal dependent crackles. No prolonged expiratory phase or wheezing is appreciated. HEART: Normal rate and regular. ABDOMEN: Soft, nontender, and nondistended. Bowel sounds are positive. MUSCULOSKELETAL: No cyanosis or clubbing. No pitting in the bilateral lower extremities. NEUROLOGIC: Grossly nonfocal. LABORATORY DATA: INR 2.0 following his FFP. A pH 7.32, pCO2 of 63, pO2 of 74. Creatinine 8.62, BUN 25. Basic metabolic profile is otherwise unremarkable. Potassium 3.5. Respiratory virus panel is negative. Blood cultures positive for 1 out of 2. IMAGING STUDIES: Chest x-ray demonstrates an uncomplicated placement of a left IJ central line. Moderate effusions are noted. Cardiomegaly. ASSESSMENT: 1. Severe sepsis, resolved. 2. Obstructive sleep apnea, horrendous. 3. End-stage renal disease. 4. History of tracheostomy, status post accidental decannulation. DISCUSSION AND PLAN: The patient is going back to the OR as long as his coagulation profile is favorable. Pulmonary/Critical Care will continue to follow along while the patient remains inhouse. He will need to remain in the ICU until the tracheostomy is in place. Job ID: [id number]
--- NOTE | 2018-06-04 18:08 | PRG ---
DATE OF SERVICE: 06/04/2018 SUBJECTIVE: Patient was seen and examined at bedside and overnight events noted. Patient denies any shortness of breath or chest pain or palpitation. No history of nausea or vomiting or diarrhea or fever or chills or cramps. OBJECTIVE: GENERAL: This is a well-built male, in no apparent distress. VITAL SIGNS: Temperature 98.6. Pulse 62. Respiratory rate 20. Blood pressure 103/64. HEENT: Atraumatic, normocephalic. Oral mucosa is moist NECK: Supple. CARDIOVASCULAR: S1, S2 heard. Rate and rhythm regular. RESPIRATORY: Clear to auscultation. GASTROINTESTINAL: Abdomen is soft. MUSCULOSKELETAL: No tenderness. No edema. DERMATOLOGIC: No skin rash. NEUROLOGIC: Alert and awake and oriented X3. No focal neurologic deficits. Moving all the extremities. PSYCHIATRIC: Mood and affect normal. LABORATORY DATA: Potassium is 3.5, BUN is 75, creatinine is 8.3. ASSESSMENT AND PLAN: 1. End-stage renal disease. Continue hemodialysis on Saturday, Saturday, and Saturday. 2. Edema. Remove fluid. 3. Hypertension. 4. Anemia. 5. Fluid overload. Continue dialysis as tolerated on Saturday, Saturday, and Saturday. Job ID: [id number]
[2018-06-04 18:33] LABS: INR-International Normal Ratio 1.9; Prothrombin Time 21.7 SEC (12.0-14.7)
[2018-06-04] MEDS ORDERED: Bupivacaine HCl 0.5%/Epinephrine 1:200,000/PF 30 ml Vial ONE (19:53)
[2018-06-04] MEDS ORDERED: Lidocaine 2% PF 5 ML VIAL ONE (19:53)
[2018-06-04] MEDS ORDERED: Bupivacaine/Epinephrine 0.25% 30 ML VIAL ONE ×2 (19:53→20:27)
[2018-06-04] MEDS ORDERED: Heparin 10,000 UNITS/1 ML VIAL ONE (19:53)
[2018-06-04] MEDS ORDERED: Midazolam HCl 2 mg/2 ml Vial ONE ×2 (20:32→23:48)
[2018-06-04] MEDS ORDERED: Fentanyl 100 MCG/2 ML VIAL ONE (20:32)
[2018-06-04] MEDS ORDERED: Levofloxacin 500 mg/D5W 100 ml Premix Bag ONE (20:34)
[2018-06-04] MEDS ORDERED: Bacitracin Zinc Ointment 30 gm TUBE ONE (23:07)
[2018-06-04] MEDS ORDERED: Albuterol Sulfate 2.5 mg/3 ml Neb NEB SCH (23:45)
[2018-06-04] MEDS ORDERED: Ventilator Sedation Protocol 1 EACH FS SCH (23:45)
[2018-06-04] MEDS ORDERED: Rocuronium Bromide 50 MG/5 ML VIAL ONE (23:47)
[2018-06-04] MEDS ORDERED: Fentanyl BOLUS 250 ML IVPB PRN (23:50)
[2018-06-04] MEDS ORDERED: Propofol 1,000 MG/100 ML VIAL IV PRN (23:50)
[2018-06-04] MEDS ORDERED: DISCONTINUE PREVIOUS NARCOTIC PAIN MEDICATIONS AND BENZODIAZEPINES FS SCH (23:50)
[2018-06-04] MEDS ORDERED: Lorazepam 2 MG/ML VIAL SLOW IVP PRN (23:50)
[2018-06-04] MEDS ORDERED: Propofol BOLUS 1,000 MG/100 ML VIAL IV PRN (23:50)
--- NOTE | 2018-06-05 00:05 | RAD ---
CHEST ONE VIEW 06/04/18 HISTORY: New tracheostomy tube. COMPARISON: Radiograph prior day FINDINGS: New tracheostomy is in place. A left IJ central venous catheter tip is similar. Heart size is enlarged. Patient is rotated. Chronic right effusion. Moderate edema. IMPRESSION: New tracheostomy tube in place. POS: [facility]
[2018-06-05 00:11] LABS: #Lymphocytes 0.4 thou/uL (1.20-3.40); #Monocytes 0.1 thou/uL (0.11-0.59); #Neutrophils 2.5 thou/uL (1.40-6.50); %Eosinophils 0.3 % (0.0-10.0); %Lymphocytes 12.6 % (21.0-51.0); %Monocytes 3.6 % (0.0-10.0); %Neutrophils 83.5 % (42.0-75.0); Hemoglobin 8.6 g/dL (14.0-18.0); Mean Corpuscular HGB CONC 31.9 g/dL (32.0-36.0); Mean Corpuscular Hemoglobin 30.9 pg (27.0-31.0); Mean Corpuscular Volume 96.9 fL (78.0-98.0); Mean Platelet Volume 8.9 fL (7.4-10.4); Platelet Count 75 thou/uL (130-400); RBC Distribution Width 16.5 % (11.5-14.5); Red Blood Cell (RBC) Count 2.76 mill/uL (4.70-6.10)
[2018-06-05 00:16] LABS: Prothrombin Time 22.5 SEC (12.0-14.7)
[2018-06-05] MEDS: Pramipexole Di-HCl 1 MG TAB PO SCH ×2 (00:24→21:56)
[2018-06-05] MEDS: Amiodarone 200 MG TAB PO SCH ×4 (00:24→21:56)
[2018-06-05] MEDS ORDERED: Midazolam HCl 2 mg/2 ml Vial IVP SCH (00:30)
[2018-06-05] MEDS ORDERED: Rocuronium Bromide 50 MG/5 ML VIAL IVP SCH (00:30)
[2018-06-05] MEDS: Sodium Chloride 0.9% 1,000 ML IV SCH ×3 (00:32→20:34)
[2018-06-05 00:37] LABS: Actual Bicarbonate (HCO3a) 29.4 mEq/L (22-28); Base Excess (BEa) 4.3 mEq/L (-2.0 to +3.0); CO2 Tension 46.7 mmHg (35.0-45.0); Calcium, Ionized 1.06 mmol/L (1.12-1.30); Carboxyhemoglobin (COHb) 1.4 gm% (0.0-3.0); Hemoglobin (Hb) 9.4 g/dL (14.0-18.0); Potassium - ABG Lab 3.76 mmol/L (3.70-5.30); pH, Arterial 7.42 (7.35-7.45)
[2018-06-05 00:39] LABS: O2 Tension (PaO2) 50.9 mmHg (80.0-100.0)
[2018-06-05 00:40] LABS: ALV-art Gradient 247.225 (0-20); Puncture Site RBRACHIAL
--- NOTE | 2018-06-05 03:14 | OP ---
DATE OF PROCEDURE: 06/04/2018 PREOPERATIVE DIAGNOSES: Sleep apnea, end-stage renal disease, respiratory failure and needed tracheostomy, previously dislodged, now accepts it. POSTOPERATIVE DIAGNOSES: Sleep apnea, end-stage renal disease, respiratory failure and needed tracheostomy, previously dislodged, now accepts it, with bleeding from previous tracheostomy from inflammation and scarring. PROCEDURE PERFORMED: Laparoscopic adhesiolysis, laparoscopic placement of double-cuffed pigtail peritoneal dialysis catheter exiting left lower quadrant. Laparoscopic omentopexy. A #8 Bivona tracheostomy. ANESTHESIA: General. Note prior to this operation, Dr. Longo had spoken to the family and the patient is interested in peritoneal dialysis. He has done peritoneal dialysis before but it had to be stopped because it was not working adequately for him. He has a scar in his right lower quadrant from previous peritoneal dialysis catheter, it was placed in open fashion. I suspect it was not draining adequately. The patient is on anticoagulation for prosthetic cardiac valve and thus it was felt reasonable to proceed with a laparoscopic peritoneal dialysis catheter while he had his anticoagulation interrupted during this. He had a planned tracheostomy today. Risks and benefits explained, they consented. Note during the operation, the patient did have some bleeding from the tracheostomy more than expected due to inflammation from previous tracheostomy. This was also contributed to right heart failure, sleep apnea, and anticoagulation although reversed with fresh frozen plasma. DESCRIPTION OF PROCEDURE: The patient was taken to the operating room where under general anesthesia, neck, chest, and abdomen were clipped of hair, prepared with ChloraPrep and draped in routine fashion. Local anesthetic was infiltrated into the skin and subcutaneous tissue about the operative site. Bilateral far lateral stab incision was made. Pneumoperitoneum to 15 mmHg obtained with a Veress needle, replacing with a 5 port and contralateral port placed under laparoscopic visualization. During the placement, he did have slight bleeding from the right lobe of the liver where this was cauterized and hemostasis obtained and blood evacuated, approximately 250 mL lost due to the above-mentioned comorbidities. Once hemostasis was obtained, there were some omental adhesions to the midline interfering with adequate evaluation laparoscopically of the pelvis. Thus, these were taken down with the LigaSure. Another 5 mm port placed in the left lateral mid abdomen under laparoscopic visualization. Further adhesiolysis performed freeing the omentum from the pelvis to keep it from interfering with the peritoneal dialysis catheter. Otherwise, there were no other adhesions. Once this was accomplished, a counterincision was made above the umbilicus to the left and 8 mm port placed through this incision directed caudally into the rectus sheath, visualized laparoscopically, passed through the rectus sheath penetrating the abdominal cavity inferiorly, passing double-cuffed pigtail peritoneal dialysis catheter into the abdominal cavity, placing the internal cuff in the rectus sheath and removing the port. Planned exit site stab incision made with an 11 blade and using the [place] dissector placed through this into the counter incision, the peritoneal dialysis catheter was grasped and pulled out the exit site. The counter incision was closed in two layers approximating the subcutaneous tissues with 3-0 Monocryl, skin with subdermal 4-0 Monocryl. Catheter then connected to the flushing device. It was flushed with heparinized saline solution 2 mL, 1000 units of heparin per mL and cap applied, and sterile dressings applied. Good hemostasis noted. Omentopexy performed using two 2-0 Vicryl sutures with 0 GraNee needle, pexing the omentum to the upper abdomen, made free of the peritoneal dialysis catheter. Pneumoperitoneum evacuated. Hemostasis ensured. Max placed over the cauterized liver dome, right. All laparoscopic incisions closed with interrupted subdermal 4-0 Monocryl and Roxobel glue applied. Attention was then turned to redo tracheostomy. Local anesthetic was infiltrated into the skin and subcutaneous tissue and a transverse skin incision made above the manubrium, carried to skin, platysma. The strap muscles reflected laterally. There were abundant venous structures contributing to bleeding. These were divided and ligated with 3-0 silk suture. The thyroid isthmus bled more than usual and this was controlled with cautery and 3-0 silk suture. Dissection was carried down to the trachea and careful dissection over the trachea revealed the trachea and a strap suture of 3-0 Prolene was placed on each side and the anterior tracheal window created over three cartilaginous rings below the cricoid and the endotracheal tube visualized and as good hemostasis was noted, the endotracheal tube was withdrawn under direct visualization and the Bivona tube placed under direct visualization. The trachea cuff inflated, connected to the ventilator. At this point, although good hemostasis had been noted prior to placing the Bivona, there was bleeding. Continued to monitor this and used 3-0 silk sutures to control this. We used Surgicel and Max and Gel-Foam and good hemostasis was obtained. Skin incisions were approximated on each side with continuous suture of 3-0 Prolene. Sterile dressings applied. Job ID: [id number]
[2018-06-05 04:31] LABS: INR-International Normal Ratio 1.9
[2018-06-05 04:36] LABS: #Lymphocytes 0.4 thou/uL (1.20-3.40); #Monocytes 0.1 thou/uL (0.11-0.59); #Neutrophils 3.4 thou/uL (1.40-6.50); %Eosinophils 0.3 % (0.0-10.0); %Lymphocytes 9.5 % (21.0-51.0); %Monocytes 1.3 % (0.0-10.0); Hemoglobin 9.6 g/dL (14.0-18.0); Mean Corpuscular HGB CONC 31.8 g/dL (32.0-36.0); Mean Corpuscular Volume 97.5 fL (78.0-98.0); Mean Platelet Volume 9.4 fL (7.4-10.4); Platelet Count 94 thou/uL (130-400); RBC Distribution Width 16.7 % (11.5-14.5); White Blood Cell (WBC) Count 3.8 thou/uL (4.8-10.8)
[2018-06-05 04:41] LABS: Anion Gap 16 mmol/L (10-20); BUN (Urea Nitrogen) 16 mg/dL (8.9-20.6); Calc. Creatinine Clearance 25 mL/min (70-130); Calcium 8.3 mg/dL (7.8-10.44); Carbon Dioxide 26 mmol/L (22-29); Chloride 99 mmol/L (98-107); Estimated GFR-MDRD 11; Glucose 95 mg/dL (70-105); Potassium 4.3 mmol/L (3.5-5.1); Sodium 137 mmol/L (136-145)
[2018-06-05 06:24] LABS: Actual Bicarbonate (HCO3a) 26.8 mEq/L (22-28); CO2 Tension 48.7 mmHg (35.0-45.0); Calcium, Ionized 1.02 mmol/L (1.12-1.30); Carboxyhemoglobin (COHb) 1.4 gm% (0.0-3.0); Hemoglobin (Hb) 9.8 g/dL (14.0-18.0); Potassium - ABG Lab 4.47 mmol/L (3.70-5.30); pH, Arterial 7.36 (7.35-7.45)
[2018-06-05 06:30] LABS: ALV-art Gradient 201.625 (0-20); Puncture Site RRA
[2018-06-05] MEDS: PROVENTIL INHALER 6.7 G (200 INHALATIONS) INH SCH ×3 (07:17→18:51)
[2018-06-05] MEDS: Cinacalcet HCl 30 MG TAB PO SCH ×2 (09:15→09:31)
[2018-06-05] MEDS: Saccharomyces boulardii 250 MG CAP PO SCH ×2 (09:15→09:31)
[2018-06-05] MEDS: Carvedilol 6.25 MG TAB PO SCH (10:58)
--- NOTE | 2018-06-05 12:15 | PRG ---
DATE OF SERVICE: 06/05/2018 SUBJECTIVE: Patient was seen and examined at bedside and overnight events noted. Patient denies any shortness of breath or chest pain or palpitation. No history of nausea or vomiting or diarrhea or fever or chills or cramps. OBJECTIVE: GENERAL: This is a well-built male in no apparent distress. VITAL SIGNS: Temperature 98.2. Heart rate 79. Respiratory rate 18. Blood pressure 142/64. HEENT: Atraumatic, normocephalic. Oral mucosa is moist NECK: Supple. CARDIOVASCULAR: S1, S2 heard. Rate and rhythm regular. RESPIRATORY: Clear to auscultation. GASTROINTESTINAL: Abdomen is soft. MUSCULOSKELETAL: No tenderness. No edema. DERMATOLOGIC: No skin rash. NEUROLOGIC: Alert and awake and oriented X3. No focal neurologic deficits. Moving all the extremities. PSYCHIATRIC: Mood and affect normal. LABORATORY DATA: Potassium 4.3, BUN is 16, creatinine is 5.6. ASSESSMENT AND PLAN: 1. End-stage renal disease, on hemodialysis. Continue dialysis Saturday, Saturday, Saturday. 2. Edema. We will remove fluid with dialysis. 3. Hypertension. 4. Anemia. 5. Fluid overload. Labs are stable. We will continue dialysis Saturday, Saturday, and Saturday. The patient got a PD catheter yesterday. Job ID: [id number]
[2018-06-05] MEDS: Morphine 2 MG/ML SYRINGE SLOW IVP PRN ×2 (16:36→20:31)
--- NOTE | 2018-06-05 16:53 | PRG ---
DATE OF SERVICE: 06/05/2018 SERVICE: Pulmonary Medicine. INTERVAL HISTORY: The patient had a tracheostomy placed yesterday. He also had a peritoneal dialysis catheter placed. Afterwards, he had significant oozing from the tracheostomy site prompting Surgery to give him several more units of FFP. Ultimately, the bleeding stopped. He continues to ooze ever so slightly. He got paralyzed overnight, but is comfortable currently on sedation. He got some dyssynchrony with the ventilator. Otherwise, there has been no change to his condition. PHYSICAL EXAMINATION: VITAL SIGNS: Afebrile, pulse 73, blood pressure 122/70, respirations 27, saturation 91% on 37% FiO2 and PEEP of 5. GENERAL: The patient is sedated. He is on mechanical ventilation. HEENT: Normocephalic and atraumatic. Sclerae white. Conjunctivae pink. Oral mucosa is moist without lesions. Tracheostomy is in good position. LUNGS: Rhonchi are present bilaterally. It seems to be a little worse on the right. No prolonged expiratory phase or wheezing appreciated. HEART: Normal rate and regular. ABDOMEN: Soft, nontender, and nondistended. Bowel sounds are positive. MUSCULOSKELETAL: No cyanosis or clubbing. No pitting in the bilateral lower extremities. NEUROLOGIC: Grossly nonfocal. LABORATORY DATA: WBC 3.8, hemoglobin 9.6, platelets 94,000. INR 1.9. PH 7.36, pCO2 of 50, pO2 of 94. Basic metabolic profile is otherwise unremarkable. Creatinine 5.62. Respiratory virus panel, blood cultures negative in 1/2. IMAGING DATA: Chest x-ray demonstrates replacement of tracheostomy tube. No acute cardiopulmonary abnormalities otherwise identified. Left IJ is in good position. ASSESSMENT: 1. Severe sepsis, resolving. 2. Obstructive sleep apnea, horrendous, status post redo tracheostomy, postop day #1. 3. End-stage renal disease. DISCUSSION AND PLAN: This tracheostomy will remain in for life. We will put him on pressure control ventilation. He seems to have less dyssynchrony with the settings. We will wean away the pressures through time. I will put him on CPAP trial at 5/5 three times daily and increase as tolerated. Once he can tolerate these settings for a short period of time, we will initiate T collar trials. Pulmonary Critical Care will continue to follow along. CRITICAL CARE TIME: 30 minutes. Job ID: [id number]
--- NOTE | 2018-06-05 20:35 | PRG ---
DATE OF SERVICE: 06/05/2018 SUBJECTIVE: Chang Sheriff is doing well postoperatively. He is on the ventilator and weaned. T-piece trial underway. OBJECTIVE: LUNGS: Clear to auscultation. CARDIAC: Regular rate and rhythm without murmur or gallop. ABDOMEN: Soft, nontender. Peritoneal dialysis catheter, dressing clean and dry, lower quadrant. Tracheostomy site, minimal oozing. VITAL SIGNS: Heart rate 66, blood pressure 126/83. LABORATORY DATA: This morning, his hemoglobin was 9.6, white count 3.8. Basic metabolic profile unremarkable, consistent with renal disease. ASSESSMENT AND PLAN: 1. Status post redo tracheostomy, difficult due to excessive bleeding in the operating room and due to previous percutaneous tracheostomy technique and sleep apnea and right heart failure and venous collaterals. Fortunately, tracheostomy is stable. There is no active bleeding. Management per Pulmonary. 2. Status post laparoscopic peritoneal dialysis catheter. We would leave dressing in place. Peritoneal dialysis nurse should change his stressing in 3 to 5 days, flush the catheter and begin instructions on PD. The patient can follow up in my office in 3 to 4 weeks. I will see him as needed in this hospitalization. Please call if necessary. Job ID: [id number]
[2018-06-06] MEDS: PROVENTIL INHALER 6.7 G (200 INHALATIONS) INH SCH ×3 (06:58→22:15)
[2018-06-06] MEDS: Saccharomyces boulardii 250 MG CAP PO SCH (09:00)
[2018-06-06] MEDS: Cinacalcet HCl 30 MG TAB PO SCH (09:00)
[2018-06-06] MEDS: Amiodarone 200 MG TAB PO SCH ×2 (09:05→20:04)
[2018-06-06] MEDS: Morphine 2 MG/ML SYRINGE SLOW IVP PRN (09:12)
[2018-06-06] MEDS: Carvedilol 6.25 MG TAB PO SCH (12:10)
--- NOTE | 2018-06-06 14:29 | PRG ---
DATE OF SERVICE: 06/06/2018 SERVICE: Pulmonary Medicine. INTERVAL HISTORY: The patient is doing fine from respiratory standpoint. He got placed on pressure support ventilation at 5/5 last night. This morning, he is on T-collar trial and doing just fine. He had complaints of a headache and got 2 mg of morphine. With this, he is increasingly somnolent, but his respirations appear to be unlabored. There has been no interval change to his condition otherwise. PHYSICAL EXAMINATION: VITAL SIGNS: Afebrile, pulse 63, blood pressure is 113/60, respirations 20, and saturation 96% on 28% FiO2 via T-collar. GENERAL: The patient is awake and alert, in no apparent distress. LUNGS: Decent air entry. Rhonchi are present. There is dependent crackles present. No wheezing. HEART: Normal rate, regular. ABDOMEN: Soft, nontender, and nondistended. Bowel sounds are positive. MUSCULOSKELETAL: No cyanosis or clubbing. No pitting in bilateral lower extremities. NEUROLOGIC: Grossly nonfocal. ASSESSMENT: 1. Severe sepsis, resolving. Source is not known. 2. Obstructive sleep apnea, horrendous, status post redo tracheostomy, postop day 2. 3. End-stage renal disease. 4. Acute on chronic hypoxic and hypercapnic respiratory failure, at baseline. DISCUSSION AND PLAN: The tracheostomy will remain in for life. The patient will remain on pressure support ventilation on an as needed basis. If he goes 24 hours without the use of this, he can be considered for transition to the [facility]. He will need to stay in the hospital through the weekend and we will consider getting him to a rehabilitation facility. When he is upright, T-collar needs to be in place. When he is in bed, he has no need for this thing. I will interrupt all IV pain medications. Tramadol will be provided on a p.r.n. basis. Speech pathology will be invited to participate with Mr. Sheriff to see whether or not we can consider initiating a diet. On Saturday or Saturday, I will consider downsizing his tracheostomy, particularly if he does not require positive airway pressure. Job ID: [id number]
[2018-06-06] MEDS: traMADol HCl 50 MG TAB PO PRN (17:02)
[2018-06-06] MEDS: Epoetin (ESRD) 10,000 UNITS/ML VIAL IVP SCH (17:04)
[2018-06-06] MEDS: Sodium Chloride 0.9% 1,000 ML IV SCH (17:05)
--- NOTE | 2018-06-06 18:32 | PRG ---
DATE OF SERVICE: 06/06/2018 SUBJECTIVE: Patient was seen and examined at bedside and overnight events noted. Patient denies any shortness of breath or chest pain or palpitation. No history of nausea or vomiting or diarrhea or fever or chills or cramps. OBJECTIVE: GENERAL: This is a well-built male, in no apparent distress. VITAL SIGNS: Temperature 97.8. Heart rate . Respiratory rate 18. Blood pressure 123/63. HEENT: Atraumatic, normocephalic. Oral mucosa is moist NECK: Supple. CARDIOVASCULAR: S1, S2 heard. Rate and rhythm regular. RESPIRATORY: Clear to auscultation. GASTROINTESTINAL: Abdomen is soft. MUSCULOSKELETAL: No tenderness. No edema. DERMATOLOGIC: No skin rash. NEUROLOGIC: Alert and awake and oriented X3. No focal neurologic deficits. Moving all the extremities. PSYCHIATRIC: Mood and affect normal. LABORATORY DATA: Potassium is 4.3, BUN is 16, and creatinine is 5.0. ASSESSMENT AND PLAN: 1. End-stage renal disease, on hemodialysis. Continue dialysis Saturday, Saturday, Saturday. 2. Edema. Remove fluid with dialysis. 3. Hypertension. 4. Anemia. 5. Fluid overload. We will continue on dialysis as tolerated. Job ID: [id number]
[2018-06-06] MEDS: Pramipexole Di-HCl 1 MG TAB PO SCH (20:04)
[2018-06-06] MEDS: Acetaminophen 500 MG TAB PO PRN (20:17)
[2018-06-07] MEDS: PROVENTIL INHALER 6.7 G (200 INHALATIONS) INH SCH ×3 (07:34→18:44)
[2018-06-07] MEDS: Cinacalcet HCl 30 MG TAB PO SCH (08:48)
[2018-06-07] MEDS: Amiodarone 200 MG TAB PO SCH ×2 (08:48→20:32)
[2018-06-07] MEDS: Saccharomyces boulardii 250 MG CAP PO SCH (08:48)
--- NOTE | 2018-06-07 11:07 | PRG ---
DATE OF SERVICE: 06/07/2018 SUBJECTIVE: The patient is awake and alert. He is off mechanical ventilation. He is able to speak with his speaking valve on. OBJECTIVE: VITAL SIGNS: Temperature is 98.5, pulse 72, blood pressure 128/58, O2 saturation 91%. HEENT: Unremarkable. NECK: There is a little blood coming out of the edges of the trach. LUNGS: Clear. CARDIAC: S1, S2. Regular. ABDOMEN: Soft. EXTREMITIES: No edema. LABORATORY DATA: No labs were obtained today. ASSESSMENT: 1. Sepsis, which is resolving. 2. Obstructive sleep apnea, requiring redo tracheostomy. 3. End-stage renal disease. 4. [id number] hypoxic and hypercapnic respiratory failure. PLAN: We will discontinue mechanical ventilation from the room. If he does well tonight, he can probably be transferred to the [facility] tomorrow. I have reviewed the other medications on the list. I agree with current management. Job ID: [id number]
[2018-06-07] MEDS: Carvedilol 6.25 MG TAB PO SCH (11:49)
[2018-06-07] MEDS: Sodium Chloride 0.9% 1,000 ML IV SCH (11:58)
--- NOTE | 2018-06-07 14:25 | PRG ---
DATE OF SERVICE: 06/07/2018 SUBJECTIVE: Patient was seen and examined at bedside and overnight events noted. Patient denies any shortness of breath or chest pain or palpitation. No history of nausea or vomiting or diarrhea or fever or chills or cramps. OBJECTIVE: GENERAL: This is a well-built male, in no apparent distress. VITAL SIGNS: Temperature 98.5. Pulse 86. Respiratory rate 18. Blood pressure 124/65. HEENT: Atraumatic, normocephalic. Oral mucosa is moist. NECK: Supple. CARDIOVASCULAR: S1, S2 heard. Rate and rhythm regular. RESPIRATORY: Clear to auscultation. GASTROINTESTINAL: Abdomen is soft. MUSCULOSKELETAL: No tenderness. No edema. DERMATOLOGIC: No skin rash. NEUROLOGIC: Alert and awake and oriented X3. No focal neurologic deficits. Moving all the extremities. PSYCHIATRIC: Mood and affect normal. LABORATORY DATA: No labs done today. ASSESSMENT AND PLAN: 1. End-stage renal disease. Continue on dialysis as tolerated. 2. Edema. 3. Hypertension. 4. Anemia. 5. Fluid overload. We will continue on dialysis Saturday, Saturday, and Saturday as tolerated. Job ID: [id number]
--- NOTE | 2018-06-07 18:20 | EKG ---
Test Reason : Blood Pressure : / mmHG Vent. Rate : 079 BPM Atrial Rate : 079 BPM P-R Int : 224 ms QRS Dur : 134 ms QT Int : 454 ms P-R-T Axes : 043 110 -14 degrees QTc Int : 520 ms Sinus rhythm with 1st degree A-V block Right bundle branch block T wave abnormality, consider inferolateral ischemia Abnormal ECG Confirmed by ANN MOODY, ROWDY Foster ([id number]), assignment desk editor TJ HARRISON ([id number] on 06/07/2018 6:20:21 PM Referred By: Confirmed By:ROWDY JUAREZ MD
[2018-06-07] MEDS: Pramipexole Di-HCl 1 MG TAB PO SCH (20:31)
[2018-06-08] MEDS: PROVENTIL INHALER 6.7 G (200 INHALATIONS) INH SCH ×3 (07:15→19:24)
[2018-06-08] MEDS: Cinacalcet HCl 30 MG TAB PO SCH (08:26)
[2018-06-08] MEDS: Saccharomyces boulardii 250 MG CAP PO SCH (08:27)
[2018-06-08] MEDS: Amiodarone 200 MG TAB PO SCH ×2 (08:27→20:48)
[2018-06-08] MEDS: Sodium Chloride 0.9% 1,000 ML IV SCH (08:29)
--- NOTE | 2018-06-08 10:49 | PRG ---
DATE OF SERVICE: 06/08/2018 SUBJECTIVE: Mr. Sheriff did well last night, did not require mechanical ventilation. OBJECTIVE: VITAL SIGNS: Temperature 99.0, pulse 76, blood pressure 130/70, and O2 saturation 97%. A 24-hour intake 1819 and output zero. HEENT: Unremarkable. NECK: No JVD. Trach in good position. He is wearing a speaking valve. LUNGS: Clear. CARDIAC: S1 and S2. Regular. ABDOMEN: Soft. Peritoneal dialysis catheter noted. EXTREMITIES: No edema. LABORATORY DATA: White blood cell count 3.8, hematocrit 30, and platelet count 94. Sodium 137, potassium 4.3, chloride 99, CO2 of 26, BUN 16, creatinine 5.6, and glucose 95. ASSESSMENT: 1. Acute on chronic respiratory failure, requiring mechanical ventilation. 2. Resolving sepsis. 3. Obstructive sleep apnea. 4. End-stage renal disease requiring peritoneal hemodialysis. PLAN: Transfer to the [facility]. Job ID: [id number]
[2018-06-08] MEDS: Carvedilol 6.25 MG TAB PO SCH (11:45)
[2018-06-08] MEDS: Ondansetron PF 4 MG/2 ML Vial IVP PRN (12:54)
--- NOTE | 2018-06-08 20:00 | PRG ---
DATE OF SERVICE: 06/08/2018 SUBJECTIVE: Patient was seen and examined at bedside and overnight events noted. Patient denies any shortness of breath or chest pain or palpitation. No history of nausea or vomiting or diarrhea or fever or chills or cramps. OBJECTIVE: GENERAL: This is a well-built male, in no apparent distress. VITAL SIGNS: Temperature 99.0. Heart rate 60. Respiratory rate 18. Blood pressure 90/57. HEENT: Atraumatic, normocephalic. NECK: Supple. CARDIOVASCULAR: S1, S2 heard. Rate and rhythm regular. RESPIRATORY: Clear to auscultation. GASTROINTESTINAL: Abdomen is soft. MUSCULOSKELETAL: No tenderness. No edema. DERMATOLOGIC: No skin rash. NEUROLOGIC: Alert and awake and oriented X3. No focal neurologic deficits. Moving all the extremities. PSYCHIATRIC: Mood and affect normal. LABORATORY DATA: No labs done today. We will recheck labs. ASSESSMENT: 1. End-stage renal disease. Continue dialysis on Saturday, Saturday, and Saturday. Recheck labs in the morning. 2. Edema. 3. Hypertension. 4. Anemia. 5. Fluid overload. PLAN: Plan is to continue dialysis on Saturday, Saturday, Saturday. Recheck labs in the morning. Job ID: [id number]
[2018-06-08] MEDS: Pramipexole Di-HCl 1 MG TAB PO SCH (20:48)
[2018-06-09] MEDS ORDERED: Propofol 1,000 MG/100 ML VIAL IV ONE (01:48)
--- NOTE | 2018-06-09 01:52 | PDOC.EVN ---
Event Note - Event Note Event Note: Kristy uCba called at approx. 0110 for acute hypoxia and cardiac arrest. Per nursing staff, she was performing trach care and noticed crusting around his trach site which was recently placed on 06/04. Pt w/ complaints of increased shortness of breath as well per nursing staff. Nurse went to go get RT and noted to be hypoxic and without pulse. CPR was ingratiated and kristy cuba called at this time. At some point during this, pt's trach was dislodged and was unable to be placed back in by RT. ROSC was obtained and ET tube was successfully placed through trach site and confirmed in place by auscultation and color change capnography. O2 saturation at this time 25% per pulse ox reading upon code team reaching the room. Pt w/ noted to have blood clot coming up through placed ET tube. ABG obtained showing pH 7.18, pCO2 65.5, pO2 39.7, HCO3 24.0, and BE -5.1. O2 sat slowly climbing with stalling noted around 65%. Pt noted to be on warfarin and w/ recent trach placement with concern about bleeding into lung vs plugging by blood clot. Dr. Irizarry was called 2/2 likely need for bronch. Reccomendations for Oropharyngeal intubation as his O2 sat had stalled. Upon prep for intubation, O2 sat began to climb again and achieved 100 % SaO2. Dr. Irizarry contacted again and updated w/ recommendations to hold off on intubation and keep ET tube through trach site in place until he can get there for bronch. Pt transported to ICU from [facility] to undergo bronchoscopy. Addendum - Attending - Attending Attestation Date/Time: 06/09/18 0206 I personally evaluated the patient and discussed the management with Dr. Castro. I agree with the History, Examination, Assessment and Plan documented above with any addition or exceptions noted below. I was present from 0110 until 0155 on 06/09/18. Kristy Cuba called due to arrest associated with trach issues. When I arrived, RT had ET in trach site, bagging and sats in 40s-60s. Confirmed sat with ABG. Patient remained tachycardic. Anticipate that patient either had bleeding or mucous plugging that was cause for continued hypoxia. Chart reviewed, history of trach, ESRD, Aortic valve replacement on coumadin, mandibular fx with ORIF. Anesthesia called as well as Pulm. Recommended started endotrachial intubation to relieve hypoxia, but sats improved to near 100% soon after. Patient transferred to CCU from [facility] and set up for bronchoscopy with Pulm. Sedation with propofol initiatiated. Labs pending. No recent INR, will check. 45 minutes CC time.
[2018-06-09] MEDS ORDERED: Norepinephrine 8 MG/0.9% NS 250 ML ONE (02:17)
[2018-06-09] MEDS ORDERED: Norepinephrine 8 MG/0.9% NS 250 ML IVPB SCH (02:22)
[2018-06-09] MEDS ORDERED: Ventilator Sedation Protocol 1 EACH FS SCH (02:22)
[2018-06-09] MEDS ORDERED: Lorazepam 2 MG/ML VIAL SLOW IVP PRN (02:30)
[2018-06-09] MEDS ORDERED: fentaNYL Citrate/PF 2,000 MCG in Sodium Chloride 0.9% 60 ML IV SCH (02:30)
[2018-06-09] MEDS ORDERED: DISCONTINUE PREVIOUS NARCOTIC PAIN MEDICATIONS AND BENZODIAZEPINES FS SCH (02:30)
[2018-06-09] MEDS ORDERED: Propofol 1,000 MG/100 ML VIAL IV PRN (02:30)
[2018-06-09] MEDS ORDERED: Propofol BOLUS 1,000 MG/100 ML VIAL IV PRN (02:30)
[2018-06-09] MEDS ORDERED: Fentanyl BOLUS 250 ML IVPB PRN (02:30)
[2018-06-09] MEDS ORDERED: Morphine 2 MG/ML SYRINGE SLOW IVP PRN (02:30)
[2018-06-09 02:52] LABS: Actual Bicarbonate (HCO3a) 25.8 mEq/L (22-28); Base Excess (BEa) -0.4 mEq/L (-2.0 to +3.0); CO2 Tension 49.4 mmHg (35.0-45.0); Calcium, Ionized 1.06 mmol/L (1.12-1.30); Carboxyhemoglobin (COHb) 1.6 gm% (0.0-3.0); Hemoglobin (Hb) 9.9 g/dL (14.0-18.0); O2 Tension (PaO2) 98.6 mmHg (80.0-100.0); Potassium - ABG Lab 4.27 mmol/L (3.70-5.30); pH, Arterial 7.34 (7.35-7.45)
[2018-06-09 02:53] LABS: Puncture Site R RADIAL
[2018-06-09 03:17] LABS: Base Excess (BEa) -5.1 mEq/L (-2.0 to +3.0); Calcium, Ionized 1.16 mmol/L (1.12-1.30); Carboxyhemoglobin (COHb) 1.2 gm% (0.0-3.0); Hemoglobin (Hb) 11.2 g/dL (14.0-18.0)
[2018-06-09 03:18] LABS: CO2 Tension 65.5 mmHg (35.0-45.0); pH, Arterial 7.18 (7.35-7.45)
[2018-06-09 03:19] LABS: ALV-art Gradient 591.425 (0-20); O2 Tension (PaO2) 39.7 mmHg (80.0-100.0); Puncture Site RBRACH
--- NOTE | 2018-06-09 04:27 | OP ---
DATE OF PROCEDURE: 06/09/2018 Mr. Sheriff had a Code Blue began having copious amounts of blood and plugged off. This was removed by the respiratory therapist and replaced by endotracheal tube. He received may be a minute or 2 of CPR, apparently did lose his pulse. I arrived about 15 minutes after being called. The patient has been transported down to the CCU. He had endotracheal tube in place. He was actually awake and able to nod and shake his head to questions. I proceeded to put a 2.8 Ambu bronchoscope down his endotracheal tube going through the tracheostomy site. It looks like it was in either the left or right mainstem bronchus, but I could not tell. I subsequently took that tube out and placed a 7.0 Bivona sliding tracheostomy without difficulty. Bronchoscope was replaced into the tracheostomy tube and the tube was secured about 2 cm above the dread. There were no clots distal present. The trach was secured in place at 10 cm at the cuff. He is currently on mechanical ventilation. He is sedated lightly on propofol. Job ID: [id number]
[2018-06-09 05:17] LABS: Anion Gap 9 mmol/L (10-20); BUN (Urea Nitrogen) 33 mg/dL (8.9-20.6); Calc. Creatinine Clearance 14 mL/min (70-130); Calcium 8.1 mg/dL (7.8-10.44); Carbon Dioxide 29 mmol/L (22-29); Chloride 101 mmol/L (98-107); Estimated GFR-MDRD 6; Glucose 90 mg/dL (70-105); Potassium 4.1 mmol/L (3.5-5.1); Sodium 135 mmol/L (136-145)
[2018-06-09 05:18] LABS: #Lymphocytes 1.1 thou/uL (1.20-3.40); #Monocytes 1.1 thou/uL (0.11-0.59); #Neutrophils 10.1 thou/uL (1.40-6.50); %Basophils 0.2 % (0.0-1.0); %Eosinophils 0.1 % (0.0-10.0); %Lymphocytes 8.9 % (21.0-51.0); %Monocytes 9.1 % (0.0-10.0); %Neutrophils 81.8 % (42.0-75.0); Hemoglobin 8.7 g/dL (14.0-18.0); Mean Corpuscular HGB CONC 30.9 g/dL (32.0-36.0); Mean Corpuscular Volume 97.1 fL (78.0-98.0); Mean Platelet Volume 7.9 fL (7.4-10.4); Platelet Count 183 thou/uL (130-400); RBC Distribution Width 16.5 % (11.5-14.5); White Blood Cell (WBC) Count 12.4 thou/uL (4.8-10.8)
[2018-06-09] MEDS: PROVENTIL INHALER 6.7 G (200 INHALATIONS) INH SCH ×3 (07:39→19:02)
[2018-06-09] MEDS: Cinacalcet HCl 30 MG TAB PO SCH ×2 (08:35→12:45)
[2018-06-09] MEDS: Amiodarone 200 MG TAB PO SCH ×3 (08:35→21:25)
[2018-06-09] MEDS: Saccharomyces boulardii 250 MG CAP PO SCH ×2 (08:36→12:45)
--- NOTE | 2018-06-09 09:16 | RAD ---
CHEST 1 VIEW: HISTORY: Bleeding tracheostomy. COMPARISON: 06/04/2018. FINDINGS: Left central line. Tracheostomy tube in place. Cardiomegaly. Postop midline sternotomy changes. B ilateral vascular congestion and bilateral pleural effusions stable from 06/04/2018. IMPRESSION: Cardiomegaly with bilateral vascular congestion and postop midline sternotomy and valvular replacemen t changes. No significant new process. Continue short-term followup. POS: DIONTE
[2018-06-09] MEDS: Epoetin (ESRD) 10,000 UNITS/ML VIAL IVP SCH (13:03)
[2018-06-09] MEDS: Carvedilol 6.25 MG TAB PO SCH (13:05)
--- NOTE | 2018-06-09 13:12 | PRG ---
DATE OF SERVICE: 06/09/2018 SUBJECTIVE: A 47-year-old gentleman, being seen for end-stage kidney disease. The patient denies any nausea, vomiting, or chest pain. OBJECTIVE: CONSTITUTIONAL: The patient is awake and alert. VITAL SIGNS: Temperature afebrile, pulse 98, breathing 16, and blood pressure . GENERAL APPEARANCE AND MENTAL STATUS: Fair. HEAD/NECK: Normocephalic. Atraumatic. EYES: EOMI. No deformity. EARS: Clear. No ulcers. NOSE: Intact. No lesions. MOUTH: Clear. No discharge. THROAT: Clear. No exudate. LUNGS: Clear. No crackles. CARDIAC: S1, S2. No rub. ABDOMEN: Benign. Bowel sounds positive. GENITALIA/RECTUM: Green absent. BACK/EXTREMITIES: Edema 0+. NEUROLOGICAL: Alert and motor intact. SKIN: LYMPHATICS: LABORATORY DATA: Reviewed. ASSESSMENT AND PLAN: 1. End-stage chronic kidney disease. Continue hemodialysis. 2. Hypertension, stable. 3. Anemia, stable. 4. Medication based on GFR appropriate. Job ID: [id number]
--- NOTE | 2018-06-09 13:28 | PRG ---
DATE OF SERVICE: 06/09/2018 SERVICE: Pulmonary Medicine. INTERVAL HISTORY: The patient is doing fine from respiratory standpoint. Breathing comfortably. Denies any current chest pain, fevers, chills, nausea, vomiting, or diarrhea. He is back on mechanical ventilation. Last night, his tracheostomy plugged. It was removed and replaced with a endotracheal tube. This was subsequently changed over to a Bivona. After this occurred, he had complete resolution in issues. PHYSICAL EXAMINATION: VITAL SIGNS: Afebrile, pulse 65, blood pressure 116/60, respirations 15 and saturation 99% on 31% FiO2 and a PEEP of 5. GENERAL: The patient is awake and alert, in no apparent distress. LUNGS: Decent air entry. Rhonchi present. No prolonged expiratory phase, wheezing or crackles are appreciated. HEART: Normal rate and regular. ABDOMEN: Soft, nontender, nondistended. Bowel sounds are positive. MUSCULOSKELETAL: No cyanosis or clubbing. There is no pitting in the bilateral lower extremities. NEUROLOGIC: Grossly nonfocal. LABORATORY DATA: WBC 12.4, hemoglobin 8.7, and platelets 183,000. PH 7.34, pCO2 49, PO2 98. Creatinine 9.62. Basic metabolic profile is otherwise unremarkable. IMAGING STUDIES: Chest x-ray demonstrates no interval change to the patient's condition. Cardiomegaly and bilateral vascular congestion are once again noted. Sternotomy wires are in place. Tracheostomy tube is in good position. ASSESSMENT: 1. Acute on chronic hypoxic and hypercapnic respiratory failure, returned to baseline. 2. Severe sepsis, resolving. 3. End-stage renal disease. 4. Obstructive sleep apnea, horrendous, status post tracheostomy, postoperative day #5. DISCUSSION AND PLAN: The patient will be once again placed on a spontaneous breathing trial at 5/5. If he meets criteria, we will initiate T collar trials once again. After couple of more days, I would prefer the patient be transitioned over to an extra long Shiley as it has an inner cannula that can be clean. Pulmonary Critical Care will continue to follow along. Critical care time: 30 minutes. Job ID: [id number] MTDD
[2018-06-09] MEDS: Pramipexole Di-HCl 1 MG TAB PO SCH (21:25)
[2018-06-10] MEDS: PROVENTIL INHALER 6.7 G (200 INHALATIONS) INH SCH ×3 (07:09→19:02)
[2018-06-10] MEDS: Cinacalcet HCl 30 MG TAB PO SCH (08:31)
[2018-06-10] MEDS: Saccharomyces boulardii 250 MG CAP PO SCH (08:31)
[2018-06-10] MEDS: Amiodarone 200 MG TAB PO SCH ×2 (08:31→20:42)
--- NOTE | 2018-06-10 09:55 | PRG ---
DATE OF SERVICE: 06/10/2018 SERVICE: Pulmonary Medicine. INTERVAL HISTORY: The patient is doing really well from respiratory standpoint. Ever since got put on trach collar, he has not required any additional respiratory support. He denies any current fevers, chills, nausea, vomiting, or shortness of breath. There has been no interval change to his condition other than him having a significant cough. They brought his diet this morning. It is a little tougher than he can handle given that he has no dentition. Otherwise, there has been no interval change to his condition. PHYSICAL EXAMINATION: VITAL SIGNS: Afebrile, pulse 79, blood pressure 114/64, respirations 22, saturation 96% on T-collar. HEENT: Normocephalic and atraumatic. Sclerae white. Conjunctivae pink. Oral mucosa is moist without lesions. LUNGS: Good air entry. No prolonged expiratory phase. Rhonchi are present. No crackles or wheezing appreciated. HEART: Normal rate and regular. ABDOMEN: Soft, nontender, and nondistended. Bowel sounds are positive. MUSCULOSKELETAL: No cyanosis or clubbing. There is no pitting in the bilateral lower extremities. NEUROLOGIC: Grossly nonfocal. LABORATORY DATA: Blood culture is growing coag-negative Staph in one out of two. Respiratory virus panel is negative. ASSESSMENT: 1. Acute on chronic hypoxic and hypercapnic respiratory failure, returned to baseline. 2. Severe sepsis, resolved. 3. End-stage renal disease. 4. Obstructive sleep apnea, horrendous, status post tracheostomy, postop day 6. DISCUSSION AND PLAN: The patient is doing fine from a respiratory standpoint. We will continue our mobilization efforts today. Physical Therapy will be involved. I am planning on downsizing his tracheostomy tomorrow. We will preferably go to a 6.0 fenestrated cuffless device. That will have an inner cannula. It can be cleaned and hopefully avoid mucus plugging through time. Job ID: [id number]
[2018-06-10] MEDS: Carvedilol 6.25 MG TAB PO SCH (11:28)
--- NOTE | 2018-06-10 13:08 | PRG ---
DATE OF SERVICE: SUBJECTIVE: A 47-year-old gentleman being seen for end-stage renal disease. The patient denies nausea, vomiting, or chest pain. OBJECTIVE: CONSTITUTIONAL: The patient is awake and alert. VITAL SIGNS: Pulse 87, breathing 16, blood pressure 138/62. GENERAL APPEARANCE AND MENTAL STATUS: Fair. HEAD/NECK: Normocephalic. Atraumatic. EYES: EOMI. No deformity. EARS: Clear. No ulcers. NOSE: Intact. No lesions. MOUTH: Clear. No discharge. THROAT: Clear. No exudate. LUNGS: Clear. No crackles. CARDIAC: S1, S2. No rub. ABDOMEN: Benign. Bowel sounds positive. GENITALIA/RECTUM: Green absent. BACK/EXTREMITIES: Edema 0+. NEUROLOGICAL: Alert and motor intact. SKIN: LYMPHATICS: LABORATORY DATA: Reviewed. IMPRESSION AND PLAN: 1. Stage 6 chronic kidney disease. Continue Hemodialysis. 2. Hypertension, stable. 3. Anemia, stable. 4. Medication based on GFR appropriate. Job ID: [id number]
[2018-06-10] MEDS: Acetaminophen 500 MG TAB PO PRN (16:26)
[2018-06-10] MEDS ORDERED: Warfarin Sodium 5 MG TAB PO SCH (17:00)
[2018-06-10] MEDS: Ondansetron PF 4 MG/2 ML Vial IVP PRN (18:05)
[2018-06-10] MEDS ORDERED: traMADol HCl 50 MG TAB PO PRN (18:17)
[2018-06-10] MEDS: Pramipexole Di-HCl 1 MG TAB PO SCH (20:42)
[2018-06-11 05:43] VITALS: BMI 29.8
[2018-06-11 05:46] LABS: #Lymphocytes 0.8 thou/uL (1.20-3.40); #Monocytes 0.7 thou/uL (0.11-0.59); #Neutrophils 6.6 thou/uL (1.40-6.50); %Basophils 0.1 % (0.0-1.0); %Lymphocytes 9.6 % (21.0-51.0); %Neutrophils 81.2 % (42.0-75.0); Hemoglobin 8.3 g/dL (14.0-18.0); Mean Corpuscular HGB CONC 31.1 g/dL (32.0-36.0); Mean Corpuscular Hemoglobin 30.7 pg (27.0-31.0); Mean Corpuscular Volume 98.7 fL (78.0-98.0); Platelet Count 165 thou/uL (130-400); Red Blood Cell (RBC) Count 2.72 mill/uL (4.70-6.10); White Blood Cell (WBC) Count 8.2 thou/uL (4.8-10.8)
[2018-06-11 05:47] LABS: INR-International Normal Ratio 2.5; Prothrombin Time 26.8 SEC (12.0-14.7)
[2018-06-11 05:59] LABS: Anion Gap 10 mmol/L (10-20); BUN (Urea Nitrogen) 31 mg/dL (8.9-20.6); Calc. Creatinine Clearance 16 mL/min (70-130); Calcium 8.6 mg/dL (7.8-10.44); Carbon Dioxide 32 mmol/L (22-29); Chloride 99 mmol/L (98-107); Estimated GFR-MDRD 6; Glucose 122 mg/dL (70-105); Potassium 3.8 mmol/L (3.5-5.1); Sodium 137 mmol/L (136-145)
[2018-06-11 07:19] VITALS: TEMP 97.8
[2018-06-11] MEDS: PROVENTIL INHALER 6.7 G (200 INHALATIONS) INH SCH ×3 (07:56→18:43)
[2018-06-11] MEDS: Cinacalcet HCl 30 MG TAB PO SCH (09:08)
[2018-06-11] MEDS: Amiodarone 200 MG TAB PO SCH (09:08)
[2018-06-11] MEDS: Saccharomyces boulardii 250 MG CAP PO SCH (09:09)
--- NOTE | 2018-06-11 11:09 | PRG ---
DATE OF SERVICE: 06/11/2018 SERVICE: Pulmonary Medicine. INTERVAL HISTORY: The patient is doing fine from respiratory standpoint. Breathing comfortably. Denies any current chest pain, fevers, or chills. His tracheostomy is actually getting plugged up once again. He is requiring frequent suctioning in order to feel better with it. There were no overnight events. He is able to work with Physical Therapy and he got out of bed and into a chair today. PHYSICAL EXAMINATION: VITAL SIGNS: Afebrile, pulse 70, blood pressure 148/51, respirations 20, and saturation 98% on 28% FiO2 via T-collar. GENERAL: The patient is awake and alert, in no apparent distress. LUNGS: Decent air entry. No prolonged expiratory phase is noted. Rhonchi are actually improving. No crackles. HEART: Normal rate and regular. ABDOMEN: Soft, nontender, and nondistended. Bowel sounds are positive. MUSCULOSKELETAL: No cyanosis or clubbing. No pitting in the bilateral lower extremities. NEUROLOGIC: Grossly nonfocal. LABORATORY DATA: WBC 8.2, hemoglobin 8.3, and platelets 165,000 and stable. INR 2.5. A pH 7.34, pCO2 of 49, and pO2 of 98. Creatinine 8.94. Basic metabolic profile is otherwise unremarkable. Blood culture is growing coag-negative Staph in 1/2. Respiratory virus panel is unremarkable. ASSESSMENT: 1. Acute on chronic hypoxic and hypercapnic respiratory failure, returned to baseline. 2. Severe sepsis, resolved. 3. End-stage renal disease. 4. Obstructive sleep apnea, horrendous, status post tracheostomy, postop day 7. DISCUSSION AND PLAN: I will downsize the tracheostomy to a 6.0 fenestrated cuffless device. This will remain in place, indefinitely for his horrendous obstructive sleep apnea. Under no circumstances, he is to be decannulated. At this point, his acute medical illnesses are stable. If we have a good plan in place, from my perspective, he would be stable for transition out of the hospital today. I will continue to follow if he remains inhouse. Job ID: [id number]
--- NOTE | 2018-06-11 12:26 | PRG ---
DATE OF SERVICE: 06/11/2018 SUBJECTIVE: This is a 47-year-old gentleman being seen for end-stage kidney disease. The patient denies any nausea, vomiting, or chest pain. OBJECTIVE: CONSTITUTIONAL: The patient is awake and alert. VITAL SIGNS: Afebrile. Pulse 85, breathing 16, blood pressure 148/51. GENERAL APPEARANCE AND MENTAL STATUS: Fair. HEAD/NECK: Normocephalic. Atraumatic. EYES: EOMI. No deformity. EARS: Clear. No ulcers. NOSE: Intact. No lesions. MOUTH: Clear. No discharge. THROAT: Clear. No exudate. LUNGS: Clear. No crackles. CARDIAC: S1, S2. No rub. ABDOMEN: Benign. Bowel sounds positive. GENITALIA/RECTUM: Green absent. BACK/EXTREMITIES: Edema 0+. NEUROLOGICAL: Alert and motor intact. SKIN: LYMPHATICS: LABORATORY DATA: Reviewed. ASSESSMENT: 1. Stage 6 chronic kidney disease, plan dialysis. 2. Hypertension, stable. 3. Anemia, stable. 4. Medications based on GFR appropriate. Job ID: [id number]
[2018-06-11] MEDS: Epoetin (ESRD) 10,000 UNITS/ML VIAL IVP SCH (16:11)
[2018-06-11] MEDS: Carvedilol 6.25 MG TAB PO SCH (16:11)
[2018-06-11 16:12] VITALS: BP 138/82
[2018-06-11] MEDS ORDERED: Warfarin Sodium 3 MG TAB PO SCH (17:00)
--- NOTE | 2018-06-12 14:13 | DIS ---
DATE OF ADMISSION: 05/30/2018 DATE OF DISCHARGE: 06/11/2018 ADMITTING DIAGNOSES: 1. Fever and weakness. 2. Possible pneumonia. 3. Hypotension. 4. Severe anemia with drop in hemoglobin and hematocrit. 5. End-stage renal disease, fluid overload. 6. Obstructive sleep apnea, on CPAP. FINAL DIAGNOSES: 1. Respiratory failure, acute on chronic, secondary to severe obstructive sleep apnea. 2. Status post tracheostomy. 3. Hypotension, resolved. 4. Severe anemia, status post transfusion. 5. End-stage renal disease with fluid overload, improved. BRIEF SUMMARY OF HOSPITAL COURSE: Mr. Sheriff is a 47-year-old male with past medical history of obstructive sleep apnea, on CPAP and end-stage renal disease, on hemodialysis, history of tracheostomy, was admitted because of fever and hypotension. Cultures were drawn and showed coagulase negative Staph, which is contaminant. The patient was seen by Dr. Campos for fever hand consultation. He felt the patient does not have any recent source of infection. No evidence of pneumonia. Yesterday, a viral PCR as well as respiratory culture and DVT, so the patient was monitored in ICU. He was on BiPAP. The patient was hypotensive initially, but improved. His venogram was negative for thromboembolism. The patient was seen by Dr. Blackwell for pulmonary. He felt the patient possibly does not have pneumonia, aggressive supportive treatment. The patient was later followed by Dr. Kilgore. He felt the patient possibly needs tracheostomy again after he is off BiPAP. The patient was monitored. Once the patient was off BiPAP, the patient underwent tracheostomy and he was put on ventilator initially for a day or two. For the respiratory failure, he has continued on neb treatment, Solu-Medrol, and ventilator support, then he was weaned off ventilator, put on T collar, then again taken off completely. He was kept on CPAP during the night and transferred to [facility], but the day after the tracheostomy tube got clogged and due to respiratory distress, the patient has been taken to OR to replace the tracheostomy tube as well as put on ventilator again, admitted back to CCU where he was closely monitored again. After few more days, his tracheostomy tube was downsized and he was taken off the ventilator. He is tolerating diet very well. He is being evaluated for LTAC and has been accepted in [place], he is being transferred there. PHYSICAL EXAMINATION: GENERAL: At the time of discharge, he was stable. VITAL SIGNS: Stable. LUNGS: Clear. HEART: Heart sounds regular. ABDOMEN: Soft, nontender. Bowel sounds present. DISCHARGE MEDICATIONS: Include; 1. Pramipexole 2 mg daily. 2. Sensipar 60 mg daily. 3. Folic acid 1 mg daily. 4. Coreg 6.25 b.i.d. 5. DuoNebs q.i.d. 6. Amiodarone 200 mg b.i.d. 7. Xanax 0.5 daily. 8. Coumadin 3 mg daily. 9. Levofloxacin 500 mg daily for 2 days. 10. Tylenol p.r.n. 11. Robitussin DM p.r.n. 12. Lactobacillus acidophilus daily. The patient will be on tracheostomy management and hemodialysis for his end-stage renal disease. Job ID: [id number]
== END 2018-06-11 19:46 | DRG 3 ==
LOC: ERS 08:29 → ERHOLD 10:54 → 2NO 14:25 → IMCU/EMU 05-31 17:32 → CCU 06-04 22:19 → IMCU/EMU 06-08 12:14 → CCU 06-09 01:39
PROVIDERS: ADMIT Internal Medicine; ATTEND Internal Medicine
PROC: 30233N1 Transfusion of Nonautologous Red Blood Cells into Peripheral Vein, Percutaneous Approach (ICD-10-PCS; principal; 2018-05-30)
PROC: 02HV33Z Insertion of Infusion Device into Superior Vena Cava, Percutaneous Approach (ICD-10-PCS; 2018-06-03)
PROC: 0WHG43Z Insertion of Infusion Device into Peritoneal Cavity, Percutaneous Endoscopic Approach (ICD-10-PCS; 2018-06-04)
PROC: 0B110F4 Bypass Trachea to Cutaneous with Tracheostomy Device, Open Approach (ICD-10-PCS; 2018-06-04)
PROC: 5A1D70Z Performance of Urinary Filtration, Intermittent, Less than 6 Hours Per Day (ICD-10-PCS; 2018-06-04)
PROC: 30233K1 Transfusion of Nonautologous Frozen Plasma into Peripheral Vein, Percutaneous Approach (ICD-10-PCS; 2018-06-04)
PROC: 5A12012 Performance of Cardiac Output, Single, Manual (ICD-10-PCS; 2018-06-09)
PROC: 0B21XFZ Change Tracheostomy Device in Trachea, External Approach (ICD-10-PCS; 2018-06-09)
PROC: 0BJ08ZZ Inspection of Tracheobronchial Tree, Via Natural or Artificial Opening Endoscopic (ICD-10-PCS; 2018-06-09)
PROC: 5A1935Z Respiratory Ventilation, Less than 24 Consecutive Hours (ICD-10-PCS; 2018-06-09)
DX: A41.9 Sepsis, unspecified organism (principal); N18.6 End stage renal disease; J96.22 Acute and chronic respiratory failure with hypercapnia; J96.21 Acute and chronic respiratory failure with hypoxia; I46.9 Cardiac arrest, cause unspecified; G93.40 Encephalopathy, unspecified; I13.2 Hypertensive heart and chronic kidney disease with heart failure and with stage 5 chronic kidney disease, or end stage renal disease; J95.830 Postprocedural hemorrhage of a respiratory system organ or structure following a respiratory system procedure; G47.33 Obstructive sleep apnea (adult) (pediatric); D63.1 Anemia in chronic kidney disease; R65.20 Severe sepsis without septic shock; I50.810 Right heart failure, unspecified; G25.81 Restless legs syndrome; I73.9 Peripheral vascular disease, unspecified; M25.551 Pain in right hip; E03.9 Hypothyroidism, unspecified; Z99.2 Dependence on renal dialysis; Z95.2 Presence of prosthetic heart valve; Z87.74 Personal history of (corrected) congenital malformations of heart and circulatory system; Z87.891 Personal history of nicotine dependence; Z79.82 Long term (current) use of aspirin; Z79.01 Long term (current) use of anticoagulants; Z88.0 Allergy status to penicillin; Z88.2 Allergy status to sulfonamides; Y83.1 Surgical operation with implant of artificial internal device as the cause of abnormal reaction of the patient, or of later complication, without mention of misadventure at the time of the procedure
CPT/HCPCS: 36415; 36416; 36430; 71045; 80048; 80053; 82805; 83605; 83880; 85025; 85610; 85730; 86850; 86900; 86901; 86922; 87040; 87070; 87149; 87205; 87340; 87633; 90935; 92950; 93005; 93970; 94002; 94003; 94640; 94660; 94664; 96361; 96365; 99292; A4216; G0257; G0365; J0670; J0692; J1100; J1642; J1644; J1956; J2001; J2060; J2250; J2270; J2405; J2704; J3010; J3370; J3430; J7050; J7611; J7620; P9016; P9059; Q4081

== ENCOUNTER 2018-06-30 11:47 | Emergency (ER) | payer MEDICARE ==
[~2018-06-30 11:47] MED LIST: ISOVUE-370 76%-LOCM 1 ML ONE
--- NOTE | 2018-06-30 12:34 | RAD ---
EXAM: Single view of the chest HISTORY: Dyspnea COMPARISON: 06/09/2018 FINDINGS: Single view of the chest shows an enlarged but stable cardiomediastinal silhouette. The tra cheostomy and central venous catheter have been removed. There appear to be small bilateral pleural effusions, right greater than left with adjacent atelectasis. The patient is status post sternotomy f or cardiac valve repair. IMPRESSION: 1. Bilateral pleural effusions with adjacent atelectasis 2. Cardiomegaly
[2018-06-30] MEDS ORDERED: Ondansetron PF 4 MG/2 ML Vial ONE (12:55)
[2018-06-30 13:04] LABS: Hemoglobin 10.3 g/dL (14.0-18.0); Mean Corpuscular HGB CONC 31.4 g/dL (32.0-36.0); Mean Corpuscular Hemoglobin 29.3 pg (27.0-31.0); Mean Corpuscular Volume 93.1 fL (78.0-98.0); Mean Platelet Volume 8.3 fL (7.4-10.4); Platelet Count 163 thou/uL (130-400); White Blood Cell (WBC) Count 5.2 thou/uL (4.8-10.8)
[2018-06-30 13:05] LABS: INR-International Normal Ratio 2.3; Prothrombin Time 25.6 SEC (12.0-14.7)
[2018-06-30 13:06] LABS: PTT 54.4 SEC (22.9-36.1)
[2018-06-30 13:20] LABS: ALT (SGPT) Less than 7 U/L (8-55); AST (SGOT) 20 U/L (5-34); Albumin 3.2 g/dL (3.5-5.0); Alkaline Phosphatase 98 U/L (40-150); Anion Gap 15 mmol/L (10-20); BUN (Urea Nitrogen) 24 mg/dL (8.9-20.6); Bilirubin, Total 0.4 mg/dL (0.2-1.2); Calc. Creatinine Clearance 0 mL/min (70-130); Calcium 9.2 mg/dL (7.8-10.44); Carbon Dioxide 26 mmol/L (22-29); Chloride 98 mmol/L (98-107); Estimated GFR-MDRD 7; Globulin 4.4 g/dL (2.4-3.5); Glucose 82 mg/dL (70-105); Potassium 3.8 mmol/L (3.5-5.1); Protein, Total 7.6 g/dL (6.0-8.3); Sodium 135 mmol/L (136-145)
[2018-06-30 13:28] LABS: Anisocytosis SLIGHT = 6-15 cells (100X) (0-5/hpf); Band 1 % (5-11); Eosinophils 4 % (0-10); Hypochromia SLIGHT = 6-15 cells (100X) (0-5/hpf); Lymphocytes 22 % (21-51); MDiff Complete? YES; Monocytes 3 % (0-10); Neutrophil 70 % (42-75); Platelet Morphology Comment Appears Adequate
--- NOTE | 2018-06-30 14:42 | CT ---
CT PULMONARY ANGIOGRAM WITH IV CONTRAST AND 3D POST PROCESSING: HISTORY: Cough. The patient had trachea removed on 06/14/2018. He sneezed today and then had to cough up blo od. COMPARISON: 03/02/2016 FINDINGS: There is good contrast opacification of the pulmonary arterial vasculature without filling defects to suggest pulmonary embolism. The thoracic aorta is well opacified without aneurysm or dissection. V ascular calcifications are present. Mediastinal lymphadenopathy is stable. No pericardial or left p leural effusions are seen. There is a small, loculated right pleural effusion. Patchy infiltrates a re seen, most prominent at the left lung base. Chronic lung changes are again noted. Splenomegaly is again seen. There are degenerative changes in the spine. IMPRESSION: No CT evidence of pulmonary embolism. POS: [facility]PC
== END 2018-06-30 15:16 | disposition left against medical advice (07) ==
LOC: ERS 11:47
DX: J18.9 Pneumonia, unspecified organism (principal); R04.2 Hemoptysis; J44.9 Chronic obstructive pulmonary disease, unspecified; I12.0 Hypertensive chronic kidney disease with stage 5 chronic kidney disease or end stage renal disease; N18.6 End stage renal disease; D64.9 Anemia, unspecified; E05.90 Thyrotoxicosis, unspecified without thyrotoxic crisis or storm; F41.9 Anxiety disorder, unspecified; Z87.891 Personal history of nicotine dependence; Z79.899 Other long term (current) drug therapy; Z79.51 Long term (current) use of inhaled steroids; Z79.01 Long term (current) use of anticoagulants
CPT/HCPCS: 36415; 71045; 71275; 80053; 83605; 84484; 85025; 85610; 85730; 86850; 86870; 86900; 86901; 93005; 96374; J2405; Q9966

== ENCOUNTER 2018-07-02 13:39 | Inpatient (IN) | payer MEDICARE ==
[~2018-07-02 13:39] MED LIST changes: +Benzocaine 20% Spray 60 ML CAN ONE; -ISOVUE-370 76%-LOCM 1 ML ONE; +Lidocaine 2% Jelly 5 ML TUBE ONE
[2018-07-02 14:48] LABS: Hemoglobin 10.2 g/dL (14.0-18.0); Mean Corpuscular HGB CONC 31.7 g/dL (32.0-36.0); Mean Corpuscular Hemoglobin 29.4 pg (27.0-31.0); Mean Corpuscular Volume 92.6 fL (78.0-98.0); RBC Distribution Width 16.4 % (11.5-14.5); Red Blood Cell (RBC) Count 3.47 mill/uL (4.70-6.10); White Blood Cell (WBC) Count 6.1 thou/uL (4.8-10.8)
--- NOTE | 2018-07-02 14:48 | RAD ---
PORTABLE CHEST ONE VIEW: 07/02/2018 2:38 p.m. HISTORY: Coughing up blood. Dyspnea. COMPARISON: 06/30/2018 FINDINGS: Changes of median sternotomy and valvular replacement are again seen. The heart is enlarged. There is pulmonary vascular congestion with bilateral pleural effusions and adjacent atelectatic changes, r ight greater than left, again seen. There is a vascular stent in the left upper extremity. No pneum othoraces are identified. IMPRESSION: Stable examination. POS: EDILSON
[2018-07-02 14:58] LABS: INR-International Normal Ratio 1.9; PTT 30.7 SEC (22.9-36.1)
[2018-07-02 15:23] LABS: ALT (SGPT) 7 U/L (8-55); AST (SGOT) 25 U/L (5-34); Albumin 3.4 g/dL (3.5-5.0); Alkaline Phosphatase 99 U/L (40-150); Anion Gap 16 mmol/L (10-20); BUN (Urea Nitrogen) 21 mg/dL (8.9-20.6); Bilirubin, Total 0.6 mg/dL (0.2-1.2); Calc. Creatinine Clearance 0 mL/min (70-130); Calcium 9.4 mg/dL (7.8-10.44); Carbon Dioxide 29 mmol/L (22-29); Chloride 94 mmol/L (98-107); Estimated GFR-MDRD 8; Globulin 5.1 g/dL (2.4-3.5); Glucose 70 mg/dL (70-105); Potassium 3.9 mmol/L (3.5-5.1); Protein, Total 8.5 g/dL (6.0-8.3); Sodium 135 mmol/L (136-145)
[2018-07-02 15:40] LABS: #Eosinphils 0.3 thou/uL (0.0-0.7); #Lymphocytes 1.2 thou/uL (1.20-3.40); #Monocytes 0.4 thou/uL (0.11-0.59); #Neutrophils 4.4 thou/uL (1.40-6.50); %Basophils 0.6 % (0.0-1.0); %Eosinophils 4.5 % (0.0-10.0); %Lymphocytes 18.3 % (21.0-51.0); %Monocytes 6.6 % (0.0-10.0); Band 5 % (5-11); Eosinophils 4 % (0-10); Hypochromia SLIGHT = 6-15 cells (100X) (0-5/hpf); Lymphocytes 17 % (21-51); MDiff Complete? YES; Mean Platelet Volume 8.5 fL (7.4-10.4); Monocytes 16 % (0-10); Neutrophil 56 % (42-75); Ovalocytes SLIGHT = 2-5 cells (100X) (0-1/hpf); Platelet Count 165 thou/uL (130-400); Platelet Morphology Comment Appears Adequate; Polychromasia SLIGHT = 2-3 cells (100X) (0-2/hpf)
[2018-07-02] MEDS ORDERED: EPINEPHrine 1 MG/ML AMP ONE (17:03)
[2018-07-02] MEDS ORDERED: Lidocaine 1% w/Epinephrine 1:100K 20 ML VIAL ONE ×2 (17:04→17:13)
[2018-07-02] MEDS ORDERED: EPINEPHrine 1 MG/10 ML Abboject SYRINGE ONE ×3 (17:05→17:18)
[2018-07-02] MEDS ORDERED: Midazolam HCl 2 mg/2 ml Vial ONE (17:25)
[2018-07-02] MEDS ORDERED: Propofol 1,000 MG/100 ML VIAL IV ONE (17:40)
[2018-07-02] MEDS ORDERED: Phytonadione 10 MG in Sodium Chloride 0.9% 50 ML IVPB SCH (17:45)
[2018-07-02] MEDS ORDERED: Lorazepam 2 MG/ML VIAL ONE (17:54)
[2018-07-02] MEDS: Sodium Chloride 0.9% 1,000 ML IV SCH (18:00)
[2018-07-02] MEDS ORDERED: Fentanyl 100 MCG/2 ML VIAL ONE (18:42)
[2018-07-02 19:21] LABS: Base Excess (BEa) 3.6 mEq/L (-2.0 to +3.0); CO2 Tension 48.5 mmHg (35.0-45.0); Calcium, Ionized 1.04 mmol/L (1.12-1.30); Carboxyhemoglobin (COHb) 1.9 gm% (0.0-3.0); Hemoglobin (Hb) 8.1 g/dL (14.0-18.0); Potassium - ABG Lab 3.33 mmol/L (3.70-5.30); pH, Arterial 7.39 (7.35-7.45)
[2018-07-02] MEDS: Clindamycin/D5W 600 MG in Premix Bag 1 BAG IVPB SCH (19:22)
[2018-07-02 19:23] LABS: O2 Tension (PaO2) 57.4 mmHg (80.0-100.0)
[2018-07-02] MEDS: methylPREDNISolone Sod Succ 40 MG VIAL IVP SCH (19:23)
[2018-07-02 19:25] LABS: Puncture Site RBRACHIAL
[2018-07-02 19:26] LABS: ALV-art Gradient 452.375 (0-20)
--- NOTE | 2018-07-02 19:30 | CON ---
DATE OF CONSULTATION: HISTORY OF PRESENT ILLNESS: This is a 48-year-old gentleman, who was brought to the MICU after he presented to the ER with a several week history of intermittent hemoptysis. When I arrived in MICU, a large volume of bright red blood was coughing up from the back of his throat persistent with at least what I could see 200 mL of bright red blood. History is kind of complicated and complex. His mother was at the bedside, who is very tearful gave a history. He had a trach in place. He was sent to a rehab, apparently [facility], near [facility]. He was having some hemoptysis over there off and on. At the end of May, he went to the ER since he was coughing a lot of blood. They removed his trach. He was eventually discharged. He has been in this area locally now for several weeks. He has been coughing blood, went to the [facility] ER several days ago and it is unclear what transpired, they were to admit him to the hospital, do a bronchoscopy. He left. He came to this hospital 2 days ago once again for hemoptysis and cough. He left AMA 2 days ago, comes back again now with perfuse bleeding. He has received 2 units of fresh frozen plasma. He is due to see his primary shank tapper, Dr. Kilgore apparently tomorrow. Upon my arrival, he was profusely bleeding. His sats were 88 and 90 on nasal O2 4 L, blood pressure 98 systolic. They did an emergency bronchoscopy and therefore his right nostril was prepped with lidocaine jelly. The flexible bronchoscope was passed in. There was copious amounts of bright red blood coming out of his trachea. Vocal cords appeared to be normal entering the trachea. The previous tracheostomy site had extensive granulation tissue which was bleeding profusely. Epinephrine 1:54651 at least 20 mL were instilled along with 30 mL of 1% lidocaine with epinephrine. For a brief period of time over the course of 10 to 15 minutes his bleeding seized. At least off. The bronchoscope was removed. He is maintain his oxygen saturation. He has started coughing some blood again. A bite block was then placed. The bronchoscope was repassed again. Again profuse bleeding was seen with large clots arising from his granulation tissue. It was felt that another 10 mL of 1:08821 epinephrine was reinstilled again, lidocaine 1% with epinephrine 10 mL was instilled to the same area. Coughing persisted, bleeding persisted. It was felt he need to be intubated. 7.5 endotracheal tube was used for placement of the bronchoscope and the patient was intubated. The tube was placed above the dread. Shortly after intubation, his bleeding completely ceased, bronchoscope was removed. He was given bagging to Versed, stabilized, bronchoscope was repassed again. At this time, both lungs were reinspected. No evidence of any fresh bleeding was seen. No blood was coming out from the endotracheal tube. Normal bleeding was arising from the posterior pharynx. He is now transferred to the ICU. PAST MEDICAL HISTORY: His extensive past medical history is well outlined. 1. End-stage renal disease. 2. COPD. 3. Rest legs syndrome. 4. Hypertension. 5. Hypothyroidism. 6. Chronic anemia. PREVIOUS SURGERIES: 1. Access. 2. Aortic valve replacement in the past. 3. Previous intubation and vent support for progressive respiratory failure. He will be seeing Dr. Kilgore since April 2018. 4. He had previous mandibular fracture, 2nd traumatic injury. MEDICINES: Include, 1. Coumadin 3 mg. 2. Levaquin. 3. Ipratropium. 4. Coreg 6.25. 5. Amiodarone 200 twice a day. 6. Xanax p.r.n. ALLERGIES: PENICILLIN. REVIEW OF SYSTEMS: Unobtainable, but he was awake, responsive prior to his intubation. PHYSICAL EXAMINATION: VITAL SIGNS: Blood pressure 98/80, sats are 98%, now on the vent, respirations 18, pulse 80. CHEST: Extensive rhonchi and crackles. CARDIAC: Sinus tach. ABDOMEN: Soft without any masses. LABORATORY DATA: His INR was slightly elevated at 1.9. Additional lab; his BUN and creatinine are elevated as per his chronic renal failure. His H and H is stabilized. IMPRESSION: 1. Massive pulmonary hemorrhage or 500 mL of bright red blood arising from a previous tracheostomy site with extensive granulation tissue. 2. End-stage renal failure. 3. Coumadin coagulopathy. 4. Chronic obstructive pulmonary disease. 5. Traumatic mandibular fracture. PLAN: Empiric antibiotics, steroids, neb treatment has been initiated. We will consult ENT to see whether they would be willing to take him to the OR tomorrow to assess his site of bleeding and to see whether they will be able to address the problem. His mother is at the bedside. She understands. Sedation as tolerated. Empiric antibiotics. This is an one hour critical time, exclusive of the bronchoscopy and intubation. Note, white count 6000, H and H 10 and 32. BUN and creatinine [address] chest done yesterday showed splenomegaly. No evidence of pulmonary emboli, mediastinal adenopathy, patchy infiltrates, but no major acute changes were seen. Job ID: [id number]
--- NOTE | 2018-07-02 20:39 | HP ---
CHIEF COMPLAINT: Cough, hemoptysis. HISTORY OF PRESENT ILLNESS: Mr. Sheriff is a 48-year-old male with past medical history of end-stage renal disease, on hemodialysis; obstructive sleep apnea; and history of tracheostomy, came because of coughing of blood. The patient was seen in the ER 2 to 3 days ago for similar problem. The patient was feeling better. He left AMA, but came back today with complaining of coughing up blood, started this morning. He has had bright red blood. Also had some difficulty breathing, but no fever, no nausea, vomiting, or headache. No dizziness. The patient was evaluated in the ER, found to have severe hemoptysis. His INR was 1.9, so he was started on FFP and being admitted to [facility]. The patient had a tracheostomy on the last admission, and he was transferred to [facility] where he started bleeding from tracheostomy. He was also seen by the stone cutter there in [place], and the tracheostomy tube was removed. Later, the patient's bleeding was controlled, and he was released from there. After release, he went to the rehab for a few days and then he went home that was last week, and this week, he started bleeding again. So, after admission to [facility], he started bleeding as well as a stone cutter seen him and did a bronchoscopy. The blood was removed, and he was intubated and transferred to CCU. Currently, he was intubated and on ventilator support. PAST MEDICAL HISTORY: 1. Obstructive sleep apnea, severe. 2. End-stage renal disease, on hemodialysis. 3. Severe anemia. 4. History of respiratory failure. 5. History of pneumonia. 6. History of fever. 7. Hypothyroidism, on chronic anticoagulation. 8. History of atrial flutter, status post cardioversion. 9. History of RSV infection. 10. History of fall with a mandible fracture, status post ORIF. PAST SURGICAL HISTORY: Status post AVR, status post right arm fistula placement, status post ORIF for mandible fracture, and status post tracheostomy. CURRENT MEDICATIONS: The patient is on; 1. Pramipexole 2 mg daily. 2. Sensipar 60 mg daily. 3. Folic acid 1 mg daily. 4. Coreg 6.25 b.i.d. 5. DNS q.i.d. 6. Amiodarone 200 mg b.i.d. 7. Xanax 0.5 mg daily. 8. Coumadin 3 mg daily. 9. Tylenol p.r.n. ALLERGIES: PENICILLIN, ADHESIVE TAPE, AND SULFA. FAMILY HISTORY: Nothing contributory. SOCIAL HISTORY: The patient lives with his mom. REVIEW OF SYSTEMS: Unable to obtain. The patient is intubated and sedated. PHYSICAL EXAMINATION: VITAL SIGNS: Temperature 98, pulse 86, blood pressure 140/80. LUNGS: Breath sounds present bilaterally. Crackles present. Rhonchi present. HEART: S1 and S2. Regular. ABDOMEN: Soft. No distention. No tenderness. Normal bowel sounds. RECTAL: Deferred. CENTRAL NERVOUS SYSTEM: No focal deficit. LABORATORY DATA: CBC shows WBC 6.1, hemoglobin 10, hematocrit 32, and platelets 165. Metabolic panel; sodium 135, potassium 3.9, chloride 94, CO2 of 29, urea nitrogen 21, creatinine 7.5, and glucose 70. Prothrombin time 22, INR 1.9. Chest x-ray showed bilateral pleural effusions. CTA chest done 2 days ago did not reveal any pulmonary embolism. ASSESSMENT: 1. Acute respiratory failure. 2. Severe hemoptysis. 3. Severe obstructive sleep apnea. 4. End-stage renal disease. 5. Severe anemia. 6. Hypothyroidism. 7. Status post mandibular fracture. PLAN: 1. Vital signs q.4. 2. Allergies; penicillin and sulfa. 3. Hep-Lock. 4. Ventilator support. 5. Solu-Medrol 40 IVP q.6 hours. 6. DNS 1 unit q.4 hours. 7. Sedation protocol. Job ID: [id number]
[2018-07-03] MEDS ORDERED: Fentanyl BOLUS 250 ML IVPB PRN (00:06)
[2018-07-03] MEDS ORDERED: DISCONTINUE PREVIOUS NARCOTIC PAIN MEDICATIONS AND BENZODIAZEPINES FS SCH (00:06)
[2018-07-03] MEDS ORDERED: fentaNYL Citrate/PF 2,000 MCG in Sodium Chloride 0.9% 60 ML IV SCH (00:06)
[2018-07-03] MEDS ORDERED: Propofol BOLUS 1,000 MG/100 ML VIAL IV PRN (00:06)
[2018-07-03] MEDS: Propofol 1,000 MG/100 ML VIAL IV PRN ×5 (00:28→20:45)
[2018-07-03] MEDS: Clindamycin/D5W 600 MG in Premix Bag 1 BAG IVPB SCH ×3 (01:42→18:17)
[2018-07-03] MEDS: Lorazepam 2 MG/ML VIAL SLOW IVP PRN ×6 (01:43→20:46)
[2018-07-03 05:22] LABS: #Lymphocytes 0.4 thou/uL (1.20-3.40); #Neutrophils 2.5 thou/uL (1.40-6.50); %Basophils 0.4 % (0.0-1.0); %Eosinophils 0.5 % (0.0-10.0); %Lymphocytes 13.4 % (21.0-51.0); %Monocytes 1.4 % (0.0-10.0); %Neutrophils 84.3 % (42.0-75.0); Hemoglobin 8.6 g/dL (14.0-18.0); Mean Corpuscular HGB CONC 31.6 g/dL (32.0-36.0); Mean Corpuscular Volume 91.9 fL (78.0-98.0); Mean Platelet Volume 8.8 fL (7.4-10.4); Platelet Count 128 thou/uL (130-400); Red Blood Cell (RBC) Count 2.97 mill/uL (4.70-6.10)
[2018-07-03 05:36] LABS: Anion Gap 15 mmol/L (10-20); BUN (Urea Nitrogen) 28 mg/dL (8.9-20.6); Calc. Creatinine Clearance 15 mL/min (70-130); Calcium 8.5 mg/dL (7.8-10.44); Carbon Dioxide 26 mmol/L (22-29); Chloride 97 mmol/L (98-107); Estimated GFR-MDRD 7; Glucose 125 mg/dL (70-105); Potassium 4.6 mmol/L (3.5-5.1); Sodium 133 mmol/L (136-145)
[2018-07-03 06:45] LABS: Actual Bicarbonate (HCO3a) 28.3 mEq/L (22-28); Base Excess (BEa) 3.9 mEq/L (-2.0 to +3.0); CO2 Tension 42.4 mmHg (35.0-45.0); Calcium, Ionized 1.09 mmol/L (1.12-1.30); Carboxyhemoglobin (COHb) 0.7 gm% (0.0-3.0); Hemoglobin (Hb) 9.2 g/dL (14.0-18.0); O2 Tension (PaO2) 134.6 mmHg (80.0-100.0); Potassium - ABG Lab 4.48 mmol/L (3.70-5.30); pH, Arterial 7.44 (7.35-7.45)
[2018-07-03 06:47] LABS: Puncture Site RB
--- NOTE | 2018-07-03 07:44 | RAD ---
Chest AP view INDICATION: Intubation COMPARISON: Prior exam dated July 02, 2018 FINDINGS:Since the comparison examination the patient is intubated. The ET tube tip is seen just beyo nd the thoracic inlet. Aortic valvular prosthesis is unchanged. Cardiomegaly and pulmonary vascular congestion persists. The moderate right and tiny left pleural effusion is similar appearing. Airspace opacity within the right lower lobe has increased and may reflect worsening edema or subsegmental atelectasis . A focus of pneumonia in the right lower lobe cannot be excluded. No pneumothorax is de monstrated. IMPRESSION: Interval intubation. Persistent cardiomegaly and pulmonary vascular congestion with bilat eral pleural effusions. Airspace opacities in the right lower lobe is more prominent and may reflect worsening edema, atelectasis or pneumonia. Continued follow-up is recommended.
--- NOTE | 2018-07-03 10:19 | PRG ---
DATE OF SERVICE: SERVICE: Pulmonary Medicine. INTERVAL HISTORY: The patient is doing okay overnight. His hemoptysis seems to be settling down a little bit. He is on mechanical ventilation. He cannot provide any additional elements of the history and is requiring some significant sedation. The patient has basically told his family that under no circumstances would he ever want another tracheostomy. As such, we will do our best to control the bleeding. We will do our best to put him on BiPAP/CPAP if he can tolerate it, but once he becomes sleepy again, our only option moving forward will be hospice. I have talked about this with the patient's mother, and she is actually in tearful agreement. PHYSICAL EXAMINATION: VITAL SIGNS: Afebrile, pulse 67, blood pressure 110/59, respirations 26, saturation 97% on 47% FiO2 and PEEP of 5. GENERAL: The patient is intubated and sedated. HEENT: Normocephalic and atraumatic. Sclerae white. Conjunctivae pink. Oral mucosa is moist without lesions. Tracheostomy site has a clean dressing over it. LUNGS: Rhonchi are present. There is no prolonged expiratory phase or wheezing present. HEART: Normal rate and regular. ABDOMEN: Soft, nontender, and nondistended. Bowel sounds are positive. MUSCULOSKELETAL: No cyanosis or clubbing. There is no pitting in the bilateral lower extremities. NEUROLOGIC: Grossly nonfocal. LABORATORY DATA: WBC 3.0, hemoglobin 8.6, and platelets 128,000. PH 7.44, pCO2 42, PO2 135. Creatinine 8.66. Basic metabolic profile is otherwise unremarkable. IMAGING: Chest x-ray demonstrates good placement of the endotracheal tube. Cardiomegaly and pulmonary vascular congestion is present. Right lower lobe pleural-parenchymal opacification is present. ASSESSMENT: 1. Acute hypoxic respiratory failure. 2. Massive hemoptysis. 3. History of tracheostomy x2. 4. End-stage renal disease. 5. Mechanical aortic valve, requiring lifelong anticoagulation. 6. Obstructive sleep apnea, horrendous. DISCUSSION AND PLAN: I will continue antibiotics, steroids, and nebulized medications. ENT consultation is currently pending. The patient has told his family that under no circumstances would he be amenable to a repeat tracheostomy. He has horrendous obstructive sleep apnea. Once he is extubated, we will likely need to provide him with his noninvasive ventilator. Unfortunately, he has failed this on multiple occasions and the only time he does well is with the tracheostomy. As such, if he is adamant that he does not want a repeat tracheostomy at some point in the future, if he has an event in which he has increasing respiratory failure and becomes hypersomnolent, once again, our only true way forward I believe would be hospice. He will remain on mechanical ventilation until the bleeding is completely stopped. CRITICAL CARE TIME: 30 minutes. Job ID: [id number] MTDD
[2018-07-03] MEDS: methylPREDNISolone Sod Succ 40 MG VIAL IVP SCH ×2 (11:12→20:45)
[2018-07-03] MEDS: Sodium Chloride 0.9% 1,000 ML IV SCH (15:01)
--- NOTE | 2018-07-03 21:40 | CON ---
DATE OF CONSULTATION: 07/03/2018 CONSULTING PHYSICIAN: Dr. Metzger. REASON FOR CONSULT: End-stage renal disease evaluation. REASON FOR ADMISSION: Hemoptysis. HISTORY OF PRESENT ILLNESS: A 48-year-old male with history of end-stage renal disease, anemia, hemoptysis, respiratory failure, came to the hospital with a hemoptysis and had emergent intubation and was found to have a duane pulmonary hemorrhage. The patient is currently intubated, seen in the ICU. His last dialysis on Saturday, gets dialysis on Saturday, Saturday, and Saturday. PAST MEDICAL HISTORY: Positive for obstructive sleep apnea, end-stage renal disease, anemia, history of respiratory failure, pneumonia, hypothyroidism, atrial flutter. PAST SURGICAL HISTORY: Dialysis access placement, status post aortic valve replacement, tracheostomy. HOME MEDICATIONS: Reviewed. ALLERGIES: TO PENICILLIN AND SULFA. FAMILY HISTORY: No history of any kidney disease. SOCIAL HISTORY: No smoking, alcohol, or illicit drug abuse. REVIEW OF SYSTEMS: Could not be obtained. PHYSICAL EXAMINATION: GENERAL: This is a well-built male, seen in the ICU, intubated. VITAL SIGNS: Temperature 97.5, pulse 58, respiratory rate 18, and blood pressure 120/53. HEENT: Intubated. CV: S1 and S2 heard. RESPIRATORY: Clear. GI: Abdomen is soft. MUSCULOSKELETAL: 1+ edema. DERMATOLOGIC: No skin rash. NEUROLOGICAL: Intubated. LABORATORY DATA: Hemoglobin is 8.6. Potassium is 4.6, BUN is 28, creatinine is 8.6. ASSESSMENT AND PLAN: 1. End-stage renal disease. We will have dialysis as tolerated. Prognosis guarded. 2. Edema. 3. Anemia. 4. Acute hypoxic respiratory failure. 5. Hemoptysis per Pulmonary. Overall prognosis is poor. We will talk with other specialists. We will continue dialysis as tolerated. We will discuss with the family. Thank you for the consult. Job ID: [id number]
[2018-07-04] MEDS: Lorazepam 2 MG/ML VIAL SLOW IVP PRN ×4 (01:31→19:20)
[2018-07-04] MEDS: Clindamycin/D5W 600 MG in Premix Bag 1 BAG IVPB SCH ×3 (01:31→18:11)
[2018-07-04] MEDS: Propofol 1,000 MG/100 ML VIAL IV PRN ×3 (02:45→17:35)
[2018-07-04 04:40] LABS: #Lymphocytes 0.6 thou/uL (1.20-3.40); #Monocytes 0.1 thou/uL (0.11-0.59); #Neutrophils 2.8 thou/uL (1.40-6.50); %Eosinophils 1.3 % (0.0-10.0); %Neutrophils 79.8 % (42.0-75.0); Hemoglobin 8.4 g/dL (14.0-18.0); Mean Corpuscular HGB CONC 32.6 g/dL (32.0-36.0); Mean Corpuscular Hemoglobin 30.1 pg (27.0-31.0); Mean Corpuscular Volume 92.3 fL (78.0-98.0); Mean Platelet Volume 8.5 fL (7.4-10.4); Platelet Count 131 thou/uL (130-400); RBC Distribution Width 15.9 % (11.5-14.5); Red Blood Cell (RBC) Count 2.78 mill/uL (4.70-6.10); White Blood Cell (WBC) Count 3.5 thou/uL (4.8-10.8)
[2018-07-04 04:56] LABS: Anion Gap 17 mmol/L (10-20); BUN (Urea Nitrogen) 48 mg/dL (8.9-20.6); Calc. Creatinine Clearance 13 mL/min (70-130); Carbon Dioxide 25 mmol/L (22-29); Chloride 95 mmol/L (98-107); Estimated GFR-MDRD 6; Glucose 124 mg/dL (70-105); Potassium 4.8 mmol/L (3.5-5.1); Sodium 132 mmol/L (136-145)
[2018-07-04] MEDS: Sodium Chloride 0.9% 1,000 ML IV SCH ×2 (06:46→20:41)
[2018-07-04] MEDS: methylPREDNISolone Sod Succ 40 MG VIAL IVP SCH ×3 (07:54→20:40)
[2018-07-04] MEDS ORDERED: EPINEPHrine 1 MG/ML AMP ONE (07:58)
[2018-07-04 08:47] LABS: INR-International Normal Ratio 1.4; Prothrombin Time 16.8 SEC (12.0-14.7)
--- NOTE | 2018-07-04 08:58 | PRG ---
DATE OF SERVICE: 07/04/2018 TIME SPENT: 35 minutes of critical care time. SUBJECTIVE: The patient remains intubated on mechanical ventilation. There has been problems with his tracheostomy in terms of bleeding and poor ventilation. He also had EKG changes after bronchoscopy this morning. OBJECTIVE: VITAL SIGNS: His temperature is 98.1, pulse 56, blood pressure 93/55, O2 sat 98%. He is currently on no vasopressors. A 24-hour intake was 1682, output listed is 0. Weight 225 pounds. HEENT: He is intubated with oral tracheal tube. He has diffuse bleeding present in the ventilator circuit. Trach site has been covered with gauze. NECK: Has a C-collar in place. CARDIOVASCULAR: S1 and S2, irregular with runs of tachycardia. LUNGS: Coarse breath sounds. ABDOMEN: Peritoneal dialysis catheter noted. EXTREMITIES: Dusky skin changes in the legs. LABORATORY DATA: White blood cell count 3.5, hemoglobin 8.4, hematocrit 25.6, and platelet count 131. Coagulation parameters from today are pending. Sodium 132, potassium 4.8, chloride 95, CO2 of 25, BUN 48, creatinine 9.9, and glucose 124. IMAGING DATA: Chest x-ray shows cardiomegaly, question of a right-sided infiltrate. ASSESSMENT: 1. Acute respiratory failure. 2. Hemoptysis, felt to be from slow oozing from the tracheal site. 3. Chronic renal failure with coagulopathy noted 2 days ago. PLAN: 1. Bronchoscopy has been performed - see operative report. 2. Not weanable secondary to unstable airway from bleeding. 3. We will recheck coagulation parameters. It is very important that this patient not be given any heparin for dialysis. I have given him some DDAVP to see if that will help further disposition to follow. Job ID: [id number]
--- NOTE | 2018-07-04 09:23 | RAD ---
PORTABLE CHEST: HISTORY: Respiratory distress. COMPARISON: Prior day's examination. FINDINGS: Endotracheal tube is in satisfactory position. Heart size is enlarged. Postop sternotomy changes an d valve replacement are noted. The pulmonary vessels are engorged. Increased perihilar markings wit h right-sided pleural changes. IMPRESSION: Stable examination. POS: TPC
--- NOTE | 2018-07-04 10:16 | PRG ---
DATE OF SERVICE: 07/04/2018 SUBJECTIVE: The patient was seen and examined at bedside. His mom was at the bedside too. The patient remains intubated, and he is still having pulmonary hemorrhage. OBJECTIVE: GENERAL: This is a well-built male, in no apparent distress. VITAL SIGNS: Temperature 98.3, pulse 64, respiratory rate 18, blood pressure 120/59. HEENT: Intubated. CV: S1 and S2 heard. RESPIRATORY: Clear. GI: Abdomen is soft. MUSCULOSKELETAL: 1+ edema. DERMATOLOGIC: No skin rash. NEUROLOGIC: Intubated. LABORATORY DATA: Potassium 4.8, BUN is 48, creatinine is 9.3. Hemoglobin is 8.4. INR is 1.4. ASSESSMENT AND PLAN: 1. End-stage renal disease. We will continue on dialysis as tolerated. Plan to have a short dialysis today. Avoid heparin due to pulmonary hemorrhage. 2. Edema. 3. Anemia. 4. Acute hypoxic respiratory failure. 5. Pulmonary hemorrhage and hemoptysis. Prognosis is guarded. Updated mom at bedside. We will have dialysis if tolerated. Job ID: [id number]
[2018-07-04 11:01] LABS: Actual Bicarbonate (HCO3a) 24.2 mEq/L (22-28); Base Excess (BEa) -0.8 mEq/L (-2.0 to +3.0); CO2 Tension 41.3 mmHg (35.0-45.0); Carboxyhemoglobin (COHb) 1.5 gm% (0.0-3.0); Hemoglobin (Hb) 8.6 g/dL (14.0-18.0); O2 Tension (PaO2) 99.3 mmHg (80.0-100.0); Potassium - ABG Lab 4.98 mmol/L (3.70-5.30); pH, Arterial 7.39 (7.35-7.45)
[2018-07-04 11:02] LABS: ALV-art Gradient 155.665 (0-20); Puncture Site RBA
[2018-07-04] MEDS: Morphine 2 MG/ML SYRINGE SLOW IVP PRN ×2 (14:22→17:34)
[2018-07-04 19:33] LABS: BF Color Yellow; BF RBC Count - Manual 1975 /cumm; Body Fluid Source Peritoneal Fluid; Clarity Hazy (Clear); Tube # EDTA; WBC/NonHematic-Auto 266 /cumm
[2018-07-04 19:55] LABS: BF Segmented Neutrophils 12 %; Cell Count Non Hematic 31 %; Eosinophils 13 %; Lymphocytes 34 %
[2018-07-05] MEDS: Lorazepam 2 MG/ML VIAL SLOW IVP PRN ×2 (00:37→21:48)
[2018-07-05] MEDS: Propofol 1,000 MG/100 ML VIAL IV PRN ×5 (00:37→20:10)
[2018-07-05] MEDS: Clindamycin/D5W 600 MG in Premix Bag 1 BAG IVPB SCH ×3 (02:14→18:04)
[2018-07-05 06:03] LABS: #Lymphocytes 0.5 thou/uL (1.20-3.40); #Monocytes 0.1 thou/uL (0.11-0.59); #Neutrophils 2.1 thou/uL (1.40-6.50); %Basophils 0.5 % (0.0-1.0); %Lymphocytes 17.4 % (21.0-51.0); %Monocytes 3.8 % (0.0-10.0); %Neutrophils 78.4 % (42.0-75.0); Mean Corpuscular HGB CONC 32.7 g/dL (32.0-36.0); Mean Corpuscular Hemoglobin 30.3 pg (27.0-31.0); Mean Corpuscular Volume 92.6 fL (78.0-98.0); Platelet Count 101 thou/uL (130-400); RBC Distribution Width 16.1 % (11.5-14.5); Red Blood Cell (RBC) Count 2.65 mill/uL (4.70-6.10); White Blood Cell (WBC) Count 2.6 thou/uL (4.8-10.8)
[2018-07-05 06:15] LABS: Anion Gap 17 mmol/L (10-20); BUN (Urea Nitrogen) 39 mg/dL (8.9-20.6); Calc. Creatinine Clearance 17 mL/min (70-130); Calcium 8.1 mg/dL (7.8-10.44); Carbon Dioxide 23 mmol/L (22-29); Chloride 96 mmol/L (98-107); Estimated GFR-MDRD 8; Glucose 108 mg/dL (70-105); Sodium 132 mmol/L (136-145)
[2018-07-05 07:18] LABS: Actual Bicarbonate (HCO3a) 27.8 mEq/L (22-28); Base Excess (BEa) 2.8 mEq/L (-2.0 to +3.0); CO2 Tension 45.2 mmHg (35.0-45.0); Calcium, Ionized 1.03 mmol/L (1.12-1.30); Carboxyhemoglobin (COHb) 1.8 gm% (0.0-3.0); Hemoglobin (Hb) 8.4 g/dL (14.0-18.0); O2 Tension (PaO2) 114.6 mmHg (80.0-100.0); Potassium - ABG Lab 3.88 mmol/L (3.70-5.30); pH, Arterial 7.41 (7.35-7.45)
[2018-07-05 07:26] LABS: Puncture Site RBA
[2018-07-05] MEDS: methylPREDNISolone Sod Succ 40 MG VIAL IVP SCH ×2 (09:13→20:11)
[2018-07-05] MEDS: Bacteriostatic Water 30 ML VIAL FS PRN (09:14)
--- NOTE | 2018-07-05 10:25 | PRG ---
DATE OF SERVICE: 07/05/2018 35 minutes critical care time. SUBJECTIVE: The patient remains intubated, on mechanical ventilation. His family is at the bedside. OBJECTIVE: VITAL SIGNS: Temperature is 98.3, pulse 71, blood pressure 116/83, and O2 saturation 100%. He is currently on a propofol drip. 24-hour intake 1272, output 3000 by dialysis. He has had no further bleeding episodes overnight. HEENT: He is intubated. NECK: No JVD. LUNGS: Coarse breath sounds. CARDIAC: S1 and S2. Regular. ABDOMEN: Soft, nontender, and nondistended. EXTREMITIES: No clubbing or cyanosis. He has dusky lower extremities. IMAGING STUDIES: His chest x-ray demonstrates bilateral pleural effusions, which are small. ET tube is in good position. He has extensive cardiomegaly. LABORATORY DATA: White blood cell count 2.6, hemoglobin 8, hematocrit 24.5, and platelet count 101. A pH 7.41, pCO2 45, pO2 114 on SIMV rate 15, tidal volume 470, PEEP 5, pressure support 10, FiO2 43%. Sodium 132, potassium 4, chloride 96, CO2 of 23, BUN 39, creatinine 7.4, and glucose 108. ASSESSMENT: 1. Status post hemorrhage from his previous tracheal site - this is better after administration of DDAVP and withholding anticoagulation during dialysis yesterday. 2. Acute respiratory failure, requiring mechanical ventilation. 3. Chronic renal failure, requiring dialysis. PLAN: I told the family I would withhold anticoagulation for another 24 hours. There is the issue of mechanical valve and so he cannot remain unanticoagulated for too long. I would not try to wean him off the ventilator until Saturday at the earliest. Job ID: [id number]
--- NOTE | 2018-07-05 10:34 | RAD ---
EXAM: CHEST ONE VIEW HISTORY: On ventilator. Follow-up evaluation. COMPARISON: 07/04/2018 FINDINGS: Endotracheal tube remains in place and unchanged in position. Post surgical changes related to median sternotomy and cardiac valve replacement are again noted. The cardiac silhouette is enlarged. The right lung apex is obscured by overlying jaw and mandible of the patient. Pleural-based density on th e right is again seen greatest at the right lung base and lateral aspect right mid and lower lung zones. Perihilar interstitial densities are again seen. There is atelectasis at the left lung base. C hronic changes right shoulder are again seen. IMPRESSION: Stable chest.
[2018-07-05] MEDS: Morphine 2 MG/ML SYRINGE SLOW IVP PRN (17:04)
[2018-07-05] MEDS: Sodium Chloride 0.9% 1,000 ML IV SCH (21:19)
[2018-07-06] MEDS: Clindamycin/D5W 600 MG in Premix Bag 1 BAG IVPB SCH ×2 (01:07→09:56)
[2018-07-06] MEDS: Propofol 1,000 MG/100 ML VIAL IV PRN ×5 (01:08→22:15)
[2018-07-06 05:07] LABS: #Lymphocytes 0.4 thou/uL (1.20-3.40); #Monocytes 0.1 thou/uL (0.11-0.59); #Neutrophils 1.8 thou/uL (1.40-6.50); %Eosinophils 0.1 % (0.0-10.0); %Monocytes 5.6 % (0.0-10.0); %Neutrophils 76.4 % (42.0-75.0); Mean Corpuscular HGB CONC 33.2 g/dL (32.0-36.0); Mean Corpuscular Hemoglobin 30.1 pg (27.0-31.0); Mean Corpuscular Volume 90.9 fL (78.0-98.0); Mean Platelet Volume 8.1 fL (7.4-10.4); Platelet Count 109 thou/uL (130-400); Red Blood Cell (RBC) Count 2.66 mill/uL (4.70-6.10); White Blood Cell (WBC) Count 2.3 thou/uL (4.8-10.8)
[2018-07-06 05:10] LABS: INR-International Normal Ratio 1.3; PTT 28.4 SEC (22.9-36.1); Prothrombin Time 16.1 SEC (12.0-14.7)
[2018-07-06 05:16] LABS: Anion Gap 14 mmol/L (10-20); BUN (Urea Nitrogen) 49 mg/dL (8.9-20.6); Calc. Creatinine Clearance 15 mL/min (70-130); Calcium 7.9 mg/dL (7.8-10.44); Carbon Dioxide 28 mmol/L (22-29); Chloride 94 mmol/L (98-107); Estimated GFR-MDRD 7; Glucose 99 mg/dL (70-105); Potassium 4.1 mmol/L (3.5-5.1); Sodium 132 mmol/L (136-145)
[2018-07-06] MEDS: Lorazepam 2 MG/ML VIAL SLOW IVP PRN ×2 (05:28→07:35)
[2018-07-06 06:48] LABS: Calcium, Ionized 1.01 mmol/L (1.12-1.30); Carboxyhemoglobin (COHb) 1.6 gm% (0.0-3.0); Hemoglobin (Hb) 8.4 g/dL (14.0-18.0); O2 Tension (PaO2) 88.8 mmHg (80.0-100.0); Potassium - ABG Lab 3.97 mmol/L (3.70-5.30); pH, Arterial 7.41 (7.35-7.45)
[2018-07-06 07:07] LABS: Puncture Site RBA
[2018-07-06] MEDS: Morphine 2 MG/ML SYRINGE SLOW IVP PRN (08:15)
[2018-07-06] MEDS: methylPREDNISolone Sod Succ 40 MG VIAL IVP SCH ×2 (08:30→21:40)
--- NOTE | 2018-07-06 10:41 | PRG ---
DATE OF SERVICE: 07/06/2018 This is 35 minutes critical care time. SUBJECTIVE: The patient remains intubated on mechanical ventilation. He had an episode of atrial fibrillation with rapid ventricular response this morning. When he does that, he develops wide-complex strips that look like V-tach, but I think it probably represents bundle-branch block. OBJECTIVE: VITAL SIGNS: On exam, his temperature is 98.5, pulse is 72, blood pressure is 93/59. He is not on any vasopressors. A 24-hour intake 919, output 458. HEENT: Unremarkable. NECK: No JVD. LUNGS: Fairly clear anteriorly. CARDIAC: S1, S2. Regular. ABDOMEN: Soft. EXTREMITIES: No edema. LABORATORY DATA: White blood cell count 2.3, hematocrit 24.2, and platelet count 109. INR 1.3, PTT 28.4. PH of 7.41, pCO2 of 44, pO2 of 88. Sodium 132, potassium 4.1, chloride 94, CO2 of 28, BUN 49, creatinine 8.3. ASSESSMENT: 1. Status post tracheal bleeding. 2. Chronic renal failure. 3. Acute respiratory failure requiring mechanical ventilation. 4. History of prosthetic heart valve. PLAN: 1. I will go ahead and restart heparin today for the heart valve. The goal would be to hopefully re-anticoagulate him without experiencing any bleeding. Likely with the heparin that it can be readily reversed if we have to. Start Coumadin tomorrow if the heparin drip works out. 2. The patient has made himself a full code. I am not sure if the mother of the patient agrees with that. The patient is a high risk for cardiopulmonary arrest. Unfortunately, he is not going to allow another trach and when he gets to the point where he is extubated, the whole issue of the severe CIARAN will be at the forefront. Job ID: [id number]
[2018-07-06 10:47] LABS: Platelet Count 102 thou/uL (130-400)
[2018-07-06] MEDS: Heparin 25,000 units/D5W 500 ML IVPB SCH (10:53)
[2018-07-06] MEDS ORDERED: Sodium Chloride 0.9% 1,000 ML IV SCH (11:06)
--- NOTE | 2018-07-06 11:30 | PRG ---
DATE OF SERVICE: 07/06/2018 SUBJECTIVE: The patient was seen and examined at bedside. Family at the bedside. The patient remains intubated and had PD last night. OBJECTIVE: GENERAL: This is a well-build male, intubated in the ICU. VITAL SIGNS: Temperature 98.5, pulse 72, respiratory rate 12, blood pressure 93/59. HEENT: Intubated. CARDIOVASCULAR: S1, S2 heard. RESPIRATORY: Clear. GASTROINTESTINAL: Abdomen is soft. MUSCULOSKELETAL: No tenderness. No edema. DERMATOLOGIC: Dry skin. NEUROLOGIC: Intubated. LABORATORY DATA: Potassium 4.1, BUN is 49, creatinine 6.7. ASSESSMENT AND PLAN: 1. End-stage renal disease. We will continue on peritoneal dialysis as tolerated. 2. Edema, controlled. 3. Anemia. 4. Acute hypoxic respiratory failure. 5. Pulmonary hemorrhage. 6. Okay to have IV fluids for a liter and we will monitor. 7. Continue PD as tolerated. Job ID: [id number]
[2018-07-06] MEDS: Heparin 10,000 UNITS/ 10 ML VIAL SLOW IVP SCH ×2 (11:31→17:56)
[2018-07-06] MEDS: Bacteriostatic Water 30 ML VIAL FS PRN (21:41)
[2018-07-07] MEDS: Propofol 1,000 MG/100 ML VIAL IV PRN (04:07)
[2018-07-07] MEDS: Heparin 25,000 units/D5W 500 ML IVPB SCH (04:20)
[2018-07-07 05:29] LABS: #Lymphocytes 0.5 thou/uL (1.20-3.40); #Monocytes 0.2 thou/uL (0.11-0.59); #Neutrophils 1.9 thou/uL (1.40-6.50); %Eosinophils 0.1 % (0.0-10.0); %Lymphocytes 19.8 % (21.0-51.0); %Monocytes 7.9 % (0.0-10.0); %Neutrophils 72.1 % (42.0-75.0); Hemoglobin 8.8 g/dL (14.0-18.0); Mean Corpuscular HGB CONC 32.6 g/dL (32.0-36.0); Mean Corpuscular Hemoglobin 29.8 pg (27.0-31.0); Mean Corpuscular Volume 91.4 fL (78.0-98.0); Mean Platelet Volume 8.8 fL (7.4-10.4); Platelet Count 101 thou/uL (130-400); RBC Distribution Width 15.9 % (11.5-14.5); Red Blood Cell (RBC) Count 2.94 mill/uL (4.70-6.10); White Blood Cell (WBC) Count 2.6 thou/uL (4.8-10.8)
--- NOTE | 2018-07-07 05:45 | PRG ---
DATE OF SERVICE: 07/05/2018 SUBJECTIVE: The patient is seen and examined at ICU, remains intubated. Mom at the bedside. OBJECTIVE: GENERAL: This is a well-built male, in no apparent distress. VITAL SIGNS: Temperature 98.3, pulse 70, respirations 16 HEENT: Intubated. CV: S1 and S2 heard. RESPIRATORY: Clear. GI: Abdomen is soft. MUSCULOSKELETAL: 1+ edema. DERMATOLOGIC: No skin rash. NEUROLOGIC: Intubated. LABORATORY DATA: Potassium 4.0, BUN is 39, and creatinine is 7.9. ASSESSMENT AND PLAN: 1. End-stage renal disease, on dialysis. Patient wants to try peritoneal dialysis and catheter has been placed for him. 2. Edema. 3. Anemia. 4. Acute hypoxic respiratory failure. 5. Hypertension. 6. . Plan this is to PD if tolerated. We will have to give training also. We will follow. Job ID: [id number]
[2018-07-07 05:55] LABS: Anion Gap 19 mmol/L (10-20); BUN (Urea Nitrogen) 53 mg/dL (8.9-20.6); Calc. Creatinine Clearance 14 mL/min (70-130); Calcium 7.7 mg/dL (7.8-10.44); Carbon Dioxide 21 mmol/L (22-29); Chloride 95 mmol/L (98-107); Estimated GFR-MDRD 6; Glucose 150 mg/dL (70-105); Potassium 3.7 mmol/L (3.5-5.1); Sodium 131 mmol/L (136-145)
[2018-07-07 06:55] LABS: Actual Bicarbonate (HCO3a) 23.7 mEq/L (22-28); Base Excess (BEa) -1.4 mEq/L (-2.0 to +3.0); CO2 Tension 41.6 mmHg (35.0-45.0); Calcium, Ionized 1.03 mmol/L (1.12-1.30); Hemoglobin (Hb) 9.9 g/dL (14.0-18.0); O2 Tension (PaO2) 106.9 mmHg (80.0-100.0); pH, Arterial 7.37 (7.35-7.45)
[2018-07-07 06:56] LABS: Puncture Site RB
[2018-07-07] MEDS: methylPREDNISolone Sod Succ 40 MG VIAL IVP SCH ×2 (09:45→21:33)
--- NOTE | 2018-07-07 10:01 | PRG ---
DATE OF SERVICE: 07/07/2018 SERVICE: Pulmonary Medicine. INTERVAL HISTORY: The patient is doing fine from a respiratory standpoint. There has not been any significant bleeding. He is wide awake on mechanical ventilation. He is in no apparent distress. He has no complaints. There are no significant overnight events. OBJECTIVE: VITAL SIGNS: Afebrile. Pulse 65, blood pressure 83/46, respirations 15, and saturation 100% on 31% FiO2 and a PEEP of 5. GENERAL: The patient is awake and alert, in no apparent distress. LUNGS: Decent air entry. There is some rhonchi and crackles present. No prolonged expiratory phase. HEART: Normal rate and regular. ABDOMEN: Soft, nontender, and nondistended. Bowel sounds are positive. MUSCULOSKELETAL: No cyanosis or clubbing. No pitting in the bilateral lower extremities. NEUROLOGIC: Grossly nonfocal. LABORATORY DATA: WBC 2.6, hemoglobin 8.8, and platelets 101,000. Creatinine 8.85, glucose 150, calcium 7.7. Basic metabolic profile is otherwise stable/ unremarkable. Peritoneal fluid has 12% neutrophils and only 266 white blood cells. Body fluid culture is unremarkable. ASSESSMENT: 1. Acute hypoxic respiratory failure, improving. 2. Massive hemoptysis, resolved. 3. History of tracheostomy x2. 4. End-stage renal disease. 5. Mechanical aortic valve, requiring lifelong anticoagulation. 6. [id number] myocardial infarction. 7. Atrial fibrillation with rapid ventricular response. DISCUSSION AND PLAN: The patient is doing okay from a bleeding standpoint. We are going to put him on a spontaneous breathing trial after we hold sedation. If he meets criteria, extubation will be considered. Since he has been tolerating the heparin without difficulty, we will get him starting back on his Coumadin. CRITICAL CARE TIME: 30 minutes. Job ID: [id number] MTDD
--- NOTE | 2018-07-07 11:47 | OP ---
DATE OF PROCEDURE: 07/04/2018 PROCEDURE PERFORMED: Fiberoptic bronchoscopy. PREOPERATIVE DIAGNOSIS: Massive hemoptysis. POSTOPERATIVE DIAGNOSIS: Massive hemoptysis. ANESTHESIA: None. DESCRIPTION OF PROCEDURE: This procedure was done on an emergent basis. The patient is having trouble ventilating due to hemoptysis. Apparently, he has some type of tracheal bleed. Respiratory therapist extracted a big clot prior to my performing bronchoscopy. A 2.2 Ambu bronchoscope was placed through an adapter into the patient's endotracheal tube. I did not see any clot present in the endotracheal tube, trachea, left mainstem bronchus, right mainstem bronchus through the various airways bilaterally. The procedure was tolerated well. Job ID: [id number]
[2018-07-07 12:08] VITALS: BMI 27.2
--- NOTE | 2018-07-07 12:26 | PRG ---
DATE OF SERVICE: 07/07/2018 SUBJECTIVE: A 48-year-old gentleman being seen for end-stage renal disease. The patient denies any nausea, vomiting, or chest pain. OBJECTIVE: CONSTITUTIONAL: The patient is awake and alert. VITAL SIGNS: Afebrile. Pulse 85, breathing 16, blood pressure 92/53. GENERAL APPEARANCE AND MENTAL STATUS: Fair. HEAD/NECK: Normocephalic. Atraumatic. EYES: EOMI. No deformity. EARS: Clear. No ulcers. NOSE: Intact. No lesions. MOUTH: Clear. No discharge. THROAT: Clear. No exudate. LUNGS: Clear. No crackles. CARDIAC: S1, S2. No rub. ABDOMEN: Benign. Bowel sounds positive. GENITALIA/RECTUM: Green absent. BACK/EXTREMITIES: Edema 0+. NEUROLOGICAL: Alert and motor intact. SKIN: LYMPHATICS: LABS: Reviewed. ASSESSMENT: 1. Stage 6 chronic kidney, plan peritoneal dialysis. 2. Hypertension, stable. 3. Anemia, stable. 4. Medication based on GFR appropriate. Job ID: [id number]
--- NOTE | 2018-07-07 20:38 | CON ---
DATE OF CONSULTATION: 07/07/2018 INDICATION FOR CONSULTATION: A 48-year-old patient who has an extensive past medical history which includes history of arrhythmias, a history of aortic valve replacement x2, history of renal failure, on hemodialysis, and now switched to peritoneal dialysis, with history of respiratory failure, history of sleep apnea, history of hyperlipidemia, history of atrial fibrillation in the past. He had recently been in the hospital and eventually had a tracheostomy performed. He was at the long-term care facility and had improved. He was sent over to the rehab center and apparently started having hemoptysis for several days prior to his admission. He was admitted and had copious amounts of bleeding. Eventually this was stopped. The patient was intubated for a while, but now was extubated while I am seeing him. During the interim of the weekend, apparently, he had some arrhythmias, felt to be some atrial fibrillation. I do not see any significant atrial fibrillation but he did have some what appeared to be idiopathic ventricular rhythm, but what was thought to be atrial fibrillation, I did not see that and did not see the rhythm strips to document that. He has been placed back on heparin and hopefully not have any further tracheal bleeding. At this time, he is comfortable. He denies any cardiac complaints. He has a normal sinus rhythm with a heart rate in the 70s at this time. PAST MEDICAL HISTORY: Positive for aortic valve replacement x2. He presently has a mechanical valve. He did have endocarditis in the past, history of end-stage renal disease, COPD, restless legs syndrome, hypertension, hypothyroidism. He has chronic anemia. He has a history of respiratory insufficiency. He has a history of a mandibular fracture due to traumatic injury. MEDICATIONS: Include 1. Coumadin. 2. Levaquin. 3. Ipratropium. 4. Coreg. 5. Amiodarone. 6. Xanax. ALLERGIES: ALLERGIC TO PENICILLIN. REVIEW OF SYSTEMS: HEENT: He denies any new HEENT complaints. PULMONARY: No pulmonary complaints except for the bleeding. GI/: No GI or complaints. MUSCULOSKELETAL: No significant new complaints. He does have lower extremity claudication at times, has a decreased perfusion. Has chronic venous insufficiency. NEUROLOGIC: He has difficulty ambulating. His neck is in a brace due to problems with the vertebra. He was trying to undergo surgery, but most likely will not be a candidate for this. He wears a neck brace at all times. PHYSICAL EXAMINATION: GENERAL: Reveals a middle-aged gentleman. VITAL SIGNS: Blood pressure 95/62, heart rate is 72 and shows a sinus rhythm, O2 saturation 100%, respiratory rate is 22. HEENT: Shows the head to be normocephalic and atraumatic. He has a neck brace on. I am unable to palpate or auscultate the carotids. CHEST: Actually was clear to auscultation. Did not hear any rales, rhonchi, or wheezing at this time. He has few in the upper areas, but no gross wheezing was noted. A few scattered rhonchi. CARDIOVASCULAR: Reveals a regular rate and rhythm. He has an audible aortic valve clicking due to the mechanical valve. He has a systolic murmur at the apex. ABDOMEN: Soft and nontender. Positive bowel sounds are present. A dialysis catheter is in place. EXTREMITIES: No clubbing or cyanosis. He does have some chronic skin changes and discoloration noted. He had no significant edema today. NEUROLOGIC: The patient is alert and oriented. He is able to converse and then tell me his history. SKIN: Warm and dry at this time. IMPRESSION: 1. History of atrial arrhythmias, which appears to be stable at this time. He did also has some ventricular rhythm, what appeared to be an idioventricular rhythm, escape rhythm perhaps, but a short episode of idioventricular rhythm. He apparently was asymptomatic. He appears to be stable at this time with a sinus rhythm. He does have an IVCD and a widened complex at time which could possibly be due to electrolyte problems. The potassium appears to be stable as well as his other electrolytes except for the renal function which shows significant elevation in the creatinine. His sodium was 131 and potassium is 3.7 today. At this time, would agree with IV heparin, can transition him over to Coumadin, when there is no indication, he is going to have any further bleeding from the tracheostomy site. 2. History of aortic valve replacement. This appears to be stable at this time, but will certainly need to have undergone anticoagulation. If he is off anticoagulation for a few days or even weeks or two most likely with this particular valve would not be an issue, but certainly would want him to be on anticoagulation if at all possible. 3. End-stage renal disease. He will continue his peritoneal dialysis at home. 4. History of chronic anemia, most likely associated with multiple problems due to his anemia of chronic disease and also his recent episode of bleeding. 5. History of diabetes. This will be dealt with by the primary care service. 6. 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 He will continue to wear the neck brace. 7. Hemoptysis. This appears to have resolved at this time and hopefully remains stable. His last echocardiogram was performed in June of 2016, approximately two years ago which showed a normal left ventricular systolic function and normal functioning aortic valve. At this time, his overall cardiac status otherwise appears to be relatively stable. We will continue to monitor the patient with you. Job ID: [id number]
[2018-07-08] MEDS: Heparin 25,000 units/D5W 500 ML IVPB SCH (04:27)
[2018-07-08 07:51] LABS: #Lymphocytes 0.4 thou/uL (1.20-3.40); #Monocytes 0.3 thou/uL (0.11-0.59); #Neutrophils 2.8 thou/uL (1.40-6.50); %Basophils 1.3 % (0.0-1.0); %Eosinophils 0.8 % (0.0-10.0); %Lymphocytes 11.6 % (21.0-51.0); %Monocytes 9.1 % (0.0-10.0); %Neutrophils 77.2 % (42.0-75.0); Hemoglobin 9.4 g/dL (14.0-18.0); Mean Corpuscular Hemoglobin 29.9 pg (27.0-31.0); Mean Corpuscular Volume 90.6 fL (78.0-98.0); Mean Platelet Volume 9.1 fL (7.4-10.4); Platelet Count 97 thou/uL (130-400); RBC Distribution Width 15.9 % (11.5-14.5); Red Blood Cell (RBC) Count 3.15 mill/uL (4.70-6.10); White Blood Cell (WBC) Count 3.7 thou/uL (4.8-10.8)
[2018-07-08 07:59] LABS: Anion Gap 21 mmol/L (10-20); BUN (Urea Nitrogen) 53 mg/dL (8.9-20.6); Calc. Creatinine Clearance 14 mL/min (70-130); Calcium 7.9 mg/dL (7.8-10.44); Carbon Dioxide 22 mmol/L (22-29); Chloride 94 mmol/L (98-107); Estimated GFR-MDRD 6; Glucose 95 mg/dL (70-105); Potassium 3.5 mmol/L (3.5-5.1); Sodium 133 mmol/L (136-145)
[2018-07-08] MEDS: methylPREDNISolone Sod Succ 40 MG VIAL IVP SCH (08:30)
[2018-07-08] MEDS: Heparin 10,000 UNITS/ 10 ML VIAL SLOW IVP SCH (08:39)
[2018-07-08] MEDS: Bacteriostatic Water 30 ML VIAL FS PRN (08:44)
--- NOTE | 2018-07-08 12:52 | PRG ---
DATE OF SERVICE: 07/08/2018 SUBJECTIVE: This is a 48-year-old gentleman being seen for end-stage renal disease. The patient denies any nausea, vomiting, or chest pain. OBJECTIVE: CONSTITUTIONAL: The patient is awake and alert. VITAL SIGNS: Afebrile. Pulse 82, breathing 16, blood pressure 105/79. GENERAL APPEARANCE AND MENTAL STATUS: Fair. HEAD/NECK: Normocephalic. Atraumatic. EYES: EOMI. No deformity. EARS: Clear. No ulcers. NOSE: Intact. No lesions. MOUTH: Clear. No discharge. THROAT: Clear. No exudate. LUNGS: Clear. No crackles. CARDIAC: S1, S2. No rub. ABDOMEN: Benign. Bowel sounds positive. GENITALIA/RECTUM: Green absent. BACK/EXTREMITIES: Edema 0+. NEUROLOGICAL: Alert and motor intact. SKIN: LYMPHATICS: ASSESSMENT: 1. Stage chronic kidney disease, stable. 2. Hypertension, stable. 3. Anemia, stable. 4. Medication based on GFR appropriate. Job ID: [id number]
[2018-07-08] MEDS ORDERED: Warfarin Sodium 5 MG TAB PO SCH ×2 (15:45→17:00)
--- NOTE | 2018-07-08 15:54 | PRG ---
DATE OF SERVICE: 07/08/2018 SERVICE: Pulmonary Medicine. INTERVAL HISTORY: The patient is doing fine from respiratory standpoint. He is breathing comfortably. There were no events overnight. He had not had any additional bleeding. He denies any current chest pain, fevers, or chills. He used his home BiPAP without difficulties. PHYSICAL EXAMINATION: VITAL SIGNS: Afebrile. Pulse 78, blood pressure is 92/65, respirations 17, saturation 95% on room air. GENERAL: The patient is awake and alert, in no apparent distress. LUNGS: Excellent air entry. There is no prolonged expiratory phase or wheezing present. HEART: Normal rate and regular. ABDOMEN: Soft, nontender, nondistended. Bowel sounds are positive. MUSCULOSKELETAL: No cyanosis or clubbing. No pitting in the bilateral lower extremities. NEUROLOGIC: Grossly nonfocal. LABORATORY DATA: WBC 3.7, hemoglobin 9.4, platelets 97,000. Creatinine 8.92, BUN 53. Basic metabolic profile is otherwise stable or unremarkable. Body fluid culture is negative. ASSESSMENT: 1. Acute hypoxic respiratory failure, resolved. 2. Massive hemoptysis, resolved. 3. History of tracheostomy x2. 4. End-stage renal disease. 5. Mechanical aortic valve, requiring lifelong anticoagulation. 6. [id number] myocardial infarction. 7. Atrial fibrillation with rapid ventricular response. DISCUSSION AND PLAN: The patient is doing great from a breathing standpoint. I will put him back on Coumadin. From my perspective, he is stable for transition to the Telemetry unit. I will put him back on his Coumadin and interrupt the heparin drip. Pulmonary/Critical Care will continue to follow along. Job ID: [id number] [facility]
[2018-07-08] MEDS: Cinacalcet HCl 30 MG TAB PO SCH (17:05)
[2018-07-08] MEDS: Amiodarone 200 MG TAB PO SCH (20:02)
[2018-07-09 06:25] LABS: INR-International Normal Ratio 1.1; PTT 27.2 SEC (22.9-36.1); Prothrombin Time 14.2 SEC (12.0-14.7)
[2018-07-09 08:03] VITALS: BP 102/68; TEMP 97.9
[2018-07-09] MEDS: Amiodarone 200 MG TAB PO SCH (08:03)
[2018-07-09] MEDS: Cinacalcet HCl 30 MG TAB PO SCH (08:03)
--- NOTE | 2018-07-09 12:08 | PRG ---
DATE OF SERVICE: 07/09/2018 SERVICE: Pulmonary Medicine. INTERVAL HISTORY: The patient is doing outstanding from respiratory standpoint. He denies any chest pain, fevers, or chills. He is actually on room air and his saturations are fantastic. There has been no interval change to his condition otherwise. PHYSICAL EXAMINATION: VITAL SIGNS: Afebrile, pulse 78, blood pressure 102/68, respirations 20, and saturation 95% on room air. GENERAL: The patient is awake and alert, in no apparent distress. LUNGS: Excellent air entry today. Minimal dependent crackles are present. No prolonged expiratory phase or wheezing is appreciated. HEART: Normal rate and regular. ABDOMEN: Soft, nontender, nondistended. Bowel sounds are positive. MUSCULOSKELETAL: No cyanosis or clubbing. There is no pitting in the bilateral lower extremities. NEUROLOGIC: Grossly nonfocal. ASSESSMENT: 1. Massive hemoptysis, resolved. 2. Acute hypoxic respiratory failure, resolved. 3. Horrendous obstructive sleep apnea, status post tracheostomy x2, status post decannulation x2. 4. End-stage renal disease. 5. Mechanical aortic valve. 6. Atrial fibrillation with rapid ventricular response and aberrancy. DISCUSSION AND PLAN: The patient is doing outstanding from respiratory standpoint. He is currently stable for transition out of the hospital. He will need to be back on his auto titrating BiPAP. If he fails this, he is going to consider whether or not to transition over to comfort care only, or brave a repeat tracheostomy. At this moment, he is leaning towards the repeat tracheostomy, wants to give me a definitive answer in the outpatient setting. I will have him follow up with me in about 2 months. We will get a download of the CPAP unit at that time. Job ID: [id number]
--- NOTE | 2018-07-09 13:09 | PRG ---
DATE OF SERVICE: 07/09/2018 SUBJECTIVE: A 48-year-old gentleman being seen for end-stage renal disease. The patient denied nausea, vomiting, or chest pain. OBJECTIVE: CONSTITUTIONAL: The patient is awake and alert. VITAL SIGNS: Afebrile. Pulse 95, breathing 16, blood pressure 102/68. GENERAL APPEARANCE AND MENTAL STATUS: Fair. HEAD/NECK: Normocephalic. Atraumatic. EYES: EOMI. No deformity. EARS: Clear. No ulcers. NOSE: Intact. No lesions. MOUTH: Clear. No discharge. THROAT: Clear. No exudate. LUNGS: Clear. No crackles. CARDIAC: S1, S2. No rub. ABDOMEN: Benign. Bowel sounds positive. GENITALIA/RECTUM: Green absent. BACK/EXTREMITIES: Edema 0+. NEUROLOGICAL: Alert and motor intact. SKIN: LYMPHATICS: LABORATORY DATA: Reviewed. ASSESSMENT AND PLAN: 1. Stage chronic kidney disease. Continue hemodialysis or peritoneal dialysis. 2. Hypertension, stable. 3. Anemia, stable. 4. Medications based on GFR appropriate. Job ID: [id number]
[2018-07-09] MEDS ORDERED: Warfarin Sodium 3 MG TAB PO SCH (17:00)
== END 2018-07-09 11:31 | disposition home or self-care (01) | DRG 163 ==
LOC: ERS 13:39 → IMCU/EMU 15:10 → CCU 17:37 → T4-A 07-08 17:42
PROVIDERS: ADMIT Internal Medicine; ATTEND Internal Medicine
PROC: 0W3Q8ZZ Control Bleeding in Respiratory Tract, Via Natural or Artificial Opening Endoscopic (ICD-10-PCS; principal; 2018-07-02)
PROC: 30233L1 Transfusion of Nonautologous Fresh Plasma into Peripheral Vein, Percutaneous Approach (ICD-10-PCS; 2018-07-02)
PROC: 0BH17EZ Insertion of Endotracheal Airway into Trachea, Via Natural or Artificial Opening (ICD-10-PCS; 2018-07-02)
PROC: 5A1955Z Respiratory Ventilation, Greater than 96 Consecutive Hours (ICD-10-PCS; 2018-07-02)
PROC: 0BJ08ZZ Inspection of Tracheobronchial Tree, Via Natural or Artificial Opening Endoscopic (ICD-10-PCS; 2018-07-04)
PROC: 5A1D70Z Performance of Urinary Filtration, Intermittent, Less than 6 Hours Per Day (ICD-10-PCS; 2018-07-04)
PROC: 3E1M39Z Irrigation of Peritoneal Cavity using Dialysate, Percutaneous Approach (ICD-10-PCS; 2018-07-05)
DX: J95.01 Hemorrhage from tracheostomy stoma (principal); J96.00 Acute respiratory failure, unspecified whether with hypoxia or hypercapnia; N18.6 End stage renal disease; I21.4 Non-ST elevation (NSTEMI) myocardial infarction; R04.2 Hemoptysis; I12.0 Hypertensive chronic kidney disease with stage 5 chronic kidney disease or end stage renal disease; D68.32 Hemorrhagic disorder due to extrinsic circulating anticoagulants; I47.2 Ventricular tachycardia; J95.09 Other tracheostomy complication; T45.515A Adverse effect of anticoagulants, initial encounter; Z99.2 Dependence on renal dialysis; G47.33 Obstructive sleep apnea (adult) (pediatric); I48.91 Unspecified atrial fibrillation; D63.1 Anemia in chronic kidney disease; E03.9 Hypothyroidism, unspecified; G25.81 Restless legs syndrome; M43.9 Deforming dorsopathy, unspecified; Z79.01 Long term (current) use of anticoagulants; Z87.01 Personal history of pneumonia (recurrent); Z95.2 Presence of prosthetic heart valve; Z87.81 Personal history of (healed) traumatic fracture; Z88.0 Allergy status to penicillin; Z88.2 Allergy status to sulfonamides; Z88.8 Allergy status to other drugs, medicaments and biological substances; Y83.3 Surgical operation with formation of external stoma as the cause of abnormal reaction of the patient, or of later complication, without mention of misadventure at the time of the procedure
CPT/HCPCS: 36415; 36430; 71045; 71275; 80048; 80053; 82805; 83605; 84484; 85025; 85060; 85610; 85730; 86850; 86870; 86900; 86901; 86922; 87070; 87205; 89051; 90935; 90945; 93005; 93010; 94002; 94003; 94640; 96374; G0257; J0171; J1644; J2001; J2060; J2250; J2270; J2405; J2597; J2704; J2920; J3010; J3430; J3490; J7050; J7620; P9059; Q9966